=== PATIENT | female | born 1950 | race Caucasian/White ===

== ENCOUNTER → 2017-04-29 | Outpatient (CLI) | payer OTHER ==
[~2017-04-29] MED LIST: ACET325T96 PO; ALBUAER2 INH; ALL180 PO; ATOR-26 PO; CLB/200 PO; FLUT1INH INH; FURO-85 PO; ISOS60TA25 PO; LORA-741 PO; LSN20 PO; METF500T5 PO; METO100T44 PO; MONT1TAB5 PO; MULT-671 PO; NTRGSL/4 UT; OXYB10TA PO; PARO1TAB27 PO; POLY335019 PO; WARF4TAB PO; WARF6TAB PO
--- NOTE | 2017-04-29 13:10 | DIAGNOSTIC IMAGING REPORT ---
SI JOINTS 3 OR MORE VIEWS CLINICAL HISTORY: 67 years-old Female presenting with LUMBAGO,SACROLIITIS,LEG LENGTH DISCREPANCY. TECHNIQUE: Frontal and bilateral oblique views of the sacroiliac joints were obtained. COMPARISON: None. FINDINGS: Partial visualization of posterior lumbar fusion hardware to the level of S1. Sacroiliac joints with degenerative change, right greater than left. No evidence of erosions or osseous fusion. Oblique visualization of the left sacral leg joint is limited. Arcuate lines grossly intact. IMPRESSION: 1. Posterior lumbar fusion hardware. 2. Degenerative changes of the sacroiliac joints, right greater than left. Electronically signed by: Vimal Buckley M.D. 04/29/2017 1:09 PM Dictated Date/Time: 04/29/2017 1:08 PM
--- NOTE | 2017-04-29 13:13 | DIAGNOSTIC IMAGING REPORT ---
LEG LENGTH STUDY (WHOLE LEG) CLINICAL HISTORY: 67 years-old Female presenting with LEG LENGTH DISCREPANCY, ongoing back pain for years. TECHNIQUE: Frontal view of the bilateral lower extremities in standing position was obtained. COMPARISON: None. FINDINGS: Evidence of bilateral total knee arthroplasty. Degenerative changes of the right hip joint suspected with loss of joint space superiorly. Grossly normal appearance of the left hip joint. Right lower limb: Femur length: 47.4 cm Tibia length: 40.7 cm Total length: 88.1 cm Left lower limb: Femur length: 49.7 cm Tibia length: 39.6 cm Total length: 89.3 cm IMPRESSION: 1. 1.2 cm of leg length discrepancy, left longer than right. 2. Degenerative changes of the right hip joint suspected with joint space loss superiorly. 3. Postsurgical changes of bilateral total knee arthroplasty Electronically signed by: Vimal Buckley M.D. 04/29/2017 1:12 PM Dictated Date/Time: 04/29/2017 1:09 PM
== END | disposition home or self-care (01) ==
LOC: C.RADBC 11:50
PROVIDERS: ATTEND Physician Assistant
DX: M21.751 Unequal limb length (acquired), right femur (principal); M54.5 Low back pain; M46.1 Sacroiliitis, not elsewhere classified; Z96.653 Presence of artificial knee joint, bilateral; Z98.1 Arthrodesis status

== ENCOUNTER 2018-11-01 12:51 | Inpatient (IN) ==
[2018-11-01] MEDS ORDERED: PIPERACILL/TAZOBAC CONSULT ACTIVE PRN ×2 (13:44→17:40)
[2018-11-01] MEDS ORDERED: PIPERACILLIN/TAZOBACTAM 4.5 GM/120 ML BAG IV ONE (13:44)
[2018-11-01 13:53] LABS: Basophils # (auto) 0.02 K/uL (0-0.2); Basophils % (auto) 0.2 %; Eosinophils # (auto) 0.01 K/uL (0-0.5); Eosinophils % (auto) 0.1 %; Hematocrit (blood only) 35.5 % (37-47); Hemoglobin 11.7 g/dL (12.0-16.0); Immature Granulocytes # (auto) 0.06 K/uL (0.00-0.02); Immature Granulocytes % (auto) 0.6 %; Lymphocytes # (auto) 0.65 K/uL (1.2-3.4); Lymphocytes % (auto) 6.3 %; Mean Corpuscular Hemoglobin 32.9 pg (25-34); Mean Corpuscular Volume 99.7 fL (80-100); Mean Platelet Volume 11.3 fL (7.4-10.4); Monocytes # (auto) 0.52 K/uL (0.11-0.59); Neutrophils # (auto) 9.11 K/uL (1.4-6.5); Neutrophils % (auto) 87.8 %; Platelet Count 178 K/uL (130-400); RDW Coefficient of Variation 15.2 % (11.5-14.5); RDW Standard Deviation 55.7 fL (36.4-46.3); Red Blood Count 3.56 M/uL (4.2-5.4); White Blood Count 10.37 K/uL (4.8-10.8)
[2018-11-01 14:03] LABS: Albumin Level 1.7 gm/dl (3.4-5.0); BUN Creatinine Ratio 19.4 (10-20); Calcium 7.6 mg/dl (8.5-10.1); Creatinine Clr Calc Pharmacy 61.5 ml/min; Est GFR (African American) 59.7; Est GFR (Non-African American) 51.5; INR 1.7 (0.9-1.1); Partial Thromboplastin Ratio 1.1; Partial Thromboplastin Time 29.3 Seconds (21.0-31.0); Potassium 3.7 mmol/L (3.5-5.1); Prothrombin Time 17.2 Seconds (9.0-12.0)
[2018-11-01 14:08] LABS: Albumin Globulin Ratio 0.5 (0.9-2); Bilirubin,Total 0.8 mg/dl (0.2-1); Globulin 3.7 gm/dl (2.5-4.0); Total Protein 5.4 gm/dl (6.4-8.2); Troponin I 0.02 ng/ml (0-0.045)
[2018-11-01 14:52] LABS: Appearance Urine Clear (Clear); Bacteria Urine Automated Negative (Negative); Bilirubin Urine Negative (Negative); Blood Urine Negative (Negative); Color Urine Orange; Glucose Urine UA Negative (Negative); Ketones Urine Trace (Negative); Leukocyte Esterase Urine Trace (Negative); Nitrite Urine Positive (Negative); Protein Urine Negative (Negative); Specific Gravity Urine 1.023 (1.000-1.030); Urobilinogen Urine Negative (Negative)
[2018-11-01] MEDS ORDERED: SODIUM CHLORIDE 0.9% 500 ML IV ONE (15:04)
--- NOTE | 2018-11-01 15:09 | CT Scan Report ---
HEAD CT NONCONTRAST CT DOSE: 537.48 mGy.cm HISTORY: weakness TECHNIQUE: Multiaxial CT images of the head were performed without the use of intravenous contrast. A utomated exposure control was utilized for this study. A dose lowering technique was utilized adheri ng to the principles of ALARA. Comparison: None. Findings: The paranasal sinuses and mastoid air cells are clear. The calvarium and skull base are int act. There is no mass, hematoma, midline shift, acute infarct. White matter hypodensity is nonspecifi c but suggestive of microvascular ischemic change. The ventricles and sulci demonstrate mild age-rela jazmin involutional changes. Impression: No acute intracranial abnormality. Atrophy and microvascular ischemic changes. Electronically signed by: Omar Willis M.D. 11/01/2018 3:08 PM
[2018-11-01] MEDS ORDERED: SODIUM CHLORIDE 0.9% 1000ML 1,000 ML IV SCH (15:15)
--- NOTE | 2018-11-01 15:15 | XRay Report ---
XR chest 1V portable CLINICAL HISTORY: fever COMPARISON STUDY: Chest radiograph March 04, 2018. FINDINGS: Lung volumes are normal. Lungs are clear. There is no pneumothorax or pleural effusion. Car diac size is normal. Mediastinal contours are normal. There is no evidence for pulmonary edema. IMPRESSION: No acute cardiopulmonary findings. Electronically signed by: Alan Gauthier M.D. 11/01/2018 3:14 PM
[2018-11-01] MEDS ORDERED: ACETAMINOPHEN 500 MG TAB PO STA (15:17)
--- NOTE | 2018-11-01 16:07 | Emergency Department Note ---
Entered by Korina Sharma acting as a scribe for History of Present Illness General Chief complaint: Illness Source: patient History of Present Illness Provider complaint: Illness Onset (ago): day(s) 1 Location: back and abdomen Pain Consistency: + constant Maximum Pain Intensity: 5 Quality: + constant Associated symptoms: + other (Positive: abdominal pain, back pain, lower extremity weakness, diarrhea, yellow stool) The patient is a 68 year old female who presents to the ED with complaints of constant illness that started yesterday. The patient reports she could not get out of the chair or walk yesterday. She notes she has severe abdominal and back pain. The patient states she has been having diarrhea for 3 months. She notes her stool looks yellow. The patient reports she goes to the wound center every Thursday. Home Medications Home Medications Medication Instructions Recorded Confirmed Type albuterol sulfate 1 puff INHALATION DAILY PRN 03/04/18 11/01/18 History fexofenadine-pseudoephedrine 1 tab PO DAILY PRN 03/04/18 11/01/18 History [Cassy-D 12 Hour] fluticasone furoate-vilanterol 1 inh INHALATION HS 03/04/18 11/01/18 History [Breo Ellipta] fluticasone propion-salmeterol 1 inh INHALATION Q12H 03/04/18 11/01/18 History [Advair Diskus] fluticasone propionate [Flonase 1 spray INTRANASAL QAM 03/04/18 11/01/18 History Allergy Relief] lorazepam 0.5 mg PO BID 03/04/18 11/01/18 History metoprolol tartrate [Lopressor] 50 mg PO BID 03/04/18 11/01/18 History montelukast [Singulair] 10 mg PO HS 03/04/18 11/01/18 History nitroglycerin 0.4 mg SUBLINGUAL DIRECTED PRN 03/04/18 11/01/18 History omeprazole magnesium [Prilosec OTC] 20 mg PO QAM 03/04/18 11/01/18 History paroxetine HCl [Paxil] 30 mg PO QAM 03/04/18 11/01/18 History polyethylene glycol 3350 [Miralax] 1 dose PO DAILY PRN 03/04/18 11/01/18 History bismuth subsalicylate [Kaopectate 524 mg PO QID PRN 11/01/18 11/01/18 History (bismuth subsalicy)] buspirone 10 mg PO TID PRN 11/01/18 11/01/18 History cyanocobalamin (vitamin B-12) 1,000 mcg SUBCUT 2XWK 11/01/18 11/01/18 History cyanocobalamin (vitamin B-12) 2,500 mcg SUBLINGUAL QAM 11/01/18 11/01/18 History [Vitamin B-12] torsemide 20 - 40 mg PO QAM 11/01/18 11/01/18 History warfarin 0.5 mg PO HS 11/01/18 11/01/18 History Allergies Allergy/AdvReac Type Severity Reaction Status Date / Time gabapentin AdvReac Intermediate LOSS OF Verified 11/01/18 13:25 FEELING IN LOWER EXTREMITIES adhesive tape AdvReac Mild Rash Verified 11/01/18 13:25 shellfish derived AdvReac Mild GI SYMPTOMS Verified 11/01/18 13:25 Prep Swab Allergy Unknown "Get sick Uncoded 11/01/18 13:25 and throw up" Ham AdvReac Mild GI SYMPTOMS Uncoded 11/01/18 13:25 Past Med/Surg History Medical History Encounter for pre-operative examination Acquired hallux valgus of right foot (Acute) Acquired hammer toe of right foot (Acute) Bilateral swelling of feet (Acute) Callus (Acute) Diabetes mellitus with diabetic polyneuropathy (Acute) Hallux valgus (acquired), left foot (Acute) Hammertoe of left foot (Acute) Neuropathic ulcer of left heel (Acute) Anxiety CAD (coronary artery disease) COPD (chronic obstructive pulmonary disease) Cancer OVARIAN CANCER (DOLORES/NO RADIATION/NO CHEMO) Chronic back pain Colitis Deep vein thrombosis left leg/filter placed Diabetes mellitus, type 2 Diabetic foot ulcer Diabetic peripheral neuropathy associated with type 2 diabetes mellitus Family history of diabetes mellitus FATHER GERD (gastroesophageal reflux disease) Gout Lacey filter in place History of DVT (deep vein thrombosis) History of PR (myocardial infarction) History of diabetic ulcer of foot Hyperlipidemia Hypertension Myocardial Infarction 2009 and 2010 Osteoarthritis Peripheral neuropathy BLE Thrombophlebitis Urinary leakage Surgical History Fusion of spine LUMBAR History of PTCA History of adenoidectomy History of cardiac cath no stents History of colonoscopy History of gastric bypass History of hysterectomy History of hysterectomy History of lumbar spinal fusion History of tonsillectomy History of total knee replacement RT/LEFT Family History Other Family history non-contributory Social History Preferred Language: Bahamian Communication Ability: Effective 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 and A total of 10 systems reviewed and were otherwise negative Physical Exam Vital Signs Vital Signs - 24 hr 11/01/18 15:34 Pulse Rate [Apical] 98 H Respiratory Rate 18 Blood Pressure [Right Arm] 116/79 Blood Pressure Mean [Right Arm] 91 Pulse Oximetry 97 Oxygen Delivery Method Room Air Vital signs reviewed. General: Chronically ill-appearing, elderly obese female, in no significant distress. HEENT: No scleral icterus, PERRLA, neck supple. Atraumatic. Pale conjunctiva. Dry mucous membranes. Cardiovascular: Regular rate and rhythm, no extra sounds. Pulmonary: Clear to auscultation bilaterally, normal work of breathing. Abdomen: Soft, nontender, nondistended, positive bowel sounds. Rectal: Guaiac positive. Light brown to white. Musculoskeletal: Atraumatic, no peripheral edema. Extremities: Significant lipidemia to bilateral lower extremities with secondary ulceration to right greater than left lower extremity. Mild venous stasis, skin change, serous drainage from the legs bilaterally. Neurologic: Patient awake alert and oriented x 3. Skin: Warm, dry, no rash Course 1329: The patient was evaluated in room C2B. A complete history and physical exam was performed. 1516: I discussed the patient's case with Dr. Herndon, [facility] Hospitalist. She will evaluate the patient for further management. Consultations Consultation #1: I discussed the patient's case with Dr. Herndon [facility] Hospitalist. She will evaluate the patient for further management. Time: 15:16 Administered Medications Acetaminophen (Tylenol) 650 mg PO Q4H PRN PRN Reason: Pain or Fever Stop: 12/01/18 17:39 Last Admin: 11/02/18 04:25 Dose: 650 mg Documented by: [id number] Buspirone HCl (Buspar) 10 mg PO TID PRN PRN Reason: Anxiety Stop: 12/01/18 17:39 Last Admin: 11/02/18 07:59 Dose: 10 mg Documented by: [id number] Fluticasone Propionate (Flonase) [facility] sprays [facility] Stop: 12/02/18 08:59 Last Admin: 11/02/18 08:00 Dose: 1 sprays Documented by: [id number] Heparin Sodium (Porcine) (Heparin Sodium (Porcine)) 5,000 units SQ Q8 ASHWINI Stop: 12/01/18 21:59 Last Admin: 11/02/18 14:08 Dose: 5,000 units Documented by: [id number] Cosigned by: [id number] Admin: 11/02/18 06:04 Dose: 5,000 units Documented by: [id number] Cosigned by: [id number] Admin: 11/01/18 21:32 Dose: 5,000 units Documented by: [id number] Cosigned by: [id number] Daptomycin 475 mg/ Syringe 9.5 mls @ 4.75 mls/min IV Q24H ASHWINI; Protocol Stop: 11/03/18 18:29 Last Admin: 11/01/18 18:34 Dose: 4.75 mls/min Documented by: [id number] Piperacillin Sod/Tazobactam (Sod 4.5 gm/ Dextrose) 120 mls @ 30 mls/hr IV Q8H ASHWINI; Protocol Stop: 11/03/18 19:59 Last Admin: 11/02/18 12:47 Dose: 30 mls/hr Documented by: [id number] Infusion: 11/02/18 08:30 Dose: 0 mls/hr Documented by: [id number] Admin: 11/02/18 04:25 Dose: 30 mls/hr Documented by: [id number] Infusion: 11/02/18 00:59 Dose: 0 mls/hr Documented by: [id number] Admin: 11/01/18 20:46 Dose: 30 mls/hr Documented by: [id number] Ioversol (Optiray 320 100ml) 94 ml IV ONCE PRN PRN Reason: Interaction Checking Stop: 11/05/18 17:49 Last Admin: 11/01/18 17:52 Dose: 94 ml Documented by: [id number] Lorazepam (Ativan) 0.5 mg PO BID ASHWINI Stop: 12/01/18 20:59 Last Admin: 11/02/18 08:02 Dose: 0.5 mg Documented by: [id number] Admin: 11/01/18 20:50 Dose: 0.5 mg Documented by: [id number] Metoprolol Tartrate (Lopressor) 50 mg PO BID ASHWINI Stop: 12/01/18 20:59 Last Admin: 11/02/18 07:58 Dose: Not Given Documented by: [id number] Admin: 11/01/18 20:50 Dose: 50 mg Documented by: [id number] Montelukast Sodium (Singulair) 10 mg PO HS [facility] Stop: 12/01/18 20:59 Last Admin: 11/01/18 20:50 Dose: 10 mg Documented by: [id number] Nystatin (Mycostatin) 1 appln EXT PRN PRN PRN Reason: AFFECTED AREA(S) Stop: 12/02/18 02:01 Last Admin: 11/02/18 07:58 Dose: 1 appln Documented by: [id number] Pantoprazole Sodium (Protonix) 40 mg PO QAM [facility] Stop: 12/02/18 08:59 Last Admin: 11/02/18 08:00 Dose: 40 mg Documented by: [id number] Paroxetine HCl (Paxil) 30 mg PO QAM [facility] Stop: 12/02/18 08:59 Last Admin: 11/02/18 07:59 Dose: 30 mg Documented by: [id number] Fluticasone/Salmeterol (Advair Diskus 250/50) 1 puffs INH Q12 ASHWINI Stop: 12/01/18 20:59 Last Admin: 11/02/18 07:58 Dose: 1 puffs Documented by: [id number] Admin: 11/01/18 20:46 Dose: 1 puffs Documented by: [id number] Discontinued Medications Acetaminophen (Tylenol) 1,000 mg PO NOW STA Stop: 11/01/18 15:18 Last Admin: 11/01/18 15:31 Dose: 1,000 mg Documented by: [id number] Piperacillin Sod/Tazobactam Sod (Zosyn) 4.5 gm in 120 mls @ 240 mls/hr IV NOW ONE Stop: 11/01/18 14:13 Last Infusion: 11/01/18 15:37 Dose: 0 mls/hr Documented by: [id number] Admin: 11/01/18 14:39 Dose: 240 mls/hr Documented by: [id number] Sodium Chloride (Nss) 500 mls @ 999 mls/hr IV .Q31M ONE Stop: 11/01/18 15:34 Last Infusion: 11/01/18 16:29 Dose: 0 mls/hr Documented by: [id number] Admin: 11/01/18 15:31 Dose: 999 mls/hr Documented by: [id number] Sodium Chloride (Nss 1000ml) 1,000 mls @ 200 mls/hr IV .Q5H ASHWINI Stop: 12/01/18 15:14 Last Infusion: 11/01/18 20:45 Dose: 0 mls/hr Documented by: [id number] Infusion: 11/01/18 18:39 Dose: 0 mls/hr Documented by: [id number] Admin: 11/01/18 15:32 Dose: 200 mls/hr Documented by: [id number] Potassium Chloride/Sodium Chloride (Normal Saline W/20 Meq Kcl) 20 meq in 1,000 mls @ 80 mls/hr IV .[id number] ASHWINI Stop: 12/01/18 18:29 Last Infusion: 11/02/18 08:55 Dose: 80 mls/hr Documented by: [id number] Infusion: 11/02/18 04:25 Dose: 0 mls/hr Documented by: [id number] Admin: 11/01/18 18:35 Dose: 80 mls/hr Documented by: [id number] Sodium Chloride (Nss 1000ml) 1,000 mls @ 999 mls/hr IV .Q1H1M ONE Stop: 11/01/18 19:14 Last Infusion: 11/01/18 20:29 Dose: 0 mls/hr Documented by: [id number] Admin: 11/01/18 18:29 Dose: 999 mls/hr Documented by: [id number] Medical Decision Making Differential Diagnosis Differential Diagnosis: Differential includes acute coronary syndrome, myocardial infarction, CVA, TIA, anemia, infection, pneumonia, UTI, pyelonephritis, poor nutrition, dehydration, electrolyte disturbance,hypoglycemia. Medical Records Attestation: I reviewed the patient's medical records. Home Medications Current Medication List: was personally reviewed by me Laboratory Data Attestation: I reviewed the patient's lab results. Result diagrams: 11/02/18 05:29 11/02/18 05:29 Lab Results 11/01/18 11/01/18 11/01/18 Range/Units 13:13 13:13 13:13 WBC 10.37 (4.8-10.8) K/uL RBC 3.56 L (4.2-5.4) M/uL Hgb 11.7 L (12.0-16.0) g/dL Hct 35.5 L (37-47) % MCV 99.7 (80-100) fL MCH 32.9 (25-34) pg MCHC 33.0 (32-36) g/dL RDW Std Deviation 55.7 H (36.4-46.3) fL RDW Coeff of Krista 15.2 H (11.5-14.5) % Plt Count 178 (130-400) K/uL MPV 11.3 H (7.4-10.4) fL Immature Gran % (Auto) 0.6 % Neut % (Auto) 87.8 % Lymph % (Auto) 6.3 % Davis % (Auto) 5.0 % Eos % (Auto) 0.1 % Baso % (Auto) 0.2 % Immature Gran # (Auto) 0.06 H (0.00-0.02) K/uL Neut # (Auto) 9.11 H (1.4-6.5) K/uL Lymph # (Auto) 0.65 L (1.2-3.4) K/uL Davis # (Auto) 0.52 (0.11-0.59) K/uL Eos # (Auto) 0.01 (0-0.5) K/uL Baso # (Auto) 0.02 (0-0.2) K/uL PT 17.2 H (9.0-12.0) Seconds INR 1.7 H (0.9-1.1) APTT 29.3 (21.0-31.0) Seconds PTT Ratio 1.1 Sodium 142 (136-145) mmol/L Potassium 3.7 (3.5-5.1) mmol/L Chloride 110 H (98-107) mmol/L Carbon Dioxide 22 (21-32) mmol/L Anion Gap 10.0 (3-11) BUN 21 H (7-18) mg/dl Creatinine 1.10 (0.6-1.2) mg/dl Est Cr Clr Drug Dosing 61.5 ml/min Est GFR ( Amer) 59.7 Est GFR (Non-Af Amer) 51.5 BUN/Creatinine Ratio 19.4 (10-20) Glucose 81 (70-99) mg/dl Lactate (0.4-2.0) mmol/L Calcium 7.6 L (8.5-10.1) mg/dl Total Bilirubin 0.8 (0.2-1) mg/dl AST 36 (15-37) U/L ALT 26 (12-78) U/L Alkaline Phosphatase 133 H (45-117) U/L Troponin I 0.020 (0-0.045) ng/ml Total Protein 5.4 L (6.4-8.2) gm/dl Albumin 1.7 L (3.4-5.0) gm/dl Globulin 3.7 (2.5-4.0) gm/dl Albumin/Globulin Ratio 0.5 L (0.9-2) Urine Color Urine Appearance (Clear) Urine pH (4.5-7.5) Ur Specific Penelope (1.000-1.030) Urine Protein (Negative) Urine Glucose (UA) (Negative) Urine Ketones (Negative) Urine Blood (Negative) Urine Nitrite (Negative) Urine Bilirubin (Negative) Urine Urobilinogen (Negative) Ur Leukocyte Esterase (Negative) Urine WBC (Auto) (0-5) /hpf Urine RBC (Auto) (0-4) /hpf U Hyaline Cast (Auto) (0-5) /lpf U Epithel Cells (Auto) (0-5) /lpf Urine Bacteria (Auto) (Negative) 11/01/18 11/01/18 Range/Units 14:23 14:35 WBC (4.8-10.8) K/uL RBC (4.2-5.4) M/uL Hgb (12.0-16.0) g/dL Hct (37-47) % MCV (80-100) fL MCH (25-34) pg MCHC (32-36) g/dL RDW Std Deviation (36.4-46.3) fL RDW Coeff of Krista (11.5-14.5) % Plt Count (130-400) K/uL MPV (7.4-10.4) fL Immature Gran % (Auto) % Neut % (Auto) % Lymph % (Auto) % Davis % (Auto) % Eos % (Auto) % Baso % (Auto) % Immature Gran # (Auto) (0.00-0.02) K/uL Neut # (Auto) (1.4-6.5) K/uL Lymph # (Auto) (1.2-3.4) K/uL Davis # (Auto) (0.11-0.59) K/uL Eos # (Auto) (0-0.5) K/uL Baso # (Auto) (0-0.2) K/uL PT (9.0-12.0) Seconds INR (0.9-1.1) APTT (21.0-31.0) Seconds PTT Ratio Sodium (136-145) mmol/L Potassium (3.5-5.1) mmol/L Chloride (98-107) mmol/L Carbon Dioxide (21-32) mmol/L Anion Gap (3-11) BUN (7-18) mg/dl Creatinine (0.6-1.2) mg/dl Est Cr Clr Drug Dosing ml/min Est GFR ( Amer) Est GFR (Non-Af Amer) BUN/Creatinine Ratio (10-20) Glucose (70-99) mg/dl Lactate 5.1 H* (0.4-2.0) mmol/L Calcium (8.5-10.1) mg/dl Total Bilirubin (0.2-1) mg/dl AST (15-37) U/L ALT (12-78) U/L Alkaline Phosphatase (45-117) U/L Troponin I (0-0.045) ng/ml Total Protein (6.4-8.2) gm/dl Albumin (3.4-5.0) gm/dl Globulin (2.5-4.0) gm/dl Albumin/Globulin Ratio (0.9-2) Urine Color [place] Urine Appearance Clear (Clear) Urine pH 5.0 (4.5-7.5) Ur Specific Penelope 1.023 (1.000-1.030) Urine Protein Negative (Negative) Urine Glucose (UA) Negative (Negative) Urine Ketones Trace H (Negative) Urine Blood Negative (Negative) Urine Nitrite Positive A (Negative) Urine Bilirubin Negative (Negative) Urine Urobilinogen Negative (Negative) Ur Leukocyte Esterase Trace H (Negative) Urine WBC (Auto) 1-5 (0-5) /hpf Urine RBC (Auto) 5-10 H (0-4) /hpf U Hyaline Cast (Auto) 10-30 H (0-5) /lpf U Epithel Cells (Auto) 10-20 H (0-5) /lpf Urine Bacteria (Auto) Negative (Negative) Imaging Data Radiologist's Impression: Radiology results as stated below per my review and the radiologist's interpretation: HEAD CT NONCONTRAST CT DOSE: 537.48 mGy.cm HISTORY: weakness TECHNIQUE: Multiaxial CT images of the head were performed without the use of intravenous contrast. Automated exposure control was utilized for this study. A dose lowering technique was utilized adhering to the principles of ALARA. Comparison: None. Findings: The paranasal sinuses and mastoid air cells are clear. The calvarium and skull base are intact. There is no mass, hematoma, midline shift, acute infa rct. White matter hypodensity is nonspecific but suggestive of microvascular ischemic change. The ventricles and sulci demonstrate mild age-related involutional changes. Impression: No acute intracranial abnormality. Atrophy and microvascular ischemic changes. Electronically signed by: Omar Willis M.D. 11/01/2018 3:08 PM XR chest 1V portable CLINICAL HISTORY: fever COMPARISON STUDY: Chest radiograph March 04, 2018. FINDINGS: Lung volumes are normal. Lungs are clear. There is no pneumothorax or pleural effusion. Cardiac size is normal. Mediastinal contours are normal. There is no evidence for pulmonary edema. IMPRESSION: No acute cardiopulmonary findings. Electronically signed by: Alan Gauthier M.D. 11/01/2018 3:14 PM ECG Data Attestation: I personally reviewed and interpreted this ECG as follows: Indication: tachycardia and weakness Rate (beats per minute): 101 Rhythm: atrial fibrillation (with RVR) Findings: + other (Low voltage. QTC 401. T wave flattening in inferior and lateral leads ) Comparison ECG Date: from (03/04/18) Change: the following changes noted (Atrial fibrillation has replaced sinus rhythm ) Blood Pressure Blood Pressure Findings: Normal blood pressure Blood Pressure Disposition: did not require urgent referral MDM Narrative This patient was evaluated and appeared to be in no significant distress. Vital signs reveal a borderline hypotension. Laboratory work reveals a normal WBC but markedly elevated lactic acid at 5.1. Patient's INR is 1.7 and hemoglobin is 11.7. Patient is stool guaiac positive although a white/brown soft stools. EKG reveals an atrial fibrillation slight RVR. Patient was medicated with IV Zosyn for the lower extremity cellulitis. Patient's records from the wound care clinic were reviewed. She has grown methicillin sensitive staph each time. IV hydration was continued. Repeat lactate was ordered. Patient's case was di scussed with the hospitalist service, Dr. Robertson who will evaluate the patient for further management. Impression & Plan Cellulitis of lower extremity, Lactic acidosis, Atrial fibrillation, Fever Discharge Plan Visit Data *Final* Discharge Date/Time: 11/01/18 17:11 Chief Complaint: Illness ED Provider: Mishel Schneider Discharge Problem: Cellulitis of lower extremity, Lactic acidosis, Atrial fibrillation, Fever Patient Disposition: Admitted As Inpatient Discharge Instructions Interventions: ED Discharge Assessment Last Done: 11/01/18 17:11 The scribe's documentation has been prepared under my direction and personally reviewed by me in its entirety. I confirm that the note above accurately reflects all work, treatment, procedures, and medical decision making performed by me.
--- NOTE | 2018-11-01 16:25 | History & Physical Report ---
Date of Service November 01, 2018 Assessment & Plan (1) Cellulitis of lower extremity: left leg slightly more erythematous, more warm than right will cover with Zosyn and Daptomycin has left shift on CBC, repeat tomorrow (2) Lactic acidosis: unclear etiology, no hypotension, no clear signs of sepsis or bad infection repeat after admission, down slightly to 4.5 from 5.1 NSS at 80cc/hr, had a BP in the 90's systolic, resolved with 1000cc bolus admit to tele check CT abdomen/pelvis and lumbar spine due to complaints of back pain and abdominal pain no infectious or inflammatory changes seen, just chronic changes and post operative changes cover empirically with Zosyn and Daptomycin await blood culture results (3) Chronic acquired lymphedema: was following with lymphedema clinic and getting wraps until she developed wounds (4) Venous stasis ulcers of both lower extremities: follows with wound clinic just saw Darby Li on Sunday 10/29 will consult wound care to see while here some concerns for possible cellulitis (5) Pressure ulcer, heel, left, unstageable: again follows with wound clinic will consult them (6) Back pain: acute onset, has history of lumbar spine surgery no clear etiology seen on CT lumbar spine pain control, PT/OT (7) Atrial fibrillation: paroxysmal continue Metoprolol, rates are controlled continue Coumadin, INR sub therapeutic (8) Depression: continue Paxil (9) Dyslipidemia: (10) Hypertension: (11) Obesity: (12) H/O deep venous thrombosis: has Lacey filter in place continue Coumadin use Heparin SQ while INR subtherapeutic History of Present Illness Chief Complaint: my back hurts Primary Care Provider: NO PCP 68 yo female with history of morbid obesity, DM type II, CAD with h/o AK, s/p gastric sleeve last year, acquired lymphedema with peripheral wounds, presents to the ED today c/o back pain and weakness in legs that started yesterday afternoon. The patient admits to a history of lumbar spine issues, had a decompression and fusion 15 years ago. However, she typically does not have back pain. She said that she was sitting down when she first noticed the pain, it was in the center of lower back, radiated bilaterally into the buttocks and the legs. Goes down as far as the calf on both sides. She also noted that she was having difficulty moving her legs. At baseline her legs are quite large and edematous and she admits that she cannot move them very well even at her best. She uses a walker when ambulating and gets around very slowly. She denies any urinary retention or incontinence. She admits to three days of loose stools but not severe. She had some nausea and low grade fever, poor appetite today. No rashes other than chronic wounds in legs. She denies any falls or trauma that could have lead to the back pain. No loss of sensation in legs or buttocks region. In the ED her temperature was 37.7 and vitals were stable, no hypoxia. WBC was normal but she did have a left shift with 87% neutrophils. UA via straight cath was negative for WBC, no signs of infection. CXR was without infiltrate. Cr and electrolytes were normal. Lactic acid noted to be elevated at 5.1. CT head was normal. She was given 1L of NSS and Zosyn ordered. Asked to be evaluated for admission due to the lactic acid elevation. Allergies Allergy/AdvReac Type Severity Reaction Status Date / Time gabapentin AdvReac Intermediate LOSS OF Verified 11/01/18 13:25 FEELING IN LOWER EXTREMITIES adhesive tape AdvReac Mild Rash Verified 11/01/18 13:25 shellfish derived AdvReac Mild GI SYMPTOMS Verified 11/01/18 13:25 Prep Swab Allergy Unknown "Get sick Uncoded 11/01/18 13:25 and throw up" Ham AdvReac Mild GI SYMPTOMS Uncoded 11/01/18 13:25 Home Medications Home Medications Medication Instructions Recorded Confirmed Type albuterol sulfate 1 puff INHALATION DAILY PRN 03/04/18 11/01/18 History fexofenadine-pseudoephedrine 1 tab PO DAILY PRN 03/04/18 11/01/18 History [Cassy-D 12 Hour] fluticasone furoate-vilanterol 1 inh INHALATION HS 03/04/18 11/01/18 History [Breo Ellipta] fluticasone propion-salmeterol 1 inh INHALATION Q12H 03/04/18 11/01/18 History [Advair Diskus] fluticasone propionate [Flonase 1 spray INTRANASAL QAM 03/04/18 11/01/18 History Allergy Relief] lorazepam 0.5 mg PO BID 03/04/18 11/01/18 History metoprolol tartrate [Lopressor] 50 mg PO BID 03/04/18 11/01/18 History montelukast [Singulair] 10 mg PO HS 03/04/18 11/01/18 History nitroglycerin 0.4 mg SUBLINGUAL DIRECTED PRN 03/04/18 11/01/18 History omeprazole magnesium [Prilosec OTC] 20 mg PO QAM 03/04/18 11/01/18 History paroxetine HCl [Paxil] 30 mg PO QAM 03/04/18 11/01/18 History polyethylene glycol 3350 [Miralax] 1 dose PO DAILY PRN 03/04/18 11/01/18 History bismuth subsalicylate [Kaopectate 524 mg PO QID PRN 11/01/18 11/01/18 History (bismuth subsalicy)] buspirone 10 mg PO TID PRN 11/01/18 11/01/18 History cyanocobalamin (vitamin B-12) 1,000 mcg SUBCUT 2XWK 11/01/18 11/01/18 History cyanocobalamin (vitamin B-12) 2,500 mcg SUBLINGUAL QAM 11/01/18 11/01/18 History [Vitamin B-12] torsemide 20 - 40 mg PO QAM 11/01/18 11/01/18 History warfarin 0.5 mg PO HS 11/01/18 11/01/18 History Past Med/Surg History Medical History Encounter for pre-operative examination Acquired hallux valgus of right foot (Acute) Acquired hammer toe of right foot (Acute) Bilateral swelling of feet (Acute) Callus (Acute) Diabetes mellitus with diabetic polyneuropathy (Acute) Hallux valgus (acquired), left foot (Acute) Hammertoe of left foot (Acute) Neuropathic ulcer of left heel (Acute) Anxiety CAD (coronary artery disease) COPD (chronic obstructive pulmonary disease) Cancer OVARIAN CANCER (DOLORES/NO RADIATION/NO CHEMO) Chronic back pain Colitis Deep vein thrombosis left leg/filter placed Diabetes mellitus, type 2 Diabetic foot ulcer Diabetic peripheral neuropathy associated with type 2 diabetes mellitus Family history of diabetes mellitus FATHER GERD (gastroesophageal reflux disease) Gout [place] filter in place History of DVT (deep vein thrombosis) History of AK (myocardial infarction) History of diabetic ulcer of foot Hyperlipidemia Hypertension Myocardial Infarction 2009 and 2010 Osteoarthritis Peripheral neuropathy BLE Thrombophlebitis Urinary leakage Surgical History Fusion of spine LUMBAR History of PTCA History of adenoidectomy History of cardiac cath no stents History of colonoscopy History of gastric bypass History of hysterectomy History of hysterectomy History of lumbar spinal fusion History of tonsillectomy History of total knee replacement RT/LEFT Family History Other Family history non-contributory Social History Preferred Language: Bangladeshi Communication Ability: Effective Ladler Required: No Beliefs That Will Affect Care: None marital status: Current Living Situation: Spouse Other Information That Helps Us Care for You: No Feels Safe at Home: Yes Safety Concerns: Feels Safe At This Time Smoking Status: Never smoker Second Hand Exposure: No ; Hx Alcohol Use: No Hx Substance Use: No Review of Systems Review of Systems: All systems reviewed & are unremarkable except as noted in HPI & below Constitutional: + fever; no chills, no sweats, no fatigue and no weakness Respiratory: no cough and no dyspnea Cardiovascular: + edema; no chest pain and no palpitations Gastrointestinal: + abdominal pain (lower, mild), + early satiety, + nausea and + diarrhea/loose stools; no bloating, no vomiting, no constipation and no blood in stools Musculoskeletal: + back pain (severe, sudden onset), + radicular pain (pain into both legs, to calves), + swelling (legs bilaterally), + limited range of motion (legs, due to weakness and pain) and + muscle weakness Hematologic / Lymphatic: + lymphadenopathy (lymphedema bilaterally in legs) Physical Exam Constitutional: WD/WN, vitals as above + morbidly obese Eyes: PERRL, conjunctivae normal, anicteric sclerae ENMT: external ear and nose normal, oropharynx normal Neck: trachea midline, no thyromegaly Respiratory: normal respiratory effort, lungs clear to auscultation Cardiovascular: RRR, no murmur, no edema Gastrointestinal (Abdomen): Inspection/Auscultation: abdomen normal to inspection and normal bowel sounds; abdomen not distended Percussion/Palpation: + abdomen tender (minimally, diffuse), abdomen soft and + abdominal mass; no guarding and abdomen not rigid Musculoskeletal: Head/Neck/Chest: normocephalic and head atraumatic Spine: + limited thoraco-lumbar ROM (due to pain) and + lumbar spinal tenderness Extremities: + limited ROM of extremities (cannot lift legs off bed) and + abnormal strength; + extremities abnormal to inspection (lymphedema, wounds, erythema) Skin: + wound (left heel, anterior shins bilaterally) and + erythema (distal legs bilaterally) Neurologic: patellar DTR's 2+ bilat, sensation intact and PERRL, EOMI, accommodation nl, no face palsy, no dysarthria Psychiatric: A+Ox3, euthymic affect Lymphatic: + lymphedema (bilateral legs) Results & Data Vital Signs (Past 12 Hours) Vital Signs Temp Pulse Pulse Resp BP BP Pulse Ox 11/01/18 15:34 98 H 18 116/79 97 11/01/18 13:37 101 H 22 118/76 97 11/01/18 13:14 95 11/01/18 13:08 37.7 C H 103 H 22 132/64 98 Laboratory Results Laboratory Results - last 24 hr 11/01/18 11/01/18 11/01/18 13:13 13:13 13:13 WBC 10.37 RBC 3.56 L Hgb 11.7 L Hct 35.5 L MCV 99.7 MCH 32.9 MCHC 33.0 RDW Std Deviation 55.7 H RDW Coeff of Krista 15.2 H Plt Count 178 MPV 11.3 H Immature Gran % (Auto) 0.6 Neut % (Auto) 87.8 Lymph % (Auto) 6.3 Rice % (Auto) 5.0 Eos % (Auto) 0.1 Baso % (Auto) 0.2 Immature Gran # (Auto) 0.06 H Neut # (Auto) 9.11 H Lymph # (Auto) 0.65 L Rice # (Auto) 0.52 Eos # (Auto) 0.01 Baso # (Auto) 0.02 PT 17.2 H INR 1.7 H APTT 29.3 PTT Ratio 1.1 Sodium 142 Potassium 3.7 Chloride 110 H Carbon Dioxide 22 Anion Gap 10.0 BUN 21 H Creatinine 1.10 Est Cr Clr Drug Dosing 61.5 Est GFR ( Amer) 59.7 Est GFR (Non-Af Amer) 51.5 BUN/Creatinine Ratio 19.4 Glucose 81 POC Glucose Lactate Calcium 7.6 L Total Bilirubin 0.8 AST 36 ALT 26 Alkaline Phosphatase 133 H Troponin I 0.020 Total Protein 5.4 L Albumin 1.7 L Globulin 3.7 Albumin/Globulin Ratio 0.5 L Urine Color Urine Appearance Urine pH Ur Specific [place] Urine Protein Urine Glucose (UA) Urine Ketones Urine Blood Urine Nitrite Urine Bilirubin Urine Urobilinogen Ur Leukocyte Esterase Urine WBC (Auto) Urine RBC (Auto) U Hyaline Cast (Auto) U Epithel Cells (Auto) Urine Bacteria (Auto) 11/01/18 11/01/18 11/01/18 14:23 14:35 18:21 WBC RBC Hgb Hct MCV MCH MCHC RDW Std Deviation RDW Coeff of Krista Plt Count MPV Immature Gran % (Auto) Neut % (Auto) Lymph % (Auto) Rice % (Auto) Eos % (Auto) Baso % (Auto) Immature Gran # (Auto) Neut # (Auto) Lymph # (Auto) Rice # (Auto) Eos # (Auto) Baso # (Auto) PT INR APTT PTT Ratio Sodium Potassium Chloride Carbon Dioxide Anion Gap BUN Creatinine Est Cr Clr Drug Dosing Est GFR ( Amer) Est GFR (Non-Af Amer) BUN/Creatinine Ratio Glucose POC Glucose Lactate 5.1 H* 4.5 H* Calcium Total Bilirubin AST ALT Alkaline Phosphatase Troponin I Total Protein Albumin Globulin Albumin/Globulin Ratio Urine Color [place] Urine Appearance Clear Urine pH 5.0 Ur Specific [place] 1.023 Urine Protein Negative Urine Glucose (UA) Negative Urine Ketones Trace H Urine Blood Negative Urine Nitrite Positive A Urine Bilirubin Negative Urine Urobilinogen Negative Ur Leukocyte Esterase Trace H Urine WBC (Auto) 1-5 Urine RBC (Auto) 5-10 H U Hyaline Cast (Auto) 10-30 H U Epithel Cells (Auto) 10-20 H Urine Bacteria (Auto) Negative 11/01/18 21:04 WBC RBC Hgb Hct MCV MCH MCHC RDW Std Deviation RDW Coeff of Krista Plt Count MPV Immature Gran % (Auto) Neut % (Auto) Lymph % (Auto) Rice % (Auto) Eos % (Auto) Baso % (Auto) Immature Gran # (Auto) Neut # (Auto) Lymph # (Auto) Rice # (Auto) Eos # (Auto) Baso # (Auto) PT INR APTT PTT Ratio Sodium Potassium Chloride Carbon Dioxide Anion Gap BUN Creatinine Est Cr Clr Drug Dosing Est GFR ( Amer) Est GFR (Non-Af Amer) BUN/Creatinine Ratio Glucose POC Glucose 90 Lactate Calcium Total Bilirubin AST ALT Alkaline Phosphatase Troponin I Total Protein Albumin Globulin Albumin/Globulin Ratio Urine Color Urine Appearance Urine pH Ur Specific [place] Urine Protein Urine Glucose (UA) Urine Ketones Urine Blood Urine Nitrite Urine Bilirubin Urine Urobilinogen Ur Leukocyte Esterase Urine WBC (Auto) Urine RBC (Auto) U Hyaline Cast (Auto) U Epithel Cells (Auto) Urine Bacteria (Auto) Diagnostic Findings CT lumbar spine w con IMPRESSION: 1. Demineralized appearance of the bones without acute fracture or subluxation identified. 2. Prior laminectomy with posterior interbody brianna and screw fusion at L3-S1 and discectomy changes at L3-L4 and L4-L5. No evidence of hardware complication. 3. Small right pleural effusion with anasarca. 4. Please see separately dictated CT abdomen and pelvis of same day for detailed discussion of the abdominal findings. CT ABDOMEN PELVIS WITH IV CONTRAST IMPRESSION: 1. No acute intra-abdominal or intrapelvic abnormality identified. 2. Fluid overload manifested by trace left and small right pleural effusions, diffuse mesenteric edema with anasarca. 3. No bowel obstruction or bowel wall thickening. 4. Postoperative changes from prior gastric bypass. Cholecystectomy and hysterectomy. 5. Hepatic steatosis. 6. Additional findings as above. XR chest 1V portable IMPRESSION: No acute cardiopulmonary findings. HEAD CT NONCONTRAST Impression: No acute intracranial abnormality. Atrophy and microvascular ischemic changes. Medications Administered Current Inpatient Medications Acetaminophen (Tylenol) 650 mg PO Q4H PRN PRN Reason: Pain or Fever Stop: 12/01/18 17:39 Buspirone HCl (Buspar) 10 mg PO TID PRN PRN Reason: Anxiety Stop: 12/01/18 17:39 Fluticasone Propionate (Flonase) 1 sprays NA QAM [facility] Stop: 12/02/18 08:59 Heparin Sodium (Porcine) (Heparin Sodium (Porcine)) 5,000 units SQ Q8 ASHWINI Stop: 12/01/18 21:59 Last Admin: 11/01/18 21:32 Dose: 5,000 units Documented by: Potassium Chloride/Sodium Chloride (Normal Saline W/20 Meq Kcl) 20 meq in 1,000 mls @ 80 mls/hr IV .[id number] Stop: 12/01/18 18:29 Last Admin: 11/01/18 18:35 Dose: 80 mls/hr Documented by: Daptomycin 475 mg/ Syringe 9.5 mls @ 4.75 mls/min IV Q24H [facility]; Protocol Stop: 11/03/18 18:29 Last Admin: 11/01/18 18:34 Dose: 4.75 mls/min Documented by: Piperacillin Sod/Tazobactam (Sod 4.5 gm/ Dextrose) 120 mls @ 30 mls/hr IV Q8H [facility]; Protocol Stop: 11/03/18 19:59 Last Admin: 11/01/18 20:46 Dose: 30 mls/hr Documented by: Ioversol (Optiray 320 100ml) 94 ml IV ONCE PRN PRN Reason: Interaction Checking Stop: 11/05/18 17:49 Last Admin: 11/01/18 17:52 Dose: 94 ml Documented by: Lorazepam (Ativan) 0.5 mg PO BID [facility] Stop: 12/01/18 20:59 Last Admin: 11/01/18 20:50 Dose: 0.5 mg Documented by: Metoprolol Tartrate (Lopressor) 50 mg PO BID [facility] Stop: 12/01/18 20:59 Last Admin: 11/01/18 20:50 Dose: 50 mg Documented by: Miscellaneous Information (Consult) 1 ea N/A UD PRN PRN Reason: Consult Stop: 12/01/18 17:39 Montelukast Sodium (Singulair) 10 mg PO HS [facility] Stop: 12/01/18 20:59 Last Admin: 11/01/18 20:50 Dose: 10 mg Documented by: Ondansetron HCl (Zofran) 4 mg IV Q6H PRN PRN Reason: Nausea Stop: 12/01/18 17:39 Pantoprazole Sodium (Protonix) 40 mg PO QAM [facility] Stop: 12/02/18 08:59 Paroxetine HCl (Paxil) 30 mg PO QAM [facility] Stop: 12/02/18 08:59 Fluticasone/Salmeterol (Advair Diskus 250/50) 1 puffs INH Q12 [facility] Stop: 12/01/18 20:59 Last Admin: 11/01/18 20:46 Dose: 1 puffs Documented by: Code Status & VTE Plan Code Status DNR, discussed with patient with family present VTE Prophylaxis Plan VTE Prophylaxis will be ordered: Yes PG Care Time/CCT Total # of Minutes Spent Total Time Spent with Patient: Total time spent is greater than 50% in coordination of care (as documented) at patient's floor/unit and/or counseling patient:
[2018-11-01] MEDS ORDERED: ONDANSETRON INJ 2 MG/ML 2 ML VIAL IV PRN (17:40)
[2018-11-01] MEDS ORDERED: PIPERACILLIN/TAZOBACTAM 3.375 GM in DEXTROSE 5% 100 ML IV SCH (17:40)
[2018-11-01] MEDS ORDERED: IOVERSOL 100ml IV PRN (17:50)
[2018-11-01] MEDS ORDERED: SODIUM CHLORIDE 0.9% 1000ML 1,000 ML IV ONE (18:14)
--- NOTE | 2018-11-01 18:19 | CT Scan Report ---
CT lumbar spine w con HISTORY: 68 years-old Female Back pain, lactic acidosis acute low back pain COMPARISON: CT abdomen and pelvis of same day and also 03/04/2018 TECHNIQUE: Multiple axial CT images of the lumbar spine were obtained without the use of IV contrast. A dose lowering technique was used consistent with the principals of ALARA. FINDINGS: Laminectomy changes with posterior interbody brianna and screw fusion at L3-S1. Discectomy changes at L3- L4 and L4-L5. No evidence of hardware fracture or loosening. Demineralized appearance of the bones. T here is a few millimeters retrolisthesis L2 on L3, L1 on L2 and T12 on L1, likely secondary to long-s tanding facet arthrosis. Severe multilevel facet arthrosis with moderate spondylitic spurring and mod erate disc space narrowing. Mild dextroscoliosis. No acute fracture identified. The imaged sacrum and iliac bones also appear to be intact. Evaluation of the central canal and neuroforamina is better as sessed by MRI. Small right pleural effusion. Mesenteric edema with trace fluid noted about the depend ent pelvis. IVC filter. No aortic aneurysm identified. IMPRESSION: 1. Demineralized appearance of the bones without acute fracture or subluxation identified. 2. Prior laminectomy with posterior interbody brianna and screw fusion at L3-S1 and discectomy changes at L3-L4 and L4-L5. No evidence of hardware complication. 3. Small right pleural effusion with anasarca. 4. Please see separately dictated CT abdomen and pelvis of same day for detailed discussion of the ab dominal findings. The above report was generated using voice recognition software. It may contain grammatical, syntax o r spelling errors. Electronically signed by: Yann Torres M.D. 11/01/2018 6:18 PM
[2018-11-01] MEDS: DAPTOmycin 475 MG in SYRINGE 0 ML IV SCH (18:34)
[2018-11-01] MEDS: NSS + 20MEQ KCL 20 MEQ/1,000 ML BAG IV SCH (18:35)
--- NOTE | 2018-11-01 18:44 | CT Scan Report ---
ABDOMEN AND PELVIS CT WITH IV CONTRAST HISTORY: Acute generalized abdominal pain Abdominal pain, lactic acidosis TECHNIQUE: Multiaxial CT images of the abdomen and pelvis were performed following the use of intrave nous contrast. A dose lowering technique was utilized adhering to the principles of ALARA. COMPARISON STUDY: CT lumbar spine of same day, CT abdomen and pelvis 03/04/2018 FINDINGS: Trace left and small right pleural effusions. Dependent right basilar consolidation suggests compress kady atelectasis. No pneumatosis or pneumoperitoneum. The imaged inferior cardiac chambers are upper l imits of normal in size with coronary arterial and aortic annular calcifications noted. Hepatic steatosis. Cholecystectomy. No intrahepatic biliary ductal dilation. Spleen and adrenal gland s are unremarkable. Mild generalized pancreatic atrophy. Surgical coils are noted adjacent to the [place] creatic head and left hepatic lobe with streak artifact limiting evaluation of the adjacent structure s. Kidneys are unremarkable. Partial distention of the urinary bladder with wall thickening. Hysterec yuli. No adnexal mass lesions identified. Calcified plaque the abdominal aorta without aneurysm. Infr arenal IVC filter is noted. No definite adenopathy. Postoperative changes from gastric bypass. Small hiatal hernia. Diffuse mesenteric edema with trace f ree fluid about the dependent pelvis. No bowel obstruction or bowel wall thickening identified. The a ppendix is not diagnostically visualized. Diffuse extensive body wall edema. Demineralized appearance of the bones. Postoperative changes with degenerative changes of the spine redemonstrated. Severe os teoarthritis with chronic remodeling changes of the right femoral acetabular joint. Moderate left hip osteoarthritis. IMPRESSION: 1. No acute intra-abdominal or intrapelvic abnormality identified. 2. Fluid overload manifested by trace left and small right pleural effusions, diffuse mesenteric marv a with anasarca. 3. No bowel obstruction or bowel wall thickening. 4. Postoperative changes from prior gastric bypass. Cholecystectomy and hysterectomy. 5. Hepatic steatosis. 6. Additional findings as above. Electronically signed by: Yann Torres M.D. 11/01/2018 6:42 PM
[2018-11-01] MEDS: FLUTICASONE/SALMETEROL 250/50 (ADVAIR) 14 PUFF/1 INHALER INH SCH (20:46)
[2018-11-01] MEDS: PIPERACILLIN/TAZOBACTAM 4.5 GM in DEXTROSE 5% 100 ML IV SCH (20:46)
[2018-11-01] MEDS: METOPROLOL TARTRATE 50 MG TAB PO SCH (20:50)
[2018-11-01] MEDS: LORazepam 0.5 MG TAB PO SCH (20:50)
[2018-11-01] MEDS: MONTELUKAST SODIUM 10 MG TABLET PO SCH (20:50)
[2018-11-01] MEDS: HEPARIN SOD 5,000 UNIT/0.5 ML VIAL SQ SCH (21:32)
[2018-11-02] MEDS: PIPERACILLIN/TAZOBACTAM 4.5 GM in DEXTROSE 5% 100 ML IV SCH ×3 (04:25→21:23)
[2018-11-02] MEDS: ACETAMINOPHEN 325 MG TAB PO PRN ×2 (04:25→21:56)
[2018-11-02 05:45] LABS: Hematocrit (blood only) 29.7 % (37-47); Mean Corpuscular Hemoglobin 33.3 pg (25-34); Mean Corpuscular Hgb Conc 33.7 g/dL (32-36); Mean Platelet Volume 10.9 fL (7.4-10.4); Platelet Count 134 K/uL (130-400); RDW Coefficient of Variation 15.4 % (11.5-14.5); RDW Standard Deviation 55.8 fL (36.4-46.3)
[2018-11-02] MEDS: HEPARIN SOD 5,000 UNIT/0.5 ML VIAL SQ SCH ×3 (06:04→21:46)
[2018-11-02 06:11] LABS: Albumin Level 1.3 gm/dl (3.4-5.0); Calcium 7.3 mg/dl (8.5-10.1); Est GFR (African American) 61.1; Est GFR (Non-African American) 52.7; Potassium 3.5 mmol/L (3.5-5.1)
[2018-11-02 06:17] LABS: Basophils # (auto) 0.01 K/uL (0-0.2); Basophils % (auto) 0.1 %; Dohle Bodies 1+; Echinocytes 1+; Eosinophils # (auto) 0.02 K/uL (0-0.5); Eosinophils % (auto) 0.2 %; Immature Granulocytes # (auto) 0.11 K/uL (0.00-0.02); Immature Granulocytes % (auto) 1.2 %; Lymphocytes # (auto) 0.99 K/uL (1.2-3.4); Lymphocytes % (auto) 10.5 %; Monocytes # (auto) 0.37 K/uL (0.11-0.59); Monocytes % (auto) 3.9 %; Neutrophils % (auto) 84.1 %; Toxic Vacuolation Occasional
[2018-11-02 06:18] LABS: Albumin Globulin Ratio 0.4 (0.9-2); Globulin 2.9 gm/dl (2.5-4.0); Total Protein 4.2 gm/dl (6.4-8.2)
[2018-11-02] MEDS: METOPROLOL TARTRATE 50 MG TAB PO SCH ×2 (07:58→21:08)
[2018-11-02] MEDS: NYSTATIN POWDER 15GM BTL EXT PRN (07:58)
[2018-11-02] MEDS: FLUTICASONE/SALMETEROL 250/50 (ADVAIR) 14 PUFF/1 INHALER INH SCH ×2 (07:58→21:08)
[2018-11-02] MEDS: PARoxetine HCl 20 MG TAB PO SCH (07:59)
[2018-11-02] MEDS: FLUTICASONE PROPIONATE NA SPR 16 GM BTL SCH (08:00)
[2018-11-02] MEDS: PANTOprazole 40 MG TAB PO SCH (08:00)
[2018-11-02] MEDS: LORazepam 0.5 MG TAB PO SCH ×2 (08:02→21:22)
--- NOTE | 2018-11-02 10:59 | Hospitalist Progress Note ---
Date of Service November 02, 2018 Assessment & Plan (1) Cellulitis of lower extremity: left leg slightly more erythematous, more warm than right will cover with Zosyn and Daptomycin for today and reassess tomorrow WBC normal, no fever since admission last evening (2) Lactic acidosis: unclear etiology, no hypotension, no clear signs of sepsis or bad infection down to 2.7 today, responding to fluids and supportive care stop IV fluids transfer to medical floor today check CT abdomen/pelvis and lumbar spine due to complaints of back pain and abdominal pain no infectious or inflammatory changes seen, just chronic changes and post operative changes cover empirically with Zosyn and Daptomycin await blood culture results CXR normal, no evidence of UTI on UA (3) Chronic acquired lymphedema: was following with lymphedema clinic and getting wraps until she developed wounds wound care seeing while in hospital (4) Venous stasis ulcers of both lower extremities: follows with wound clinic just saw Darby Li on Sunday 10/29 wrapper dipper saw today applied dressing and tubagrip (5) Pressure ulcer, heel, left, unstageable: again follows with wound clinic wound RN saw today, says that the heel is looking good, healing well (6) Back pain: acute onset, has history of lumbar spine surgery no clear etiology seen on CT lumbar spine pain control, PT/OT pain better today (7) Atrial fibrillation: paroxysmal continue Metoprolol, rates are controlled, sinus on monitor continue Coumadin, INR sub therapeutic (8) Depression: continue Paxil (9) Dyslipidemia: (10) Hypertension: (11) Obesity: (12) H/O deep venous thrombosis: has Lacey filter in place continue Coumadin use Heparin SQ while INR subtherapeutic Subjective patient says that she is feeling better compared to yesterday no fever since last night back pain is improved discussed that there were no significant findings on her CT abdomen/pelvis or CT lumbar spine looked at her legs and wounds with the wound nurse at the bedside she actually saw the patient on Thursday in the clinic, says her legs look the same really no clear signs of cellulitis reviewed labs, Lactic acid improved to 2.7 Cr is stable, electrolytes stable WBC normal still patient ate breakfast breathing well, no chest pain no diarrhea for two days, no nausea discussed transferring with the patient, she agrees Review of Systems Review of Systems: All systems reviewed & are unremarkable except as noted in HPI & below Constitutional: + fatigue and + weakness; no fever Respiratory: no cough and no dyspnea Cardiovascular: + edema; no chest pain Musculoskeletal: + back pain (mild, better than yesterday) Hematologic / Lymphatic: as per Subjective / HPI Physical Exam Constitutional: WD/WN, vitals as above + morbidly obese Eyes: PERRL, conjunctivae normal, anicteric sclerae ENMT: external ear and nose normal, oropharynx normal Neck: trachea midline, no thyromegaly Respiratory: normal respiratory effort, lungs clear to auscultation Cardiovascular: RRR, no murmur, no edema Gastrointestinal (Abdomen): Inspection/Auscultation: abdomen normal to inspection and normal bowel sounds; abdomen not distended Percussion/ Palpation: abdomen soft; abdomen nontender, no guarding, abdomen not rigid and no abdominal mass Musculoskeletal: Head/Neck/Chest: normocephalic and head atraumatic Spine: + limited thoraco-lumbar ROM (due to pain) and + lumbar spinal tenderness Extremities: + limited ROM of extremities (cannot lift legs off bed) and + abnormal strength; + extremities abnormal to inspection (lymphedema, wounds, erythema) Skin: + wound (left heel, anterior shins bilaterally) and + erythema (distal legs bilaterally) Neurologic: patellar DTR's 2+ bilat, sensation intact and PERRL, EOMI, accommodation nl, no face palsy, no dysarthria Psychiatric: A+Ox3, euthymic affect Lymphatic: + lymphedema (bilateral legs) Results & Data Vital Signs (Past 12 Hours) Vital Signs Temp Pulse Resp BP Pulse Ox 11/02/18 09:55 36.4 C L 69 18 127/80 91 11/02/18 07:08 36.4 C L 67 17 97/60 L 96 11/02/18 03:11 36.4 C L 74 15 93/59 L 95 11/01/18 23:21 36.4 C L 67 16 92/57 L 95 Laboratory Results Laboratory Results - last 24 hr 11/01/18 11/01/18 11/01/18 13:13 13:13 13:13 WBC 10.37 RBC 3.56 L Hgb 11.7 L Hct 35.5 L MCV 99.7 MCH 32.9 MCHC 33.0 RDW Std Deviation 55.7 H RDW Coeff of Krista 15.2 H Plt Count 178 MPV 11.3 H Immature Gran % (Auto) 0.6 Neut % (Auto) 87.8 Lymph % (Auto) 6.3 Pettis % (Auto) 5.0 Eos % (Auto) 0.1 Baso % (Auto) 0.2 Immature Gran # (Auto) 0.06 H Neut # (Auto) 9.11 H Lymph # (Auto) 0.65 L Pettis # (Auto) 0.52 Eos # (Auto) 0.01 Baso # (Auto) 0.02 Toxic Vacuolation Dohle Bodies Echinocytes PT 17.2 H INR 1.7 H APTT 29.3 PTT Ratio 1.1 Sodium 142 Potassium 3.7 Chloride 110 H Carbon Dioxide 22 Anion Gap 10.0 BUN 21 H Creatinine 1.10 Est Cr Clr Drug Dosing 61.5 Est GFR ( Amer) 59.7 Est GFR (Non-Af Amer) 51.5 BUN/Creatinine Ratio 19.4 Glucose 81 POC Glucose Lactate Calcium 7.6 L Total Bilirubin 0.8 AST 36 ALT 26 Alkaline Phosphatase 133 H Troponin I 0.020 Total Protein 5.4 L Albumin 1.7 L Globulin 3.7 Albumin/Globulin Ratio 0.5 L Urine Color Urine Appearance Urine pH Ur Specific [place] Urine Protein Urine Glucose (UA) Urine Ketones Urine Blood Urine Nitrite Urine Bilirubin Urine Urobilinogen Ur Leukocyte Esterase Urine WBC (Auto) Urine RBC (Auto) U Hyaline Cast (Auto) U Epithel Cells (Auto) Urine Bacteria (Auto) 11/01/18 11/01/18 11/01/18 14:23 14:35 18:21 WBC RBC Hgb Hct MCV MCH MCHC RDW Std Deviation RDW Coeff of Krista Plt Count MPV Immature Gran % (Auto) Neut % (Auto) Lymph % (Auto) Pettis % (Auto) Eos % (Auto) Baso % (Auto) Immature Gran # (Auto) Neut # (Auto) Lymph # (Auto) Pettis # (Auto) Eos # (Auto) Baso # (Auto) Toxic Vacuolation Dohle Bodies Echinocytes PT INR APTT PTT Ratio Sodium Potassium Chloride Carbon Dioxide Anion Gap BUN Creatinine Est Cr Clr Drug Dosing Est GFR ( Amer) Est GFR (Non-Af Amer) BUN/Creatinine Ratio Glucose POC Glucose Lactate 5.1 H* 4.5 H* Calcium Total Bilirubin AST ALT Alkaline Phosphatase Troponin I Total Protein Albumin Globulin Albumin/Globulin Ratio Urine Color [place]ama Urine Appearance Clear Urine pH 5.0 Ur Specific [place] 1.023 Urine Protein Negative Urine Glucose (UA) Negative Urine Ketones Trace H Urine Blood Negative Urine Nitrite Positive A Urine Bilirubin Negative Urine Urobilinogen Negative Ur Leukocyte Esterase Trace H Urine WBC (Auto) 1-5 Urine RBC (Auto) 5-10 H U Hyaline Cast (Auto) 10-30 H U Epithel Cells (Auto) 10-20 H Urine Bacteria (Auto) Negative 11/01/18 11/02/18 11/02/18 21:04 05:29 05:29 WBC 9.40 RBC 3.00 L Hgb 10.0 L Hct 29.7 L MCV 99.0 MCH 33.3 MCHC 33.7 RDW Std Deviation 55.8 H RDW Coeff of Krista 15.4 H Plt Count 134 MPV 10.9 H Immature Gran % (Auto) 1.2 Neut % (Auto) 84.1 Lymph % (Auto) 10.5 Pettis % (Auto) 3.9 Eos % (Auto) 0.2 Baso % (Auto) 0.1 Immature Gran # (Auto) 0.11 H Neut # (Auto) 7.90 H Lymph # (Auto) 0.99 L Pettis # (Auto) 0.37 Eos # (Auto) 0.02 Baso # (Auto) 0.01 Toxic Vacuolation Occasional Dohle Bodies 1+ Echinocytes 1+ PT INR APTT PTT Ratio Sodium 143 Potassium 3.5 Chloride 112 H Carbon Dioxide 26 Anion Gap 5.0 BUN 25 H Creatinine 1.08 Est Cr Clr Drug Dosing 64.0 Est GFR ( Amer) 61.1 Est GFR (Non-Af Amer) 52.7 BUN/Creatinine Ratio 23.0 H Glucose 83 POC Glucose 90 Lactate Calcium 7.3 L Total Bilirubin 1.0 AST 28 ALT 19 Alkaline Phosphatase 95 Troponin I Total Protein 4.2 L D Albumin 1.3 L Globulin 2.9 Albumin/Globulin Ratio 0.4 L Urine Color Urine Appearance Urine pH Ur Specific [place] Urine Protein Urine Glucose (UA) Urine Ketones Urine Blood Urine Nitrite Urine Bilirubin Urine Urobilinogen Ur Leukocyte Esterase Urine WBC (Auto) Urine RBC (Auto) U Hyaline Cast (Auto) U Epithel Cells (Auto) Urine Bacteria (Auto) 11/02/18 11/02/18 05:29 07:14 WBC RBC Hgb Hct MCV MCH MCHC RDW Std Deviation RDW Coeff of Krista Plt Count MPV Immature Gran % (Auto) Neut % (Auto) Lymph % (Auto) Pettis % (Auto) Eos % (Auto) Baso % (Auto) Immature Gran # (Auto) Neut # (Auto) Lymph # (Auto) Pettis # (Auto) Eos # (Auto) Baso # (Auto) Toxic Vacuolation Dohle Bodies Echinocytes PT INR APTT PTT Ratio Sodium Potassium Chloride Carbon Dioxide Anion Gap BUN Creatinine Est Cr Clr Drug Dosing Est GFR ( Amer) Est GFR (Non-Af Amer) BUN/Creatinine Ratio Glucose POC Glucose 84 Lactate 2.7 H* Calcium Total Bilirubin AST ALT Alkaline Phosphatase Troponin I Total Protein Albumin Globulin Albumin/Globulin Ratio Urine Color Urine Appearance Urine pH Ur Specific [place] Urine Protein Urine Glucose (UA) Urine Ketones Urine Blood Urine Nitrite Urine Bilirubin Urine Urobilinogen Ur Leukocyte Esterase Urine WBC (Auto) Urine RBC (Auto) U Hyaline Cast (Auto) U Epithel Cells (Auto) Urine Bacteria (Auto) Medications Administered Current Inpatient Medications Acetaminophen (Tylenol) 650 mg PO Q4H PRN PRN Reason: Pain or Fever Stop: 12/01/18 17:39 Last Admin: 11/02/18 04:25 Dose: 650 mg Documented by: Buspirone HCl (Buspar) 10 mg PO TID PRN PRN Reason: Anxiety Stop: 12/01/18 17:39 Last Admin: 11/02/18 07:59 Dose: 10 mg Documented by: Fluticasone Propionate (Flonase) 1 sprays NA QAM [facility] Stop: 12/02/18 08:59 Last Admin: 11/02/18 08:00 Dose: 1 sprays Documented by: Heparin Sodium (Porcine) (Heparin Sodium (Porcine)) 5,000 units SQ Q8 [facility] Stop: 12/01/18 21:59 Last Admin: 11/02/18 06:04 Dose: 5,000 units Documented by: Daptomycin 475 mg/ Syringe 9.5 mls @ 4.75 mls/min IV Q24H [facility]; Protocol Stop: 11/03/18 18:29 Last Admin: 11/01/18 18:34 Dose: 4.75 mls/min Documented by: Piperacillin Sod/Tazobactam (Sod 4.5 gm/ Dextrose) 120 mls @ 30 mls/hr IV Q8H [facility]; Protocol Stop: 11/03/18 19:59 Last Infusion: 11/02/18 08:30 Dose: Infused Documented by: Ioversol (Optiray 320 100ml) 94 ml IV ONCE PRN PRN Reason: Interaction Checking Stop: 11/05/18 17:49 Last Admin: 11/01/18 17:52 Dose: 94 ml Documented by: Lorazepam (Ativan) 0.5 mg PO BID [facility] Stop: 12/01/18 20:59 Last Admin: 11/02/18 08:02 Dose: 0.5 mg Documented by: Metoprolol Tartrate (Lopressor) 50 mg PO BID [facility] Stop: 12/01/18 20:59 Last Admin: 11/02/18 07:58 Dose: Not Given Documented by: Miscellaneous Information (Consult) 1 ea N/A UD PRN PRN Reason: Consult Stop: 12/01/18 17:39 Montelukast Sodium (Singulair) 10 mg PO HS [facility] Stop: 12/01/18 20:59 Last Admin: 11/01/18 20:50 Dose: 10 mg Documented by: Nystatin (Mycostatin) 1 appln EXT PRN PRN PRN Reason: AFFECTED AREA(S) Stop: 12/02/18 02:01 Last Admin: 11/02/18 07:58 Dose: 1 appln Documented by: Ondansetron HCl (Zofran) 4 mg IV Q6H PRN PRN Reason: Nausea Stop: 12/01/18 17:39 Pantoprazole Sodium (Protonix) 40 mg PO QAM [facility] Stop: 12/02/18 08:59 Last Admin: 11/02/18 08:00 Dose: 40 mg Documented by: Paroxetine HCl (Paxil) 30 mg PO QAM [facility] Stop: 12/02/18 08:59 Last Admin: 11/02/18 07:59 Dose: 30 mg Documented by: Fluticasone/Salmeterol (Advair Diskus 250/50) 1 puffs INH Q12 [facility] Stop: 12/01/18 20:59 Last Admin: 11/02/18 07:58 Dose: 1 puffs Documented by: PG Care Time/CCT Total # of Minutes Spent Total Time Spent with Patient: Total time spent is greater than 50% in coordination of care (as documented) at patient's floor/unit and/or counseling patient:
[2018-11-02] MEDS: WARFARIN SOD 1 MG TAB PO SCH (16:08)
[2018-11-02] MEDS: DAPTOmycin 475 MG in SYRINGE 0 ML IV SCH (18:28)
[2018-11-02] MEDS: MONTELUKAST SODIUM 10 MG TABLET PO SCH (21:10)
[2018-11-02] MEDS: NSS + 20MEQ KCL 20 MEQ/1,000 ML BAG IV SCH (23:51)
[2018-11-03] MEDS: PIPERACILLIN/TAZOBACTAM 4.5 GM in DEXTROSE 5% 100 ML IV SCH (04:22)
[2018-11-03] MEDS: HEPARIN SOD 5,000 UNIT/0.5 ML VIAL SQ SCH ×3 (05:27→21:55)
[2018-11-03 08:17] LABS: INR 1.7 (0.9-1.1); Prothrombin Time 16.8 Seconds (9.0-12.0)
[2018-11-03] MEDS: LORazepam 0.5 MG TAB PO SCH ×2 (08:51→21:53)
[2018-11-03] MEDS: PANTOprazole 40 MG TAB PO SCH (08:51)
[2018-11-03] MEDS: CYANOCOBALAMIN (VITAMIN B-12) 2,500 MCG TAB.SUBL SL SCH (08:51)
[2018-11-03] MEDS: METOPROLOL TARTRATE 50 MG TAB PO SCH ×2 (08:51→21:59)
[2018-11-03] MEDS: PARoxetine HCl 20 MG TAB PO SCH (08:51)
[2018-11-03] MEDS: FLUTICASONE PROPIONATE NA SPR 16 GM BTL SCH (08:52)
[2018-11-03] MEDS: FLUTICASONE/SALMETEROL 250/50 (ADVAIR) 14 PUFF/1 INHALER INH SCH ×2 (08:52→21:53)
--- NOTE | 2018-11-03 16:34 | Hospitalist Progress Note ---
Date of Service November 03, 2018 Assessment & Plan (1) Cellulitis of lower extremity: left leg slightly more erythematous, more warm than right stop Zosyn and Daptomycin, change to Doxycycline WBC normal, no fever since admission last evening (2) Lactic acidosis: unclear etiology, no hypotension, no clear signs of sepsis or bad infection down to 2.7 yesterday, responded to fluids and supportive care stop IV fluids on 11/02 CT abdomen/pelvis and lumbar spine due to complaints of back pain and abdominal pain no infectious or inflammatory changes seen, just chronic changes and post operative changes blood cultures show no growth to date CXR normal, no evidence of UTI on UA (3) Chronic acquired lymphedema: was following with lymphedema clinic and getting wraps until she developed wounds wound care seeing while in hospital (4) Venous stasis ulcers of both lower extremities: follows with wound clinic just saw Darby Li on Sunday 10/29 head housekeeper saw today applied dressing and tubagrip (5) Pressure ulcer, heel, left, unstageable: again follows with wound clinic wound RN saw today, says that the heel is looking good, healing well (6) Back pain: acute onset, has history of lumbar spine surgery no clear etiology seen on CT lumbar spine pain control, PT/OT pain better today (7) Atrial fibrillation: paroxysmal continue Metoprolol, rates are controlled, sinus on monitor continue Coumadin, INR still only 1.7 Coumadin increased to 1mg daily (8) Depression: continue Paxil (9) Dyslipidemia: (10) Hypertension: (11) Obesity: (12) H/O deep venous thrombosis: has [place] filter in place continue Coumadin use Heparin SQ while INR subtherapeutic Plan: PT/OT consulted, recommend rehab patient agrees to rehab, CM will make appropriate referrals Subjective patient participated in therapy today, she did okay, stood up with rolling walker and took some side steps and pivots very weak, physical therapy recommending rehab she agrees to going somewhere to get stronger she reports that her abdomen hurts slightly she says that the pain is normal for her with her gastric sleeve no fever or chills, no chest pain, no dyspnea reviewed labs, INR still low at 1.7 despite increased dose to 1mg Review of Systems Review of Systems: All systems reviewed & are unremarkable except as noted in HPI & below Constitutional: + fatigue and + weakness; no fever, no chills and no sweats Respiratory: no cough Cardiovascular: + edema; no chest pain and no palpitations Gastrointestinal: + abdominal pain; no nausea, no vomiting, no constipation and no diarrhea/loose stools Physical Exam Constitutional: WD/WN, vitals as above + morbidly obese Eyes: PERRL, conjunctivae normal, anicteric sclerae ENMT: external ear and nose normal, oropharynx normal Neck: trachea midline, no thyromegaly Respiratory: normal respiratory effort, lungs clear to auscultation Cardiovascular: RRR, no murmur, no edema Gastrointestinal (Abdomen): Inspection/Auscultation: abdomen normal to inspection and normal bowel sounds; abdomen not distended Percussion/ Palpation: abdomen soft; abdomen nontender, no guarding, abdomen not rigid and no abdominal mass Musculoskeletal: Head/Neck/Chest: normocephalic and head atraumatic Spine: + limited thoraco-lumbar ROM (due to pain) Extremities: + limited ROM of extremities and + abnormal strength; + extremities abnormal to inspection (lymphedema, wounds, erythema) Skin: + wound (left heel, anterior shins bilaterally) and + erythema (distal legs bilaterally) Neurologic: patellar DTR's 2+ bilat, sensation intact and PERRL, EOMI, accommodation nl, no face palsy, no dysarthria Psychiatric: A+Ox3, euthymic affect Lymphatic: + lymphedema (bilateral legs) Results & Data Vital Signs (Past 12 Hours) Vital Signs Temp Pulse Resp BP Pulse Ox Pulse Ox 11/03/18 15:16 36.4 C L 74 21 99/63 L 97 11/03/18 11:47 96 11/03/18 07:05 36.4 C L 65 17 95/61 L 98 Laboratory Results Laboratory Results - last 24 hr 11/02/18 11/02/18 11/03/18 16:52 20:58 07:53 PT 16.8 H INR 1.7 H POC Glucose 90 101 H 11/03/18 11/03/18 11/03/18 08:00 08:03 11:43 PT INR POC Glucose 69 L* 77 105 H Medications Administered Current Inpatient Medications Acetaminophen (Tylenol) 650 mg PO Q4H PRN PRN Reason: Pain or Fever Stop: 12/01/18 17:39 Last Admin: 11/02/18 21:56 Dose: 650 mg Documented by: Buspirone HCl (Buspar) 10 mg PO TID PRN PRN Reason: Anxiety Stop: 12/01/18 17:39 Last Admin: 11/02/18 07:59 Dose: 10 mg Documented by: Cyanocobalamin (Vitamin B-12) 1,000 mcg IM MoTh@0900 [facility] Stop: 12/04/18 08:59 Cyanocobalamin (Vitamin B-12) [facility] [place] Stop: 12/03/18 08:59 Last Admin: 11/03/18 08:51 Dose: 2,500 mcg Documented by: Fluticasone Propionate (Flonase) 1 sprays [facility] Stop: 12/02/18 08:59 Last Admin: 11/03/18 08:52 Dose: 1 sprays Documented by: Heparin Sodium (Porcine) (Heparin Sodium (Porcine)) 5,000 units SQ Q8 [facility] Stop: 12/01/18 21:59 Last Admin: 11/03/18 14:28 Dose: Not Given Documented by: Ioversol (Optiray 320 100ml) 94 ml IV ONCE PRN PRN Reason: Interaction Checking Stop: 11/05/18 17:49 Last Admin: 11/01/18 17:52 Dose: 94 ml Documented by: Lorazepam (Ativan) 0.5 mg PO BID [facility] Stop: 12/01/18 20:59 Last Admin: 11/03/18 08:51 Dose: 0.5 mg Documented by: Metoprolol Tartrate (Lopressor) 50 mg PO BID [facility] Stop: 12/01/18 20:59 Last Admin: 11/03/18 08:51 Dose: Not Given Documented by: Montelukast Sodium (Singulair) 10 mg PO HS [facility] Stop: 12/01/18 20:59 Last Admin: 11/02/18 21:10 Dose: 10 mg Documented by: Nystatin (Mycostatin) 1 appln EXT PRN PRN PRN Reason: AFFECTED AREA(S) Stop: 12/02/18 02:01 Last Admin: 11/02/18 07:58 Dose: 1 appln Documented by: Ondansetron HCl (Zofran) 4 mg IV Q6H PRN PRN Reason: Nausea Stop: 12/01/18 17:39 Pantoprazole Sodium (Protonix) 40 mg PO QAM [facility] Stop: 12/02/18 08:59 Last Admin: 11/03/18 08:51 Dose: 40 mg Documented by: Paroxetine HCl (Paxil) 30 mg PO QAM [facility] Stop: 12/02/18 08:59 Last Admin: 11/03/18 08:51 Dose: 30 mg Documented by: Fluticasone/Salmeterol (Advair Diskus 250/50) 1 puffs INH Q12 [facility] Stop: 12/01/18 20:59 Last Admin: 11/03/18 08:52 Dose: 1 puffs Documented by: Warfarin Sodium (Coumadin) 1 mg PO DAILY@1600 [facility] Stop: 12/02/18 15:59 Last Admin: 11/02/18 16:08 Dose: 1 mg Documented by: PG Care Time/CCT Total # of Minutes Spent Total Time Spent with Patient: Total time spent is greater than 50% in coordination of care (as documented) at patient's floor/unit and/or counseling patient:
[2018-11-03] MEDS: WARFARIN SOD 1 MG TAB PO SCH (17:20)
[2018-11-03] MEDS: MONTELUKAST SODIUM 10 MG TABLET PO SCH (22:00)
[2018-11-04] MEDS: HEPARIN SOD 5,000 UNIT/0.5 ML VIAL SQ SCH (05:37)
[2018-11-04 07:14] LABS: INR 1.7 (0.9-1.1)
[2018-11-04] MEDS: FLUTICASONE/SALMETEROL 250/50 (ADVAIR) 14 PUFF/1 INHALER INH SCH ×2 (08:20→21:15)
[2018-11-04] MEDS: PARoxetine HCl 20 MG TAB PO SCH (08:20)
[2018-11-04] MEDS: FLUTICASONE PROPIONATE NA SPR 16 GM BTL SCH (08:21)
[2018-11-04] MEDS: METOPROLOL TARTRATE 50 MG TAB PO SCH ×2 (08:21→21:19)
[2018-11-04] MEDS: CYANOCOBALAMIN (VITAMIN B-12) 2,500 MCG TAB.SUBL SL SCH (08:21)
[2018-11-04] MEDS: CYANOCOBALAMIN 1000 MCG/ML VIAL IM SCH (08:22)
[2018-11-04] MEDS: PANTOprazole 40 MG TAB PO SCH (08:23)
[2018-11-04] MEDS: LORazepam 0.5 MG TAB PO SCH ×2 (09:26→21:15)
[2018-11-04] MEDS: DOXYCYCLINE HYCLATE 100 MG CAP PO SCH ×2 (13:52→21:16)
[2018-11-04 14:16] LABS: Basophils # (auto) 0.02 K/uL (0-0.2); Basophils % (auto) 0.2 %; Eosinophils # (auto) 0.09 K/uL (0-0.5); Eosinophils % (auto) 0.8 %; Hematocrit (blood only) 31.1 % (37-47); Hemoglobin 10.5 g/dL (12.0-16.0); Immature Granulocytes # (auto) 0.03 K/uL (0.00-0.02); Immature Granulocytes % (auto) 0.3 %; Lymphocytes # (auto) 1.37 K/uL (1.2-3.4); Lymphocytes % (auto) 12.3 %; Mean Corpuscular Hemoglobin 33.2 pg (25-34); Mean Corpuscular Hgb Conc 33.8 g/dL (32-36); Mean Corpuscular Volume 98.4 fL (80-100); Mean Platelet Volume 11.9 fL (7.4-10.4); Monocytes # (auto) 0.63 K/uL (0.11-0.59); Monocytes % (auto) 5.7 %; Neutrophils # (auto) 8.97 K/uL (1.4-6.5); Neutrophils % (auto) 80.7 %; Platelet Count 169 K/uL (130-400); RDW Coefficient of Variation 15.3 % (11.5-14.5); RDW Standard Deviation 55.9 fL (36.4-46.3); Red Blood Count 3.16 M/uL (4.2-5.4); White Blood Count 11.11 K/uL (4.8-10.8)
[2018-11-04 14:26] LABS: BUN Creatinine Ratio 22.1 (10-20); Calcium 7.8 mg/dl (8.5-10.1); Creatinine Clr Calc Pharmacy 48.7 ml/min; Est GFR (African American) 43.9; Est GFR (Non-African American) 37.9; Potassium 3.5 mmol/L (3.5-5.1)
--- NOTE | 2018-11-04 15:49 | Hospitalist Progress Note ---
Date of Service November 04, 2018 Assessment & Plan (1) Cellulitis of lower extremity: left leg slightly more erythematous, more warm than right stop Zosyn and Daptomycin, change to Doxycycline WBC up slightly to 11k continue on the Doxycycline, treat for 14 days (2) SIMONA (acute kidney injury): Cr up to 1.4 from 1.0 drinking but maybe not enough no nephrotoxins on board currently, but was on Vanco briefly will repeat tomorrow, if still elevated give gentle fluids (3) Lactic acidosis: unclear etiology, no hypotension, no clear signs of sepsis or bad infection down to 2.0 today, responded to fluids and supportive care stop IV fluids on 11/02 CT abdomen/pelvis and lumbar spine due to complaints of back pain and abdominal pain no infectious or inflammatory changes seen, just chronic changes and post op erative changes blood cultures show no growth to date CXR normal, no evidence of UTI on UA (4) Chronic acquired lymphedema: was following with lymphedema clinic and getting wraps until she developed wounds wound care seeing while in hospital (5) Venous stasis ulcers of both lower extremities: follows with wound clinic just saw Darby Li on Sunday 10/29 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 saw today applied dressing and tubagrip (6) Pressure ulcer, heel, left, unstageable: again follows with wound clinic wound RN saw today, says that the heel is looking good, healing well (7) Back pain: acute onset, has history of lumbar spine surgery no clear etiology seen on CT lumbar spine pain control, PT/OT pain better each day (8) Atrial fibrillation: paroxysmal continue Metoprolol, rates are controlled, sinus on monitor continue Coumadin, INR 1.7 Coumadin increased to 1mg daily (9) Depression: continue Paxil (10) Dyslipidemia: (11) Hypertension: (12) Obesity: (13) H/O deep venous thrombosis: has [place] filter in place continue Coumadin use Heparin SQ while INR subtherapeutic Plan: PT/OT consulted, recommend rehab patient agrees to rehab, CM will make appropriate referrals Subjective patient feeling fine today, only complaint is some abdominal pain that is chronic her appetite is not great discussed her gastric sleeve, had it last , went from 350lbs to 266lbs now she said that her back pain is better legs continue to be edematous, being followed by wound care reviewed labs, WBC up slightly to 11k, Hb 10.5, Cr up slightly to 1.4 from 1.0 discussed going to rehab, she is open to this and CM will d/w her Review of Systems Review of Systems: All systems reviewed & are unremarkable except as noted in HPI & below Constitutional: + fatigue (sleeping a lot today) and + weakness; no fever, no chills and no sweats Respiratory: + dyspnea on exertion; no cough, no dyspnea and no wheezing Cardiovascular: + edema; no chest pain Musculoskeletal: + back pain (mild) and + muscle weakness (generalized, more profound in legs, cannot reposition in bed) Physical Exam Constitutional: WD/WN, vitals as above + morbidly obese Eyes: PERRL, conjunctivae normal, anicteric sclerae ENMT: external ear and nose normal, oropharynx normal Neck: trachea midline, no thyromegaly Respiratory: normal respiratory effort, lungs clear to auscultation Cardiovascular: RRR, no murmur, no edema Gastrointestinal (Abdomen): Inspection/Auscultation: abdomen normal to inspection and normal bowel sounds; abdomen not distended Percussion/Palpation: abdomen soft; abdomen nontender, no guarding, abdomen not rigid and no abdominal mass Musculoskeletal: Head/Neck/Chest: normocephalic and head atraumatic Spine: + limited thoraco-lumbar ROM (due to pain) Extremities: + limited ROM of extremities and + abnormal strength; + extremities abnormal to inspection (lymphedema, wounds, erythema) Skin: + wound (left heel, anterior shins bilaterally) and + erythema (distal legs bilaterally) Neurologic: patellar DTR's 2+ bilat, sensation intact and PERRL, EOMI, accommodation nl, no face palsy, no dysarthria Psychiatric: A+Ox3, euthymic affect Lymphatic: + lymphedema (bilateral legs) Results & Data Vital Signs (Past 12 Hours) Vital Signs Temp Pulse Resp BP Pulse Ox 11/04/18 15:20 36.4 C L 67 18 109/65 97 11/04/18 07:41 36.6 C 70 18 102/65 95 Laboratory Results Laboratory Results - last 24 hr 11/03/18 11/03/18 11/04/18 16:45 20:59 06:29 WBC RBC Hgb Hct MCV MCH MCHC RDW Std Deviation RDW Coeff of Krista Plt Count MPV Immature Gran % (Auto) Neut % (Auto) Lymph % (Auto) [place] % (Auto) Eos % (Auto) Baso % (Auto) Immature Gran # (Auto) Neut # (Auto) Lymph # (Auto) [place] # (Auto) Eos # (Auto) Baso # (Auto) PT 17.0 H INR 1.7 H Sodium Potassium Chloride Carbon Dioxide Anion Gap BUN Creatinine Est Cr Clr Drug Dosing Est GFR ( Amer) Est GFR (Non-Af Amer) BUN/Creatinine Ratio Glucose POC Glucose 79 92 Lactate Calcium 11/04/18 11/04/18 11/04/18 06:29 08:11 08:13 WBC 11.11 H RBC 3.16 L Hgb 10.5 L Hct 31.1 L MCV 98.4 MCH 33.2 MCHC 33.8 RDW Std Deviation 55.9 H RDW Coeff of Krista 15.3 H Plt Count 169 MPV 11.9 H Immature Gran % (Auto) 0.3 Neut % (Auto) 80.7 Lymph % (Auto) 12.3 [place] % (Auto) 5.7 Eos % (Auto) 0.8 Baso % (Auto) 0.2 Immature Gran # (Auto) 0.03 H Neut # (Auto) 8.97 H Lymph # (Auto) 1.37 [place] # (Auto) 0.63 H Eos # (Auto) 0.09 Baso # (Auto) 0.02 PT INR Sodium Potassium Chloride Carbon Dioxide Anion Gap BUN Creatinine Est Cr Clr Drug Dosing Est GFR ( Amer) Est GFR (Non-Af Amer) BUN/Creatinine Ratio Glucose POC Glucose 60 L* 63 L* Lactate Calcium 11/04/18 11/04/18 11/04/18 08:42 11:55 13:58 WBC RBC Hgb Hct MCV MCH MCHC RDW Std Deviation RDW Coeff of Krista Plt Count MPV Immature Gran % (Auto) Neut % (Auto) Lymph % (Auto) [place] % (Auto) Eos % (Auto) Baso % (Auto) Immature Gran # (Auto) Neut # (Auto) Lymph # (Auto) [place] # (Auto) Eos # (Auto) Baso # (Auto) PT INR Sodium 143 Potassium 3.5 Chloride 111 H Carbon Dioxide 26 Anion Gap 6.0 BUN 31 H Creatinine 1.42 H Est Cr Clr Drug Dosing 48.7 Est GFR ( Amer) 43.9 Est GFR (Non-Af Amer) 37.9 BUN/Creatinine Ratio 22.1 H Glucose 76 POC Glucose 75 71 Lactate Calcium 7.8 L 11/04/18 13:58 WBC RBC Hgb Hct MCV MCH MCHC RDW Std Deviation RDW Coeff of Krista Plt Count MPV Immature Gran % (Auto) Neut % (Auto) Lymph % (Auto) [place] % (Auto) Eos % (Auto) Baso % (Auto) Immature Gran # (Auto) Neut # (Auto) Lymph # (Auto) [place] # (Auto) Eos # (Auto) Baso # (Auto) PT INR Sodium Potassium Chloride Carbon Dioxide Anion Gap BUN Creatinine Est Cr Clr Drug Dosing Est GFR ( Amer) Est GFR (Non-Af Amer) BUN/Creatinine Ratio Glucose POC Glucose Lactate 2.0 Calcium Microbiology 11/01/18 13:13 Blood Aerobic Blood Culture - Preliminary No growth in Aerobic bottle after 48 hours. 11/01/18 13:13 Blood Anaerobic Blood Culture - Preliminary No growth in Anaerobic bottle after 48 hours. 11/01/18 14:23 Blood Aerobic Blood Culture - Preliminary No growth in Aerobic bottle after 48 hours. 11/01/18 14:23 Blood Anaerobic Blood Culture - Preliminary No growth in Anaerobic bottle after 48 hours. Medications Administered Current Inpatient Medications Acetaminophen (Tylenol) 650 mg PO Q4H PRN PRN Reason: Pain or Fever Stop: 12/01/18 17:39 Last Admin: 11/02/18 21:56 Dose: 650 mg Documented by: Buspirone HCl (Buspar) 10 mg PO TID PRN PRN Reason: Anxiety Stop: 12/01/18 17:39 Last Admin: 11/02/18 07:59 Dose: 10 mg Documented by: Cyanocobalamin (Vitamin B-12) 1,000 mcg IM MoTh@0900 [facility] Stop: 12/04/18 08:59 Last Admin: 11/04/18 08:22 Dose: 1,000 mcg Documented by: Cyanocobalamin (Vitamin B-12) 2,[address] [facility] Stop: 12/03/18 08:59 Last Admin: 11/04/18 08:21 Dose: 2,500 mcg Documented by: Doxycycline Hyclate (Vibramycin) [address] [facility]; Protocol Stop: 11/14/18 11:59 Last Admin: 11/04/18 13:52 Dose: 100 mg Documented by: Fluticasone Propionate (Flonase) [address] [facility] Stop: 12/02/18 08:59 Last Admin: 11/04/18 08:21 Dose: 1 sprays Documented by: Ioversol (Optiray 320 100ml) 94 ml IV ONCE PRN PRN Reason: Interaction Checking Stop: 11/05/18 17:49 Last Admin: 11/01/18 17:52 Dose: 94 ml Documented by: Lorazepam (Ativan) 0.[address] [facility] Stop: 12/01/18 20:59 Last Admin: 11/04/18 09:26 Dose: 0.5 mg Documented by: Metoprolol Tartrate (Lopressor) [address] [facility] Stop: 12/01/18 20:59 Last Admin: 11/04/18 08:21 Dose: 50 mg Documented by: Montelukast Sodium (Singulair) [address] [facility] Stop: 12/01/18 20:59 Last Admin: 11/03/18 22:00 Dose: 10 mg Documented by: Nystatin (Mycostatin) 1 appln EXT PRN PRN PRN Reason: AFFECTED AREA(S) Stop: 12/02/18 02:01 Last Admin: 11/02/18 07:58 Dose: 1 appln Documented by: Ondansetron HCl (Zofran) 4 mg IV Q6H PRN PRN Reason: Nausea Stop: 12/01/18 17:39 Pantoprazole Sodium (Protonix) 40 mg PO [facility] Stop: 12/02/18 08:59 Last Admin: 11/04/18 08:23 Dose: 40 mg Documented by: Paroxetine HCl (Paxil) [address] [facility] Stop: 12/02/18 08:59 Last Admin: 11/04/18 08:20 Dose: 30 mg Documented by: Fluticasone/Salmeterol (Advair Diskus 250/50) [address] [facility] Stop: 12/01/18 20:59 Last Admin: 11/04/18 08:20 Dose: 1 puffs Documented by: Warfarin Sodium (Coumadin) 1 mg PO DAILY@1600 [facility] Stop: 12/02/18 15:59 Last Admin: 11/03/18 17:20 Dose: 1 mg Documented by: PG Care Time/CCT Total # of Minutes Spent Total Time Spent with Patient: Total time spent is greater than 50% in coordination of care (as documented) at patient's floor/unit and/or counseling patient:
[2018-11-04] MEDS: WARFARIN SOD 1 MG TAB PO SCH (17:40)
[2018-11-04] MEDS: MONTELUKAST SODIUM 10 MG TABLET PO SCH (21:16)
[2018-11-04] MEDS: ACETAMINOPHEN 325 MG TAB PO PRN (21:32)
[2018-11-05 06:16] LABS: Basophils # (auto) 0.01 K/uL (0-0.2); Basophils % (auto) 0.1 %; Eosinophils # (auto) 0.15 K/uL (0-0.5); Hematocrit (blood only) 32.8 % (37-47); Hemoglobin 10.8 g/dL (12.0-16.0); Immature Granulocytes # (auto) 0.02 K/uL (0.00-0.02); Immature Granulocytes % (auto) 0.3 %; Lymphocytes # (auto) 1.33 K/uL (1.2-3.4); Lymphocytes % (auto) 17.8 %; Mean Corpuscular Hemoglobin 33.1 pg (25-34); Mean Corpuscular Hgb Conc 32.9 g/dL (32-36); Mean Corpuscular Volume 100.6 fL (80-100); Mean Platelet Volume 11.1 fL (7.4-10.4); Monocytes % (auto) 9.3 %; Neutrophils # (auto) 5.28 K/uL (1.4-6.5); Neutrophils % (auto) 70.5 %; Platelet Count 181 K/uL (130-400); RDW Coefficient of Variation 15.1 % (11.5-14.5); RDW Standard Deviation 55.9 fL (36.4-46.3); Red Blood Count 3.26 M/uL (4.2-5.4); White Blood Count 7.49 K/uL (4.8-10.8)
[2018-11-05 06:23] LABS: Prothrombin Time 19.4 Seconds (9.0-12.0)
[2018-11-05 06:41] LABS: BUN Creatinine Ratio 24.4 (10-20); Calcium 7.8 mg/dl (8.5-10.1); Creatinine Clr Calc Pharmacy 56.2 ml/min; Est GFR (African American) 52.2; Potassium 3.5 mmol/L (3.5-5.1)
[2018-11-05] MEDS: FLUTICASONE/SALMETEROL 250/50 (ADVAIR) 14 PUFF/1 INHALER INH SCH ×2 (08:41→21:51)
[2018-11-05] MEDS: LORazepam 0.5 MG TAB PO SCH ×2 (08:41→21:51)
[2018-11-05] MEDS: CYANOCOBALAMIN (VITAMIN B-12) 2,500 MCG TAB.SUBL SL SCH (08:42)
[2018-11-05] MEDS: PARoxetine HCl 20 MG TAB PO SCH (08:42)
[2018-11-05] MEDS: DOXYCYCLINE HYCLATE 100 MG CAP PO SCH ×2 (08:42→22:32)
[2018-11-05] MEDS: METOPROLOL TARTRATE 50 MG TAB PO SCH ×2 (08:43→21:54)
[2018-11-05] MEDS: FLUTICASONE PROPIONATE NA SPR 16 GM BTL SCH (08:43)
[2018-11-05] MEDS: PANTOprazole 40 MG TAB PO SCH (08:44)
[2018-11-05] MEDS ORDERED: DEXTROSE 50% 50 ML SYRINGE IV ONE (12:06)
[2018-11-05] MEDS ORDERED: DEXTROSE 50% 50 ML SYRINGE IV PRN (13:15)
[2018-11-05] MEDS ORDERED: GLUCOSE 10 TABS/TUBE PO PRN (13:15)
[2018-11-05] MEDS ORDERED: GLUCAGON FOR INJ 1 MG VIAL IM PRN (13:15)
[2018-11-05] MEDS ORDERED: GLUCOSE 40% GEL 15 GM TUBE PO PRN (13:15)
[2018-11-05] MEDS ORDERED: CARBOHYDRATES FOR HYPOGLYCEMIA PO PRN (13:15)
--- NOTE | 2018-11-05 15:25 | Hospitalist Progress Note ---
Date of Service November 05, 2018 Assessment & Plan (1) Cellulitis of lower extremity: left leg slightly more erythematous, more warm than right on admission stop Zosyn and Daptomycin, change to Doxycycline WBC down to 8k today continue on the Doxycycline, treat for 14 days skin less erythematous (2) SIMONA (acute kidney injury): Cr up to 1.4 from 1.0 drinking but maybe not enough no nephrotoxins on board currently, but was on Vanco briefly Cr down to 1.2 today, continue to monitor of note, she takes Torsemide at home, feel that she is not drinking enough (3) Lactic acidosis: unclear etiology, no hypotension, no clear signs of sepsis or bad infection down to 2.0 yesterday, responded to fluids and supportive care stop IV fluids on 11/02 CT abdomen/pelvis and lumbar spine due to complaints of back pain and abdominal pain no infectious or inflammatory changes seen, just chronic changes and post operative changes blood cultures show no growth to date CXR normal, no evidence of UTI on UA (4) Chronic acquired lymphedema: was following with lymphedema clinic and getting wraps until she developed wounds wound care seeing while in hospital per , the lymphedema started after gastri sleeve in December 2017 (5) Venous stasis ulcers of both lower extremities: follows with wound clinic just saw Darby Li on Sunday 10/29 engineering program manager following applied dressing and tubagrip (6) Pressure ulcer, heel, left, unstageable: again follows with wound clinic wound RN saw day after admission, says that the heel is looking good, healing well (7) Back pain: acute onset, has history of lumbar spine surgery no clear etiology seen on CT lumbar spine pain control, PT/OT pain better each day (8) Atrial fibrillation: paroxysmal continue Metoprolol, rates are controlled, sinus on monitor continue Coumadin, INR 2.0 Coumadin increased to 1mg daily (9) Depression: continue Paxil (10) Dyslipidemia: (11) Hypertension: (12) Obesity: (13) H/O deep venous thrombosis: has [place] filter in place continue Coumadin INR 2.0 Plan: PT/OT consulted, recommend rehab patient agrees to rehab, CM will make appropriate referrals hold for now due to hypoglycemia (14) Hypoglycemia: occurs every morning, patient says she gets this way at home she just lays down when it happens discussed diet, she tries to eat small frequent meals but has difficulty time eat enough, gets full instantly use Dextrose PRN will put some sugar in fluids, run at 50cc/hr Subjective patient really lethargic today, had hypoglycemia this morning at 67, came up slightly did not really eat breakfast glucose low again in the late morning, 49 tried to drink some apple juice but could only manage two sips with her h/o gastric sleeve gave dextrose and sugar came up discussed current state of health with patient and her at the bedside she admits to essentially no quality of life ever since her gastric sleeve her agrees, says that she should never have had the surgery he says that the lymphedema started after the surgery, that she has never been able to eat or drink much she is profoundly weak, cannot ambulate, she is miserable most days with her leg wounds she tries to eat 6 small meals a day but has difficulty eating enough was planning to send to [facility] today but with low sugars will hold off reviewed labs, Cr is 1.2, K is 3.5, INR 2.0 on increased dose of Coumadin WBC normal, Hb 10.8 Review of Systems Review of Systems: All systems reviewed & are unremarkable except as noted in HPI & below Constitutional: + fatigue and + weakness; no fever Respiratory: no cough and no dyspnea Cardiovascular: + edema; no chest pain Gastrointestinal: + abdominal pain (post prandial) and + early satiety; no nausea, no vomiting, no constipation and no diarrhea/loose stools Integumentary: + skin ulcer and + wounds Hematologic / Lymphatic: as per Subjective / HPI (lymphedema) Physical Exam Constitutional: WD/WN, vitals as above + morbidly obese Eyes: PERRL, conjunctivae normal, anicteric sclerae ENMT: external ear and nose normal, oropharynx normal Neck: trachea midline, no thyromegaly Respiratory: normal respiratory effort, lungs clear to auscultation Cardiovascular: RRR, no murmur, no edema Gastrointestinal (Abdomen): Inspection/Auscultation: abdomen normal to inspection and normal bowel sounds; abdomen not distended Percussion/Palpation: abdomen soft; abdomen nontender, no guarding, abdomen not rigid and no abdominal mass Musculoskeletal: Head/Neck/Chest: normocephalic and head atraumatic Spine: + limited thoraco-lumbar ROM (due to pain) Extremities: + limited ROM of extremities and + abnormal strength; + extremities abnormal to inspection (lymphedema, wounds, erythema) Skin: + wound (left heel, anterior shins bilaterally) and + erythema (distal legs bilaterally) Neurologic: patellar DTR's 2+ bilat, sensation intact and PERRL, EOMI, accommodation nl, no face palsy, no dysarthria Psychiatric: A+Ox3, euthymic affect Lymphatic: + lymphedema (bilateral legs) Results & Data Vital Signs (Past 12 Hours) Vital Signs Temp Pulse Resp BP Pulse Ox 11/05/18 07:30 36.4 C L 64 18 130/80 96 Laboratory Results Laboratory Results - last 24 hr 11/04/18 11/04/18 11/04/18 16:59 20:13 22:33 WBC RBC Hgb Hct MCV MCH MCHC RDW Std Deviation RDW Coeff of Krista Plt Count MPV Immature Gran % (Auto) Neut % (Auto) Lymph % (Auto) [place] % (Auto) Eos % (Auto) Baso % (Auto) Immature Gran # (Auto) Neut # (Auto) Lymph # (Auto) [place] # (Auto) Eos # (Auto) Baso # (Auto) PT INR Sodium Potassium Chloride Carbon Dioxide Anion Gap BUN Creatinine Est Cr Clr Drug Dosing Est GFR ( Amer) Est GFR (Non-Af Amer) BUN/Creatinine Ratio Glucose POC Glucose 70 74 81 Calcium 11/05/18 11/05/18 11/05/18 05:56 05:56 05:56 WBC 7.49 RBC 3.26 L Hgb 10.8 L Hct 32.8 L MCV 100.6 H MCH 33.1 MCHC 32.9 RDW Std Deviation 55.9 H RDW Coeff of Krista 15.1 H Plt Count 181 MPV 11.1 H Immature Gran % (Auto) 0.3 Neut % (Auto) 70.5 Lymph % (Auto) 17.8 [place] % (Auto) 9.3 Eos % (Auto) 2.0 Baso % (Auto) 0.1 Immature Gran # (Auto) 0.02 Neut # (Auto) 5.28 Lymph # (Auto) 1.33 [place] # (Auto) 0.70 H Eos # (Auto) 0.15 Baso # (Auto) 0.01 PT 19.4 H INR 2.0 H Sodium 142 Potassium 3.5 Chloride 112 H Carbon Dioxide 26 Anion Gap 4.0 BUN 30 H Creatinine 1.23 H Est Cr Clr Drug Dosing 56.2 Est GFR ( Amer) 52.2 Est GFR (Non-Af Amer) 45.0 BUN/Creatinine Ratio 24.4 H Glucose 72 POC Glucose Calcium 7.8 L 11/05/18 11/05/18 11/05/18 08:02 08:06 11:56 WBC RBC Hgb Hct MCV MCH MCHC RDW Std Deviation RDW Coeff of Krista Plt Count MPV Immature Gran % (Auto) Neut % (Auto) Lymph % (Auto) [place] % (Auto) Eos % (Auto) Baso % (Auto) Immature Gran # (Auto) Neut # (Auto) Lymph # (Auto) [place] # (Auto) Eos # (Auto) Baso # (Auto) PT INR Sodium Potassium Chloride Carbon Dioxide Anion Gap BUN Creatinine Est Cr Clr Drug Dosing Est GFR ( Amer) Est GFR (Non-Af Amer) BUN/Creatinine Ratio Glucose POC Glucose 67 L* 81 59 L* Calcium 11/05/18 11/05/18 11/05/18 12:00 12:33 13:02 WBC RBC Hgb Hct MCV MCH MCHC RDW Std Deviation RDW Coeff of Krista Plt Count MPV Immature Gran % (Auto) Neut % (Auto) Lymph % (Auto) [place] % (Auto) Eos % (Auto) Baso % (Auto) Immature Gran # (Auto) Neut # (Auto) Lymph # (Auto) [place] # (Auto) Eos # (Auto) Baso # (Auto) PT INR Sodium Potassium Chloride Carbon Dioxide Anion Gap BUN Creatinine Est Cr Clr Drug Dosing Est GFR ( Amer) Est GFR (Non-Af Amer) BUN/Creatinine Ratio Glucose POC Glucose 49 L* 60 L* 68 L* Calcium 11/05/18 13:39 WBC RBC Hgb Hct MCV MCH MCHC RDW Std Deviation RDW Coeff of Krista Plt Count MPV Immature Gran % (Auto) Neut % (Auto) Lymph % (Auto) [place] % (Auto) Eos % (Auto) Baso % (Auto) Immature Gran # (Auto) Neut # (Auto) Lymph # (Auto) [place] # (Auto) Eos # (Auto) Baso # (Auto) PT INR Sodium Potassium Chloride Carbon Dioxide Anion Gap BUN Creatinine Est Cr Clr Drug Dosing Est GFR ( Amer) Est GFR (Non-Af Amer) BUN/Creatinine Ratio Glucose POC Glucose 92 Calcium Medications Administered Current Inpatient Medications Acetaminophen (Tylenol) 650 mg PO Q4H PRN PRN Reason: Pain or Fever Stop: 12/01/18 17:39 Last Admin: 11/04/18 21:32 Dose: 650 mg Documented by: Buspirone HCl (Buspar) 10 mg PO TID PRN PRN Reason: Anxiety Stop: 12/01/18 17:39 Last Admin: 11/02/18 07:59 Dose: 10 mg Documented by: Cyanocobalamin (Vitamin B-12) 1,000 mcg IM MoTh@0900 [facility] Stop: 12/04/18 08:59 Last Admin: 11/04/18 08:22 Dose: 1,000 mcg Documented by: Cyanocobalamin (Vitamin B-12) [facility] Stop: 12/03/18 08:59 Last Admin: 11/05/18 08:42 Dose: 2,500 mcg Documented by: Dextrose (Dextrose 50%) 25 - 50 ml IV UD PRN; Protocol PRN Reason: Hypoglycemia Protocol Stop: 12/05/18 13:14 Doxycycline Hyclate (Vibramycin) 100 mg PO BID [facility]; Protocol Stop: 11/14/18 11:59 Last Admin: 11/05/18 08:42 Dose: 100 mg Documented by: Fluticasone Propionate (Flonase) [facility] sprays [facility] Stop: 12/02/18 08:59 Last Admin: 11/05/18 08:43 Dose: 1 sprays Documented by: Glucagon (Glucagen) 1 mg IM UD PRN; Protocol PRN Reason: Hypoglycemia Protocol Stop: 12/05/18 13:14 Glucose (Glucose 40%) 15 - 30 gm PO UD PRN; Protocol PRN Reason: Hypoglycemia Protocol Stop: 12/05/18 13:14 Last Admin: 11/05/18 13:21 Dose: 15 gm Documented by: Glucose (Dex4 Glucose) 4 - 8 tabs PO UD PRN; Protocol PRN Reason: Hypoglycemia Protocol Stop: 12/05/18 13:14 Ioversol (Optiray 320 100ml) 94 ml IV ONCE PRN PRN Reason: Interaction Checking Stop: 11/05/18 17:49 Last Admin: 11/01/18 17:52 Dose: 94 ml Documented by: Lorazepam (Ativan) 0.5 mg PO BID [facility] Stop: 12/01/18 20:59 Last Admin: 11/05/18 08:41 Dose: 0.5 mg Documented by: Metoprolol Tartrate (Lopressor) 50 mg PO BID [facility] Stop: 12/01/18 20:59 Last Admin: 11/05/18 08:43 Dose: 50 mg Documented by: Miscellaneous (Carbohydrates For Hypoglycemia) 15 - 30 gm PO UD PRN PRN Reason: Hypoglycemia Treatment Stop: 12/05/18 13:14 Montelukast Sodium (Singulair) 10 mg PO HS [facility] Stop: 12/01/18 20:59 Last Admin: 11/04/18 21:16 Dose: 10 mg Documented by: Nystatin (Mycostatin) 1 appln EXT PRN PRN PRN Reason: AFFECTED AREA(S) Stop: 12/02/18 02:01 Last Admin: 11/02/18 07:58 Dose: 1 appln Documented by: Ondansetron HCl (Zofran) 4 mg IV Q6H PRN PRN Reason: Nausea Stop: 12/01/18 17:39 Pantoprazole Sodium (Protonix) 40 mg PO QAM [facility] Stop: 12/02/18 08:59 Last Admin: 11/05/18 08:44 Dose: 40 mg Documented by: Paroxetine HCl (Paxil) 30 mg PO QAM [facility] Stop: 12/02/18 08:59 Last Admin: 11/05/18 08:42 Dose: 30 mg Documented by: Fluticasone/Salmeterol (Advair Diskus 250/50) 1 puffs INH Q12 [facility] Stop: 12/01/18 20:59 Last Admin: 11/05/18 08:41 Dose: 1 puffs Documented by: Warfarin Sodium (Coumadin) 1 mg PO DAILY@1600 [facility] Stop: 12/02/18 15:59 Last Admin: 11/04/18 17:40 Dose: 1 mg Documented by: PG Care Time/CCT Total # of Minutes Spent Total Time Spent with Patient: Total time spent is greater than 50% in coordination of care (as documented) at patient's floor/unit and/or counseling patient:
[2018-11-05] MEDS: D5W AND 1/2NSS 1,000 ML IV SCH (16:43)
[2018-11-05] MEDS: WARFARIN SOD 1 MG TAB PO SCH (16:48)
[2018-11-05] MEDS: NYSTATIN POWDER 15GM BTL EXT PRN (21:51)
[2018-11-05] MEDS: MONTELUKAST SODIUM 10 MG TABLET PO SCH (21:51)
[2018-11-06] MEDS: LORazepam 0.5 MG TAB PO SCH ×2 (08:43→20:34)
[2018-11-06] MEDS: FLUTICASONE/SALMETEROL 250/50 (ADVAIR) 14 PUFF/1 INHALER INH SCH ×2 (08:44→20:35)
[2018-11-06] MEDS: FLUTICASONE PROPIONATE NA SPR 16 GM BTL SCH (08:44)
[2018-11-06] MEDS: PANTOprazole 40 MG TAB PO SCH (08:44)
[2018-11-06] MEDS: PARoxetine HCl 20 MG TAB PO SCH (08:44)
[2018-11-06] MEDS: CYANOCOBALAMIN (VITAMIN B-12) 2,500 MCG TAB.SUBL SL SCH (08:44)
[2018-11-06] MEDS: DOXYCYCLINE HYCLATE 100 MG CAP PO SCH ×2 (08:45→20:35)
[2018-11-06] MEDS: NYSTATIN POWDER 15GM BTL EXT PRN (08:45)
[2018-11-06] MEDS: METOPROLOL TARTRATE 50 MG TAB PO SCH ×2 (08:45→20:36)
[2018-11-06 09:25] LABS: INR 2.6 (0.9-1.1); Prothrombin Time 24.7 Seconds (9.0-12.0)
[2018-11-06] MEDS: TORSEMIDE 10 MG TAB PO SCH (11:03)
[2018-11-06] MEDS: D5W AND 1/2NSS 1,000 ML IV SCH (12:52)
[2018-11-06] MEDS: WARFARIN SOD 0.5 MG TAB PO SCH (17:03)
--- NOTE | 2018-11-06 17:28 | Hospitalist Progress Note ---
Date of Service November 06, 2018 Assessment & Plan (1) Cellulitis of lower extremity: left leg slightly more erythematous, more warm than right on admission stop Zosyn and Daptomycin, change to Doxycycline WBC down to 8k yesterday, repeat tomorrow continue on the Doxycycline, treat for 21 days total due to lymphedema skin less erythematous, no fever (2) SIMONA (acute kidney injury): Cr up to 1.4 on 11/04 from 1.0 drinking but maybe not enough no nephrotoxins on board currently, but was on Vanco briefly Cr down to 1.2 yesterday, repeat tomorrow of note, she takes Torsemide at home, feel that she is not drinking enough hold on the Torsemide for now (3) Lactic acidosis: unclear etiology, no hypotension, no clear signs of sepsis or bad infection down to 2.0 on 11/03, responded to fluids and supportive care stop IV fluids on 11/02 CT abdomen/pelvis and lumbar spine due to complaints of back pain and abdominal pain no infectious or inflammatory changes seen, just chronic changes and post operative changes blood cultures show no growth to date CXR normal, no evidence of UTI on UA (4) Chronic acquired lymphedema: was following with lymphedema clinic and getting wraps until she developed wounds wound care seeing while in hospital per , the lymphedema started after gastric sleeve in December 2017 patient's son would like a plan for how to treat I think that referral back to the lymphedema clinic is best option, she can get massage and wraps need to continue to treat wounds/ulcers (5) Venous stasis ulcers of both lower extremities: follows with wound clinic just saw Darby Guillermo on Sunday 10/29 hand sander following applied dressing and tubagrip (6) Pressure ulcer, heel, left, unstageable: again follows with wound clinic wound RN saw day after admission, says that the heel is looking good, healing well (7) Back pain: acute onset, has history of lumbar spine surgery no clear etiology seen on CT lumbar spine pain control, PT/OT pain better each day (8) Atrial fibrillation: paroxysmal continue Metoprolol, rates are controlled, sinus on monitor continue Coumadin, INR 2.0 Coumadin increased to 1mg daily (9) Depression: continue Paxil (10) Dyslipidemia: (11) Hypertension: (12) Obesity: (13) H/O deep venous thrombosis: has Lacey filter in place continue Coumadin at 0.5mg daily INR 2.6 Plan: PT/OT consulted, recommend rehab patient agrees to rehab, CM will make appropriate referrals [facility] has a bed available for her, approved likely good enough for [facility] Thursday/Thursday (14) Hypoglycemia: occurs every morning, patient says she gets this way at home she just lays down when it happens discussed diet, she tries to eat small frequent meals but has difficulty time eat enough, gets full instantly use Dextrose PRN will put some sugar in fluids, run at 50cc/hr sugars better in the morning on 11/06 changed diet to regular so she can eat more carbs Subjective patient's sugar was normal this morning, due to D5W running still not eating great, less energy than yesterday no fever, no dyspnea, no cough, no chest pain still with edema in legs long discussion with patient's son at the bedside he has been frustrated with the treatment of the patient's lymphedema and wounds as outpatient says that he won't take his mom back to the wound clinic said that he questioned a nurse about why they weren't wrapping his mom's legs, she said that they only deal with the wounds he feels that the fluid needs pushed out of her legs explained to him that lymphedema is a chronic condition that wraps are important but right now they were holding wraps due to the wounds on her shins he stressed that he wants a good plan to treat the lymphedema and wounds prior to his mom leaving here I agree that she needs a good plan, she also needs to get stronger [facility] would be a good option to push her to get stronger I expressed by concerns over her low blood sugars in the morning patient says that her sugars are always low she does not eat enough, she often sleeps until 11am, eats a few small meals the rest of the day reviewed labs, INR therapeutic at 2.6, back Coumadin to 0.5mg daily Review of Systems Review of Systems: All systems reviewed & are unremarkable except as noted in HPI & below Constitutional: + fatigue and + weakness; no fever Respiratory: + dyspnea on exertion; no cough and no dyspnea Cardiovascular: + edema; no chest pain Gastrointestinal: + early satiety (cannot eat a lot due to gastric sleeve); no abdominal pain, no nausea, no vomiting, no constipation and no diarrhea/loose stools Genitourinary: + urinary incontinence (using external luna) Physical Exam Constitutional: WD/WN, vitals as above + morbidly obese Eyes: PERRL, conjunctivae normal, anicteric sclerae ENMT: external ear and nose normal, oropharynx normal Neck: trachea midline, no thyromegaly Respiratory: normal respiratory effort, lungs clear to auscultation Cardiovascular: RRR, no murmur, no edema Gastrointestinal (Abdomen): Inspection/Auscultation: abdomen normal to inspection and normal bowel sounds; abdomen not distended Percussion/Palpation: abdomen soft; abdomen nontender, no guarding, abdomen not rigid and no abdominal mass Musculoskeletal: Head/Neck/Chest: normocephalic and head atraumatic Spine: + limited thoraco-lumbar ROM (due to pain) Extremities: + limited ROM of extremities and + abnormal strength; + extremities abnormal to inspection (lymphedema, wounds, erythema) Skin: + wound (left heel, anterior shins bilaterally) and + erythema (distal legs bilaterally) Neurologic: patellar DTR's 2+ bilat, sensation intact and PERRL, EOMI, accommodation nl, no face palsy, no dysarthria Psychiatric: A+Ox3, euthymic affect Lymphatic: + lymphedema (bilateral legs) Results & Data Vital Signs (Past 12 Hours) Vital Signs Temp Pulse Resp BP Pulse Ox 11/06/18 15:24 36.6 C 64 18 148/81 H 96 11/06/18 07:24 36.5 C 72 16 134/83 98 Laboratory Results Laboratory Results - last 24 hr 11/05/18 11/06/18 11/06/18 21:02 07:53 08:55 PT 24.7 H INR 2.6 H POC Glucose 97 83 11/06/18 11/06/18 11:47 16:47 PT INR POC Glucose 75 82 Medications Administered Current Inpatient Medications Acetaminophen (Tylenol) 650 mg PO Q4H PRN PRN Reason: Pain or Fever Stop: 12/01/18 17:39 Last Admin: 11/04/18 21:32 Dose: 650 mg Documented by: Buspirone HCl (Buspar) 10 mg PO TID PRN PRN Reason: Anxiety Stop: 12/01/18 17:39 Last Admin: 11/02/18 07:59 Dose: 10 mg Documented by: Cyanocobalamin (Vitamin B-12) 1,000 mcg IM MoTh@0900 [facility] Stop: 12/04/18 08:59 Last Admin: 11/04/18 08:22 Dose: 1,000 mcg Documented by: Cyanocobalamin (Vitamin B-12) 2,[facility]cg [facility] [place] Stop: 12/03/18 08:59 Last Admin: 11/06/18 08:44 Dose: 2,500 mcg Documented by: Dextrose (Dextrose 50%) 25 - 50 ml IV UD PRN; Protocol PRN Reason: Hypoglycemia Protocol Stop: 12/05/18 13:14 Doxycycline Hyclate (Vibramycin) 100 mg PO BID [facility]; Protocol Stop: 11/14/18 11:59 Last Admin: 11/06/18 08:45 Dose: 100 mg Documented by: Fluticasone Propionate (Flonase) 1 sprays NA [facility] Stop: 12/02/18 08:59 Last Admin: 11/06/18 08:44 Dose: 1 sprays Documented by: Glucagon (Glucagen) 1 mg IM UD PRN; Protocol PRN Reason: Hypoglycemia Protocol Stop: 12/05/18 13:14 Glucose (Glucose 40%) 15 - 30 gm PO UD PRN; Protocol PRN Reason: Hypoglycemia Protocol Stop: 12/05/18 13:14 Last Admin: 11/05/18 13:21 Dose: 15 gm Documented by: Glucose (Dex4 Glucose) 4 - 8 tabs PO UD PRN; Protocol PRN Reason: Hypoglycemia Protocol Stop: 12/05/18 13:14 Dextrose/Sodium Chloride (D5w And 1/2nss) 1,000 mls @ 50 mls/hr IV .Q20H [facility] Stop: 12/05/18 15:44 Last Admin: 11/06/18 12:52 Dose: 50 mls/hr Documented by: Lorazepam (Ativan) 0.5 mg PO BID [facility] Stop: 12/01/18 20:59 Last Admin: 11/06/18 08:43 Dose: 0.5 mg Documented by: Metoprolol Tartrate (Lopressor) 50 mg PO BID [facility] Stop: 12/01/18 20:59 Last Admin: 11/06/18 08:45 Dose: 50 mg Documented by: Miscellaneous (Carbohydrates For Hypoglycemia) 15 - 30 gm PO UD PRN PRN Reason: Hypoglycemia Treatment Stop: 12/05/18 13:14 Montelukast Sodium (Singulair) 10 mg PO HS [facility] Stop: 12/01/18 20:59 Last Admin: 11/05/18 21:51 Dose: 10 mg Documented by: Nystatin (Mycostatin) 1 appln EXT PRN PRN PRN Reason: AFFECTED AREA(S) Stop: 12/02/18 02:01 Last Admin: 11/06/18 08:45 Dose: 1 appln Documented by: Ondansetron HCl (Zofran) 4 mg IV Q6H PRN PRN Reason: Nausea Stop: 12/01/18 17:39 Pantoprazole Sodium (Protonix) 40 mg PO QAM [facility] Stop: 12/02/18 08:59 Last Admin: 11/06/18 08:44 Dose: 40 mg Documented by: Paroxetine HCl (Paxil) 30 mg PO QAM [facility] Stop: 12/02/18 08:59 Last Admin: 11/06/18 08:44 Dose: 30 mg Documented by: Fluticasone/Salmeterol (Advair Diskus 250/50) 1 puffs INH Q12 [facility] Stop: 12/01/18 20:59 Last Admin: 11/06/18 08:44 Dose: 1 puffs Documented by: Torsemide (Demadex) 20 mg PO QAM [facility] Stop: 12/06/18 11:59 Last Admin: 11/06/18 11:03 Dose: 20 mg Documented by: Warfarin Sodium (Coumadin) 0.5 mg PO DAILY@1600 [facility] Stop: 12/06/18 15:59 Last Admin: 11/06/18 17:03 Dose: 0.5 mg Documented by: PG Care Time/CCT Total # of Minutes Spent Total Time Spent with Patient: Total time spent is greater than 50% in coordination of care (as documented) at patient's floor/unit and/or counseling patient:
[2018-11-06] MEDS: MONTELUKAST SODIUM 10 MG TABLET PO SCH (20:36)
[2018-11-07 06:47] LABS: Basophils # (auto) 0.02 K/uL (0-0.2); Basophils % (auto) 0.4 %; Eosinophils # (auto) 0.13 K/uL (0-0.5); Eosinophils % (auto) 2.8 %; Hematocrit (blood only) 31.5 % (37-47); Hemoglobin 10.6 g/dL (12.0-16.0); Immature Granulocytes # (auto) 0.01 K/uL (0.00-0.02); Immature Granulocytes % (auto) 0.2 %; Lymphocytes # (auto) 1.14 K/uL (1.2-3.4); Lymphocytes % (auto) 24.6 %; Mean Corpuscular Hgb Conc 33.7 g/dL (32-36); Mean Corpuscular Volume 98.1 fL (80-100); Mean Platelet Volume 10.5 fL (7.4-10.4); Monocytes # (auto) 0.82 K/uL (0.11-0.59); Monocytes % (auto) 17.7 %; Neutrophils # (auto) 2.51 K/uL (1.4-6.5); Neutrophils % (auto) 54.3 %; Platelet Count 220 K/uL (130-400); RDW Coefficient of Variation 14.9 % (11.5-14.5); RDW Standard Deviation 53.4 fL (36.4-46.3); Red Blood Count 3.21 M/uL (4.2-5.4); White Blood Count 4.63 K/uL (4.8-10.8)
[2018-11-07 06:58] LABS: INR 2.6 (0.9-1.1); Prothrombin Time 25.1 Seconds (9.0-12.0)
[2018-11-07 07:13] LABS: BUN Creatinine Ratio 23.4 (10-20); Creatinine Clr Calc Pharmacy 67.8 ml/min; Est GFR (African American) 65.5; Est GFR (Non-African American) 56.5; Potassium 3.1 mmol/L (3.5-5.1)
[2018-11-07] MEDS: D5W AND 1/2NSS 1,000 ML IV SCH (08:14)
[2018-11-07] MEDS: TORSEMIDE 10 MG TAB PO SCH (08:15)
[2018-11-07] MEDS: LORazepam 0.5 MG TAB PO SCH (08:15)
[2018-11-07] MEDS: FLUTICASONE/SALMETEROL 250/50 (ADVAIR) 14 PUFF/1 INHALER INH SCH ×2 (08:15→21:11)
[2018-11-07] MEDS: DOXYCYCLINE HYCLATE 100 MG CAP PO SCH ×2 (08:15→21:12)
[2018-11-07] MEDS: METOPROLOL TARTRATE 50 MG TAB PO SCH ×2 (08:16→21:12)
[2018-11-07] MEDS: FLUTICASONE PROPIONATE NA SPR 16 GM BTL SCH (08:16)
[2018-11-07] MEDS: PARoxetine HCl 20 MG TAB PO SCH (08:16)
[2018-11-07] MEDS: PANTOprazole 40 MG TAB PO SCH (08:17)
[2018-11-07] MEDS: CYANOCOBALAMIN (VITAMIN B-12) 2,500 MCG TAB.SUBL SL SCH (08:17)
[2018-11-07] MEDS ORDERED: POTASSIUM CHLORIDE 20 MEQ TABCR PO STA (09:15)
--- NOTE | 2018-11-07 13:59 | Hospitalist Progress Note ---
Date of Service November 07, 2018 Assessment & Plan (1) Hypoalbuminemia: With massive anasarca, severe hypoalbuminemia and hypoproteinemia developing since gastric sleeve surgery and subsequent repeat surgery for intra- abdominal hemorrhage in 02/2018. Albumin now 1.3. 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 -consult Nutrition -consult GI to see about scopes-would need to hold coumadin for this -check IgG,IgA,IgM, Vitamins ADEK, ceruloplasmin, transferrin, fibrinogen, lipid panel -checking prealbumin, follow LFTs, albumin, TProt -check TSH for anasarca -switching SSRI to Prozac to see if has better effect on mood to increase appetite, consider adding Remeron qhs -care of LE edema as below (2) Hypoproteinemia: as above (3) History of bariatric surgery: h/o gastric sleeve in 01/[address] [facility] [address] reports here of Abd/pel mention gastrojejeunostomy, antrectomy, coild intra- abdominally (presumably from previous bleed?) -will need to review records from [facility]-will ask GI to obtain these (4) Hypoglycemia: occurs every morning, patient says she gets this way at home Unclear etiology except perhaps malabsorption and poor po intake? -discussed diet, she tries to eat small frequent meals but has difficulty time eat enough, gets full instantly -continues to have hypoglycemia although improved now on D5W -changed diet to regular so she can eat more carbs -check AM cortisol level, check TSH -follow accuchecks -continue D5W for now but will have to stop eventually -add qhs snack (5) Cellulitis of lower extremity: left leg slightly more erythematous, more warm than right on admission Initially received Zosyn and Daptomycin, then changed to Doxycycline po--> overall improved erythema Afebrile, leukocytosis resolved -continue on the Doxycycline, treat for 21 days total due to lymphedema (6) SIMONA (acute kidney injury): Cr up to 1.4 on 11/04 from 1.0 drinking but maybe not enough no nephrotoxins on board currently, but was on Vanco briefly Cr down to 1.02 now -has been restarted on torsemide for her LE edema--> caution not to deplete volume as she is likely significantly intravascularly volume depleted due to severe hypoalbuminemia (7) Lactic acidosis: unclear etiology but likely due to infection, no hypotension, no clear signs of sepsis or bad infection down to 2.0 on 11/03, responded to resuscitative fluids and supportive care CT abdomen/pelvis and lumbar spine due to complaints of back pain and abdominal pain no infectious or inflammatory changes seen, just chronic changes and post operative changes blood cultures show no growth to date CXR normal, no evidence of UTI on UA (8) Chronic acquired lymphedema: I am unsure that she truly has LYMPHEDEMA. 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 following Apply dressings and compression wraps as per interior design instructor (10) Pressure ulcer, heel, left, unstageable: again follows with wound clinic wound RN following, has been debrided recently in Wound Clinic -continue Aquacel Ag dressing (11) Back pain: Acute on chronic, has history of lumbar spine surgery and chronic pain no clear etiology seen on CT lumbar spine MRI L-spine would be best but pt and family report severe claustrophobia and must have open MRI No saddle anesthesia, she does have some motor function and sensory in her LEs, no loss of bowel/bladder function -continue pain control, PT/OT (12) Atrial fibrillation: paroxysmal, in sinus rhythm here on exam now continue Metoprolol continue Coumadin 0.5mg daily, INR therapeutic -follow INR -May need to hold coumadin if GI plans scopes (13) Depression: Not adequately treated, is exacerbated by ongoing medical issues Denies SI/HI She actually stopped her Paxil on her own 2 weeks prior to admission as wasn't helping for many years -switch to Prozac 20mg daily, dc Paxil (no real risk of withdrawal) -consider adding on Remeron for appetite stimulant effect also (14) Hypertension: Controlled -continue metoprolol (15) H/O deep venous thrombosis: in LLE as per previous reports -has Lacey filter in place continue Coumadin at 0.5mg daily INR therapeutic (16) Anemia, macrocytic: Hgb 10.7, MCV 100 -is on B12 supplements With very poor nutrition -check B12, folate, Fe studies, check TSH (17) Osteoarthritis, hip, bilateral: chronic, bilat hip pain, also contributes to ambulatory dysfunction (18) Obesity: BMI 45, has actually gained 12-15 kg since her gastric sleeve but seems to all be fluid weight from anasarca Muscles are wasting (19) Hypokalemia: Secondary to loop diuretic -replace with po KCl -follow BMP, Mg in AM (20) DVT prophylaxis: Coumadin Dispo- Plan: PT/OT consulted, recommend rehab patient agrees to rehab, CM will make appropriate referrals [facility] has a bed available for her, approved Not medically stable for discharge at this time, awaiting GI consultation, improved volume status Subjective Reviewed pt's history with her, her sister and at bedside, as well as reading through hospitalization and ER visits, as well as Wound care visits over the last year. Her LE edema started after a prolonged hospitalization (x 2) for her gastric sleeve and ventral hernia repairs, followed by readmission for intra-abdominal bleeding one month later. Both times at [facility]. She reports having renal failure, liver failure, and repeat surgery to stop the bleeding in her abdomen. Since that time, she has had significant increase in LE edema and developed chronic weeping of arms, legs, and wounds of legs/feet. Prior to her gastric sleeve surgery, she had no LE edema at all. She has become so weak and her legs have becomes so swollen and heavy, that she has only been able to stand and take some steps, about 25 feet, at her home. She cannot lift her legs- has to lift her legs one by one on the stairs to go up stairs in her home. She does eat a few, small, frequent meals throughout the day, but has really lost her appetite with being more acutely ill the last week or so. Also admits to being very depressed since all these health problems arose over the last 8 months. States she stopped taking her Paxil 2 weeks ago because "it wasn't doing me any good." Reports having fleeting thoughts of being better off , but no plans for suicide and does not think she would ever commit suicide. Does feel sad on most days, for many months now. Review of Systems Review of Systems: All systems reviewed & are unremarkable except as noted in HPI & below Physical Exam Constitutional: + ill appearing and + obese; + not well nourished (is wasting in her muscles and her ribs are sticking out; with anasarca) and no acute distress Eyes: PERRL, conjunctivae normal, anicteric sclerae ENMT: external ear and nose normal, oropharynx normal Neck: trachea midline, no thyromegaly Respiratory: normal respiratory effort; no labored breathing Auscultation: + diminished lung sounds (at the bases bilat); no crackles, no rhonchi and no wh eezes Cardiovascular: Rate/Rhythm: regular rate and regular rhythm Heart Sounds: + murmur (2/6 at LLSB) Extremities: + edema (massive pitting edema 3-4+ from feet to the abdomen; 2+ pitting edema R>LUE) Gastrointestinal (Abdomen): Inspection/Auscultation: abdomen normal to inspection, normal bowel sounds and + abdominal edema Percussion/Palpation: + abdomen tender (minimally tender across lower abdomen without guarding or rebound) and abdomen soft; no hernia Musculoskeletal: Extremities: no cyanosis and no clubbing Skin: + wound (multiple small open areas on legs R>L with weeping clear fluid) and + erythema (mild, on anterior legs bilat) Neurologic: + focal motor deficit (3/5 strength in LEs throughout, with 4/5 strength in UEs bilat) and awake Psychiatric: Orientation: alert, oriented to person, oriented to place, oriented to time and cooperative Eye Contact: + fair eye contact Motor Behavior: n tremor Affect: + depressed affect Mood: + depressed mood Suicidal Thoughts: denies suicidal thoughts and denies suicidal plan Cognition: recent memory grossly intact and remote memory grossly intact Results & Data Laboratory Results 11/07/18 11/07/18 11/07/18 Range/Units 20:14 16:47 11:36 WBC (4.8-10.8) K/uL RBC (4.2-5.4) M/uL Hgb (12.0-16.0) g/dL Hct (37-47) % MCV (80-100) fL MCH (25-34) pg MCHC (32-36) g/dL RDW Std Deviation (36.4-46.3) fL RDW Coeff of Krista (11.5-14.5) % Plt Count (130-400) K/uL MPV (7.4-10.4) fL Immature Gran % (Auto) % Neut % (Auto) % Lymph % (Auto) % Ida % (Auto) % Eos % (Auto) % Baso % (Auto) % Immature Gran # (Auto) (0.00-0.02) K/uL Neut # (Auto) (1.4-6.5) K/uL Lymph # (Auto) (1.2-3.4) K/uL Ida # (Auto) (0.11-0.59) K/uL Eos # (Auto) (0-0.5) K/uL Baso # (Auto) (0-0.2) K/uL PT (9.0-12.0) Seconds INR (0.9-1.1) Sodium (136-145) mmol/L Potassium (3.5-5.1) mmol/L Chloride (98-107) mmol/L Carbon Dioxide (21-32) mmol/L Anion Gap (3-11) BUN (7-18) mg/dl Creatinine (0.6-1.2) mg/dl Est Cr Clr Drug Dosing ml/min Est GFR ( Amer) Est GFR (Non-Af Amer) BUN/Creatinine Ratio (10-20) Glucose (70-99) mg/dl POC Glucose 72 71 73 (70-99) Calcium (8.5-10.1) mg/dl 11/07/18 11/07/18 11/07/18 Range/Units 07:46 07:44 07:43 WBC (4.8-10.8) K/uL RBC (4.2-5.4) M/uL Hgb (12.0-16.0) g/dL Hct (37-47) % MCV (80-100) fL MCH (25-34) pg MCHC (32-36) g/dL RDW Std Deviation (36.4-46.3) fL RDW Coeff of Krista (11.5-14.5) % Plt Count (130-400) K/uL MPV (7.4-10.4) fL Immature Gran % (Auto) % Neut % (Auto) % Lymph % (Auto) % Ida % (Auto) % Eos % (Auto) % Baso % (Auto) % Immature Gran # (Auto) (0.00-0.02) K/uL Neut # (Auto) (1.4-6.5) K/uL Lymph # (Auto) (1.2-3.4) K/uL Ida # (Auto) (0.11-0.59) K/uL Eos # (Auto) (0-0.5) K/uL Baso # (Auto) (0-0.2) K/uL PT (9.0-12.0) Seconds INR (0.9-1.1) Sodium (136-145) mmol/L Potassium (3.5-5.1) mmol/L Chloride (98-107) mmol/L Carbon Dioxide (21-32) mmol/L Anion Gap (3-11) BUN (7-18) mg/dl Creatinine (0.6-1.2) mg/dl Est Cr Clr Drug Dosing ml/min Est GFR ( Amer) Est GFR (Non-Af Amer) BUN/Creatinine Ratio (10-20) Glucose (70-99) mg/dl POC Glucose 93 97 69 L* (70-99) Calcium (8.5-10.1) mg/dl 11/07/18 11/07/18 11/07/18 Range/Units 06:27 06:27 06:27 WBC 4.63 L (4.8-10.8) K/uL RBC 3.21 L (4.2-5.4) M/uL Hgb 10.6 L (12.0-16.0) g/dL Hct 31.5 L (37-47) % MCV 98.1 (80-100) fL MCH 33.0 (25-34) pg MCHC 33.7 (32-36) g/dL RDW Std Deviation 53.4 H (36.4-46.3) fL RDW Coeff of Krista 14.9 H (11.5-14.5) % Plt Count 220 (130-400) K/uL MPV 10.5 H (7.4-10.4) fL Immature Gran % (Auto) 0.2 % Neut % (Auto) 54.3 % Lymph % (Auto) 24.6 % Ida % (Auto) 17.7 % Eos % (Auto) 2.8 % Baso % (Auto) 0.4 % Immature Gran # (Auto) 0.01 (0.00-0.02) K/uL Neut # (Auto) 2.51 (1.4-6.5) K/uL Lymph # (Auto) 1.14 L (1.2-3.4) K/uL Ida # (Auto) 0.82 H (0.11-0.59) K/uL Eos # (Auto) 0.13 (0-0.5) K/uL Baso # (Auto) 0.02 (0-0.2) K/uL PT 25.1 H (9.0-12.0) Seconds INR 2.6 H (0.9-1.1) Sodium 144 (136-145) mmol/L Potassium 3.1 L (3.5-5.1) mmol/L Chloride 111 H (98-107) mmol/L Carbon Dioxide 26 (21-32) mmol/L Anion Gap 6.0 (3-11) BUN 24 H (7-18) mg/dl Creatinine 1.02 (0.6-1.2) mg/dl Est Cr Clr Drug Dosing 67.8 ml/min Est GFR ( Amer) 65.5 Est GFR (Non-Af Amer) 56.5 BUN/Creatinine Ratio 23.4 H (10-20) Glucose 88 (70-99) mg/dl POC Glucose (70-99) Calcium 8.0 L (8.5-10.1) mg/dl 11/07/18 Range/Units 05:59 WBC (4.8-10.8) K/uL RBC (4.2-5.4) M/uL Hgb (12.0-16.0) g/dL Hct (37-47) % MCV (80-100) fL MCH (25-34) pg MCHC (32-36) g/dL RDW Std Deviation (36.4-46.3) fL RDW Coeff of Krista (11.5-14.5) % Plt Count (130-400) K/uL MPV (7.4-10.4) fL Immature Gran % (Auto) % Neut % (Auto) % Lymph % (Auto) % Ida % (Auto) % Eos % (Auto) % Baso % (Auto) % Immature Gran # (Auto) (0.00-0.02) K/uL Neut # (Auto) (1.4-6.5) K/uL Lymph # (Auto) (1.2-3.4) K/uL Ida # (Auto) (0.11-0.59) K/uL Eos # (Auto) (0-0.5) K/uL Baso # (Auto) (0-0.2) K/uL PT (9.0-12.0) Seconds INR (0.9-1.1) Sodium (136-145) mmol/L Potassium (3.5-5.1) mmol/L Chloride (98-107) mmol/L Carbon Dioxide (21-32) mmol/L Anion Gap (3-11) BUN (7-18) mg/dl Creatinine (0.6-1.2) mg/dl Est Cr Clr Drug Dosing ml/min Est GFR ( Amer) Est GFR (Non-Af Amer) BUN/Creatinine Ratio (10-20) Glucose (70-99) mg/dl POC Glucose 84 (70-99) Calcium (8.5-10.1) mg/dl PG Care Time/CCT Total # of Minutes Spent Total Time Spent with Patient: Total time spent is greater than 50% in coordination of care (as documented) at patient's floor/unit and/or counseling patient:
[2018-11-07] MEDS ORDERED: LORazepam 0.5 MG TAB PO PRN (15:46)
[2018-11-07] MEDS: WARFARIN SOD 0.5 MG TAB PO SCH (15:52)
[2018-11-07] MEDS: MONTELUKAST SODIUM 10 MG TABLET PO SCH (21:12)
[2018-11-08] MEDS: D5W AND 1/2NSS 1,000 ML IV SCH (04:42)
[2018-11-08 07:40] LABS: Fibrinogen 355 mg/dl (184-400)
[2018-11-08 08:00] LABS: Albumin Level 1.3 gm/dl (3.4-5.0); BUN Creatinine Ratio 22.3 (10-20); Bilirubin Direct 0.4 mg/dl (0-0.2); Calcium 7.8 mg/dl (8.5-10.1); Est GFR (African American) 75.1; Est GFR (Non-African American) 64.8; Magnesium 1.8 mg/dl (1.8-2.4); Potassium 3.3 mmol/L (3.5-5.1)
[2018-11-08 08:14] LABS: Bilirubin,Total 0.7 mg/dl (0.2-1); Ferritin 386.2 ng/ml (8-388); Phosphorus 1.9 mg/dl (2.5-4.9); Prealbumin 5.1 mg/dl (20-40); Thyroid Stimulating Hormone 8.51 uIu/ml (0.300-4.500); Total Protein 5.3 gm/dl (6.4-8.2)
[2018-11-08 08:19] LABS: Vitamin B12 > 2000 pg/ml (211-911)
[2018-11-08 08:20] LABS: Folate (Folic Acid) 1.05 ng/ml (>5.38)
[2018-11-08 08:27] LABS: T4 Free Thyroxine 0.85 ng/dl (0.8-1.6)
[2018-11-08] MEDS ORDERED: FLUOXETINE HCL 10 MG CAP PO SCH (09:00)
[2018-11-08] MEDS: FLUOXETINE HCL 20 MG CAP PO SCH (09:08)
[2018-11-08] MEDS: ACETAMINOPHEN 325 MG TAB PO PRN ×2 (09:08→21:19)
[2018-11-08] MEDS: FLUTICASONE/SALMETEROL 250/50 (ADVAIR) 14 PUFF/1 INHALER INH SCH ×2 (09:08→22:35)
[2018-11-08] MEDS: CYANOCOBALAMIN (VITAMIN B-12) 2,500 MCG TAB.SUBL SL SCH (09:09)
[2018-11-08] MEDS: DOXYCYCLINE HYCLATE 100 MG CAP PO SCH ×2 (09:09→21:20)
[2018-11-08] MEDS: PANTOprazole 40 MG TAB PO SCH (09:09)
[2018-11-08] MEDS: METOPROLOL TARTRATE 50 MG TAB PO SCH ×2 (09:09→21:22)
[2018-11-08] MEDS: FLUTICASONE PROPIONATE NA SPR 16 GM BTL SCH (09:09)
[2018-11-08] MEDS: TORSEMIDE 10 MG TAB PO SCH (09:10)
[2018-11-08] MEDS: CYANOCOBALAMIN 1000 MCG/ML VIAL IM SCH (09:10)
--- NOTE | 2018-11-08 09:10 | Ultrasound Report ---
ULTRASOUND BILATERAL LOWER EXTREMITY VENOUS CLINICAL HISTORY: Lower extremity edema. COMPARISON STUDY: Bilateral lower extremity venous ultrasound dated 01/29/2017. TECHNIQUE: Real-time, grayscale, and color Doppler sonography of the deep veins of the right and left lower extremity was performed from the inguinal crease to the calf. Compression and augmentation wer e utilized. The examination is degraded by lower extremity edema and lack of patient cooperation. FINDINGS: There is no sonographic evidence of deep venous thrombosis identified in the right or left lower extremity. The common femoral, superficial femoral, and popliteal veins are patent and normally compressible bilaterally. The greater saphenous vein and the profunda femoris vein at the junction w ith the common femoral vein are clear in both legs. The visualized calf veins are patent bilaterally. Soft tissue edema is present in both legs. IMPRESSION: There is no sonographic evidence of deep venous thrombosis identified in the right or lef t lower extremity. Electronically signed by: Godfrey Pham M.D. 11/08/2018 9:09 AM
[2018-11-08] MEDS ORDERED: POTASSIUM PHOS 3 MMOL/1 ML INFUSION IV STA (09:41)
[2018-11-08] MEDS ORDERED: POTASSIUM PHOSPHATE 21 MMOL in SODIUM CHLORIDE 0.9% 500 ML IV ONE (10:00)
[2018-11-08] MEDS: LEVOTHYROXINE SODIUM 25 MCG in SYRINGE 0 ML IV SCH (11:32)
[2018-11-08] MEDS: FOLIC ACID 1 MG in SYRINGE 9.8 ML IV SCH (11:32)
--- NOTE | 2018-11-08 15:54 | Hospitalist Progress Note ---
Date of Service November 08, 2018 Assessment & Plan (1) Hypoalbuminemia: With massive anasarca, severe hypoalbuminemia and hypoproteinemia developing since gastric sleeve surgery and subsequent repeat surgery for intra- abdominal hemorrhage in 02/2018. Albumin now 1.3. 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 -consult Nutrition -Change meals to 5 small meals daily given her gastric sleeve to improve oral intake -consult GI to see about scopes-will hold coumadin for this just in case- awaiting consultation -check IgG,IgA,IgM, Vitamins ADEK, ceruloplasmin, transferrin, fibrinogen, lipid panel--> vitamin D slightly low, vitamins a E and K all pending, ceruloplasmin still pending, transferrin fibrinogen and lipid panel all within normal limits -Severely low prealbumin at 5, -10 you to follow LFTs, albumin, TProt -check TSH for anasarca-TSH elevated free T4 low-see below -switched SSRI to Prozac to see if has better effect on mood to increase appetite, consider adding Remeron qhs -care of LE edema as below (2) Hypoproteinemia: as above (3) History of bariatric surgery: h/o gastric sleeve in 01/2018 at [facility] CT reports here of Abd/pel mention gastrojejeunostomy, antrectomy, coild intra- abdominally (presumably from previous bleed?) -will need to review records from [facility]-will ask GI to obtain these -Consult surgery here to see if they would recommend reversal of her procedure to improve her health? (4) Hypoglycemia: occurs every morning, patient says she gets this way at home Unclear etiology except perhaps malabsorption and poor po intake? A.m. cortisol is normal Likely secondary to just severe malabsorption and possibly liver dysfunction? -discussed diet, she tries to eat small frequent meals but has difficulty time eat enough, gets full instantly -Is somewhat improved now on D5W -changed diet to regular so she can eat more carbs, change to 5 small meals daily TSH is abnormal as below-replacing LT 4 -DC D5W and watch sugars in the morning -follow accuchecks -Continue qhs snack (5) Cellulitis of lower extremity: left leg slightly more erythematous, more warm than right on admission- overall improved Initially received Zosyn and Daptomycin, then changed to Doxycycline po--> overall improved erythema Afebrile, leukocytosis resolved -continue on the Doxycycline, treat for 21 days total due to lymphedema (6) SIMONA (acute kidney injury): Cr up to 1.4 on 11/04 from 1.0 drinking but maybe not enough no nephrotoxins on board currently, but was on Vanco briefly Cr down to 0.9 -has been restarted on torsemide for her LE edema--> caution not to deplete volume as she is likely significantly intravascularly volume depleted due to severe hypoalbuminemia -Follow BMP (7) Lactic acidosis: unclear etiology but likely due to infection, no hypotension, no clear signs of sepsis or bad infection down to 2.0 on 11/03, responded to resuscitative fluids and supportive care CT abdomen/pelvis and lumbar spine due to complaints of back pain and abdominal pain no infectious or inflammatory changes seen, just chronic changes and post operative changes blood cultures show no growth to date CXR normal, no evidence of UTI on UA (8) Chronic acquired lymphedema: I am unsure that she truly has LYMPHEDEMA. 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 with wound clinic barrel bung remover and dumper following Apply dressings and compression wraps as per hoistman (10) Pressure ulcer, heel, left, unstageable: again follows with wound clinic wound RN following, has been debrided recently in Wound Clinic -continue Aquacel Ag dressing (11) Back pain: Acute on chronic, has history of lumbar spine surgery and chronic pain improved today no clear etiology seen on CT lumbar spine MRI L-spine would be best but pt and family report severe claustrophobia and must have open MRI No saddle anesthesia, she does have some motor function and sensory in her LEs, no loss of bowel/bladder function -continue pain control, PT/OT (12) Atrial fibrillation: paroxysmal, in sinus rhythm here on exam now continue Metoprolol -Will now hold Coumadin in case of need for endoscopies with GI as above -follow INR (13) Depression: Not adequately treated, is exacerbated by ongoing medical issues Denies SI/HI She actually stopped her Paxil on her own 2 weeks prior to admission as wasn't helping for many years -switched to Prozac 20mg daily, dcd Paxil (no real risk of withdrawal) -consider adding on Remeron for appetite stimulant effect also (14) Hypertension: Controlled -continue metoprolol (15) H/O deep venous thrombosis: in LLE as per previous reports, patient reports this was 11 years ago -has Lacey filter in place -Typically on Coumadin at 0.5mg daily, but holding as above INR therapeutic (16) Anemia, macrocytic: Hgb 10.7, MCV 100 -is on B12 supplements With very poor nutrition With severe folate deficiency with folate of 1.0 Also with hypothyroidism which is a new diagnosis as below -Replace with IV folate, IV LT4 as below (17) Osteoarthritis, hip, bilateral: chronic, bilat hip pain, also contributes to ambulatory dysfunction (18) Obesity: BMI 45, has actually gained 12-15 kg since her gastric sleeve but seems to all be fluid weight from anasarca Muscles are wasting (19) Hypokalemia: Secondary to loop diuretic -replace with po KCl -follow BMP, Mg in AM (20) Hypothyroidism: TSH elevated at 8, free T4 low at 0.8, with anasarca and very poor nutrition -will elect to start IV levothyroxine 25 mcg daily and eventually convert to p.o. but has very poor absorption at this point in the GI tract -Follow TSH in 4 to 6 weeks (21) Folate deficiency anemia: Folate severely low at 1.0, secondary to very poor nutrition -Starting IV folic acid as above (22) Severe protein-calorie malnutrition: Severely low albumin, prealbumin only 5 With protein wasting as above and malabsorption -Dietary is consulted (23) Hypophosphatemia: Replace with IV phosphorus Follow phosphorus in the morning (24) DVT prophylaxis: Coumadin is now on hold Dispo- Plan: PT/OT consulted, recommend rehab patient agrees to rehab, CM will make appropriate referrals [facility] has a bed available for her, approved Not medically stable for discharge at this time, awaiting GI consultation, improved volume and nutritional status Subjective Patient reports not feeling well. She ate a couple spoonfuls of tuna for lunch, but cannot eat much at all due to the size of her stomach she reports. Her son is at the bedside and we discussed all of her ongoing diagnoses and medical condition. GI never got contacted about the consultation. I discussed the case with GI nurse practitioner later in the afternoon and they will see her tomorrow. Son does think that the edema in her legs is improving Review of Systems Review of Systems: All systems reviewed & are unremarkable except as noted in HPI & below Physical Exam Constitutional: + ill appearing and + obese; + not well nourished (is wasting in her muscles and her ribs are sticking out; with anasarca) and no acute distress Eyes: PERRL, conjunctivae normal, anicteric sclerae Neck: trachea midline, no thyromegaly Respiratory: normal respiratory effort; no labored breathing Auscultation: + diminished lung sounds (at the bases bilat); no crackles, no rhonchi and no wheezes Cardiovascular: Rate/Rhythm: regular rate and regular rhythm Heart Sounds: + murmur (2/6 at LLSB) Extremities: + edema (massive pitting edema 3-4+ from feet to the abdomen; 2+ pitting edema R>LUE slight improvement from yesterday) Gastrointestinal (Abdomen): Inspection/Auscultation: abdomen normal to inspection, normal bowel sounds and + abdominal edema Percussion/Palpation: abdomen soft; no hernia Musculoskeletal: Extremities: no cyanosis and no clubbing Skin: + wound (multiple small open areas on legs R>L with dressings in place not removed today) Neurologic: + focal motor deficit (3/5 strength in LEs throughout, with 4/5 strength in UEs bilat) and awake Psychiatric: Orientation: alert, oriented to person, oriented to place, oriented to time and cooperative Motor Behavior: n tremor Affect: + depressed affect Mood: + depressed mood Suicidal Thoughts: denies suicidal thoughts and denies suicidal plan Cognition: recent memory grossly intact and remote memory grossly intact Results & Data Vital Signs (Past 12 Hours) Vital Signs Temp Pulse Resp BP Pulse Ox 11/08/18 14:37 36.7 C 65 20 156/87 H 99 11/08/18 07:33 36.8 C 66 20 163/84 H Laboratory Results 11/09/18 11/09/18 11/09/18 Range/Units 05:32 05:32 05:32 WBC 5.81 (4.8-10.8) K/uL RBC 3.21 L (4.2-5.4) M/uL Hgb 10.9 L (12.0-16.0) g/dL Hct 31.4 L (37-47) % MCV 97.8 (80-100) fL MCH 34.0 (25-34) pg MCHC 34.7 (32-36) g/dL RDW Std Deviation 51.7 H (36.4-46.3) fL RDW Coeff of Krista 14.4 (11.5-14.5) % Plt Count 245 (130-400) K/uL MPV 9.7 (7.4-10.4) fL Immature Gran % (Auto) 0.3 % Neut % (Auto) 73.8 % Lymph % (Auto) 16.9 % Orange % (Auto) 7.2 % Eos % (Auto) 1.5 % Baso % (Auto) 0.3 % Immature Gran # (Auto) 0.02 (0.00-0.02) K/uL Neut # (Auto) 4.28 (1.4-6.5) K/uL Lymph # (Auto) 0.98 L (1.2-3.4) K/uL Orange # (Auto) 0.42 (0.11-0.59) K/uL Eos # (Auto) 0.09 (0-0.5) K/uL Baso # (Auto) 0.02 (0-0.2) K/uL PT 21.4 H (9.0-12.0) Seconds INR 2.2 H (0.9-1.1) Fibrinogen (184-400) mg/dl Sodium 143 (136-145) mmol/L Potassium 3.4 L (3.5-5.1) mmol/L Chloride 109 H (98-107) mmol/L Carbon Dioxide 30 (21-32) mmol/L Anion Gap 4.0 (3-11) BUN 19 H (7-18) mg/dl Creatinine 0.88 (0.6-1.2) mg/dl Est Cr Clr Drug Dosing 78.6 ml/min Est GFR ( Amer) 78.2 Est GFR (Non-Af Amer) 67.5 BUN/Creatinine Ratio 21.0 H (10-20) Glucose 72 (70-99) mg/dl POC Glucose (70-99) Calcium 7.7 L (8.5-10.1) mg/dl Phosphorus (2.5-4.9) mg/dl Magnesium 1.7 L (1.8-2.4) mg/dl Iron (35-150) mcg/dl TIBC (250-450) mcg/dl Transferrin (200-360) mg/dl Transferrin % Sat (15-50) % Ferritin (8-388) ng/ml Total Bilirubin (0.2-1) mg/dl Direct Bilirubin (0-0.2) mg/dl AST (15-37) U/L ALT (12-78) U/L Alkaline Phosphatase (45-117) U/L Total Protein (6.4-8.2) gm/dl Albumin (3.4-5.0) gm/dl Prealbumin (20-40) mg/dl Ceruloplasmin Triglycerides (0-150) mg/dl Cholesterol (0-200) mg/dl LDL Cholesterol, Calc mg/dl VLDL Cholesterol, Calc mg/dl HDL Cholesterol mg/dl Cholesterol/HDL Ratio Vitamin A Vitamin B12 (211-911) pg/ml 25-OH Vitamin D Total (30-100) ng/ml Alpha-Tocopherol B- and G-Tocopherol Vitamin K Folate (>5.38) ng/ml TSH (0.300-4.500) uIu/ml Free T4 (0.8-1.6) ng/dl Cortisol AM Sample (4.3-22.4) mcg/dl IgG (700-1600) mg/dl IgA (70-400) mg/dl IgM (40-230) mg/dl 11/08/18 11/08/18 11/08/18 Range/Units 20:14 17:03 11:25 WBC (4.8-10.8) K/uL RBC (4.2-5.4) M/uL Hgb (12.0-16.0) g/dL Hct (37-47) % MCV (80-100) fL MCH (25-34) pg MCHC (32-36) g/dL RDW Std Deviation (36.4-46.3) fL RDW Coeff of Krista (11.5-14.5) % Plt Count (130-400) K/uL MPV (7.4-10.4) fL Immature Gran % (Auto) % Neut % (Auto) % Lymph % (Auto) % Orange % (Auto) % Eos % (Auto) % Baso % (Auto) % Immature Gran # (Auto) (0.00-0.02) K/uL Neut # (Auto) (1.4-6.5) K/uL Lymph # (Auto) (1.2-3.4) K/uL Orange # (Auto) (0.11-0.59) K/uL Eos # (Auto) (0-0.5) K/uL Baso # (Auto) (0-0.2) K/uL PT (9.0-12.0) Seconds INR (0.9-1.1) Fibrinogen (184-400) mg/dl Sodium (136-145) mmol/L Potassium (3.5-5.1) mmol/L Chloride (98-107) mmol/L Carbon Dioxide (21-32) mmol/L Anion Gap (3-11) BUN (7-18) mg/dl Creatinine (0.6-1.2) mg/dl Est Cr Clr Drug Dosing ml/min Est GFR ( Amer) Est GFR (Non-Af Amer) BUN/Creatinine Ratio (10-20) Glucose (70-99) mg/dl POC Glucose 85 89 77 (70-99) Calcium (8.5-10.1) mg/dl Phosphorus (2.5-4.9) mg/dl Magnesium (1.8-2.4) mg/dl Iron (35-150) mcg/dl TIBC (250-450) mcg/dl Transferrin (200-360) mg/dl Transferrin % Sat (15-50) % Ferritin (8-388) ng/ml Total Bilirubin (0.2-1) mg/dl Direct Bilirubin (0-0.2) mg/dl AST (15-37) U/L ALT (12-78) U/L Alkaline Phosphatase (45-117) U/L Total Protein (6.4-8.2) gm/dl Albumin (3.4-5.0) gm/dl Prealbumin (20-40) mg/dl Ceruloplasmin Triglycerides (0-150) mg/dl Cholesterol (0-200) mg/dl LDL Cholesterol, Calc mg/dl VLDL Cholesterol, Calc mg/dl HDL Cholesterol mg/dl Cholesterol/HDL Ratio Vitamin A Vitamin B12 (211-911) pg/ml 25-OH Vitamin D Total (30-100) ng/ml Alpha-Tocopherol B- and G-Tocopherol Vitamin K Folate (>5.38) ng/ml TSH (0.300-4.500) uIu/ml Free T4 (0.8-1.6) ng/dl Cortisol AM Sample (4.3-22.4) mcg/dl IgG (700-1600) mg/dl IgA (70-400) mg/dl IgM (40-230) mg/dl 11/08/18 11/08/18 11/08/18 Range/Units 07:39 07:13 07:13 WBC (4.8-10.8) K/uL RBC (4.2-5.4) M/uL Hgb (12.0-16.0) g/dL Hct (37-47) % MCV (80-100) fL MCH (25-34) pg MCHC (32-36) g/dL RDW Std Deviation (36.4-46.3) fL RDW Coeff of Krista (11.5-14.5) % Plt Count (130-400) K/uL MPV (7.4-10.4) fL Immature Gran % (Auto) % Neut % (Auto) % Lymph % (Auto) % Orange % (Auto) % Eos % (Auto) % Baso % (Auto) % Immature Gran # (Auto) (0.00-0.02) K/uL Neut # (Auto) (1.4-6.5) K/uL Lymph # (Auto) (1.2-3.4) K/uL Orange # (Auto) (0.11-0.59) K/uL Eos # (Auto) (0-0.5) K/uL Baso # (Auto) (0-0.2) K/uL PT (9.0-12.0) Seconds INR (0.9-1.1) Fibrinogen 355 (184-400) mg/dl Sodium (136-145) mmol/L Potassium (3.5-5.1) mmol/L Chloride (98-107) mmol/L Carbon Dioxide (21-32) mmol/L Anion Gap (3-11) BUN (7-18) mg/dl Creatinine (0.6-1.2) mg/dl Est Cr Clr Drug Dosing ml/min Est GFR ( Amer) Est GFR (Non-Af Amer) BUN/Creatinine Ratio (10-20) Glucose (70-99) mg/dl POC Glucose 87 (70-99) Calcium (8.5-10.1) mg/dl Phosphorus (2.5-4.9) mg/dl Magnesium (1.8-2.4) mg/dl Iron (35-150) mcg/dl TIBC (250-450) mcg/dl Transferrin (200-360) mg/dl Transferrin % Sat (15-50) % Ferritin (8-388) ng/ml Total Bilirubin (0.2-1) mg/dl Direct Bilirubin (0-0.2) mg/dl AST (15-37) U/L ALT (12-78) U/L Alkaline Phosphatase (45-117) U/L Total Protein (6.4-8.2) gm/dl Albumin (3.4-5.0) gm/dl Prealbumin (20-40) mg/dl Ceruloplasmin Triglycerides (0-150) mg/dl Cholesterol (0-200) mg/dl LDL Cholesterol, Calc mg/dl VLDL Cholesterol, Calc mg/dl HDL Cholesterol mg/dl Cholesterol/HDL Ratio Vitamin A Vitamin B12 (211-911) pg/ml 25-OH Vitamin D Total (30-100) ng/ml Alpha-Tocopherol B- and G-Tocopherol Vitamin K Folate (>5.38) ng/ml TSH (0.300-4.500) uIu/ml Free T4 (0.8-1.6) ng/dl Cortisol AM Sample 17.43 (4.3-22.4) mcg/dl IgG (700-1600) mg/dl IgA (70-400) mg/dl IgM (40-230) mg/dl 11/08/18 11/08/18 11/08/18 Range/Units 07:13 07:13 07:13 WBC (4.8-10.8) K/uL RBC (4.2-5.4) M/uL Hgb (12.0-16.0) g/dL Hct (37-47) % MCV (80-100) fL MCH (25-34) pg MCHC (32-36) g/dL RDW Std Deviation (36.4-46.3) fL RDW Coeff of Krista (11.5-14.5) % Plt Count (130-400) K/uL MPV (7.4-10.4) fL Immature Gran % (Auto) % Neut % (Auto) % Lymph % (Auto) % Orange % (Auto) % Eos % (Auto) % Baso % (Auto) % Immature Gran # (Auto) (0.00-0.02) K/uL Neut # (Auto) (1.4-6.5) K/uL Lymph # (Auto) (1.2-3.4) K/uL Orange # (Auto) (0.11-0.59) K/uL Eos # (Auto) (0-0.5) K/uL Baso # (Auto) (0-0.2) K/uL PT (9.0-12.0) Seconds INR (0.9-1.1) Fibrinogen (184-400) mg/dl Sodium (136-145) mmol/L Potassium (3.5-5.1) mmol/L Chloride (98-107) mmol/L Carbon Dioxide (21-32) mmol/L Anion Gap (3-11) BUN (7-18) mg/dl Creatinine (0.6-1.2) mg/dl Est Cr Clr Drug Dosing ml/min Est GFR ( Amer) Est GFR (Non-Af Amer) BUN/Creatinine Ratio (10-20) Glucose (70-99) mg/dl POC Glucose (70-99) Calcium (8.5-10.1) mg/dl Phosphorus (2.5-4.9) mg/dl Magnesium (1.8-2.4) mg/dl Iron (35-150) mcg/dl TIBC (250-450) mcg/dl Transferrin (200-360) mg/dl Transferrin % Sat (15-50) % Ferritin (8-388) ng/ml Total Bilirubin (0.2-1) mg/dl Direct Bilirubin (0-0.2) mg/dl AST (15-37) U/L ALT (12-78) U/L Alkaline Phosphatase (45-117) U/L Total Protein (6.4-8.2) gm/dl Albumin (3.4-5.0) gm/dl Prealbumin (20-40) mg/dl Ceruloplasmin Pending Triglycerides (0-150) mg/dl Cholesterol (0-200) mg/dl LDL Cholesterol, Calc mg/dl VLDL Cholesterol, Calc mg/dl HDL Cholesterol mg/dl Cholesterol/HDL Ratio Vitamin A Pending Vitamin B12 > 2000 H (211-911) pg/ml 25-OH Vitamin D Total 27.3 L (30-100) ng/ml Alpha-Tocopherol Pending B- and G-Tocopherol Pending Vitamin K Pending Folate 1.05 L (>5.38) ng/ml TSH (0.300-4.500) uIu/ml Free T4 (0.8-1.6) ng/dl Cortisol AM Sample (4.3-22.4) mcg/dl IgG (700-1600) mg/dl IgA (70-400) mg/dl IgM (40-230) mg/dl 11/08/18 Range/Units 07:13 WBC (4.8-10.8) K/uL RBC (4.2-5.4) M/uL Hgb (12.0-16.0) g/dL Hct (37-47) % MCV (80-100) fL MCH (25-34) pg MCHC (32-36) g/dL RDW Std Deviation (36.4-46.3) fL RDW Coeff of Krista (11.5-14.5) % Plt Count (130-400) K/uL MPV (7.4-10.4) fL Immature Gran % (Auto) % Neut % (Auto) % Lymph % (Auto) % Orange % (Auto) % Eos % (Auto) % Baso % (Auto) % Immature Gran # (Auto) (0.00-0.02) K/uL Neut # (Auto) (1.4-6.5) K/uL Lymph # (Auto) (1.2-3.4) K/uL Orange # (Auto) (0.11-0.59) K/uL Eos # (Auto) (0-0.5) K/uL Baso # (Auto) (0-0.2) K/uL PT (9.0-12.0) Seconds INR (0.9-1.1) Fibrinogen (184-400) mg/dl Sodium 144 (136-145) mmol/L Potassium 3.3 L (3.5-5.1) mmol/L Chloride 111 H (98-107) mmol/L Carbon Dioxide 29 (21-32) mmol/L Anion Gap 5.0 (3-11) BUN 20 H (7-18) mg/dl Creatinine 0.91 (0.6-1.2) mg/dl Est Cr Clr Drug Dosing 76.0 ml/min Est GFR ( Amer) 75.1 Est GFR (Non-Af Amer) 64.8 BUN/Creatinine Ratio 22.3 H (10-20) Glucose 84 (70-99) mg/dl POC Glucose (70-99) Calcium 7.8 L (8.5-10.1) mg/dl Phosphorus 1.9 L (2.5-4.9) mg/dl Magnesium 1.8 (1.8-2.4) mg/dl Iron 25 L (35-150) mcg/dl TIBC 81 L (250-450) mcg/dl Transferrin 55 L (200-360) mg/dl Transferrin % Sat 32 (15-50) % Ferritin 386.2 (8-388) ng/ml Total Bilirubin 0.7 (0.2-1) mg/dl Direct Bilirubin 0.4 H (0-0.2) mg/dl AST 22 (15-37) U/L ALT 24 (12-78) U/L Alkaline Phosphatase 153 H (45-117) U/L Total Protein 5.3 L (6.4-8.2) gm/dl Albumin 1.3 L (3.4-5.0) gm/dl Prealbumin 5.1 L (20-40) mg/dl Ceruloplasmin Triglycerides 116 (0-150) mg/dl Cholesterol 93 (0-200) mg/dl LDL Cholesterol, Calc 55 mg/dl VLDL Cholesterol, Calc 23 mg/dl HDL Cholesterol 15 mg/dl Cholesterol/HDL Ratio 6 Vitamin A Vitamin B12 (211-911) pg/ml 25-OH Vitamin D Total (30-100) ng/ml Alpha-Tocopherol B- and G-Tocopherol Vitamin K Folate (>5.38) ng/ml TSH 8.510 H (0.300-4.500) uIu/ml Free T4 0.85 (0.8-1.6) ng/dl Cortisol AM Sample (4.3-22.4) mcg/dl IgG 1430.0 (700-1600) mg/dl IgA 447.0 H (70-400) mg/dl IgM 118.0 (40-230) mg/dl Diagnostic Findings Bilateral lower extremity venous Doppler-negative for DVT Echocardiogram-mild MR, normal EF PG Care Time/CCT Total # of Minutes Spent Total Time Spent with Patient: Total time spent is greater than 50% in coordination of care (as documented) at patient's floor/unit and/or counseling patient:
[2018-11-08] MEDS: MONTELUKAST SODIUM 10 MG TABLET PO SCH (21:20)
[2018-11-09 06:09] LABS: Basophils # (auto) 0.02 K/uL (0-0.2); Basophils % (auto) 0.3 %; Eosinophils # (auto) 0.09 K/uL (0-0.5); Eosinophils % (auto) 1.5 %; Hematocrit (blood only) 31.4 % (37-47); Hemoglobin 10.9 g/dL (12.0-16.0); Immature Granulocytes # (auto) 0.02 K/uL (0.00-0.02); Immature Granulocytes % (auto) 0.3 %; Lymphocytes # (auto) 0.98 K/uL (1.2-3.4); Lymphocytes % (auto) 16.9 %; Mean Corpuscular Hgb Conc 34.7 g/dL (32-36); Mean Corpuscular Volume 97.8 fL (80-100); Mean Platelet Volume 9.7 fL (7.4-10.4); Monocytes # (auto) 0.42 K/uL (0.11-0.59); Monocytes % (auto) 7.2 %; Neutrophils # (auto) 4.28 K/uL (1.4-6.5); Neutrophils % (auto) 73.8 %; Platelet Count 245 K/uL (130-400); RDW Coefficient of Variation 14.4 % (11.5-14.5); RDW Standard Deviation 51.7 fL (36.4-46.3); Red Blood Count 3.21 M/uL (4.2-5.4); White Blood Count 5.81 K/uL (4.8-10.8)
[2018-11-09 06:22] LABS: INR 2.2 (0.9-1.1); Prothrombin Time 21.4 Seconds (9.0-12.0)
[2018-11-09 06:38] LABS: Calcium 7.7 mg/dl (8.5-10.1); Creatinine Clr Calc Pharmacy 78.6 ml/min; Est GFR (African American) 78.2; Est GFR (Non-African American) 67.5; Magnesium 1.7 mg/dl (1.8-2.4); Potassium 3.4 mmol/L (3.5-5.1)
[2018-11-09] MEDS ORDERED: POTASSIUM CHLORIDE 20 MEQ TABCR PO STA (06:53)
[2018-11-09] MEDS: FLUTICASONE/SALMETEROL 250/50 (ADVAIR) 14 PUFF/1 INHALER INH SCH ×2 (07:40→20:16)
[2018-11-09] MEDS: MAGNESIUM SULFATE / D5W 1 GM/100 ML BAG IV SCH ×2 (07:40→09:24)
[2018-11-09] MEDS: METOPROLOL TARTRATE 50 MG TAB PO SCH ×2 (07:41→20:16)
[2018-11-09] MEDS: DOXYCYCLINE HYCLATE 100 MG CAP PO SCH ×2 (07:41→20:16)
[2018-11-09] MEDS: FLUOXETINE HCL 20 MG CAP PO SCH (07:41)
[2018-11-09] MEDS: PANTOprazole 40 MG TAB PO SCH (07:43)
[2018-11-09] MEDS: TORSEMIDE 10 MG TAB PO SCH (07:43)
[2018-11-09] MEDS: FLUTICASONE PROPIONATE NA SPR 16 GM BTL SCH (07:43)
--- NOTE | 2018-11-09 07:47 | Gastrointestinal Consultation ---
Date of Consultation November 09, 2018 Assessment & Plan (1) History of bariatric surgery: Her low serum protein and albumin levels are more likely related to diet, low calorie intake. A protein losing enteropathy is typically associated with diarrhea and the pt denies any significant diarrhea. Plan: 1. It is reasonable to provide albumin infusions for a few days in an attempt to shift and diurese the lower leg fluid. Recommend Albumin 12.5 gm 25%, TID x 6 doses. 2. She has had very limited contact with the GI nutrition department since the time of her weight loss surgery. her next appt is currently set for December. Will try to get that moved up. She needs close management by GI nutrition to correct macro and micronutrient deficiencies. 3. To definitively r/o protein losing enteropathy, could order a stool for alpha- 1 antitrypsin - but the test is typically run only on loose BMs - so if stools become loose that could be ordered. Present on Admission?: Yes (2) Hypoalbuminemia: Present on Admission?: Yes Supervising Physician Co-Signing Physician Notes I have seen and examined the patient and discussed the management with MARIELA Lama. PE - obese female lying in bed in nad, abd - obese, soft nt nd +bs, Ext- with wrapping on labs reviewed Agree with further assessment and plan as per Jauna's assessment - albumin tid, a1at stool if looser stools. 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 Manuela Albert Attending Physician: Manuela Albert MD History of Present Illness Ms. Deirdre Nixon is a 68 yr old female without a local PCP with a hx of morbid obesity, DM type II, HTN, CAD with h/o ME, A-fib on warfarin, s/p sleeve gastrectomy 07/08/17 then biliopancreatic diversion with duodenal switch and open hernia repair in January 2018. She presented to the ED on 11/01 for leg weakness and is being treated for lower leg cellulitis. GI is consulted to provide information/opinion regarding the pt's hx of weight loss surgery and answer if the surgery could be related to the pt's low serum albumin (1.3) and total protein levels (5.3) and anasarca. CT of the abdomen/pelvis with IV contrast on arrival did not show bowel abnormalities and liver imaging suggested steatosis. The pt reports increasing lower leg ascites over the past month, such that she is not able to walk. She has a cellulitis that is not healing quickly as the edema is interfering with wound healing. Regarding GI symptoms, she denies nausea or abdominal pain. She will vomit if she, "eats too much." She typically passes 1-2 soft, formed BMs/day but does have occasional diarrhea and constipation. She denies any melena or hematochezia. Interestingly, she also tells me that she is S/P total hysterectomy for uterine cancer approx 2 yrs ago. Allergies Allergy/AdvReac Type Severity Reaction Status Date / Time gabapentin AdvReac Intermediate LOSS OF Verified 11/01/18 13:25 FEELING IN LOWER EXTREMITIES adhesive tape AdvReac Mild Rash Verified 11/01/18 13:25 shellfish derived AdvReac Mild GI SYMPTOMS Verified 11/01/18 13:25 pork derived (porcine) AdvReac Unknown Vomiting Verified 11/02/18 16:07 Pork/Porcine Containing AdvReac Unknown Vomiting Verified 11/02/18 16:07 Products Prep Swab Allergy Unknown "Get sick Uncoded 11/01/18 13:25 and throw up" Home Medications Home Medications Medication Instructions Recorded Confirmed Type albuterol sulfate 1 puff INHALATION DAILY PRN 03/04/18 11/01/18 History fexofenadine-pseudoephedrine 1 tab PO DAILY PRN 03/04/18 11/01/18 History [Cassy-D 12 Hour] fluticasone furoate-vilanterol 1 inh INHALATION HS 03/04/18 11/01/18 History [Breo Ellipta] fluticasone propion-salmeterol 1 inh INHALATION Q12H 03/04/18 11/01/18 History [Advair Diskus] fluticasone propionate [Flonase 1 spray INTRANASAL QAM 03/04/18 11/01/18 History Allergy Relief] lorazepam 0.5 mg PO BID PRN 03/04/18 11/01/18 History metoprolol tartrate [Lopressor] 50 mg PO BID 03/04/18 11/01/18 History montelukast [Singulair] 10 mg PO HS 03/04/18 11/01/18 History nitroglycerin 0.4 mg SUBLINGUAL DIRECTED PRN 03/04/18 11/01/18 History omeprazole magnesium [Prilosec OTC] 20 mg PO QAM 03/04/18 11/01/18 History paroxetine HCl [Paxil] 30 mg PO QAM 03/04/18 11/01/18 History polyethylene glycol 3350 [Miralax] 1 dose PO DAILY PRN 03/04/18 11/01/18 History bismuth subsalicylate [Kaopectate 524 mg PO QID PRN 11/01/18 11/01/18 History (bismuth subsalicy)] buspirone 10 mg PO TID PRN 11/01/18 11/01/18 History cyanocobalamin (vitamin B-12) 1,000 mcg SUBCUT 2XWK 11/01/18 11/01/18 History cyanocobalamin (vitamin B-12) 2,500 mcg SUBLINGUAL QAM 11/01/18 11/01/18 History [Vitamin B-12] torsemide 20 - 40 mg PO QAM 11/01/18 11/01/18 History warfarin 0.5 mg PO HS 11/01/18 11/01/18 History Patient History Medical History Encounter for pre-operative examination Acquired hallux valgus of right foot (Acute) Acquired hammer toe of right foot (Acute) Bilateral swelling of feet (Acute) Callus (Acute) Diabetes mellitus with diabetic polyneuropathy (Acute) Hallux valgus (acquired), left foot (Acute) Hammertoe of left foot (Acute) Neuropathic ulcer of left heel (Acute) Anxiety CAD (coronary artery disease) COPD (chronic obstructive pulmonary disease) Cancer OVARIAN CANCER (DOLORES/NO RADIATION/NO CHEMO) Chronic back pain Colitis Deep vein thrombosis left leg/filter placed Diabetes mellitus, type 2 Diabetic foot ulcer Diabetic peripheral neuropathy associated with type 2 diabetes mellitus Family history of diabetes mellitus FATHER GERD (gastroesophageal reflux disease) Gout [place] filter in place History of DVT (deep vein thrombosis) History of [place] (myocardial infarction) History of diabetic ulcer of foot Hyperlipidemia Hypertension Myocardial Infarction 2009 and 2010 Osteoarthritis Peripheral neuropathy BLE Thrombophlebitis Urinary leakage Surgical History Fusion of spine LUMBAR History of PTCA History of adenoidectomy History of cardiac cath no stents History of colonoscopy History of gastric bypass History of hysterectomy History of hysterectomy History of lumbar spinal fusion History of tonsillectomy History of total knee replacement RT/LEFT Family History Other Family history non-contributory Social History Preferred Language: Malagasy Communication Ability: Effective Director Of Revenue Required: No Beliefs That Will Affect Care: None marital status: Current Living Situation: Spouse Other Information That Helps Us Care for You: No Feels Safe at Home: Yes Safety Concerns: Feels Safe At This Time Smoking Status: Never smoker Second Hand Exposure: No ; Hx Alcohol Use: No Hx Substance Use: No Review of Systems Constitutional: + body aches and + weakness; no fever and no chills Eyes: no dry eyes and no eye pain Ear, Nose, Mouth, Throat: no ear pain, no tinnitus and no dizziness Respiratory: no cough and no dyspnea Cardiovascular: + edema (marked, lower leg); no chest pain and no palpitations Genitourinary: + urinary incontinence Integumentary: + problem reported (lower leg cellulitis) Neurologic: no syncope, no headache(s) and no confusion Psychiatric: + depression (denies); no suicidal ideation, no panic attacks and no hallucinations Physical Exam Constitutional: WD/WN, vitals as above + ill appearing (chronically) and + obese Eyes: PERRL, conjunctivae normal, anicteric sclerae ENMT: external ear and nose normal, oropharynx normal Neck: trachea midline, no thyromegaly Respiratory: normal respiratory effort, lungs clear to auscultation Cardiovascular: RRR, no murmur, no edema Gastrointestinal (Abdomen): normal bowel sounds, soft, nontender, no hepatosplenomegaly Musculoskeletal: Head/Neck/Chest: neck supple no focal weakness Skin: Lower legs with dry dressings intact. No ecchymosis, no jaundice. Neurologic: PERRL, EOMI, accommodation nl, no face palsy, no dysarthria Psychiatric: A+Ox3, euthymic affect Lymphatic: + lymphedema (Marked bilat lower leg edema) Results & Data Vital Signs (Past 12 Hours) Vital Signs Temp Pulse Resp BP Pulse Ox 11/09/18 07:33 36.8 C 63 20 158/83 H 97 11/08/18 23:54 36.7 C 72 18 154/[address] abd/pelvis with IV, no oral contrast 11/01/18: 1. No acute intra-abdominal or intrapelvic abnormality identified. 2. Fluid overload manifested by trace left and small right pleural effusions, diffuse mesenteric edema with anasarca. 3. No bowel obstruction or bowel wall thickening. 4. Postoperative changes from prior gastric bypass. Cholecystectomy and hysterectomy. 5. Hepatic steatosis. 6. Additional findings as above.
[2018-11-09] MEDS: LEVOTHYROXINE SODIUM 25 MCG in SYRINGE 0 ML IV SCH (08:44)
[2018-11-09] MEDS: FOLIC ACID 1 MG in SYRINGE 9.8 ML IV SCH (09:23)
--- NOTE | 2018-11-09 12:26 | Surgery Consultation ---
Date of Consultation November 09, 2018 Assessment & Plan (1) Severe protein-calorie malnutrition: 68 year-old female with extensive bariatric surgical history including laparoscopic sleeve gastrectomy with conversion to biliopancreatic diversion with duodenal switch in January of 2018 now with severe protein calorie malnutrition and chronic lower extremity lymphedema. Her Albumin is at 1.3 and prealbumin low at 5.1. Has not followed with her bariatric surgeon since April and has not gone to nutrition appointments (per [facility] records). Dr. Albert concerned of her malnutrition and possible need for reversal of her bariatric procedure as she is unable to eat much due to nausea and low appetite. CT scan of abdomen and pelvis showed no intra-abdominal abnormality. No leukocytosis. No abdominal pain. Plan: Patient needs to follow-up with her Bariatric surgeon and nutrition team as soon as possible given extent of her bariatric procedures and severe malnutrition to discuss further management plans and treatment. Do not feel there is immediate need for transfer as there are no acute intra-abdominal findings on CT scan, she has no leukocytosis, and vitals are stable however she needs close follow-up given recent no-shows and cancellations of appointments to Nutrition and bariatric surgeon. Advised patient that it is very important to follow with them as well as sample dye mixer given her severe malnutrition. Recommend high protein diet with boost/breeze supplementation TID in between meals (2) Hypoproteinemia: (3) Hypoalbuminemia: (4) History of bariatric surgery: Dr. Valdes was present during my examination of patient and discussion with patient History of Present Illness Reason for Consultation: severe malnutrition Requesting Physician: Manuela Albert MD Attending Physician: Manuela Albert MD History of Present Illness Deirdre is a 68 year-old female with extensive bariatric surgical history who presented to hospital on 11/01/2018 with increasing leg swelling and chronic lymphedema. Looking through [email or web address] records, she had laparoscopic sleeve gastrectomy by Dr. Tamez in June of 2017 and then had biliopancreatic diversion with duodenal switch , cholecystectomy, and ventral hernia repair by Dr. Tamez and Dr. Edmond in January of 2018. She was seen in office in April for follow-up with bariatric surgery however has not seen them since and has had no-shows to subsequent nutrition appointments. Discussed patient with Dr. Albert. She was concerned if patient needs surgical revision given her severe nutritional status. Also concerned patient does not understand extent of her malnutrition and need for follow-up with nutrition and bariatric surgeon. She states patient is very depressed and is not at her baseline activity given severe lower extremity swelling and poor nutrition. Deirdre had a CT scan of abdomen and pelvis without contrast which showed no intra-abdominal abnormality. Her albumin has been low with her prealbumin 5.1 and albumin 1.3 yesterday. Deirdre states she is having no abdominal pain. Difficulty eating as she gets nauseated and full very quickly after eating. Allergies Allergy/AdvReac Type Severity Reaction Status Date / Time gabapentin AdvReac Intermediate LOSS OF Verified 11/01/18 13:25 FEELING IN LOWER EXTREMITIES adhesive tape AdvReac Mild Rash Verified 11/01/18 13:25 shellfish derived AdvReac Mild GI SYMPTOMS Verified 11/01/18 13:25 pork derived (porcine) AdvReac Unknown Vomiting Verified 11/02/18 16:07 Pork/Porcine Containing AdvReac Unknown Vomiting Verified 11/02/18 16:07 Products Prep Swab Allergy Unknown "Get sick Uncoded 11/01/18 13:25 and throw up" Home Medications Home Medications Medication Instructions Recorded Confirmed Type albuterol sulfate 1 puff INHALATION DAILY PRN 03/04/18 11/01/18 History fexofenadine-pseudoephedrine 1 tab PO DAILY PRN 03/04/18 11/01/18 History [Cassy-D 12 Hour] fluticasone furoate-vilanterol 1 inh INHALATION HS 03/04/18 11/01/18 History [Breo Ellipta] fluticasone propion-salmeterol 1 inh INHALATION Q12H 03/04/18 11/01/18 History [Advair Diskus] fluticasone propionate [Flonase 1 spray INTRANASAL QAM 03/04/18 11/01/18 History Allergy Relief] lorazepam 0.5 mg PO BID PRN 03/04/18 11/01/18 History metoprolol tartrate [Lopressor] 50 mg PO BID 03/04/18 11/01/18 History montelukast [Singulair] 10 mg PO HS 03/04/18 11/01/18 History nitroglycerin 0.4 mg SUBLINGUAL DIRECTED PRN 03/04/18 11/01/18 History omeprazole magnesium [Prilosec OTC] 20 mg PO QAM 03/04/18 11/01/18 History paroxetine HCl [Paxil] 30 mg PO QAM 03/04/18 11/01/18 History polyethylene glycol 3350 [Miralax] 1 dose PO DAILY PRN 03/04/18 11/01/18 History bismuth subsalicylate [Kaopectate 524 mg PO QID PRN 11/01/18 11/01/18 History (bismuth subsalicy)] buspirone 10 mg PO TID PRN 11/01/18 11/01/18 History cyanocobalamin (vitamin B-12) 1,000 mcg SUBCUT 2XWK 11/01/18 11/01/18 History cyanocobalamin (vitamin B-12) 2,500 mcg SUBLINGUAL QAM 11/01/18 11/01/18 History [Vitamin B-12] torsemide 20 - 40 mg PO QAM 11/01/18 11/01/18 History warfarin 0.5 mg PO HS 11/01/18 11/01/18 History Patient History Medical History Encounter for pre-operative examination Acquired hallux valgus of right foot (Acute) Acquired hammer toe of right foot (Acute) Bilateral swelling of feet (Acute) Callus (Acute) Diabetes mellitus with diabetic polyneuropathy (Acute) Hallux valgus (acquired), left foot (Acute) Hammertoe of left foot (Acute) Neuropathic ulcer of left heel (Acute) Anxiety CAD (coronary artery disease) COPD (chronic obstructive pulmonary disease) Cancer OVARIAN CANCER (DOLORES/NO RADIATION/NO CHEMO) Chronic back pain Colitis Deep vein thrombosis left leg/filter placed Diabetes mellitus, type 2 Diabetic foot ulcer Diabetic peripheral neuropathy associated with type 2 diabetes mellitus Family history of diabetes mellitus FATHER GERD (gastroesophageal reflux disease) Gout [place] filter in place History of DVT (deep vein thrombosis) History of [place] (myocardial infarction) History of diabetic ulcer of foot Hyperlipidemia Hypertension Myocardial Infarction 2009 and 2010 Osteoarthritis Peripheral neuropathy BLE Thrombophlebitis Urinary leakage Surgical History Fusion of spine LUMBAR History of PTCA History of adenoidectomy History of cardiac cath no stents History of colonoscopy History of gastric bypass History of hysterectomy History of hysterectomy History of lumbar spinal fusion History of tonsillectomy History of total knee replacement RT/LEFT Family History Other Family history non-contributory Social History Preferred Language: Swedish Communication Ability: Effective Stapler Coil Unit Required: No Beliefs That Will Affect Care: None marital status: Current Living Situation: Spouse Other Information That Helps Us Care for You: No Feels Safe at Home: Yes Safety Concerns: Feels Safe At This Time Smoking Status: Never smoker Second Hand Exposure: No ; Hx Alcohol Use: No Hx Substance Use: No Physical Exam Constitutional: + ill appearing (chronicly ill appearing) and + obese; no acute distress Respiratory: no respiratory distress and no labored breathing Psychiatric: Orientation: alert and oriented x 3 Affect: + depressed affect Results & Data Vital Signs (Past 12 Hours) Vital Signs Temp Pulse Resp BP Pulse Ox 11/09/18 07:33 36.8 C 63 20 158/83 H 97 Laboratory Results 11/09/18 11/09/18 11/09/18 Range/Units 11:49 11:24 11:23 WBC (4.8-10.8) K/uL RBC (4.2-5.4) M/uL Hgb (12.0-16.0) g/dL Hct (37-47) % MCV (80-100) fL MCH (25-34) pg MCHC (32-36) g/dL RDW Std Deviation (36.4-46.3) fL RDW Coeff of Krista (11.5-14.5) % Plt Count (130-400) K/uL MPV (7.4-10.4) fL Immature Gran % (Auto) % Neut % (Auto) % Lymph % (Auto) % Kimble % (Auto) % Eos % (Auto) % Baso % (Auto) % Immature Gran # (Auto) (0.00-0.02) K/uL Neut # (Auto) (1.4-6.5) K/uL Lymph # (Auto) (1.2-3.4) K/uL Kimble # (Auto) (0.11-0.59) K/uL Eos # (Auto) (0-0.5) K/uL Baso # (Auto) (0-0.2) K/uL PT (9.0-12.0) Seconds INR (0.9-1.1) Sodium (136-145) mmol/L Potassium (3.5-5.1) mmol/L Chloride (98-107) mmol/L Carbon Dioxide (21-32) mmol/L Anion Gap (3-11) BUN (7-18) mg/dl Creatinine (0.6-1.2) mg/dl Est Cr Clr Drug Dosing ml/min Est GFR ( Amer) Est GFR (Non-Af Amer) BUN/Creatinine Ratio (10-20) Glucose (70-99) mg/dl POC Glucose 69 L* 69 L* 68 L* (70-99) Calcium (8.5-10.1) mg/dl Magnesium (1.8-2.4) mg/dl 11/09/18 11/09/18 11/09/18 Range/Units 07:52 07:51 05:32 WBC (4.8-10.8) K/uL RBC (4.2-5.4) M/uL Hgb (12.0-16.0) g/dL Hct (37-47) % MCV (80-100) fL MCH (25-34) pg MCHC (32-36) g/dL RDW Std Deviation (36.4-46.3) fL RDW Coeff of Krista (11.5-14.5) % Plt Count (130-400) K/uL MPV (7.4-10.4) fL Immature Gran % (Auto) % Neut % (Auto) % Lymph % (Auto) % Kimble % (Auto) % Eos % (Auto) % Baso % (Auto) % Immature Gran # (Auto) (0.00-0.02) K/uL Neut # (Auto) (1.4-6.5) K/uL Lymph # (Auto) (1.2-3.4) K/uL Kimble # (Auto) (0.11-0.59) K/uL Eos # (Auto) (0-0.5) K/uL Baso # (Auto) (0-0.2) K/uL PT (9.0-12.0) Seconds INR (0.9-1.1) Sodium 143 (136-145) mmol/L Potassium 3.4 L (3.5-5.1) mmol/L Chloride 109 H (98-107) mmol/L Carbon Dioxide 30 (21-32) mmol/L Anion Gap 4.0 (3-11) BUN 19 H (7-18) mg/dl Creatinine 0.88 (0.6-1.2) mg/dl Est Cr Clr Drug Dosing 78.6 ml/min Est GFR ( Amer) 78.2 Est GFR (Non-Af Amer) 67.5 BUN/Creatinine Ratio 21.0 H (10-20) Glucose 72 (70-99) mg/dl POC Glucose 78 68 L* (70-99) Calcium 7.7 L (8.5-10.1) mg/dl Magnesium 1.7 L (1.8-2.4) mg/dl 11/09/18 11/09/18 11/08/18 Range/Units 05:32 05:32 20:14 WBC 5.81 (4.8-10.8) K/uL RBC 3.21 L (4.2-5.4) M/uL Hgb 10.9 L (12.0-16.0) g/dL Hct 31.4 L (37-47) % MCV 97.8 (80-100) fL MCH 34.0 (25-34) pg MCHC 34.7 (32-36) g/dL RDW Std Deviation 51.7 H (36.4-46.3) fL RDW Coeff of Krista 14.4 (11.5-14.5) % Plt Count 245 (130-400) K/uL MPV 9.7 (7.4-10.4) fL Immature Gran % (Auto) 0.3 % Neut % (Auto) 73.8 % Lymph % (Auto) 16.9 % Kimble % (Auto) 7.2 % Eos % (Auto) 1.5 % Baso % (Auto) 0.3 % Immature Gran # (Auto) 0.02 (0.00-0.02) K/uL Neut # (Auto) 4.28 (1.4-6.5) K/uL Lymph # (Auto) 0.98 L (1.2-3.4) K/uL Kimble # (Auto) 0.42 (0.11-0.59) K/uL Eos # (Auto) 0.09 (0-0.5) K/uL Baso # (Auto) 0.02 (0-0.2) K/uL PT 21.4 H (9.0-12.0) Seconds INR 2.2 H (0.9-1.1) Sodium (136-145) mmol/L Potassium (3.5-5.1) mmol/L Chloride (98-107) mmol/L Carbon Dioxide (21-32) mmol/L Anion Gap (3-11) BUN (7-18) mg/dl Creatinine (0.6-1.2) mg/dl Est Cr Clr Drug Dosing ml/min Est GFR ( Amer) Est GFR (Non-Af Amer) BUN/Creatinine Ratio (10-20) Glucose (70-99) mg/dl POC Glucose 85 (70-99) Calcium (8.5-10.1) mg/dl Magnesium (1.8-2.4) mg/dl 11/08/18 Range/Units 17:03 WBC (4.8-10.8) K/uL RBC (4.2-5.4) M/uL Hgb (12.0-16.0) g/dL Hct (37-47) % MCV (80-100) fL MCH (25-34) pg MCHC (32-36) g/dL RDW Std Deviation (36.4-46.3) fL RDW Coeff of Krista (11.5-14.5) % Plt Count (130-400) K/uL MPV (7.4-10.4) fL Immature Gran % (Auto) % Neut % (Auto) % Lymph % (Auto) % Kimble % (Auto) % Eos % (Auto) % Baso % (Auto) % Immature Gran # (Auto) (0.00-0.02) K/uL Neut # (Auto) (1.4-6.5) K/uL Lymph # (Auto) (1.2-3.4) K/uL Kimble # (Auto) (0.11-0.59) K/uL Eos # (Auto) (0-0.5) K/uL Baso # (Auto) (0-0.2) K/uL PT (9.0-12.0) Seconds INR (0.9-1.1) Sodium (136-145) mmol/L Potassium (3.5-5.1) mmol/L Chloride (98-107) mmol/L Carbon Dioxide (21-32) mmol/L Anion Gap (3-11) BUN (7-18) mg/dl Creatinine (0.6-1.2) mg/dl Est Cr Clr Drug Dosing ml/min Est GFR ( Amer) Est GFR (Non-Af Amer) BUN/Creatinine Ratio (10-20) Glucose (70-99) mg/dl POC Glucose 89 (70-99) Calcium (8.5-10.1) mg/dl Magnesium (1.8-2.4) mg/dl Diagnostic Findings ABDOMEN AND PELVIS CT WITH IV CONTRAST HISTORY: Acute generalized abdominal pain Abdominal pain, lactic acidosis TECHNIQUE: Multiaxial CT images of the abdomen and pelvis were performed fol lowing the use of intravenous contrast. A dose lowering technique was utilized adhering to the principles of ALARA. COMPARISON STUDY: CT lumbar spine of same day, CT abdomen and pelvis 03/04/2018 FINDINGS: Trace left and small right pleural effusions. Dependent right basilar consolidation suggests compressive atelectasis. No pneumatosis or pneumoperitoneum. The imaged inferior cardiac chambers are upper limits of normal in size with coronary arterial and aortic annular calcifications noted. Hepatic steatosis. Cholecystectomy. No intrahepatic biliary ductal dilation. Spleen and adrenal glands are unremarkable. Mild generalized pancreatic atrophy. Surgical coils are noted adjacent to the pancreatic head and left hepatic lobe with streak artifact limiting evaluation of the adjacent structures. Kidneys are unremarkable. Partial distention of the urinary bladder with wall thickening. Hysterectomy. No adnexal mass lesions identified. Calcified plaque the abdominal aorta without aneurysm. Infrarenal IVC filter is noted. No definite adenopathy. Postoperative changes from gastric bypass. Small hiatal hernia. Diffuse mesenteric edema with trace free fluid about the dependent pelvis. No bowel obstruction or bowel wall thickening identified. The appendix is not diagnostically visualized. Diffuse extensive body wall edema. Demineralized appearance of the bones. Postoperative changes with degenerative changes of the spine redemonstrated. Severe osteoarthritis with chronic remodeling changes of the right femoral acetabular joint. Moderate left hip osteoarthritis. IMPRESSION: 1. No acute intra-abdominal or intrapelvic abnormality identified. 2. Fluid overload manifested by trace left and small right pleural effusions, diffuse mesenteric edema with anasarca. 3. No bowel obstruction or bowel wall thickening. 4. Postoperative changes from prior gastric bypass. Cholecystectomy and hysterectomy. 5. Hepatic steatosis. 6. Additional findings as above.
[2018-11-09] MEDS: ALBUMIN 25% 100 ML IV SCH ×2 (15:27→22:07)
--- NOTE | 2018-11-09 18:39 | Hospitalist Progress Note ---
Date of Service November 09, 2018 Assessment & Plan (1) Hypoalbuminemia: With massive anasarca, severe hypoalbuminemia and hypoproteinemia developing since gastric sleeve surgery and subsequent repeat surgery for intra- abdominal hemorrhage in 02/2018. Albumin now 1.3. TProt only 4.2 with slight improvement to 5 UA without any proteinuria No renal or liver disease currently, but does report a h/o "kidney and liver failure" during hospital admission 02/2018 at [facility] Review of records from [facility] obtained through [facility]--> reveal she actually had a gastric sleeve procedure in 06/2017 followed by a Biliopancreatic diversion with a duodenal switch procedure in 01/2018. This second surgery removes a large portion of small intestine and therefore places her at risk for malabsorption syndromes, nutritional deficiencies, etc. as she clearly has. The pt was not aware she had this type of surgery; neither was her sister at the bedside. Furthermore, it was found that the pt has "no-showed" to her last 3 scheduled visits with the [facility] Nutritional MD, but not by her own accord. She was unaware she had these appointments scheduled. Stressed importance of following up with the Nutrition MD [facility] after discharge Therefore, her severe malabsorption and malnutrition is secondary to her duodenal switch without adequate follow up. Less likely now to be a Protein- losing gastroenteropathy -Appreciate GI and Surgery consultations-no scopes recommended. Had normal EGD in 04/2018 -starting IV albumin x 6 doses (2 days) now -consulted Nutrition here and will need close outpatient f/u as above -Continue 5 small meals daily given her gastric sleeve to improve oral intake -checked IgG,IgA,IgM (not low), Vitamins AEK pending, Vit D mildly low at 27, ceruloplasmin pending, transferrin normal, fibrinogen normal, lipid panel normal -Severely low prealbumin at 5 -continue to follow LFTs, albumin, TProt -checked TSH for anasarca-TSH elevated free T4 low-see below -switched SSRI to Prozac to see if has better effect on mood to increase appetite-mood is already improving -care of LE edema as below (2) Hypoproteinemia: as above (3) History of bariatric surgery: h/o gastric sleeve in 06/2017 followed by Biliopancreatic diversion with duodenal switch as above at [facility] With malabsorptive issues as above -Consult surgery here recommends close f/u with her primary Bariatric Surgery team at [facility] (4) Hypoglycemia: occurs every morning, patient says she gets this way at home Secondary to malabsorption and poor po intake from bariatric surgery A.m. cortisol is normal -encouraged to eat very frequently, set alarm for early AM snack -dcd D5W due to volume overload, glucose improved now wo thte 60s in the AM -changed diet to regular so she can eat more carbs, change to 5 small meals daily TSH is abnormal as below-replacing LT 4 -follow accuchecks -Continue qhs snack (5) Cellulitis of lower extremity: left leg slightly more erythematous, more warm than right on admission- overall improved Initially received Zosyn and Daptomycin, then changed to Doxycycline po--> overall improved erythema Afebrile, leukocytosis resolved -continue on the Doxycycline, treat for 21 days total due to lymphedema (6) SIMONA (acute kidney injury): Cr up to 1.4 on 11/04 from 1.0, was secondary to dehydration, poor po intake Cr down to 0.8 now -has been restarted on torsemide for her LE edema--> caution not to deplete volume as she is likely significantly intravascularly volume depleted due to severe hypoalbuminemia -Follow BMP (7) Lactic acidosis: Was likely due to infection/cellulitis of legs down to 2.0 on 11/03, responded to resuscitative fluids and supportive care CT abdomen/pelvis and lumbar spine due to complaints of back pain and abdominal pain no infectious or inflammatory changes seen, just chronic changes and post operative changes Blood cultures no growth CXR normal, no evidence of UTI on UA (8) Chronic acquired lymphedema: I am unsure that she truly has LYMPHEDEMA. Has anasarca from severe hypoproteinemia and hypoalbuminemia as above -was being followed by Wound Care clinic, doing wraps -treating with IV albumin as above -continue to treat with wound care locally, compression, elevation, diuretics with caution -will need close attention to her LE edema after discharge (9) Venous stasis ulcers of both lower extremities: Improving with less LE edema now -follows with wound clinic chief technologist following Apply dressings and compression wraps as per trim machine adjuster (10) Pressure ulcer, heel, left, unstageable: again follows with wound clinic wound RN following, has been debrided recently in Wound Clinic -continue Aquacel Ag dressing (11) Back pain: Acute on chronic, has history of lumbar spine surgery and chronic pain--> much improved today no clear etiology seen on CT lumbar spine MRI L-spine would be best but pt and family report severe claustrophobia and must have open MRI No saddle anesthesia, she does have some motor function and sensory in her LEs, no loss of bowel/bladder function -continue pain control, PT/OT (12) Atrial fibrillation: paroxysmal, continues in sinus rhythm here on exam now continue Metoprolol -ok to restart Coumadin after holding x 2 days--> no endoscopies indicated at this time -follow INR (13) Depression: Was not adequately treated, is exacerbated by ongoing medical issues Denies SI/HI She actually stopped her Paxil on her own 2 weeks prior to admission as wasn't helping for many years -switched to Prozac 20mg daily, dcd Paxil (no real risk of withdrawal)--> can titrate up as needed in 2-3 weeks -consider adding on Remeron for appetite stimulant effect also if needed (14) Hypertension: Controlled -continue metoprolol (15) H/O deep venous thrombosis: in LLE as per previous reports, patient reports this was 11 years ago -has Lacey filter in place -restart Coumadin at 0.5mg daily INR therapeutic -follow INR (16) Anemia, macrocytic: Hgb 10.7, MCV 100 -is on B12 supplements With very poor nutrition With severe folate deficiency with folate of 1.0 Also with hypothyroidism which is a new diagnosis as below -Replace with IV folate, IV LT4 as below (17) Osteoarthritis, hip, bilateral: chronic, bilat hip pain, also contributes to ambulatory dysfunction (18) Obesity: BMI 45, has actually gained 12-15 kg since her gastric sleeve but seems to all be fluid weight from anasarca Muscles are wasting (19) Hypokalemia: Secondary to loop diuretic -replace with po KCl -follow BMP, Mg in AM (20) Hypothyroidism: TSH elevated at 8, free T4 low at 0.8, with anasarca and very poor nutrition - started IV levothyroxine 25 mcg daily and eventually convert to p.o. but has very poor absorption at this point in the GI tract -Follow TSH in 4 to 6 weeks (21) Folate deficiency anemia: Folate severely low at 1.0, secondary to very poor nutrition -Started IV folic acid as above and will convert to po folic acid high doses on dc (22) Severe protein-calorie malnutrition: Severely low albumin, prealbumin only 5 With protein wasting as above and malabsorption -Dietary is consulted -needs high protein diet -needs close follow up with Bariatric Disaster Recovery Specialist at [facility]-has missed three appts (23) Hypophosphatemia: replaced -follow phos (24) Ambulatory dysfunction: secondary to severe LE edema, anasarca, generalized weakness -improved slightly today, was able to walk a few feet with PT -needs aggressive PT/OT, rehab placement (25) DVT prophylaxis: Coumadin Dispo- Plan: PT/OT consulted, recommend rehab, pt agreeable [facility] has a bed available for her, approved Not medically stable for discharge at this time, needs 2 days of IV albumin, nutrient replacement, then dc hopefully on Thursday Subjective Pt reports feeling a little better today. SHe is eating a bit more, and also got out of bed and walked forward two steps and backwards 2 steps with PT. Denies CP, SOB, abd pain. Legs still swollen and having pain in left medial thigh Discussed her case today with GI [facility]ST[facility] HEMMER and [facility] Review of Systems Review of Systems: All systems reviewed & are unremarkable except as noted in HPI & below Physical Exam Constitutional: + ill appearing and + obese; + not well nourished (is wasting in her muscles and her ribs are sticking out; with anasarca) and no acute distress Eyes: + anicteric sclerae Neck: trachea midline, no thyromegaly Respiratory: normal respiratory effort; no labored breathing Auscultation: + diminished lung sounds (at the bases bilat); no crackles, no rhonchi and no wheezes Cardiovascular: Rate/Rhythm: regular rate and regular rhythm Heart Sounds: + murmur (2/6 at LLSB) Extremities: + edema (massive pitting edema 3-4+ from feet to the abdomen; 2+ pitting edema R>LUE slight improvement from yesterday) Gastrointestinal (Abdomen): Inspection/Auscultation: abdomen normal to inspection, normal bowel sounds and + abdominal edema Percussion/Palpation: abdomen soft; no hernia Musculoskeletal: Extremities: no cyanosis and no clubbing Skin: + wound (multiple small open areas on legs R>L with dressings in place not removed today) Neurologic: awake Psychiatric: Orientation: alert, oriented to person, oriented to place, oriented to time and cooperative Motor Behavior: n tremor Cognition: recent memory grossly intact and remote memory grossly intact Results & Data Vital Signs (Past 12 Hours) Vital Signs Temp Pulse Resp BP Pulse Ox 11/09/18 15:23 36.8 C 65 20 155/89 H 100 11/09/18 07:33 36.8 C 63 20 158/83 H 97 Laboratory Results 11/09/18 11/09/18 11/09/18 Range/Units 20:17 16:39 11:49 WBC (4.8-10.8) K/uL RBC (4.2-5.4) M/uL Hgb (12.0-16.0) g/dL Hct (37-47) % MCV (80-100) fL MCH (25-34) pg MCHC (32-36) g/dL RDW Std Deviation (36.4-46.3) fL RDW Coeff of Krista (11.5-14.5) % Plt Count (130-400) K/uL MPV (7.4-10.4) fL Immature Gran % (Auto) % Neut % (Auto) % Lymph % (Auto) % [place] % (Auto) % Eos % (Auto) % Baso % (Auto) % Immature Gran # (Auto) (0.00-0.02) K/uL Neut # (Auto) (1.4-6.5) K/uL Lymph # (Auto) (1.2-3.4) K/uL [place] # (Auto) (0.11-0.59) K/uL Eos # (Auto) (0-0.5) K/uL Baso # (Auto) (0-0.2) K/uL PT (9.0-12.0) Seconds INR (0.9-1.1) Sodium (136-145) mmol/L Potassium (3.5-5.1) mmol/L Chloride (98-107) mmol/L Carbon Dioxide (21-32) mmol/L Anion Gap (3-11) BUN (7-18) mg/dl Creatinine (0.6-1.2) mg/dl Est Cr Clr Drug Dosing ml/min Est GFR ( Amer) Est GFR (Non-Af Amer) BUN/Creatinine Ratio (10-20) Glucose (70-99) mg/dl POC Glucose 77 89 69 L* (70-99) Calcium (8.5-10.1) mg/dl Magnesium (1.8-2.4) mg/dl 11/09/18 11/09/18 11/09/18 Range/Units 11:24 11:23 07:52 WBC (4.8-10.8) K/uL RBC (4.2-5.4) M/uL Hgb (12.0-16.0) g/dL Hct (37-47) % MCV (80-100) fL MCH (25-34) pg MCHC (32-36) g/dL RDW Std Deviation (36.4-46.3) fL RDW Coeff of Krista (11.5-14.5) % Plt Count (130-400) K/uL MPV (7.4-10.4) fL Immature Gran % (Auto) % Neut % (Auto) % Lymph % (Auto) % [place] % (Auto) % Eos % (Auto) % Baso % (Auto) % Immature Gran # (Auto) (0.00-0.02) K/uL Neut # (Auto) (1.4-6.5) K/uL Lymph # (Auto) (1.2-3.4) K/uL [place] # (Auto) (0.11-0.59) K/uL Eos # (Auto) (0-0.5) K/uL Baso # (Auto) (0-0.2) K/uL PT (9.0-12.0) Seconds INR (0.9-1.1) Sodium (136-145) mmol/L Potassium (3.5-5.1) mmol/L Chloride (98-107) mmol/L Carbon Dioxide (21-32) mmol/L Anion Gap (3-11) BUN (7-18) mg/dl Creatinine (0.6-1.2) mg/dl Est Cr Clr Drug Dosing ml/min Est GFR ( Amer) Est GFR (Non-Af Amer) BUN/Creatinine Ratio (10-20) Glucose (70-99) mg/dl POC Glucose 69 L* 68 L* 78 (70-99) Calcium (8.5-10.1) mg/dl Magnesium (1.8-2.4) mg/dl 11/09/18 11/09/18 11/09/18 Range/Units 07:51 05:32 05:32 WBC (4.8-10.8) K/uL RBC (4.2-5.4) M/uL Hgb (12.0-16.0) g/dL Hct (37-47) % MCV (80-100) fL MCH (25-34) pg MCHC (32-36) g/dL RDW Std Deviation (36.4-46.3) fL RDW Coeff of Krista (11.5-14.5) % Plt Count (130-400) K/uL MPV (7.4-10.4) fL Immature Gran % (Auto) % Neut % (Auto) % Lymph % (Auto) % [place] % (Auto) % Eos % (Auto) % Baso % (Auto) % Immature Gran # (Auto) (0.00-0.02) K/uL Neut # (Auto) (1.4-6.5) K/uL Lymph # (Auto) (1.2-3.4) K/uL [place] # (Auto) (0.11-0.59) K/uL Eos # (Auto) (0-0.5) K/uL Baso # (Auto) (0-0.2) K/uL PT 21.4 H (9.0-12.0) Seconds INR 2.2 H (0.9-1.1) Sodium 143 (136-145) mmol/L Potassium 3.4 L (3.5-5.1) mmol/L Chloride 109 H (98-107) mmol/L Carbon Dioxide 30 (21-32) mmol/L Anion Gap 4.0 (3-11) BUN 19 H (7-18) mg/dl Creatinine 0.88 (0.6-1.2) mg/dl Est Cr Clr Drug Dosing 78.6 ml/min Est GFR ( Amer) 78.2 Est GFR (Non-Af Amer) 67.5 BUN/Creatinine Ratio 21.0 H (10-20) Glucose 72 (70-99) mg/dl POC Glucose 68 L* (70-99) Calcium 7.7 L (8.5-10.1) mg/dl Magnesium 1.7 L (1.8-2.4) mg/dl 11/09/18 Range/Units 05:32 WBC 5.81 (4.8-10.8) K/uL RBC 3.21 L (4.2-5.4) M/uL Hgb 10.9 L (12.0-16.0) g/dL Hct 31.4 L (37-47) % MCV 97.8 (80-100) fL MCH 34.0 (25-34) pg MCHC 34.7 (32-36) g/dL RDW Std Deviation 51.7 H (36.4-46.3) fL RDW Coeff of Krista 14.4 (11.5-14.5) % Plt Count 245 (130-400) K/uL MPV 9.7 (7.4-10.4) fL Immature Gran % (Auto) 0.3 % Neut % (Auto) 73.8 % Lymph % (Auto) 16.9 % [place] % (Auto) 7.2 % Eos % (Auto) 1.5 % Baso % (Auto) 0.3 % Immature Gran # (Auto) 0.02 (0.00-0.02) K/uL Neut # (Auto) 4.28 (1.4-6.5) K/uL Lymph # (Auto) 0.98 L (1.2-3.4) K/uL [place] # (Auto) 0.42 (0.11-0.59) K/uL Eos # (Auto) 0.09 (0-0.5) K/uL Baso # (Auto) 0.02 (0-0.2) K/uL PT (9.0-12.0) Seconds INR (0.9-1.1) Sodium (136-145) mmol/L Potassium (3.5-5.1) mmol/L Chloride (98-107) mmol/L Carbon Dioxide (21-32) mmol/L Anion Gap (3-11) BUN (7-18) mg/dl Creatinine (0.6-1.2) mg/dl Est Cr Clr Drug Dosing ml/min Est GFR ( Amer) Est GFR (Non-Af Amer) BUN/Creatinine Ratio (10-20) Glucose (70-99) mg/dl POC Glucose (70-99) Calcium (8.5-10.1) mg/dl Magnesium (1.8-2.4) mg/dl PG Care Time/CCT Total # of Minutes Spent Total Time Spent with Patient: Total time spent is greater than 50% in coordination of care (as documented) at patient's floor/unit and/or counseling patient:
[2018-11-09] MEDS: MONTELUKAST SODIUM 10 MG TABLET PO SCH (20:16)
[2018-11-10] MEDS: ALBUMIN 25% 100 ML IV SCH ×4 (05:22→23:42)
[2018-11-10] MEDS: ACETAMINOPHEN 325 MG TAB PO PRN ×2 (06:02→21:35)
[2018-11-10 06:58] LABS: INR 1.9 (0.9-1.1); Prothrombin Time 18.6 Seconds (9.0-12.0)
[2018-11-10 07:35] LABS: Albumin Globulin Ratio 0.6 (0.9-2); Albumin Level 2.2 gm/dl (3.4-5.0); BUN Creatinine Ratio 21.6 (10-20); Calcium 7.9 mg/dl (8.5-10.1); Creatinine Clr Calc Pharmacy 79.9 ml/min; Est GFR (African American) 85.2; Est GFR (Non-African American) 73.5; Globulin 3.5 gm/dl (2.5-4.0); Potassium 3.7 mmol/L (3.5-5.1); Total Protein 5.7 gm/dl (6.4-8.2)
[2018-11-10 08:22] LABS: Phosphorus 3.2 mg/dl (2.5-4.9)
[2018-11-10] MEDS: FLUTICASONE PROPIONATE NA SPR 16 GM BTL SCH (08:37)
[2018-11-10] MEDS: FOLIC ACID 1 MG in SYRINGE 9.8 ML IV SCH (08:37)
[2018-11-10] MEDS: PANTOprazole 40 MG TAB PO SCH (08:38)
[2018-11-10] MEDS: METOPROLOL TARTRATE 50 MG TAB PO SCH ×2 (08:38→21:37)
[2018-11-10] MEDS: FLUTICASONE/SALMETEROL 250/50 (ADVAIR) 14 PUFF/1 INHALER INH SCH ×2 (08:38→21:36)
[2018-11-10] MEDS: DOXYCYCLINE HYCLATE 100 MG CAP PO SCH ×2 (08:38→21:37)
[2018-11-10] MEDS: FLUOXETINE HCL 20 MG CAP PO SCH (08:38)
[2018-11-10] MEDS: TORSEMIDE 10 MG TAB PO SCH (08:38)
--- NOTE | 2018-11-10 09:21 | Gastroenterology Progress Note ---
Date of Service November 10, 2018 Assessment & Plan (1) History of bariatric surgery: 68 year old female with history of RYGB, duodenal switch admitted w/low serum protein and albumin levels w/o evidence of cirrhosis. This is likely secondary anatomy, diet, low calorie intake. She denies any history of chronic diarrhea, less concerning for protein losing enteropathy. - Consider echocardiogram - GI Nutrition follow up obtained and provided to patient - Dr. Kuar November 16 at 9:45 - Pt appeared to tolerated Albumin - Albumin 12.5 gm 25%, TID x 6 total doses. - In the event pt developed diarrhea can r/o protein losing enteropathy w/ stool for alpha- 1 antitrypsin - Will sign off. Thank you for allowing us to participate in the care of this patient. Please call with any acute changes, questions or concerns. Please see addendum below with additional recommendation from my supervising physician. Supervising Physician Co-Signing Physician Notes I have seen and examined the patient and discussed the management with MARIELA Eli. PE - well nourished fm in nad, HEENT- perrla, abd - soft nt nd +bs Labs reviewed Imaging reviewed Agree with further assessment and plan as per Morena's assessment and plan. Subjective Pt was seen and evaluated, chart reviewed. Offer no complaints or concerns this AM No abdominal pain Is hungry, waiting for breakfast No nausea, vomiting Passing gas but no BM Last stool was prior to arrival, Thursday evening Denies any issues with chronic diarrhea/constipation No fever, chills, CP, SOB Review of Systems Constitutional: no fever and no chills Respiratory: no cough and no dyspnea Cardiovascular: no chest pain and no dyspnea at rest Gastrointestinal: no abdominal pain, no nausea, no vomiting, no coffee ground emesis, no pain with swallowing, no diarrhea/loose stools, no blood in stools and no melena Physical Exam Constitutional: + ill appearing (chronically ill appearing); no acute distress Neck: trachea midline Respiratory: normal respiratory effort, lungs clear to auscultation Cardiovascular: Rate/Rhythm: regular rate and regular rhythm Heart Sounds: no murmur Extremities: + edema (bilateral) Gastrointestinal (Abdomen): normal bowel sounds, soft, nontender, no hepatosplenomegaly Skin: no rashes, warm and dry Results & Data Vital Signs (Past 12 Hours) Vital Signs Temp Pulse Resp BP Pulse Ox 11/10/18 07:29 36.9 C 67 16 152/78 H 95 11/09/18 23:51 36.8 C 102 H 20 156/73 H 98
[2018-11-10] MEDS: LEVOTHYROXINE SODIUM 25 MCG in SYRINGE 0 ML IV SCH (09:37)
--- NOTE | 2018-11-10 13:36 | Hospitalist Progress Note ---
Date of Service November 10, 2018 Assessment & Plan (1) Hypoalbuminemia: With massive anasarca, severe hypoalbuminemia and hypoproteinemia developing since gastric sleeve surgery and subsequent repeat surgery for intra- abdominal hemorrhage in 02/2018. Albumin was 1.3. TProt only 4.2 now with slight improvement after being given IV albumin--> up to 2.2 and 5.7 respectively UA without any proteinuria No renal or liver disease currently, but does report a h/o "kidney and liver failure" during hospital admission 02/2018 at [facility] Review of records from [facility] obtained through [facility]--> reveal she actually had a gastric sleeve procedure in 06/2017 followed by a Biliopancreatic diversion with a duodenal switch procedure in 01/2018. This second surgery removes a large portion of small intestine and therefore places her at risk for malabsorption syndromes, nutritional deficiencies, etc. as she clearly has. The pt was not aware she had this type of surgery; neither was her sister or her son. Furthermore, it was found that the pt has "no-showed" to her last 3 scheduled visits with the [facility] Nutritional MD, but not by her own accord. She was unaware she had these appointments scheduled. Stressed importance of following up with the Nutrition MD [facility] after discharge Therefore, her severe malabsorption and malnutrition is secondary to her duodenal switch without adequate follow up. Less likely now to be a Protein-l osing gastroenteropathy -Appreciate GI and Surgery consultations-no scopes recommended. Had normal EGD in 04/2018 -continue IV albumin x 6 doses (2 days) to help reduce anasaraca -consulted Nutrition here and will need close outpatient f/u as above-scheduled with Dr. Kaur at [facility] on 11/16 -Continue 5 small meals daily given her gastric sleeve to improve oral intake -checked IgG,IgA,IgM (not low), Vitamins AEK pending, Vit D mildly low at 27, ceruloplasmin pending, transferrin normal, fibrinogen normal, lipid panel normal -Severely low prealbumin at 5 -continue to follow LFTs, albumin, TProt -checked TSH for anasarca-TSH elevated free T4 low-see below -switched SSRI to Prozac to see if has better effect on mood to increase appetite-mood is already improving -care of LE edema as below (2) Hypoproteinemia: as above (3) History of bariatric surgery: h/o gastric sleeve in 06/2017 followed by Biliopancreatic diversion with duodenal switch as above at [facility] With malabsorptive issues as above -Consult surgery here recommends close f/u with her primary Bariatric Surgery team at [facility] (4) Hypoglycemia: occurs every morning, patient says she gets this way at home Secondary to malabsorption and poor po intake from bariatric surgery A.m. cortisol is normal Overall improved -encouraged to eat very frequently, set alarm for early AM snack -changed diet to regular so she can eat more carbs, change to 5 small meals daily TSH is abnormal as below-replacing LT 4 -follow accuchecks -Continue qhs snack (5) Cellulitis of lower extremity: left leg slightly more erythematous, more warm than right on admission- overall improved Initially received Zosyn and Daptomycin, then changed to Doxycycline po--> overall improved erythema Afebrile, leukocytosis resolved -continue on the Doxycycline, treat for 21 days total due to lymphedema (6) SIMONA (acute kidney injury): Cr up to 1.4 on 11/04 from 1.0, was secondary to dehydration, poor po intake Cr down to 0.8 now -has been restarted on torsemide for her LE edema--> caution not to deplete volume as she is likely significantly intravascularly volume depleted due to severe hypoalbuminemia -Follow BMP (7) Lactic acidosis: Was likely due to infection/cellulitis of legs down to 2.0 on 11/03, responded to resuscitative fluids and supportive care CT abdomen/pelvis and lumbar spine due to complaints of back pain and abdominal pain no infectious or inflammatory changes seen, just chronic changes and post operative changes Blood cultures no growth CXR normal, no evidence of UTI on UA (8) Chronic acquired lymphedema: I am unsure that she truly has LYMPHEDEMA as previously thought. Has anasarca from severe hypoproteinemia and hypoalbuminemia as above -was being followed by Wound Care clinic, doing wraps -treating with IV albumin as above and having massive diuresis at this point, edema is improving tremendously -continue to treat with wound care locally, compression, elevation, diuretics with caution -will need close attention to her LE edema after discharge (9) Venous stasis ulcers of both lower extremities: Improving with less LE edema now -follows with wound clinic concrete float maker following Apply dressings and compression wraps as per industrial tractor driver (10) Pressure ulcer, heel, left, unstageable: again follows with wound clinic wound RN following, has been debrided recently in Wound Clinic -continue Aquacel Ag dressing (11) Back pain: Acute on chronic, has history of lumbar spine surgery and chronic pain--> much improved today no clear etiology seen on CT lumbar spine MRI L-spine would be best but pt and family report severe claustrophobia and must have open MRI No saddle anesthesia, she does have some motor function and sensory in her LEs, no loss of bowel/bladder function -continue pain control, PT/OT (12) Atrial fibrillation: paroxysmal, continues in sinus rhythm here on exam now continue Metoprolol -continue Coumadin -follow INR (13) Depression: Was not adequately treated, is exacerbated by ongoing medical issues Denies SI/HI She actually stopped her Paxil on her own 2 weeks prior to admission as wasn't helping for many years -switched to Prozac 20mg daily, dcd Paxil (no real risk of withdrawal)--> can titrate up as needed in 2-3 weeks -consider adding on Remeron for appetite stimulant effect also if needed (14) Hypertension: Controlled -continue metoprolol (15) H/O deep venous thrombosis: in LLE as per previous reports, patient reports this was 11 years ago -has [place] filter in place -cont Coumadin at 0.5mg daily -follow INR (16) Anemia, macrocytic: Hgb 10.7, MCV 100 -is on B12 supplements With very poor nutrition With severe folate deficiency with folate of 1.0 Also with hypothyroidism which is a new diagnosis as below -Replace with IV folate, IV LT4 as below (17) Osteoarthritis, hip, bilateral: chronic, bilat hip pain, also contributes to ambulatory dysfunction (18) Obesity: BMI now down to 41.9, has actually gained 12-15 kg since her gastric sleeve but seems to all be fluid weight from anasarca Fluid weight now being lost Muscles are wasting (19) Hypokalemia: Secondary to loop diuretic -replace with po KCl -follow BMP, Mg in AM (20) Hypothyroidism: TSH elevated at 8, free T4 low at 0.8, with anasarca and very poor nutrition - started IV levothyroxine 25 mcg daily and eventually convert to p.o. but has very poor absorption at this point in the GI tract -Follow TSH in 4 to 6 weeks (21) Folate deficiency anemia: Folate severely low at 1.0, secondary to very poor nutrition -Started IV folic acid as above and will convert to po folic acid high doses on dc (22) Severe protein-calorie malnutrition: Severely low albumin, prealbumin only 5 With protein wasting as above and malabsorption -Dietary is consulted -needs high protein diet -needs close follow up with Bariatric Patient Transport Orderly at [facility]-has missed three appts-has appt now scheduled on 11/16 (23) Hypophosphatemia: replaced -follow phos (24) Ambulatory dysfunction: secondary to severe LE edema, anasarca, generalized weakness -improved slightly today, was able to walk a few feet with PT -needs aggressive PT/OT, rehab placement (25) DVT prophylaxis: Coumadin Dispo- Plan: PT/OT consulted, recommend rehab, pt agreeable [facility] has a bed available for her, approved Improving, needs 1 more day of IV albumin, nutrient replacement, then dc hopefully on Thursday Subjective Pt feeling better today, is eating more in small amounts. Feels less swollen and was able to walk a few feet to the chair and sit for 1 hour, then walk back to the bed. SHe denies CP or SOB. She is pleased with her improvement. Review of Systems Review of Systems: All systems reviewed & are unremarkable except as noted in HPI & below Physical Exam Constitutional: + obese; + not well nourished (is wasting in her muscles and her ribs are sticking out; with anasarca) and no acute distress Eyes: + anicteric sclerae Neck: trachea midline, no thyromegaly Respiratory: normal respiratory effort; no labored breathing Auscultation: + diminished lung sounds (at the bases bilat); no crackles, no rhonchi and no wheezes Cardiovascular: Rate/Rhythm: regular rate and regular rhythm Heart Sounds: + murmur (2/6 at LLSB) Extremities: + edema ( pitting edema 3+ from feet to the abdomen;1+ pitting edema UEs improved ) Gastrointestinal (Abdomen): Inspection/Auscultation: abdomen normal to inspection, normal bowel sounds and + abdominal edema Percussion/Palpation: abdomen soft; no hernia Musculoskeletal: Extremities: no cyanosis and no clubbing Skin: + wound (multiple small open areas on legs R>L with dressings in place not removed today) Neurologic: awake Psychiatric: Orientation: alert, oriented to person, oriented to place, oriented to time and cooperative Motor Behavior: n tremor Results & Data Vital Signs (Past 12 Hours) Vital Signs Temp Pulse Resp BP Pulse Ox 11/10/18 07:29 36.9 C 67 16 152/78 H 95 Laboratory Results 11/10/18 11/10/18 11/10/18 Range/Units 20:30 16:43 11:33 PT (9.0-12.0) Seconds INR (0.9-1.1) Sodium (136-145) mmol/L Potassium (3.5-5.1) mmol/L Chloride (98-107) mmol/L Carbon Dioxide (21-32) mmol/L Anion Gap (3-11) BUN (7-18) mg/dl Creatinine (0.6-1.2) mg/dl Est Cr Clr Drug Dosing ml/min Est GFR ( Amer) Est GFR (Non-Af Amer) BUN/Creatinine Ratio (10-20) Glucose (70-99) mg/dl POC Glucose 91 87 73 (70-99) Calcium (8.5-10.1) mg/dl Phosphorus (2.5-4.9) mg/dl Magnesium (1.8-2.4) mg/dl Total Bilirubin (0.2-1) mg/dl AST (15-37) U/L ALT (12-78) U/L Alkaline Phosphatase (45-117) U/L Total Protein (6.4-8.2) gm/dl Albumin (3.4-5.0) gm/dl Globulin (2.5-4.0) gm/dl Albumin/Globulin Ratio (0.9-2) 11/10/18 11/10/18 11/10/18 Range/Units 11:32 07:44 06:17 PT (9.0-12.0) Seconds INR (0.9-1.1) Sodium 142 (136-145) mmol/L Potassium 3.7 (3.5-5.1) mmol/L Chloride 107 (98-107) mmol/L Carbon Dioxide 29 (21-32) mmol/L Anion Gap 6.0 (3-11) BUN 18 (7-18) mg/dl Creatinine 0.82 (0.6-1.2) mg/dl Est Cr Clr Drug Dosing 79.9 ml/min Est GFR ( Amer) 85.2 Est GFR (Non-Af Amer) 73.5 BUN/Creatinine Ratio 21.6 H (10-20) Glucose 68 L (70-99) mg/dl POC Glucose 69 L* 72 (70-99) Calcium 7.9 L (8.5-10.1) mg/dl Phosphorus 3.2 D (2.5-4.9) mg/dl Magnesium 2.0 (1.8-2.4) mg/dl Total Bilirubin 1.0 (0.2-1) mg/dl AST 24 (15-37) U/L ALT 17 (12-78) U/L Alkaline Phosphatase 134 H (45-117) U/L Total Protein 5.7 L (6.4-8.2) gm/dl Albumin 2.2 L (3.4-5.0) gm/dl Globulin 3.5 (2.5-4.0) gm/dl Albumin/Globulin Ratio 0.6 L (0.9-2) // Range/Units 06:17 PT 18.6 H (9.0-12.0) Seconds INR 1.9 H (0.9-1.1) Sodium (136-145) mmol/L Potassium (3.5-5.1) mmol/L Chloride (98-107) mmol/L Carbon Dioxide (21-32) mmol/L Anion Gap (3-11) BUN (7-18) mg/dl Creatinine (0.6-1.2) mg/dl Est Cr Clr Drug Dosing ml/min Est GFR ( Amer) Est GFR (Non-Af Amer) BUN/Creatinine Ratio (10-20) Glucose (70-99) mg/dl POC Glucose (70-99) Calcium (8.5-10.1) mg/dl Phosphorus (2.5-4.9) mg/dl Magnesium (1.8-2.4) mg/dl Total Bilirubin (0.2-1) mg/dl AST (15-37) U/L ALT (12-78) U/L Alkaline Phosphatase (45-117) U/L Total Protein (6.4-8.2) gm/dl Albumin (3.4-5.0) gm/dl Globulin (2.5-4.0) gm/dl Albumin/Globulin Ratio (0.9-2) PG Care Time/CCT Total # of Minutes Spent Total Time Spent with Patient: Total time spent is greater than 50% in coordination of care (as documented) at patient's floor/unit and/or counseling patient:
[2018-11-10] MEDS: WARFARIN SOD 0.5 MG TAB PO SCH (17:04)
[2018-11-10] MEDS: MONTELUKAST SODIUM 10 MG TABLET PO SCH (21:37)
[2018-11-11] MEDS: ALBUMIN 25% 50 ML IV SCH ×6 (05:30→23:20)
[2018-11-11 07:23] LABS: Basophils # (auto) 0.01 K/uL (0-0.2); Basophils % (auto) 0.2 %; Eosinophils # (auto) 0.03 K/uL (0-0.5); Eosinophils % (auto) 0.5 %; Hematocrit (blood only) 24.8 % (37-47); Hemoglobin 8.5 g/dL (12.0-16.0); Immature Granulocytes # (auto) 0.01 K/uL (0.00-0.02); Immature Granulocytes % (auto) 0.2 %; Lymphocytes # (auto) 1.05 K/uL (1.2-3.4); Lymphocytes % (auto) 16.9 %; Mean Corpuscular Hemoglobin 33.6 pg (25-34); Mean Corpuscular Hgb Conc 34.3 g/dL (32-36); Mean Platelet Volume 9.4 fL (7.4-10.4); Monocytes # (auto) 0.33 K/uL (0.11-0.59); Monocytes % (auto) 5.3 %; Neutrophils # (auto) 4.77 K/uL (1.4-6.5); Neutrophils % (auto) 76.9 %; Platelet Count 226 K/uL (130-400); RDW Coefficient of Variation 14.6 % (11.5-14.5); RDW Standard Deviation 52.3 fL (36.4-46.3); Red Blood Count 2.53 M/uL (4.2-5.4)
[2018-11-11 07:30] LABS: INR 1.8 (0.9-1.1); Prothrombin Time 17.5 Seconds (9.0-12.0)
[2018-11-11 07:58] LABS: Albumin Level 2.5 gm/dl (3.4-5.0); BUN Creatinine Ratio 19.3 (10-20); Calcium 7.8 mg/dl (8.5-10.1); Creatinine Clr Calc Pharmacy 78.9 ml/min; Est GFR (Non-African American) 72.5; Magnesium 2.1 mg/dl (1.8-2.4); Potassium 3.3 mmol/L (3.5-5.1)
[2018-11-11 08:05] LABS: Albumin Globulin Ratio 0.9 (0.9-2); Globulin 2.9 gm/dl (2.5-4.0); Phosphorus 3.9 mg/dl (2.5-4.9); Total Protein 5.4 gm/dl (6.4-8.2)
[2018-11-11] MEDS: FLUTICASONE/SALMETEROL 250/50 (ADVAIR) 14 PUFF/1 INHALER INH SCH ×2 (08:14→20:59)
[2018-11-11] MEDS: TORSEMIDE 10 MG TAB PO SCH (08:15)
[2018-11-11] MEDS: FLUTICASONE PROPIONATE NA SPR 16 GM BTL SCH (08:16)
[2018-11-11] MEDS: PANTOprazole 40 MG TAB PO SCH (08:17)
[2018-11-11] MEDS: METOPROLOL TARTRATE 50 MG TAB PO SCH ×2 (08:17→21:00)
[2018-11-11] MEDS: FLUOXETINE HCL 20 MG CAP PO SCH (08:18)
[2018-11-11] MEDS: DOXYCYCLINE HYCLATE 100 MG CAP PO SCH ×2 (08:18→21:00)
[2018-11-11] MEDS: MULTI VIT W/MINERALS LIQUID 15 ML UDP PO SCH (08:29)
[2018-11-11] MEDS: LEVOTHYROXINE SODIUM 25 MCG in SYRINGE 0 ML IV SCH (10:12)
[2018-11-11] MEDS: FOLIC ACID 1 MG in SYRINGE 9.8 ML IV SCH (10:12)
[2018-11-11] MEDS ORDERED: POTASSIUM CHLORIDE 20 MEQ TABCR PO STA (14:01)
[2018-11-11] MEDS: WARFARIN SOD 0.5 MG TAB PO SCH (15:52)
[2018-11-11] MEDS: MONTELUKAST SODIUM 10 MG TABLET PO SCH (21:00)
[2018-11-11] MEDS ORDERED: HydrALAZINE HCL 20 MG/ML VIAL IV PRN (21:19)
--- NOTE | 2018-11-11 21:28 | Hospitalist Progress Note ---
Date of Service November 11, 2018 Assessment & Plan (1) Hypoalbuminemia: With massive anasarca, severe hypoalbuminemia and hypoproteinemia developing since gastric sleeve surgery and subsequent repeat surgery for intra- abdominal hemorrhage in 02/2018. Albumin was 1.3. TProt only 4.2 now with some improvement after being given IV albumin--> up to 2.5 and 5.4 respectively UA without any proteinuria No renal or liver disease currently, but does report a h/o "kidney and liver failure" during hospital admission 02/2018 at [facility] Review of records from [facility] obtained through [facility]--> reveal she actually had a gastric sleeve procedure in 06/2017 followed by a Biliopancreatic diversion with a duodenal switch procedure in 01/2018. This second surgery removes a large portion of small intestine and therefore places her at risk for malabsorption syndromes, nutritional deficiencies, etc. as she clearly has. The pt was not aware she had this type of surgery; neither was her sister nor her son. Furthermore, it was found that the pt has "no-showed" to her last 3 scheduled visits with the [facility] Nutritional MD, but not by her own accord. She was unaware she had these appointments scheduled. Stressed importance of following up with the Nutrition MD [facility] after discharge Therefore, her severe malabsorption and malnutrition is secondary to her duodenal switch without adequate follow up. Less likely now to be a Protein-lo sing gastroenteropathy -Appreciate GI and Surgery consultations-no scopes recommended. Had normal EGD in 04/2018 -continue IV albumin x 6 doses (2 days) to help reduce anasaraca-last dose scheduled for later today -consulted Nutrition here and will need close outpatient f/u as above-scheduled with Dr. Kaur at [facility] on 11/16 -Continue 5 small meals daily given her gastric sleeve to improve oral intake -checked IgG,IgA,IgM (not low), Vitamins AEK still pending, Vit D mildly low at 27, ceruloplasmin pending, transferrin normal, fibrinogen normal, lipid panel normal -Severely low prealbumin at 5-continue to follow in the future -continue to follow LFTs, albumin, TProt -checked TSH for anasarca-TSH elevated free T4 low-see below -switched SSRI to Prozac to see if has better effect on mood to increase appetite-mood is already improving -care of LE edema as below (2) Hypoproteinemia: as above (3) History of bariatric surgery: h/o gastric sleeve in 06/2017 followed by Biliopancreatic diversion with duodenal switch as above at [facility] With malabsorptive issues as above -Consult surgery here recommends close f/u with her primary Bariatric Surgery team at [facility] (4) Hypoglycemia: occurs every morning, patient says she gets this way at home Secondary to malabsorption and poor po intake from bariatric surgery A.m. cortisol is normal Overall improved, glucose up to the 70s this morning -encouraged to eat very frequently, set alarm for early AM snack -changed diet to regular so she can eat more carbs, change to 5 small meals daily TSH is abnormal as below-replacing LT 4 -follow accuchecks -Continue qhs snack (5) Cellulitis of lower extremity: left leg slightly more erythematous, more warm than right on admission- overall improved Initially received Zosyn and Daptomycin, then changed to Doxycycline po--> overall improved erythema Afebrile, leukocytosis resolved -continue on the Doxycycline, treat for 21 days total due to lymphedema-last dose will be on 11/21 (6) SIMONA (acute kidney injury): Cr up to 1.4 on 11/04 from 1.0, was secondary to dehydration, poor po intake Cr down to 0.8 now -has been restarted on torsemide for her LE edema--> caution not to deplete volume as she is likely significantly intravascularly volume depleted due to severe hypoalbuminemia -Follow BMP (7) Lactic acidosis: Was likely due to infection/cellulitis of legs down to 2.0 on 11/03, responded to resuscitative fluids and supportive care CT abdomen/pelvis and lumbar spine due to complaints of back pain and abdominal pain no infectious or inflammatory changes seen, just chronic changes and post operative changes Blood cultures no growth CXR normal, no evidence of UTI on UA (8) Chronic acquired lymphedema: I am unsure that she truly has LYMPHEDEMA as previously thought. Has anasarca from severe hypoproteinemia and hypoalbuminemia as above -was being followed by Wound Care clinic, doing wraps -treating with IV albumin as above and having massive diuresis at this point, edema is improving tremendously -continue to treat with wound care locally, compression, elevation, diuretics with caution -will need close attention to her LE edema after discharge (9) Venous stasis ulcers of both lower extremities: Much improved with less LE edema now -follows with wound clinic manager of compliance following Apply dressings and compression wraps as per plant etiologist (10) Pressure ulcer, heel, left, unstageable: again follows with wound clinic wound RN following, has been debrided recently in Wound Clinic -continue Aquacel Ag dressing (11) Back pain: Acute on chronic, has history of lumbar spine surgery and chronic pain--> much improved today no clear etiology seen on CT lumbar spine MRI L-spine would be best but pt and family report severe claustrophobia and must have open MRI No saddle anesthesia, she does have some motor function and sensory in her LEs, no loss of bowel/bladder function -continue pain control, PT/OT (12) Atrial fibrillation: paroxysmal, continues in sinus rhythm here on exam now continue Metoprolol -continue Coumadin -follow INR-subtherapeutic today at 1.8, no bridging necessary (13) Depression: Was not adequately treated, is exacerbated by ongoing medical issues Denies SI/HI She actually stopped her Paxil on her own 2 weeks prior to admission as wasn't helping for many years -switched to Prozac 20mg daily, dcd Paxil (no real risk of withdrawal)--> can titrate up as needed in 2-3 weeks -consider adding on Remeron for appetite stimulant effect also if needed (14) Hypertension: Controlled -continue metoprolol (15) H/O deep venous thrombosis: in LLE as per previous reports, patient reports this was 11 years ago -has Lacey filter in place -cont Coumadin at 0.5mg daily -follow INR (16) Anemia, macrocytic: Hgb baseline 10.7, MCV 100 Had an acute drop initially today down to 8.5 with no obvious bleeding. Repeat hemoglobin 3 hours later was back up to 9.5-likely lab error -is on B12 supplements With very poor nutrition With severe folate deficiency with folate of 1.0 Also with hypothyroidism which is a new diagnosis as below -Replace with IV folate, IV LT4 as below -Follow CBC (17) Osteoarthritis, hip, bilateral: chronic, bilat hip pain, also contributes to ambulatory dysfunction -Can treat with acetaminophen as needed (18) Obesity: BMI now down to 41.9, had actually gained 12-15 kg since her gastric sleeve but seems to all be fluid weight from anasarca Fluid weight now being lost Muscles are wasting (19) Hypokalemia: Secondary to loop diuretic -replace with po KCl again today and will start daily dose of potassium chloride 20 mEq daily -follow BMP, Mg in AM (20) Hypothyroidism: TSH elevated at 8, free T4 low at 0.8, with anasarca and very poor nutrition - started IV levothyroxine 25 mcg daily and eventually convert to p.o. but has very poor absorption at this point in the GI tract -Follow TSH in 4 to 6 weeks (21) Folate deficiency anemia: Folate severely low at 1.0, secondary to very poor nutrition -Started IV folic acid as above and will convert to po folic acid high doses on dc (22) Severe protein-calorie malnutrition: Severely low albumin, prealbumin only 5 With protein wasting as above and malabsorption -Dietary is consulted -needs high protein diet -needs close follow up with Bariatric Sales And Marketing Specialist at [facility]-has missed three appts-has appt now scheduled on 11/16 (23) Hypophosphatemia: replaced and resolved -follow phos (24) Ambulatory dysfunction: secondary to severe LE edema, anasarca, generalized weakness -improved slightly, has now been able to walk several feet to get to a chair and back from the bed which is a big improvement from the previous week -needs aggressive PT/OT, rehab placement (25) DVT prophylaxis: Coumadin Dispo- Plan: PT/OT consulted, recommend rehab, pt agreeable [facility] has a bed available for her, approved Continues to improve, will be stable for discharge to rehab tomorrow Subjective Patient feeling fairly well today, she is out of bed to the chair. She had another large yellow-brown bowel movement today, nonbloody. She is able to eat more regularly and has been focusing on improving her p.o. intake. She walked again to the chair today, but complains of pain in her bilateral hips. Denies chest pain or shortness of breath. Review of Systems Review of Systems: All systems reviewed & are unremarkable except as noted in HPI & below Physical Exam Constitutional: + obese; + not well nourished (is wasting in her muscles and her ribs are sticking out; with anasarca) and no acute distress Eyes: + anicteric sclerae Neck: trachea midline, no thyromegaly Respiratory: normal respiratory effort; no labored breathing Auscultation: + diminished lung sounds (at the bases bilat); no crackles, no rhonchi and no wheezes Cardiovascular: Rate/Rhythm: regular rate and regular rhythm Heart Sounds: + murmur (2/6 at LLSB) Extremities: + edema ( pitting edema 3+ from feet to the abdomen;1+ pitting edema UEs improved ) Gastrointestinal (Abdomen): Inspection/Auscultation: abdomen normal to inspection, normal bowel sounds and + abdominal edema Percussion/Palpation: abdomen soft; no hernia Musculoskeletal: Extremities: no cyanosis and no clubbing Skin: + wound (multiple small open areas on legs R>L with mild surrounding erythema, much improved from previous, no longer weeping serous fluid from her arms and legs) Neurologic: awake Psychiatric: Orientation: alert, oriented to person, oriented to place, oriented to time and cooperative Results & Data Vital Signs (Past 12 Hours) Vital Signs Temp Pulse Resp BP Pulse Ox 11/11/18 14:43 37.3 C 66 18 180/88 H 98 Laboratory Results 11/11/18 11/11/18 11/11/18 Range/Units 20:11 17:05 12:06 WBC (4.8-10.8) K/uL RBC (4.2-5.4) M/uL Hgb (12.0-16.0) g/dL Hct (37-47) % MCV (80-100) fL MCH (25-34) pg MCHC (32-36) g/dL RDW Std Deviation (36.4-46.3) fL RDW Coeff of Krista (11.5-14.5) % Plt Count (130-400) K/uL MPV (7.4-10.4) fL Immature Gran % (Auto) % Neut % (Auto) % Lymph % (Auto) % [place] % (Auto) % Eos % (Auto) % Baso % (Auto) % Immature Gran # (Auto) (0.00-0.02) K/uL Neut # (Auto) (1.4-6.5) K/uL Lymph # (Auto) (1.2-3.4) K/uL [place] # (Auto) (0.11-0.59) K/uL Eos # (Auto) (0-0.5) K/uL Baso # (Auto) (0-0.2) K/uL PT (9.0-12.0) Seconds INR (0.9-1.1) Sodium (136-145) mmol/L Potassium (3.5-5.1) mmol/L Chloride (98-107) mmol/L Carbon Dioxide (21-32) mmol/L Anion Gap (3-11) BUN (7-18) mg/dl Creatinine (0.6-1.2) mg/dl Est Cr Clr Drug Dosing ml/min Est GFR ( Amer) Est GFR (Non-Af Amer) BUN/Creatinine Ratio (10-20) Glucose (70-99) mg/dl POC Glucose 96 78 83 (70-99) Calcium (8.5-10.1) mg/dl Phosphorus (2.5-4.9) mg/dl Magnesium (1.8-2.4) mg/dl Total Bilirubin (0.2-1) mg/dl AST (15-37) U/L ALT (12-78) U/L Alkaline Phosphatase (45-117) U/L Total Protein (6.4-8.2) gm/dl Albumin (3.4-5.0) gm/dl Globulin (2.5-4.0) gm/dl Albumin/Globulin Ratio (0.9-2) 11/11/18 11/11/18 11/11/18 Range/Units 10:22 08:01 06:25 WBC (4.8-10.8) K/uL RBC (4.2-5.4) M/uL Hgb 9.5 L (12.0-16.0) g/dL Hct (37-47) % MCV (80-100) fL MCH (25-34) pg MCHC (32-36) g/dL RDW Std Deviation (36.4-46.3) fL RDW Coeff of Krista (11.5-14.5) % Plt Count (130-400) K/uL MPV (7.4-10.4) fL Immature Gran % (Auto) % Neut % (Auto) % Lymph % (Auto) % [place] % (Auto) % Eos % (Auto) % Baso % (Auto) % Immature Gran # (Auto) (0.00-0.02) K/uL Neut # (Auto) (1.4-6.5) K/uL Lymph # (Auto) (1.2-3.4) K/uL [place] # (Auto) (0.11-0.59) K/uL Eos # (Auto) (0-0.5) K/uL Baso # (Auto) (0-0.2) K/uL PT (9.0-12.0) Seconds INR (0.9-1.1) Sodium 145 (136-145) mmol/L Potassium 3.3 L (3.5-5.1) mmol/L Chloride 107 (98-107) mmol/L Carbon Dioxide 32 (21-32) mmol/L Anion Gap 5.0 (3-11) BUN 16 (7-18) mg/dl Creatinine 0.83 (0.6-1.2) mg/dl Est Cr Clr Drug Dosing 78.9 ml/min Est GFR ( Amer) 84.0 Est GFR (Non-Af Amer) 72.5 BUN/Creatinine Ratio 19.3 (10-20) Glucose 72 (70-99) mg/dl POC Glucose 73 (70-99) Calcium 7.8 L (8.5-10.1) mg/dl Phosphorus 3.9 (2.5-4.9) mg/dl Magnesium 2.1 (1.8-2.4) mg/dl Total Bilirubin 1.0 (0.2-1) mg/dl AST 20 (15-37) U/L ALT 15 (12-78) U/L Alkaline Phosphatase 113 (45-117) U/L Total Protein 5.4 L (6.4-8.2) gm/dl Albumin 2.5 L (3.4-5.0) gm/dl Globulin 2.9 (2.5-4.0) gm/dl Albumin/Globulin Ratio 0.9 (0.9-2) 11/11/18 11/11/18 Range/Units 06:25 06:25 WBC 6.20 (4.8-10.8) K/uL RBC 2.53 L (4.2-5.4) M/uL Hgb 8.5 L (12.0-16.0) g/dL Hct 24.8 L (37-47) % MCV 98.0 (80-100) fL MCH 33.6 (25-34) pg MCHC 34.3 (32-36) g/dL RDW Std Deviation 52.3 H (36.4-46.3) fL RDW Coeff of Krista 14.6 H (11.5-14.5) % Plt Count 226 (130-400) K/uL MPV 9.4 (7.4-10.4) fL Immature Gran % (Auto) 0.2 % Neut % (Auto) 76.9 % Lymph % (Auto) 16.9 % [place] % (Auto) 5.3 % Eos % (Auto) 0.5 % Baso % (Auto) 0.2 % Immature Gran # (Auto) 0.01 (0.00-0.02) K/uL Neut # (Auto) 4.77 (1.4-6.5) K/uL Lymph # (Auto) 1.05 L (1.2-3.4) K/uL [place] # (Auto) 0.33 (0.11-0.59) K/uL Eos # (Auto) 0.03 (0-0.5) K/uL Baso # (Auto) 0.01 (0-0.2) K/uL PT 17.5 H (9.0-12.0) Seconds INR 1.8 H (0.9-1.1) Sodium (136-145) mmol/L Potassium (3.5-5.1) mmol/L Chloride (98-107) mmol/L Carbon Dioxide (21-32) mmol/L Anion Gap (3-11) BUN (7-18) mg/dl Creatinine (0.6-1.2) mg/dl Est Cr Clr Drug Dosing ml/min Est GFR ( Amer) Est GFR (Non-Af Amer) BUN/Creatinine Ratio (10-20) Glucose (70-99) mg/dl POC Glucose (70-99) Calcium (8.5-10.1) mg/dl Phosphorus (2.5-4.9) mg/dl Magnesium (1.8-2.4) mg/dl Total Bilirubin (0.2-1) mg/dl AST (15-37) U/L ALT (12-78) U/L Alkaline Phosphatase (45-117) U/L Total Protein (6.4-8.2) gm/dl Albumin (3.4-5.0) gm/dl Globulin (2.5-4.0) gm/dl Albumin/Globulin Ratio (0.9-2) PG Care Time/CCT Total # of Minutes Spent Total Time Spent with Patient: Total time spent is greater than 50% in coordination of care (as documented) at patient's floor/unit and/or counseling patient:
[2018-11-12] MEDS: ALBUMIN 25% 50 ML IV SCH ×2 (05:48→06:42)
[2018-11-12 06:24] LABS: Basophils # (auto) 0.01 K/uL (0-0.2); Basophils % (auto) 0.1 %; Eosinophils # (auto) 0.03 K/uL (0-0.5); Eosinophils % (auto) 0.4 %; Hematocrit (blood only) 26.9 % (37-47); Hemoglobin 9.1 g/dL (12.0-16.0); Immature Granulocytes # (auto) 0.01 K/uL (0.00-0.02); Immature Granulocytes % (auto) 0.1 %; Lymphocytes # (auto) 0.99 K/uL (1.2-3.4); Lymphocytes % (auto) 12.1 %; Mean Corpuscular Hemoglobin 33.3 pg (25-34); Mean Corpuscular Hgb Conc 33.8 g/dL (32-36); Mean Corpuscular Volume 98.5 fL (80-100); Mean Platelet Volume 9.4 fL (7.4-10.4); Monocytes # (auto) 0.45 K/uL (0.11-0.59); Monocytes % (auto) 5.5 %; Neutrophils % (auto) 81.8 %; Platelet Count 232 K/uL (130-400); RDW Coefficient of Variation 14.6 % (11.5-14.5); RDW Standard Deviation 52.1 fL (36.4-46.3); Red Blood Count 2.73 M/uL (4.2-5.4); White Blood Count 8.19 K/uL (4.8-10.8)
[2018-11-12 06:35] LABS: INR 1.7 (0.9-1.1); Prothrombin Time 16.4 Seconds (9.0-12.0)
[2018-11-12 06:54] LABS: Albumin Level 2.7 gm/dl (3.4-5.0); BUN Creatinine Ratio 17.2 (10-20); Calcium 7.8 mg/dl (8.5-10.1); Est GFR (African American) 85.2; Est GFR (Non-African American) 73.5; Potassium 3.3 mmol/L (3.5-5.1)
[2018-11-12 06:57] LABS: Bilirubin,Total 1.2 mg/dl (0.2-1); Globulin 2.8 gm/dl (2.5-4.0); Phosphorus 3.5 mg/dl (2.5-4.9); Total Protein 5.5 gm/dl (6.4-8.2)
[2018-11-12] MEDS: DOXYCYCLINE HYCLATE 100 MG CAP PO SCH (08:54)
[2018-11-12] MEDS: FLUTICASONE/SALMETEROL 250/50 (ADVAIR) 14 PUFF/1 INHALER INH SCH (08:54)
[2018-11-12] MEDS: FLUOXETINE HCL 20 MG CAP PO SCH (08:55)
[2018-11-12] MEDS: METOPROLOL TARTRATE 50 MG TAB PO SCH (08:55)
[2018-11-12] MEDS: PANTOprazole 40 MG TAB PO SCH (08:55)
[2018-11-12] MEDS: TORSEMIDE 10 MG TAB PO SCH (08:55)
[2018-11-12] MEDS: FLUTICASONE PROPIONATE NA SPR 16 GM BTL SCH (08:56)
[2018-11-12] MEDS: FOLIC ACID 1 MG in SYRINGE 9.8 ML IV SCH (08:56)
[2018-11-12] MEDS: MULTI VIT W/MINERALS LIQUID 15 ML UDP PO SCH (08:56)
[2018-11-12] MEDS ORDERED: POTASSIUM CHLORIDE 20 MEQ TABCR PO SCH (09:00)
[2018-11-12] MEDS: LEVOTHYROXINE SODIUM 25 MCG in SYRINGE 0 ML IV SCH (09:14)
[2018-11-12] MEDS ORDERED: POTASSIUM CHLORIDE 20 MEQ TABCR PO STA (10:11)
--- NOTE | 2018-11-12 13:50 | Discharge Summary ---
Date of Service November 12, 2018 Admission HPI Per Admitting Provider 68 yo female with history of morbid obesity, DM type II, CAD with h/o UT, s/p gastric sleeve last year, acquired lymphedema with peripheral wounds, presents to the ED today c/o back pain and weakness in legs that started yesterday afternoon. The patient admits to a history of lumbar spine issues, had a decompression and fusion 15 years ago. However, she typically does not have back pain. She said that she was sitting down when she first noticed the pain, it was in the center of lower back, radiated bilaterally into the buttocks and the legs. Goes down as far as the calf on both sides. She also noted that she was having difficulty moving her legs. At baseline her legs are quite large and edematous and she admits that she cannot move them very well even at her best. She uses a walker when ambulating and gets around very slowly. She denies any urinary retention or incontinence. She admits to three days of loose stools but not severe. She had some nausea and low grade fever, poor appetite today. No rashes other than chronic wounds in legs. She denies any falls or trauma that could have lead to the back pain. No loss of sensation in legs or buttocks region. In the ED her temperature was 37.7 and vitals were stable, no hypoxia. WBC was normal but she did have a left shift with 87% neutrophils. UA via straight cath was negative for WBC, no signs of infection. CXR was without infiltrate. Cr and electrolytes were normal. Lactic acid noted to be elevated at 5.1. CT head was normal. She was given 1L of NSS and Zosyn ordered. Asked to be evaluated for admission due to the lactic acid elevation. Principal Diagnosis Lower extremity cellulitis, sepsis, severe hypoalbuminemia, malabsorption syndrome Discharge Exam Constitutional + obese; + not well nourished (is wasting in her muscles and her ribs are sticking out; with anasarca) and no acute distress Eyes + anicteric sclerae ENMT external ear and nose normal, oropharynx normal Neck trachea midline, no thyromegaly Respiratory normal respiratory effort; no labored breathing Auscultation: + diminished lung sounds (at the bases bilat); no crackles, no rhonchi and no wheezes Cardiovascular Rate/Rhythm: regular rate and regular rhythm Heart Sounds: + murmur (2/6 at LLSB) Extremities: + edema ( pitting edema 3+ from feet to the abdomen;1+ pitting edema UEs improved ) Gastrointestinal (Abdomen) Inspection/Auscultation: abdomen normal to inspection, normal bowel sounds and + abdominal edema Percussion/Palpation: abdomen soft; no hernia Musculoskeletal Extremities: no cyanosis and no clubbing Skin + ulcer (left heel ulcer large, with black eschar centrally, no surrounding erythema) and + wound (multiple small open areas on legs R>L with mild surrounding erythema, much improved from previous, no longer weeping serous fluid from her arms and legs) Neurologic awake Psychiatric Orientation: alert, oriented to person, oriented to place, oriented to time and cooperative Motor Behavior: n tremor Affect: euthymic affect Thought Process: goal directed thought process Cognition: recent memory grossly intact and remote memory grossly intact Discharge Data Allergies Allergy/AdvReac Type Severity Reaction Status Date / Time gabapentin AdvReac Intermediate LOSS OF Verified 11/01/18 13:25 FEELING IN LOWER EXTREMITIES adhesive tape AdvReac Mild Rash Verified 11/01/18 13:25 shellfish derived AdvReac Mild GI SYMPTOMS Verified 11/01/18 13:25 pork derived (porcine) AdvReac Unknown Vomiting Verified 11/02/18 16:07 Pork/Porcine Containing AdvReac Unknown Vomiting Verified 11/02/18 16:07 Products Prep Swab Allergy Unknown "Get sick Uncoded 11/01/18 13:25 and throw up" Consultations 11/01/18 15:09 ED Decision to Admit Stat 11/01/18 17:40 Consult Case Management - Discharge Planning Routine 11/07/18 22:52 Consult Gastroenterology Routine 11/08/18 10:17 Consult General Surgery Routine Ordered Studies 11/01/18 13:42 CT head/brain wo con Stat 11/01/18 16:04 CT abd pelvis IV con only Stat CT lumbar spine w con Stat 11/08/18 07:00 US venous doppler LE Routine ECHOCARDIOGRAM CXR Hospital Course (1) Hypoalbuminemia: With massive anasarca, severe hypoalbuminemia and hypoproteinemia developing since gastric sleeve surgery and subsequent repeat surgery for intra- abdominal hemorrhage in 02/2018. Albumin was 1.3. TProt only 4.2 now with some improvement after being given IV albumin--> up to 2.5 and 5.4 respectively UA without any proteinuria No renal or liver disease currently, but does report a h/o "kidney and liver failure" during hospital admission 02/2018 at [facility] Review of records from [facility] obtained through [facility]--> reveal she actually had a gastric sleeve procedure in 06/2017 followed by a Biliopancreatic diversion with a duodenal switch procedure in 01/2018. This second surgery removes a large portion of small intestine and therefore places her at risk for malabsorption syndromes, nutritional deficiencies, etc. as she clearly has. The pt was not aware she had this type of surgery; neither was her sister nor her son. Furthermore, it was found that the pt has "no-showed" to her last 3 scheduled visits with the [facility] Nutritional MD, but not by her own accord. She was unaware she had these appointments scheduled. Stressed importance of following up with the Nutrition MD B[facility]I after discharge Therefore, her severe malabsorption and malnutrition is secondary to her duodenal switch without adequate follow up. Less likely now to be a Protein- losing gastroenteropathy -Appreciate GI and Surgery consultations-no scopes recommended. Had normal EGD in 04/2018 -received IV albumin x 6 doses (2 days) to help reduce anasaraca-helped -consulted Nutrition here and will need close outpatient f/u as above-scheduled with Dr. Kaur at [facility] on 11/16 -Continue 5 small meals daily given her gastric sleeve to improve oral intake -checked IgG,IgA,IgM (not low), Vitamins AEK still pending, Vit D mildly low at 27, ceruloplasmin pending, transferrin normal, fibrinogen normal, lipid panel normal -Severely low prealbumin at 5-continue to follow in the future -continue to follow LFTs, albumin, TProt as outpatient -checked TSH for anasarca-TSH elevated free T4 low-see below -switched SSRI to Prozac to see if has better effect on mood to increase appetite-mood is already improving -care of LE edema as below (2) Hypoproteinemia: as above (3) History of bariatric surgery: h/o gastric sleeve in 06/2017 followed by Biliopancreatic diversion with duodenal switch as above at [facility] With malabsorptive issues as above -Consult surgery here recommends close f/u with her primary Bariatric Surgery team at [facility] (4) Hypoglycemia: occurs every morning, patient says she gets this way at home Secondary to malabsorption and poor po intake from bariatric surgery A.m. cortisol is normal Overall improved, glucose up to the 70s by day of discharge -encouraged to eat very frequently, set alarm for early AM snack -changed diet to regular so she can eat more carbs, change to 5 small meals daily TSH is abnormal as below-replacing LT 4 -follow accuchecks -Continue qhs snack (5) Cellulitis of lower extremity: left leg slightly more erythematous, more warm than right on admission- overall improved Initially received Zosyn and Daptomycin, then changed to Doxycycline po--> overall improved erythema Afebrile, leukocytosis resolved -continue on the Doxycycline, treat for 21 days total due to lymphedema-last dose will be on 11/21 (6) SIMONA (acute kidney injury): Cr up to 1.4 on 11/04 from 1.0, was secondary to dehydration, poor po intake Cr down to 0.8 now -has been restarted on torsemide for her LE edema--> caution not to deplete volume as she is likely significantly intravascularly volume depleted due to severe hypoalbuminemia -Follow BMP (7) Lactic acidosis: Was likely due to infection/cellulitis of legs down to 2.0 on 11/03, responded to resuscitative fluids and supportive care CT abdomen/pelvis and lumbar spine due to complaints of back pain and abdominal pain no infectious or inflammatory changes seen, just chronic changes and post operative changes Blood cultures no growth CXR normal, no evidence of UTI on UA (8) Chronic acquired lymphedema: I am unsure that she truly has LYMPHEDEMA as previously thought. Has anasarca from severe hypoproteinemia and hypoalbuminemia as above -was being followed by Wound Care clinic, doing wraps -treating with IV albumin as above and having massive diuresis at this point, edema is improving tremendously -weight is down 15 kg since admission -continue to treat with wound care locally, compression, elevation, diuretics with caution -will need close attention to her LE edema after discharge (9) Venous stasis ulcers of both lower extremities: Much improved with less LE edema now -follows with wound clinic supervisor polishing following Apply dressings and compression wraps as per stave cutter (10) Pressure ulcer, heel, left, unstageable: again follows with wound clinic wound RN following, has been debrided recently in Wound Clinic -continue Aquacel Ag dressing (11) Back pain: Acute on chronic, has history of lumbar spine surgery and chronic pain--> much improved today no clear etiology seen on CT lumbar spine MRI L-spine would be best but pt and family report severe claustrophobia and must have open MRI No saddle anesthesia, she does have some motor function and sensory in her LEs, no loss of bowel/bladder function -continue pain control, PT/OT (12) Atrial fibrillation: paroxysmal, continues in sinus rhythm here on exam now continue Metoprolol -continue Coumadin -follow INR-subtherapeutic today at 1.7, no bridging necessary -follow INR at rehab in 2-3 days (13) Depression: Was not adequately treated, is exacerbated by ongoing medical issues Denies SI/HI She actually stopped her Paxil on her own 2 weeks prior to admission as wasn't helping for many years -switched to Prozac 20mg daily, dcd Paxil (no real risk of withdrawal)--> can titrate up as needed in 2-3 weeks -consider adding on Remeron for appetite stimulant effect also if needed (14) Hypertension: Controlled -continue metoprolol (15) H/O deep venous thrombosis: in LLE as per previous reports, patient reports this was 11 years ago -has Lacey filter in place -cont Coumadin at 0.5mg daily -follow INR (16) Anemia, macrocytic: Hgb baseline 10.7, MCV 100 Had an acute drop down to 8.5 with no obvious bleeding. Repeat hemoglobin 3 hours later was back up to 9.5-likely lab error -hgb 9.1 on day of discharge -is on B12 supplements With very poor nutrition With severe folate deficiency with folate of 1.0 Also with hypothyroidism which is a new diagnosis as below -Replaced with IV folate, IV LT4 as below -convert to folic acid 1mg po daily on dc -Follow CBC (17) Osteoarthritis, hip, bilateral: chronic, bilat hip pain, also contributes to ambulatory dysfunction -Can treat with acetaminophen as needed (18) Obesity: BMI now down to 40.2, had actually gained 12-15 kg since her gastric sleeve but seems to all be fluid weight from anasarca 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 50mcg daily on discharge--> but has very poor absorption at this point in the GI tract -Follow TSH in 4 to 6 weeks (21) Folate deficiency anemia: Folate severely low at 1.0, secondary to very poor nutrition -Started IV folic acid as above and will convert to po folic acid high doses on dc (22) Severe protein-calorie malnutrition: Severely low albumin, prealbumin only 5 With protein wasting as above and malabsorption -Dietary is consulted -needs high protein diet -needs close follow up with Bariatric Chief Digital Officer at [facility]-has missed three appts-has appt now scheduled on 11/16 (23) Hypophosphatemia: replaced and resolved -follow phos (24) Ambulatory dysfunction: secondary to severe LE edema, anasarca, generalized weakness -improved slightly, has now been able to walk several feet to get to a chair and back from the bed which is a big improvement from the previous week -needs aggressive PT/OT, rehab placement (25) DVT prophylaxis: Coumadin Dispo- Plan: PT/OT consulted, recommend rehab, pt agreeable [facility] has a bed available for her, approved Stable for dc to rehab today Total Time Total Time Spent Total Time Spent (In Minutes): >30 min Total Time Includes: Examination of the Patient, Discharge Planning and Medication Reconciliation Discharge Plan Discharge Items Patient Disposition: Transfer Inpatient Rehab Fac Reason For Visit: LACTIC ACIDOSIS,SEVERE BACK PAIN Discharge Diagnosis: Sepsis,Cellulitis, Anasarca Condition: Fair Discharge Goals: Decrease discomfort, Diagnostic testing, Improve disease control, Improve function, Learn about illness and Therapeutic intervention Activity: As commented below Activity Comment: increase activity level as able to with PT/OT Lifting: Gradually increase as tolerated Bathing: No limitations Exercise/Sports: Gradually increase as tolerated Non-emergency contact: Primary Care Provider, Surgeon and Specialist Call non-emergency contact if: you have any medication questions, your symptoms worsen, your pain is not controlled, your pain is worsening, your pain is unusual for you, your pain is concerning for you, you have a fever, your temperature is above 100.5, your wound has increased redness, your wound has increased drainage and your wound pain has increased Follow-up/Referrals: PCP,NO [Primary Care Provider] - Diet: Regular Diet Comment: High protein diet, must have 5 small meals/day Addtl Provider Instructions: Please finish out the course of doxycycline for the leg cellulitis. Your legs should be wrapped with compressive wraps from the feet to the thighs. You will need aggressive PT/OT and Nutritional support moving forward. Please keep the appointment with Dr. Kaur at [facility] on Nov 16. She was started on levothyroxine and will need to have TSH checked in 4 weeks. Started on folic acid as well. She should take Boost or Ensure high protein supplement shakes at least 1-2 times daily as tolerated. She is maintained on coumadin for a h/o DVT/PE. Her INR was slightly low at the time of discharge at 1.7. Of note, her coumadin was held for 2 days this admission, but typically she takes Coumadin 0.5mg once daily. Please check her INR in 2-3 days. She was started on Prozac and her Paxil was stopped as it was ineffective. Her prozac dose could possibly be increased in a few weeks. Prescriptions: New nystatin [Nystop] 100,000 unit/gram Powder 1 applic EXT PRN PRN (Reason: intertrigo) Qty: 15 RF: 0 fluoxetine 20 mg Capsule 20 mg PO QAM Qty: 30 RF: 0 [id number] gluconate [multivitamin with minerals] 9 mg iron/15 mL Liquid 15 ml PO QAM Qty: 236 RF: 0 potassium chloride 20 mEq/15 mL liquid 20 meq PO DAILY Qty: 450 RF: 0 levothyroxine 50 mcg capsule 50 mcg PO DAILY Qty: 30 RF: 0 folic acid 1 mg tablet 1 mg PO DAILY Qty: 30 RF: 0 Continued fluticasone propion-salmeterol [Advair Diskus] 250-50 mcg/dose Blister With Device 1 inh INHALATION Q12H RF: 0 lorazepam 0.5 mg Tablet 0.5 mg PO BID PRN (Reason: Anxiety) RF: 0 metoprolol tartrate [Lopressor] 50 mg Tablet 50 mg PO BID RF: 0 nitroglycerin 0.4 mg Tablet, Sublingual 0.4 mg Sublingual DIRECTED PRN (Reason: Chest Pain) RF: 0 montelukast [Singulair] 10 mg Tablet 10 mg PO HS RF: 0 albuterol sulfate 90 mcg/actuation Hfa Aerosol Inhaler 1 puff INHALATION DAILY PRN (Reason: Shortness Of Breath) RF: 0 fluticasone propionate [Flonase Allergy Relief] 50 mcg/actuation Spr ay,Suspension 1 spray INTRANASAL QAM RF: 0 Prilosec OTC 20 mg Tablet,Delayed Release (Dr/Ec) 20 mg PO QAM RF: 0 cyanocobalamin (vitamin B-12) [Vitamin B-12] 2,500 mcg tablet, sublingual 2,500 mcg sublingual QAM RF: 0 cyanocobalamin (vitamin B-12) 1,000 mcg/mL solution 1,000 mcg subcut 2XWK RF: 0 buspirone 10 mg tablet 10 mg PO TID PRN (Reason: Anxiety) RF: 0 warfarin 1 mg tablet 0.5 mg PO HS RF: 0 Changed torsemide 20 mg tablet 20 mg PO QAM Qty: 0 RF: 0 Discontinued paroxetine HCl [Paxil] 30 mg Tablet 30 mg PO QAM RF: 0 polyethylene glycol 3350 [Miralax] 17 gram/dose Powder 1 dose PO DAILY PRN (Reason: Constipation) RF: 0 fexofenadine-pseudoephedrine [Cassy-D 12 Hour] 60-120 mg Tablet Extended Release 12 Hr 1 tab PO DAILY PRN (Reason: allergies) RF: 0 Breo Ellipta 100-25 mcg/dose Blister With Device 1 inh INHALATION HS RF: 0 bismuth subsalicylate [Kaopectate (bismuth subsalicy)] 262 mg/15 mL Suspension 524 mg PO QID PRN (Reason: Diarrhea) RF: 0 Stand-Alone Forms: [facility] Discharge Orders: Discharge Order (Routine); Ordered 11/12/18 Ordered By: Manuela Albert Skilled Items Patient informed of condition?: Yes DNR: Yes Discharge Level of Care: Acute rehab Communicable Disease: No Discharge Prognosis: Improving Admission Data Admit Date/Time: 11/01/18 16:04 Attending Provider: Manuela Albert Admit Provider: Uriel Kc Primary Care Provider: PCP,NO Other Providers: Juana Kc ; Fina Pruitt ; Dixie Conte ; Fabrice Valdes ; Morena Dodson Service: Medical Other Interventions: Discharge Summary Assessment (RN) Last Done: 11/12/18 13:23 Pending Studies at Discharge: Yes (Vit A,E,K, Ceruloplasmin) DC Date/Time DO NOT enter until pt leaves facility: 11/12/18 14:43
[2018-11-13] MEDS ORDERED: POTASSIUM CHLORIDE 20 MEQ TABCR PO SCH (09:00)
[2018-11-13 19:16] LABS: Alpha-Tocopherol 17.3 mg/L (5.7-19.9); Vitamin E Beta-Gam Tocopherol 1.3 mg/L (<=4.3)
[2018-11-15] MEDS ORDERED: CYANOCOBALAMIN 1000 MCG/ML VIAL IM SCH (09:00)
== END 2018-11-12 14:43 | DRG 602 ==
LOC: ED 12:51 → SUATTDRO 16:04 → 2S 16:04 → 4W 11-02 09:53

== ENCOUNTER 2019-08-24 16:31 | Inpatient (IN) ==
[2019-08-24] MEDS ORDERED: TRAMADOL HCL 50 MG TABLET PO STA (17:44)
[2019-08-24] MEDS ORDERED: ACETAMINOPHEN 500 MG TAB PO STA (17:44)
[2019-08-24] MEDS ORDERED: SODIUM CHLORIDE 0.9% 500 ML IV ONE (17:44)
[2019-08-24] MEDS ORDERED: cefTRIAXone SODIUM 2,000 MG/70 ML BAG IV STA (17:48)
[2019-08-24] MEDS ORDERED: VANCOMYCIN HCL 1,750 MG in SODIUM CHLORIDE 0.9% 500 ML IV STA (17:49)
--- NOTE | 2019-08-24 17:52 | Emergency Department Note ---
Impression & Plan Weakness, Fever, Cellulitis of both lower extremities, Hypomagnesemia, Failure of outpatient treatment ED Provider Note NAME: KAELYN MISTRY AGE: 69 SEX: F : 1950 ARRIVES VIA: Walk-In INFORMANT: [Patient] ED PROVIDER(S): [Godfrey Chin MD] CHIEF COMPLAINT: Leg weakness, pain HISTORY OF PRESENT ILLNESS: The patient is a 69-year-old female who has had increasing leg weakness, pain and redness for the last 6 weeks. She initially tried some AMARA stockings but these did not seem to help. She saw her doctors office who prescribed Keflex. She has been on that for 10 days, she just finished yesterday. Despite the Keflex, the redness is slightly worse and her pain is worse. She has noticed weakness in her legs in the last 24 hours and also some chills. She presents for evaluation. Patient describes the leg pain as an 8/10. Both legs are painful although she thinks the right may be more so than the left. Both legs are weak. There has been no shortness of breath, no increased cough, no chest pain. She had diarrhea yesterday, none today. No vomiting. No urinary complaints. The patient has had cellulitis previously in the past, she has required hospitalization before for her cellulitis. REVIEW OF SYSTEMS: See HPI for pertinent positives and negatives. A total of ten systems were reviewed and were otherwise negative. PMHx/PSHx: See Below SOCIAL HISTORY: See Below. PHYSICAL EXAM: GENERAL: Patient is in no acute distress. HEENT: No acute trauma, normocephalic atraumatic, mucous membranes moist, no nasal congestion, no scleral icterus. NECK: No stridor, no adenopathy, no meningismus, trachea is midline. LUNGS: Clear to auscultation bilaterally, no wheeze, no rhonchi, breath sounds equal. HEART: 2/6 systolic murmur, regular rate and rhythm. ABDOMEN: Soft, nontender, bowel sounds positive, no hernias, no peritonitis. EXTREMITIES: No cyanosis, significant bilateral pedal edema with chronic skin change. She has an ulcer to the underside of the right first toe. No drainage. There is some right lower extremity erythema although there is minimal warmth. The entire right lower leg is tender to touch. The left lower extremity has erythema from the foot up to the inner thigh. There is warmth present. The entire left lower extremity is painful to touch. No drainage. She has an open area of skin breakdown to the underside of her left foot laterally. No drainage. Toes are backwinder both lower extremities. NEUROLOGIC: Oriented x 3, no acute motor or sensory deficits, no focal weakness. SKIN: No jaundice, no diaphoresis. DIFFERENTIAL DIAGNOSIS: Sepsis, UTI, pneumonia, metabolic, failed outpatient treatment, cellulitis, electrolyte abnormalities, cardiac sources, intracerebral event, toxicologic, neurologic, as well as other pathologies. EMERGENCY DEPARTMENT COURSE/PROCEDURES: ECG: Indication is weakness. The EKG shows a normal sinus rhythm with a rate of 84. There appears to be an old anterior infarct. There is no ST elevation, no PVCs. QTC is 451. Continuous Cardiac Monitoring: An order was placed for continuous cardiac monitoring. The monitor shows a rate of 62 with normal sinus rhythm. MEDICAL DECISION MAKING: There is a mild leukocytosis, this would be consistent with infection. There is no anemia. No coagulopathy. No significant electrolyte abnormality except for a mildly low potassium and magnesium. No kidney failure. No worrisome liver enzyme elevation. Lactic acid level and procalcitonin levels were both normal making severe sepsis less likely. EKG showed a sinus rhythm, no acute ischemia. Chest film did not show any obvious pneumonia, atelectasis was noted. On exam, the patient had a bilateral lower extremity cellulitis, worse on the left. The patient presents with a fever and cellulitis. She just finished a course of Keflex. She has failed outpatient treatment. Hospitalization is warranted. Patient received IV saline, she was given IV magnesium. She received IV ceftriaxone and IV vancomycin. Patient was given oral Tylenol for fever. Oral tramadol for pain. I did speak to the patient about her findings, case management has been involved. The on-call hospitalist was consulted. Patient is currently resting comfortably. Past Med/Surg History Medical History Acquired hallux valgus of right foot (Acute) Acquired hammer toe of right foot (Acute) Anxiety Bilateral swelling of feet (Acute) CAD (coronary artery disease) Callus (Acute) Cancer OVARIAN CANCER (DOLORES/NO RADIATION/NO CHEMO) Chronic back pain Colitis COPD (chronic obstructive pulmonary disease) Deep vein thrombosis left leg/filter placed Diabetes mellitus with diabetic polyneuropathy (Acute) Diabetes mellitus, type 2 Diabetic foot ulcer Diabetic peripheral neuropathy associated with type 2 diabetes mellitus Encounter for pre-operative examination Family history of diabetes mellitus FATHER GERD (gastroesophageal reflux disease) Gout Lacey filter in place Hallux valgus (acquired), left foot (Acute) Hammertoe of left foot (Acute) History of diabetic ulcer of foot History of DVT (deep vein thrombosis) History of AR (myocardial infarction) Hyperlipidemia Hypertension Myocardial Infarction 2009 and 2010 Neuropathic ulcer of left heel (Acute) Osteoarthritis Peripheral neuropathy BLE Thrombophlebitis Urinary leakage Surgical History Fusion of spine LUMBAR History of adenoidectomy History of cardiac cath no stents History of colonoscopy History of gastric bypass History of hysterectomy History of hysterectomy History of lumbar spinal fusion History of PTCA History of tonsillectomy History of total knee replacement RT/LEFT Family History Other Family history non-contributory Social History Preferred Language: Thai Communication Ability: Effective 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 Beliefs That Will Affect Care: None marital status: Current Living Situation: Spouse Other Information That Helps Us Care for You: No Feels Safe at Home: Yes Safety Concerns: Feels Safe At This Time Smoking Status: Never smoker Second Hand Exposure: No ; Hx Alcohol Use: No Hx Substance Use: No Allergies Allergies Allergy/AdvReac Type Severity Reaction Status Date / Time gabapentin AdvReac Intermediate LOSS OF Verified 08/24/19 19:28 FEELING IN LOWER EXTREMITIES adhesive tape AdvReac Mild Rash Verified 08/24/19 19:28 shellfish derived AdvReac Mild GI SYMPTOMS Verified 08/24/19 19:28 pork derived (porcine) AdvReac Unknown Vomiting Verified 08/24/19 19:28 Pork/Porcine Containing AdvReac Unknown Vomiting Verified 08/24/19 19:28 Products Prep Swab Allergy Unknown "Get sick Uncoded 08/24/19 19:28 and throw up" Home Meds Home Medications Medication Instructions Recorded Confirmed albuterol sulfate 1 puff INHALATION DAILY PRN 03/04/18 08/24/19 fluticasone propionate [Flonase 1 spray INTRANASAL QAM 03/04/18 08/24/19 Allergy Relief] lorazepam 0.5 mg PO BID PRN 03/04/18 08/24/19 montelukast [Singulair] 10 mg PO HS 03/04/18 08/24/19 nitroglycerin 0.4 mg SUBLINGUAL DIRECTED PRN 03/04/18 08/24/19 buspirone 10 mg PO QAM 11/01/18 08/24/19 Potassium Tab 99 mg PO QAM 08/24/19 08/24/19 apixaban [Eliquis] 5 mg PO BID 08/24/19 08/24/19 cholecalciferol (vitamin D3) 50 mcg PO DAILY 08/24/19 08/24/19 [Vitamin D3] fluticasone furoate-vilanterol 1 inh INHALATION DAILY 08/24/19 08/24/19 [Breo Ellipta] losartan 50 mg PO DAILY 08/24/19 08/24/19 metoprolol tartrate 25 mg PO BID 08/24/19 08/24/19 spironolactone 25 mg PO DAILY 08/24/19 08/24/19 torsemide See Rx Instructions .ROUTE .COMPLEX 08/24/19 08/24/19 tramadol 50 mg PO BID PRN 08/24/19 08/24/19 Previous Rx's Medication Instructions Recorded fluoxetine 20 mg PO QAM #30 cap 11/12/18 folic acid 1 mg PO DAILY #30 tab 11/12/18 levothyroxine 50 mcg PO DAILY #30 cap 11/12/18 Results & Data (ED) Vital Signs Vital Signs - 24 hr 08/24/19 16:38 08/24/19 17:23 08/24/19 17:30 Temperature 38.5 C H Temperature Source Oral Pulse Rate 84 78 78 Pulse Rate [Apical] Pulse Rate from SpO2 Sensor Respiratory Rate 18 19 21 Respiratory Effort / Characteristics Respiratory Depth Respiratory Pattern Blood Pressure 173/74 H Blood Pressure [Left Arm] Blood Pressure Mean 107 Blood Pressure Mean [Left Arm] Pulse Oximetry 96 Oxygen Delivery Method Room Air Sepsis Recent Fever Within 48 Hours Yes Sepsis New/Unexplained Change in Mental Status No Sepsis Action Taken by Nursing No Action Required 08/24/19 17:34 08/24/19 17:45 08/24/19 17:49 Temperature Temperature Source Pulse Rate 78 76 Pulse Rate [Apical] Pulse Rate from SpO2 Sensor 76 77 Respiratory Rate 19 21 Respiratory Effort / Characteristics Respiratory Depth Respiratory Pattern Blood Pressure 165/89 H Blood Pressure [Left Arm] Blood Pressure Mean 130 Blood Pressure Mean [Left Arm] Pulse Oximetry 97 99 97 Oxygen Delivery Method Room Air Sepsis Recent Fever Within 48 Hours Sepsis New/Unexplained Change in Mental Status Sepsis Action Taken by Nursing 08/24/19 18:00 08/24/19 18:03 08/24/19 18:15 Temperature Temperature Source Pulse Rate 83 78 80 Pulse Rate [Apical] Pulse Rate from SpO2 Sensor 81 78 80 Respiratory Rate 20 16 13 Respiratory Effort / Characteristics Respiratory Depth Respiratory Pattern Blood Pressure 169/87 H 183/83 H Blood Pressure [Left Arm] Blood Pressure Mean 123 131 Blood Pressure Mean [Left Arm] Pulse Oximetry 99 99 97 Oxygen Delivery Method Sepsis Recent Fever Within 48 Hours Sepsis New/Unexplained Change in Mental Status Sepsis Action Taken by Nursing 08/24/19 18:30 08/24/19 18:45 08/24/19 19:13 Temperature Temperature Source Pulse Rate 75 76 Pulse Rate [Apical] 80 Pulse Rate from SpO2 Sensor 75 Respiratory Rate 19 16 16 Respiratory Effort / Characteristics Non-Labored Spontaneous Respiratory Depth Normal Respiratory Pattern Regular Blood Pressure 187/87 H 166/79 H Blood Pressure [Left Arm] 159/71 H Blood Pressure Mean 119 115 Blood Pressure Mean [Left Arm] 100 Pulse Oximetry 96 97 Oxygen Delivery Method Room Air Sepsis Recent Fever Within 48 Hours Sepsis New/Unexplained Change in Mental Status Sepsis Action Taken by Assisted Medications Current Medication List: was personally reviewed by me Laboratory Data Attestation: I reviewed the patient's lab results. Result diagrams: 08/24/19 17:32 08/24/19 17:32 Lab Results 08/24/19 08/24/19 08/24/19 Range/Units 17:32 17:32 17:32 WBC 11.95 H (4.8-10.8) K/uL RBC 4.22 (4.2-5.4) M/uL Hgb 12.0 (12.0-16.0) g/dL Hct 36.9 L (37-47) % MCV 87.4 (80-100) fL MCH 28.4 (25-34) pg MCHC 32.5 (32-36) g/dL RDW Std Deviation 47.8 H (36.4-46.3) fL RDW Coeff of Krista 15.0 H (11.5-14.5) % Plt Count 243 (130-400) K/uL MPV 10.4 (7.4-10.4) fL Immature Gran % (Auto) 0.3 % Neut % (Auto) 87.5 % Lymph % (Auto) 7.7 % [place] % (Auto) 4.3 % Eos % (Auto) 0.1 % Baso % (Auto) 0.1 % Immature Gran # (Auto) 0.04 H (0.00-0.02) K/uL Neut # (Auto) 10.46 H (1.4-6.5) K/uL Lymph # (Auto) 0.92 L (1.2-3.4) K/uL [place] # (Auto) 0.51 (0.11-0.59) K/uL Eos # (Auto) 0.01 (0-0.5) K/uL Baso # (Auto) 0.01 (0-0.2) K/uL PT 11.8 (9.0-12.0) Seconds INR 1.1 (0.9-1.1) APTT 30.3 (21.0-31.0) Seconds PTT Ratio 1.1 Sodium 136 (136-145) mmol/L Potassium 3.4 L (3.5-5.1) mmol/L Chloride 105 (98-107) mmol/L Carbon Dioxide 24 (21-32) mmol/L Anion Gap 7.0 (3-11) BUN 12 (7-18) mg/dl Creatinine 0.65 (0.6-1.2) mg/dl Est Cr Clr Drug Dosing 88.6 ml/min Est GFR ( Amer) 105.0 Est GFR (Non-Af Amer) 90.6 BUN/Creatinine Ratio 19.2 (10-20) Glucose 100 H (70-99) mg/dl Lactate (0.4-2.0) mmol/L Calcium 8.9 (8.5-10.1) mg/dl Magnesium 1.7 L (1.8-2.4) mg/dl Total Bilirubin 0.7 (0.2-1) mg/dl AST 22 (15-37) U/L ALT 27 (12-78) U/L Alkaline Phosphatase 111 (45-117) U/L Troponin I < 0.015 (0-0.045) ng/ml Total Protein 8.2 (6.4-8.2) gm/dl Albumin 3.4 (3.4-5.0) gm/dl Globulin 4.8 H (2.5-4.0) gm/dl Albumin/Globulin Ratio 0.7 L (0.9-2) Procalcitonin (0-0.5) ng/ml 08/24/19 08/24/19 Range/Units 17:32 17:32 WBC (4.8-10.8) K/uL RBC (4.2-5.4) M/uL Hgb (12.0-16.0) g/dL Hct (37-47) % MCV (80-100) fL MCH (25-34) pg MCHC (32-36) g/dL RDW Std Deviation (36.4-46.3) fL RDW Coeff of Krista (11.5-14.5) % Plt Count (130-400) K/uL MPV (7.4-10.4) fL Immature Gran % (Auto) % Neut % (Auto) % Lymph % (Auto) % [place] % (Auto) % Eos % (Auto) % Baso % (Auto) % Immature Gran # (Auto) (0.00-0.02) K/uL Neut # (Auto) (1.4-6.5) K/uL Lymph # (Auto) (1.2-3.4) K/uL [place]ger # (Auto) (0.11-0.59) K/uL Eos # (Auto) (0-0.5) K/uL Baso # (Auto) (0-0.2) K/uL PT (9.0-12.0) Seconds INR (0.9-1.1) APTT (21.0-31.0) Seconds PTT Ratio Sodium (136-145) mmol/L Potassium (3.5-5.1) mmol/L Chloride (98-107) mmol/L Carbon Dioxide (21-32) mmol/L Anion Gap (3-11) BUN (7-18) mg/dl Creatinine (0.6-1.2) mg/dl Est Cr Clr Drug Dosing ml/min Est GFR ( Amer) Est GFR (Non-Af Amer) BUN/Creatinine Ratio (10-20) Glucose (70-99) mg/dl Lactate 1.1 (0.4-2.0) mmol/L Calcium (8.5-10.1) mg/dl Magnesium (1.8-2.4) mg/dl Total Bilirubin (0.2-1) mg/dl AST (15-37) U/L ALT (12-78) U/L Alkaline Phosphatase (45-117) U/L Troponin I (0-0.045) ng/ml Total Protein (6.4-8.2) gm/dl Albumin (3.4-5.0) gm/dl Globulin (2.5-4.0) gm/dl Albumin/Globulin Ratio (0.9-2) Procalcitonin < 0.05 (0-0.5) ng/ml Administered Medications Acetaminophen (Tylenol) 650 mg PO Q4H PRN PRN Reason: pain/fever Stop: 09/23/19 21:43 Last Admin: 08/24/19 23:33 Dose: 650 mg Documented by: [id number] Apixaban (Eliquis) 5 mg PO BID [facility] Stop: 09/23/19 21:43 Last Admin: 08/24/19 22:50 Dose: 5 mg Documented by: [id number] Ampicillin Sodium/Sulbactam Sodium 1,500 mg/ Sodium Chloride 104 mls @ 200 mls/hr IV Q6H [facility]; Protocol Stop: 08/31/19 21:59 Last Infusion: 08/24/19 23:57 Dose: 0 mls/hr Documented by: [id number] Admin: 08/24/19 22:42 Dose: 200 mls/hr Documented by: [id number] Ioversol (Optiray 320 100ml) 90 ml IV ONCE PRN PRN Reason: Interaction Checking Stop: 08/28/19 22:28 Last Admin: 08/24/19 22:29 Dose: 90 ml Documented by: [id number] Metoprolol Tartrate (Lopressor) 25 mg PO BID [facility] Stop: 09/23/19 21:43 Last Admin: 08/24/19 22:50 Dose: 25 mg Documented by: [id number] Montelukast Sodium (Singulair) 10 mg PO HS [facility] Stop: 09/23/19 21:43 Last Admin: 08/24/19 22:50 Dose: 10 mg Documented by: [id number] Potassium Chloride (Klor-Con Pwd) 20 meq PO BID ASHWINI Stop: 09/23/19 22:59 Last Admin: 08/24/19 23:34 Dose: 20 meq Documented by: [id number] Discontinued Medications Acetaminophen (Tylenol) 1,000 mg PO NOW STA Stop: 08/24/19 17:45 Last Admin: 08/24/19 18:09 Dose: 1,000 mg Documented by: [id number] Ceftriaxone Sodium (Rocephin) 2,000 mg in 70 mls @ 140 mls/hr IV NOW STA Stop: 08/24/19 18:17 Last Infusion: 08/24/19 19:12 Dose: 0 mls/hr Documented by: [id number] Admin: 08/24/19 18:09 Dose: 140 mls/hr Documented by: [id number] Sodium Chloride (Nss) 500 mls @ 999 mls/hr IV .Q31M ONE Stop: 08/24/19 18:14 Last Infusion: 08/24/19 19:12 Dose: 0 mls/hr Documented by: [id number] Admin: 08/24/19 18:09 Dose: 999 mls/hr Documented by: [id number] Vancomycin HCl 1,750 mg/ (Sodium Chloride) 535 mls @ 200 mls/hr IV NOW STA Stop: 08/24/19 20:29 Last Infusion: 08/24/19 22:02 Dose: 0 mls/hr Documented by: [id number] Admin: 08/24/19 18:55 Dose: 200 mls/hr Documented by: [id number] Magnesium Sulfate/Dextrose (Magnesium Sulfate / D5w) 1 gm in 100 mls @ 100 mls/hr IV NOW STA Stop: 08/24/19 19:13 Last Infusion: 08/24/19 20:20 Dose: 0 mls/hr Documented by: [id number] Admin: 08/24/19 19:12 Dose: 100 mls/hr Documented by: [id number] Tramadol HCl (Ultram) 50 mg PO NOW STA Stop: 08/24/19 17:45 Last Admin: 08/24/19 18:09 Dose: 50 mg Documented by: [id number] Imaging Data Radiologist's Impression: XR chest 1V portable HISTORY: 69 years-old Female SEPSIS acute fever COMPARISON: CT abdomen pelvis 11/01/2018, chest radiograph 11/01/2018 TECHNIQUE: Portable AP view of the chest FINDINGS: Cardiac silhouette is enlarged, unchanged. Mild pulmonary vascular congestion. Linear line projecting over the lateral right lung base is suggestive of a probable skin fold. Trace right pleural effusion. Ill-defined right infrahilar opacity. Degenerative changes of the shoulders and spine. Patient is slightly rotated. Small hiatal hernia. IMPRESSION: 1. Cardiomegaly with pulmonary vascular congestion and trace right pleural ef fusion. 2. Ill-defined right infrahilar opacities may be projectional. This could be correlated with PA and lateral views of the chest to exclude pneumonia. 3. Small hiatal hernia. Blood Pressure Blood Pressure Findings: Elevated blood pressure Blood Pressure Disposition: further management by hospitalist Discharge Plan Visit Data *Final* Discharge Date/Time: 08/24/19 21:11 Chief Complaint: Leg Weakness, Bilateral Stated Complaint: BACK PAIN - CELLULITIS IN BOTH LEGS-HARD TO STAND ED Provider: Godfrey Chin Discharge Problem: Weakness, Fever, Cellulitis of both lower extremities, Hypomagnesemia, Failure of outpatient treatment Patient Disposition: Admitted As Inpatient Condition: Good Discharge Instructions Interventions: ED Discharge Assessment Last Done: 08/24/19 21:11 Discharge Problem: Fever Qualifiers: Fever type: unspecified Qualified Code(s): R50.9 - Fever, unspecified
[2019-08-24 17:54] LABS: Basophils # (auto) 0.01 K/uL (0-0.2); Basophils % (auto) 0.1 %; Eosinophils # (auto) 0.01 K/uL (0-0.5); Eosinophils % (auto) 0.1 %; Hematocrit (blood only) 36.9 % (37-47); Immature Granulocytes # (auto) 0.04 K/uL (0.00-0.02); Immature Granulocytes % (auto) 0.3 %; Lymphocytes # (auto) 0.92 K/uL (1.2-3.4); Lymphocytes % (auto) 7.7 %; Mean Corpuscular Hemoglobin 28.4 pg (25-34); Mean Corpuscular Hgb Conc 32.5 g/dL (32-36); Mean Corpuscular Volume 87.4 fL (80-100); Mean Platelet Volume 10.4 fL (7.4-10.4); Monocytes # (auto) 0.51 K/uL (0.11-0.59); Monocytes % (auto) 4.3 %; Neutrophils # (auto) 10.46 K/uL (1.4-6.5); Neutrophils % (auto) 87.5 %; Platelet Count 243 K/uL (130-400); RDW Standard Deviation 47.8 fL (36.4-46.3); Red Blood Count 4.22 M/uL (4.2-5.4); White Blood Count 11.95 K/uL (4.8-10.8)
[2019-08-24 18:02] LABS: Alanine Aminotransferase 27 U/L (12-78); Albumin Level 3.4 gm/dl (3.4-5.0); Aspartate Aminotransferase 22 U/L (15-37); BUN Creatinine Ratio 19.2 (10-20); Blood Urea Nitrogen 12 mg/dl (7-18); Calcium 8.9 mg/dl (8.5-10.1); Carbon Dioxide 24 mmol/L (21-32); Chloride 105 mmol/L (98-107); Creatinine Clr Calc Pharmacy 88.6 ml/min; Est GFR (Non-African American) 90.6; Glucose 100 mg/dl (70-99); Magnesium 1.7 mg/dl (1.8-2.4); Potassium 3.4 mmol/L (3.5-5.1); Sodium 136 mmol/L (136-145)
[2019-08-24 18:04] LABS: INR 1.1 (0.9-1.1); Partial Thromboplastin Ratio 1.1; Partial Thromboplastin Time 30.3 Seconds (21.0-31.0); Prothrombin Time 11.8 Seconds (9.0-12.0)
[2019-08-24 18:06] LABS: Albumin Globulin Ratio 0.7 (0.9-2); Alkaline Phosphatase 111 U/L (45-117); Bilirubin,Total 0.7 mg/dl (0.2-1); Globulin 4.8 gm/dl (2.5-4.0); Total Protein 8.2 gm/dl (6.4-8.2); Troponin I < 0.015 ng/ml (0-0.045)
[2019-08-24] MEDS ORDERED: MAGNESIUM SULFATE / D5W 1 GM/100 ML BAG IV STA (18:14)
--- NOTE | 2019-08-24 18:20 | XRay Report ---
XR chest 1V portable HISTORY: 69 years-old Female SEPSIS acute fever COMPARISON: CT abdomen pelvis 11/01/2018, chest radiograph 11/01/2018 TECHNIQUE: Portable AP view of the chest FINDINGS: Cardiac silhouette is enlarged, unchanged. Mild pulmonary vascular congestion. Linear line projecting over the lateral right lung base is suggestive of a probable skin fold. Trace right pleural effusion . Ill-defined right infrahilar opacity. Degenerative changes of the shoulders and spine. Patient is s lightly rotated. Small hiatal hernia. IMPRESSION: 1. Cardiomegaly with pulmonary vascular congestion and trace right pleural effusion. 2. Ill-defined right infrahilar opacities may be projectional. This could be correlated with PA and l ateral views of the chest to exclude pneumonia. 3. Small hiatal hernia. ACT 112: Negative or not required by law. The above report was generated using voice recognition software. It may contain grammatical, syntax o r spelling errors. Electronically signed by: Yann Torres M.D. 08/24/2019 6:19 PM
[2019-08-24] MEDS ORDERED: NITROGLYCERIN SL 0.4 MG/TAB TAB SL PRN (21:44)
[2019-08-24] MEDS ORDERED: FUROSEMIDE 40 MG/4 ML VIAL IV SCH (21:44)
[2019-08-24] MEDS ORDERED: ONDANSETRON INJ 2 MG/ML 2 ML VIAL IV PRN (21:44)
[2019-08-24] MEDS ORDERED: ALBUTEROL HFA 8 GM INHALER INH PRN (21:44)
[2019-08-24] MEDS ORDERED: POLYETHYLENE (MIRALAX) 17 GM PACK PO PRN (21:44)
[2019-08-24] MEDS ORDERED: LORazepam 0.5 MG TAB PO PRN (21:44)
[2019-08-24] MEDS ORDERED: MICONAZOLE NITRATE POWDER 43 GM EXT PRN (21:56)
--- NOTE | 2019-08-24 22:26 | History & Physical Report ---
Date of Service August 24, 2019 Assessment & Plan (1) Weakness: Barber Nixon is a69 year old woman with past medical history of CAD, ID, gastric bypass surgery, chronic swelling of lower extremities who presents with cellulitis of bilateral lower extremities after failing outpatient therapy. Cellulitis Was on keflex for 10 days and did not improve Will treat with vancomycin and ampicillin and sulbactam Can transition to oral antibiotics if improving Back Pain Could be chronic back pain for which she has been taking tramadol for. Given her prolonged smoldering leg infections, also concerned for infectious process in hardware of her back We will get CT lumbar spine to evaluate Weakness No focal abnormalities on exam though exam is markedly limited by bilateral arthritic hips, and massively edematous lower limbs. She tells me even at her best she walks only very slowly Patient has been getting progressively weaker for months, very weak and malnourished appearing Cellulitis may be causing acute changes, could also be secondary to her back issues will check lumbar spine CT Patient's son tells me that she has been abusing her tramadol script and taking more than prescribed almost every day this could also be cause of acute decreased strength. 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 Hypomagnesemia Likely secondary to decreased PO intake/absorption will replace Hypokalemia Mild will replace. DVT PPx:On chronic anticoagulation with apixaban F/E/N: Heart healthy diet Dispo: Inpatient for IV antibiotics, may need SNF placement for strengthening as it sounds like she has been deteriorating in strength and mobility for some time. DNR/DNI (2) Fever: (3) Cellulitis of both lower extremities: (4) Hypomagnesemia: (5) Failure of outpatient treatment: (6) Ambulatory dysfunction: Admission and Anticipated Discharge Date Admission Date: August 24, 2019 History of Present Illness Chief Complaint: Leg pain and weakness Primary Care Provider: Nighat Hwang Barber Nixon is a 69 year old woman with a past medical history significant for gastric bypass, malabsorption, chronic venous stasis lower limb edema, CAD, ID and spinal fusion surgery and chronic pain who presents today for leg pain, back pain and leg weakness that has been present for several weeks but has recently gotten worse. She is a little bit confused and had trouble telling me her entire story but her son called in and helped provide some collateral. He tells me she has been dealing with back pain and lower limb pain for months and was diagnosed with bilatral lower limb cellulitis several weeks ago. She finished antibiotic therapy on the . Her son tells me her legs never returned to normal and have now returned to just as red and tender as they were before starting antibiotics and spread across her leg more. She tells me she has not checked her temperature but she has been having fevers, chills and feeling generally weak. She denies nausea vomiting, but has had some diarrhea. On presentation to ED patient was febrile, vital signs otherwise WNL, no tachycardia, no hypotension breathing easily. Labwork significant for elevated white count of 11.95, hypokalemia of 3.4, hypomagnesemia of 1.7, negative procalcitonin. She was given vancomycin and tylenol in ED. Allergies Allergy/AdvReac Type Severity Reaction Status Date / Time gabapentin AdvReac Intermediate LOSS OF Verified 08/24/19 19:28 FEELING IN LOWER EXTREMITIES adhesive tape AdvReac Mild Rash Verified 08/24/19 19:28 shellfish derived AdvReac Mild GI SYMPTOMS Verified 08/24/19 19:28 pork derived (porcine) AdvReac Unknown Vomiting Verified 08/24/19 19:28 Pork/Porcine Containing AdvReac Unknown Vomiting Verified 08/24/19 19:28 Products Prep Swab Allergy Unknown "Get sick Uncoded 08/24/19 19:28 and throw up" Home Medications Home Medications Medication Instructions Recorded Confirmed Type albuterol sulfate 1 puff INHALATION DAILY PRN 03/04/18 08/24/19 History fluticasone propionate [Flonase 1 spray INTRANASAL QAM 03/04/18 08/24/19 History Allergy Relief] lorazepam 0.5 mg PO BID PRN 03/04/18 08/24/19 History montelukast [Singulair] 10 mg PO HS 03/04/18 08/24/19 History nitroglycerin 0.4 mg SUBLINGUAL DIRECTED PRN 03/04/18 08/24/19 History buspirone 10 mg PO QAM 11/01/18 08/24/19 History fluoxetine 20 mg PO QAM #30 cap 11/12/18 08/24/19 Rx folic acid 1 mg PO DAILY #30 tab 11/12/18 08/24/19 Rx levothyroxine 50 mcg PO DAILY #30 cap 11/12/18 08/24/19 Rx Potassium Tab 99 mg PO QAM 08/24/19 08/24/19 History apixaban [Eliquis] 5 mg PO BID 08/24/19 08/24/19 History cholecalciferol (vitamin D3) 50 mcg PO DAILY 08/24/19 08/24/19 History [Vitamin D3] fluticasone furoate-vilanterol 1 inh INHALATION DAILY 08/24/19 08/24/19 History [Breo Ellipta] losartan 50 mg PO DAILY 08/24/19 08/24/19 History metoprolol tartrate 25 mg PO BID 08/24/19 08/24/19 History spironolactone 25 mg PO DAILY 08/24/19 08/24/19 History torsemide See Rx Instructions .ROUTE .COMPLEX 08/24/19 08/24/19 History tramadol 50 mg PO BID PRN 08/24/19 08/24/19 History Past Med/Surg History Medical History Acquired hallux valgus of right foot (Acute) Acquired hammer toe of right foot (Acute) Anxiety Bilateral swelling of feet (Acute) CAD (coronary artery disease) Callus (Acute) Cancer OVARIAN CANCER (DOLORES/NO RADIATION/NO CHEMO) Chronic back pain Colitis COPD (chronic obstructive pulmonary disease) Deep vein thrombosis left leg/filter placed Diabetes mellitus with diabetic polyneuropathy (Acute) Diabetes mellitus, type 2 Diabetic foot ulcer Diabetic peripheral neuropathy associated with type 2 diabetes mellitus Encounter for pre-operative examination Family history of diabetes mellitus FATHER GERD (gastroesophageal reflux disease) Gout [place] filter in place Hallux valgus (acquired), left foot (Acute) Hammertoe of left foot (Acute) History of diabetic ulcer of foot History of DVT (deep vein thrombosis) History of ID (myocardial infarction) Hyperlipidemia Hypertension Myocardial Infarction 2009 and 2010 Neuropathic ulcer of left heel (Acute) Osteoarthritis Peripheral neuropathy BLE Thrombophlebitis Urinary leakage Surgical History Fusion of spine LUMBAR History of adenoidectomy History of cardiac cath no stents History of colonoscopy History of gastric bypass History of hysterectomy History of hysterectomy History of lumbar spinal fusion History of PTCA History of tonsillectomy History of total knee replacement RT/LEFT Family History Other Family history non-contributory Social History Preferred Language: Icelandic Communication Ability: Effective Calendering Supervisor Required: No Beliefs That Will Affect Care: None marital status: Current Living Situation: Spouse Other Information That Helps Us Care for You: No Feels Safe at Home: Yes Safety Concerns: Feels Safe At This Time Smoking Status: Never smoker Second Hand Exposure: No ; Hx Alcohol Use: No Hx Substance Use: No Review of Systems Review of Systems: All systems reviewed & are unremarkable except as noted in HPI & below Physical Exam Physical Exam: Constitutional: Well appearing 69 year old woman appearing older than stated age frail in no acute distress. Slow in speech with some confusion oriented to person place situation (with some lapses) but not time Eyes: Anicteric sclerae EOMMI, PERRLA bilaterally. ENMT: NAD Neck: NAD Respiratory: Lungs clear to auscultation bilaterally, no increased work of breathing appreciated. Cardiovascular: Systolic ejection murmur, regular rate, regular rhythm, peripheral pulses intact, 4+ pitting edema bilateral lower extremities GI: Abdomen soft, mildly tender, no masses detected. Skin: Erythematous lower extremities from ankle to knee on bilateral legs left more tender than right, blanches with pressure exquisitely tender. Results & Data Results & Data ([facility]) Vital Signs (Past 12 Hours) Vital Signs Temp Pulse Pulse Resp BP BP BP 08/24/19 21:34 37 C 69 20 162/73 H 08/24/19 20:58 68 16 08/24/19 20:32 70 16 131/83 08/24/19 19:13 80 16 159/71 H 08/24/19 18:45 76 16 166/79 H 08/24/19 18:30 75 19 187/87 H 08/24/19 18:15 80 13 183/83 H 08/24/19 18:03 78 16 169/87 H 08/24/19 18:00 83 20 08/24/19 17:49 08/24/19 17:45 76 21 08/24/19 17:34 78 19 165/89 H 08/24/19 17:30 78 21 08/24/19 17:23 78 19 08/24/19 16:38 38.5 C H 84 18 173/74 H Pulse Ox 08/24/19 21:34 97 08/24/19 20:58 97 08/24/19 20:32 94 08/24/19 19:13 97 08/24/19 18:45 08/24/19 18:30 96 08/24/19 18:15 97 08/24/19 18:03 99 08/24/19 18:00 99 08/24/19 17:49 97 08/24/19 17:45 99 08/24/19 17:34 97 08/24/19 17:30 08/24/19 17:23 08/24/19 16:38 96 Code Status & VTE Plan VTE Prophylaxis Plan VTE Prophylaxis will be ordered: Yes Supervising Physician Co-Signing Physician Notes Attending addendum: I have physically seen this patient, have supervised the medical residents activities, and agree with the H&P unless as otherwise noted. Assessment and Plan: Cellulitis of bilateral lower extremities/failure of outpatient treatment- Failed Keflex for 10 days in outpatient setting. Placed on vancomycin IV and Unasyn IV. Change to oral antibiotics as clinical symptoms improved. Acute on chronic low back pain- Order CT lumbar spine to assess for possible secondary process due to seeding. Electrolyte abnormalities- Potassium 3.4 magnesium 1.7. Replace orally and IV. Repeat labs in a.m. Bilateral lower extremity weakness- Consult PT/OT. Remainder of orders and notations as noted. Resident Activity Tracking Resident Involvement: Resident Care Provided Care Provided: Adult Hospital Medicine (1) Fever Fever type: unspecified Qualified Code(s): R50.9 - Fever, unspecified
[2019-08-24] MEDS ORDERED: IOVERSOL 100ml IV PRN (22:29)
[2019-08-24] MEDS: AMPICILLIN/SULBACTAM SOD 1,500 MG in 0.9 % SODIUM CHLORIDE 100 ML IV SCH (22:42)
[2019-08-24] MEDS: MONTELUKAST SODIUM 10 MG TABLET PO SCH (22:50)
[2019-08-24] MEDS: METOPROLOL TARTRATE 25 MG TAB PO SCH (22:50)
[2019-08-24] MEDS: APIXABAN 5 MG TABLET PO SCH (22:50)
[2019-08-24] MEDS: ACETAMINOPHEN 325 MG TAB PO PRN (23:33)
[2019-08-24] MEDS: POTASSIUM CHLORIDE PWD 20 MEQ PACK PO SCH (23:34)
[2019-08-25] MEDS: AMPICILLIN/SULBACTAM SOD 1,500 MG in 0.9 % SODIUM CHLORIDE 100 ML IV SCH ×2 (03:49→09:04)
[2019-08-25] MEDS: LEVOTHYROXINE SODIUM 50 MCG TABLET PO SCH (06:20)
[2019-08-25] MEDS: TRAMADOL HCL 50 MG TABLET PO PRN ×2 (06:21→18:15)
--- NOTE | 2019-08-25 06:57 | CT Scan Report ---
Study: CT lumbar spine HISTORY: Pain COMPARISON: 11/01/2018 FINDINGS: Severe degenerative disc changes throughout the entire lumbar region. Findings consistent w ith a rather extensive laminectomy and fusion from L3 through S1. No evidence for compression deformity. Diffuse osteoporosis. No evidence for abnormal mass or collection. No evidence for bony destructive process. Bladder distention. IMPRESSION: 1. Severe degenerative change throughout the entire lumbar region. 2. Osteoporosis. 3. Posterior laminectomy and fusion from L3 through S1. 4. No evidence for destructive process. 5. No abnormal mass or collection. 6. Bladder distention. Electronically signed by: Shashank Ho M.D. 08/25/2019 6:56 AM
--- NOTE | 2019-08-25 08:04 | XRay Report ---
XR chest 2V PA/lateral HISTORY: 69 years-old Female Concern for pneumonia acute shortness of breath COMPARISON: Chest radiograph 08/24/2019 at 6:00 PM TECHNIQUE: AP and lateral views of the chest FINDINGS: Cardiac silhouette is enlarged. Suggestion of a small hiatal hernia. No pneumothorax, large pleural e ffusion or overt pulmonary edema. A vascular congestion with probable trace right pleural effusion. L ateral view is mildly limited secondary to patient rotation. Subtle ill-defined opacities project ove r the posterior aspect of the right lower lobe. IMPRESSION: 1. Ill-defined opacities of the posterior basal segment right lower lobe are suggestive of atelectasi s or pneumonia. 2. Cardiomegaly with pulmonary vascular congestion. 3. Probable trace right pleural effusion. ACT 112: Negative or not required by law. The above report was generated using voice recognition software. It may contain grammatical, syntax o r spelling errors. Electronically signed by: Yann Torres M.D. 08/25/2019 8:03 AM
[2019-08-25] MEDS: FUROSEMIDE 20 MG in SYRINGE 0 ML IV SCH ×2 (08:49→20:03)
[2019-08-25] MEDS: METOPROLOL TARTRATE 25 MG TAB PO SCH ×2 (08:50→20:16)
[2019-08-25] MEDS: MAGNESIUM OXIDE 400 MG TAB PO SCH (08:50)
[2019-08-25] MEDS: POTASSIUM CHLORIDE PWD 20 MEQ PACK PO SCH ×2 (08:50→20:16)
[2019-08-25] MEDS: APIXABAN 5 MG TABLET PO SCH ×2 (08:50→20:16)
[2019-08-25] MEDS: FLUTICASONE/VILANTEROL 100/25MCG 14 PUFFS/INHALER INH SCH (08:50)
[2019-08-25] MEDS: FLUOXETINE HCL 20 MG CAP PO SCH (08:51)
[2019-08-25] MEDS: FOLIC ACID 1 MG TAB PO SCH (08:51)
[2019-08-25] MEDS: LOSARTAN POTASSIUM 50 MG TAB PO SCH (08:51)
[2019-08-25] MEDS: SPIRONOLACTONE 25 MG TAB PO SCH (08:51)
[2019-08-25] MEDS: CHOLECALCIFEROL 1,000 UNITS 25 MCG TAB PO SCH (08:51)
[2019-08-25] MEDS: ACETAMINOPHEN 325 MG TAB PO PRN ×3 (08:54→20:25)
[2019-08-25] MEDS ORDERED: POTASSIUM 99 MG PO SCH (09:00)
[2019-08-25] MEDS: MAGNESIUM SULFATE / D5W 1 GM/100 ML BAG IV SCH ×2 (11:59→13:51)
--- NOTE | 2019-08-25 13:41 | Hospitalist Progress Note ---
Date of Service August 25, 2019 Assessment & Plan (1) Cellulitis of both lower extremities: Bilateral redness and warmth. Some concern that her nutritional status is putting her at risk for infection. - Continue vanc for now; no need for ampicillin/sulbactam given no indicaiton this would be a Gram(-) or anaerobic infection. (2) Chronic acquired lymphedema: Long-standing issue. Prior provider in 10/2018 was unsure how much primary lymphedema was involved vs. anasarca from chronic undernutrition from her bariatric surgery. - Will encourage AMARA hose and conservative measures as able. - Address nutrition as able. - Continue Lasix (3) Weakness: Likely multifactorial from edema & cellulitis. - PT/OT (4) History of bariatric surgery: Quite extensive per Dr. Albert's discharge summary from 11/12/2018. Son notes she has had a variety of vitamin deficienies in the past. - Will check full panel of absorption labs: vitamin D, folate, B12, zinc, selenium, iron panel (5) Hypothyroidism: Last TSH was 8.5 in 10/2018. - Continue home levothyroxine 50 mcg - Recheck TSH & FT4 (6) Atrial fibrillation: Paroxysmal atrial fibrillation. Was in normal sinus on admission. HR presently normal at 60s. - Continue anticoagulation: Eliquis - Continue beta-jersey (7) Hypertension: BP presently 180/80. - Continue Lasix, ARB, beta-jersey, and spironolactone (8) DVT prophylaxis: History of DVT with a filter placed per prior notes. - Doppler ultrasound ordered for leg swelling - [facility] Admission and Anticipated Discharge Date Admission Date: August 24, 2019 Subjective Doing well today. Legs are less swollen and less red. Does report some right thigh cramping. No fevers or chills. Reports no fevers/chills, chest pain, shortness of breath, abdominal pain, nausea, or vomiting. Physical Exam Constitutional: WD/WN, vitals as above Eyes: EOM intact bilaterally; no conjunctival abnormality ENMT: external ear and nose normal, oropharynx normal Neck: trachea midline, no thyromegaly normal visual inspection Respiratory: normal respiratory effort, lungs clear to auscultation no respiratory distress Cardiovascular: RRR, no murmur, no edema Gastrointestinal (Abdomen): Inspection/Auscultation: abdomen normal to inspection; abdomen not distended Musculoskeletal: no cyanosis or clubbing, extremities motor strength 5/5 Skin: + erythema (Redness and some swelling.) Neurologic: moves all extremities and awake Psychiatric: Orientation: alert, oriented to person and cooperative Results & Data Results & Data ([facility]) Vital Signs (Past 12 Hours) Vital Signs Temp Pulse Resp BP Pulse Ox 08/25/19 07:10 37.2 C 64 18 179/78 H 96 PG Care Time/CCT Total # of Minutes Spent Total Time Spent with Patient: Total time spent is greater than 50% in coordination of care (as documented) at patient's floor/unit and/or counseling patient: Coding Level of Care Code 41571 Subseq Hosp Care Lvl 3 Diagnoses Cellulitis of both lower extremities L03.115; L03.116 Chronic acquired lymphedema I89.0 Weakness R53.1 History of bariatric surgery Z98.84 Hypothyroidism E03.9 Atrial fibrillation I48.91 Hypertension I10 DVT prophylaxis Z29.9
[2019-08-25] MEDS ORDERED: VANCOMYCIN CONSULT ACTIVE PRN (13:42)
[2019-08-25] MEDS ORDERED: ENOXAPARIN INJ 40 MG/0.4 ML SYR SQ SCH (13:45)
[2019-08-25] MEDS ORDERED: VANCOMYCIN HCL 1,500 MG in SODIUM CHLORIDE 0.9% 500 ML IV ONE (14:30)
--- NOTE | 2019-08-25 15:02 | Pharmacy Report ---
Pharmacy Abx Initial Consult - Date of Service August 25, 2019 - Pharmacy Dosing Scope Date of Consult: 08/25/19 Consultation requested by: Dr. Ramirez Pharmacy is consulted to initiate Vancomycin IV dosing therapy, order appropriate labs and adjust drug dose/frequency. - Subjective The patient is a 69 year old F admitted on 08/24/19 20:27. - Objective Height: 5 ft 5 in Weight: 86.3 kg Vital Signs (Past 12hrs): Vital Signs Temp Pulse Resp BP Pulse Ox 08/25/19 07:10 37.2 C 64 18 179/78 H 96 Lab Results (24hrs): Laboratory Tests (24 Hours) 08/24/19 08/24/19 08/24/19 17:32 17:32 17:32 WBC 11.95 H Neut # (Auto) 10.46 H Creatinine 0.65 Est Cr Clr Drug Dosing 88.6 Procalcitonin < 0.05 Micro Results: 08/24/19 18:39 Aerobic Blood Culture - Pending Blood Anaerobic Blood Culture - Pending 08/24/19 17:32 Aerobic Blood Culture - Pending Blood Anaerobic Blood Culture - Pending - Risk Factors for Resistance * Antimicrobial use within the last 90 days [Keflex PO x 10 days] - Assessment & Plan Assessment 69 year old F admitted for b/l lower extremity Cellulitis and recently failed Keflex therapy. Patient has history of chronic lymphedema. Plan Vancomycin IV * Estimated PK Parameters: Vd 0.7 L/kg, Migel 0.067 hr-1, t1/2 10.5 hr * Loading dose: 1750 mg (20 mg/kg) was given last night in ED at 1855. * Since it had been over 12 hours since the loading dose was given, I gave patient a smaller load today afternoon- 17 mg/kg= 1500 mg IV x 1. * Maintenance dose: 1250 mg IV (15 mg/kg) every 12 hours * Goal trough level for Cellulitis: around 15 mcg/mL * Trough level ordered for 08/27/19 before dose at 1200. Pharmacy will continue to follow and will adjust dose/frequency as necessary. Thank you.
--- NOTE | 2019-08-25 15:38 | Ultrasound Report ---
BILATERAL LOWER EXTREMITY VENOUS DOPPLER CLINICAL HISTORY: Swelling, redness COMPARISON STUDY: Bilateral lower extremity venous Doppler ultrasound November 08, 2018. TECHNIQUE: Sonography of the deep venous system of the bilateral lower extremities was performed. Co mpression and augmentation were evaluated. FINDINGS: Bilateral lower extremity subcutaneous edema was noted. Note is made of linear stranding wi thin the bilateral common femoral veins. This is also noted within the right profunda. This suggests chronic thrombus. These vessels were compressible. Calf vessels were suboptimally assessed due to sub optimal penetration. IMPRESSION: 1. Stranding within the bilateral common femoral and right profunda veins. This suggests chronic thro mbus. No evidence for acute thrombus within the lower extremity. 2. Suboptimal evaluation of the calf vessels. ACT 112: Negative or not required by law. Electronically signed by: Alan Gauthier M.D. 08/25/2019 3:36 PM
--- NOTE | 2019-08-25 19:51 | Billing Data ---
Date of Service August 25, 2019 Coding Level of Care Code 20598 Initial Inpt Care Lvl 3
[2019-08-25] MEDS: MONTELUKAST SODIUM 10 MG TABLET PO SCH (20:16)
[2019-08-25] MEDS: EUCERIN CR 120 GM JAR EXT SCH (21:08)
--- NOTE | 2019-08-25 22:10 | Electrocardiogram Report ---
Test Reason : Blood Pressure : / mmHG Vent. Rate : 084 BPM Atrial Rate : 084 BPM P-R Int : 132 ms QRS Dur : 090 ms QT Int : 382 ms P-R-T Axes : 067 -12 082 degrees QTc Int : 451 ms Poor data quality, interpretation may be adversely affected Normal sinus rhythm Anterior infarct , age undetermined Abnormal ECG When compared with ECG of 01-NOV-2018 14:18, Sinus rhythm has replaced Atrial fibrillation Anterior infarct is now Present Nonspecific T wave abnormality no longer evident in Inferior leads Nonspecific T wave abnormality, improved in Anterolateral leads Confirmed by Abrahan Brown ([id number]) on 08/25/2019 10:10:30 PM Referred By: Nighat Hwang Confirmed By:Abrahan Brown
[2019-08-26] MEDS: VANCOMYCIN HCL 1,250 MG in SODIUM CHLORIDE 0.9% 250 ML IV SCH ×2 (00:42→12:22)
[2019-08-26] MEDS: ACETAMINOPHEN 325 MG TAB PO PRN ×2 (00:46→13:57)
[2019-08-26] MEDS ORDERED: HydrALAZINE HCL 20 MG/ML VIAL IV ONE (00:48)
--- NOTE | 2019-08-26 00:54 | Communication Note ---
Date of Service: August 26, 2019 Was called by nurse due to some pain in her upper right quadrant of her abdomen after a particularly violent episode of emesis. Pain was mild at that time and she felt like it might be improving. Called back about thirty minutes later and abdomen appeared more rigid and globally tender. Obtained CT abdomen Pelvis that revealed free air and a likely perforated duodenal ulcer. Stat consulted General Surgery Dr. Valdes who came to assess the patient. Decision was made to take patient to surgery tonight to repair perforation. Have started patient on zosyn, Fluids at 150 mls/hour, protonix IV 40 mg. Patient hemodynamically stable at present morphine for pain.
[2019-08-26] MEDS: LEVOTHYROXINE SODIUM 50 MCG TABLET PO SCH (05:36)
[2019-08-26] MEDS: FLUOXETINE HCL 20 MG CAP PO SCH (08:20)
[2019-08-26] MEDS: APIXABAN 5 MG TABLET PO SCH ×2 (08:20→20:10)
[2019-08-26] MEDS: CHOLECALCIFEROL 1,000 UNITS 25 MCG TAB PO SCH (08:20)
[2019-08-26] MEDS: FOLIC ACID 1 MG TAB PO SCH (08:20)
[2019-08-26] MEDS: SPIRONOLACTONE 25 MG TAB PO SCH (08:20)
[2019-08-26] MEDS: LOSARTAN POTASSIUM 50 MG TAB PO SCH (08:20)
[2019-08-26] MEDS: POTASSIUM CHLORIDE PWD 20 MEQ PACK PO SCH ×2 (08:20→20:06)
[2019-08-26] MEDS: EUCERIN CR 120 GM JAR EXT SCH ×2 (08:20→20:06)
[2019-08-26] MEDS: MAGNESIUM OXIDE 400 MG TAB PO SCH (08:20)
[2019-08-26] MEDS: METOPROLOL TARTRATE 25 MG TAB PO SCH ×2 (08:20→20:09)
[2019-08-26] MEDS: FUROSEMIDE 20 MG in SYRINGE 0 ML IV SCH ×2 (08:21→20:05)
[2019-08-26] MEDS: FLUTICASONE/VILANTEROL 100/25MCG 14 PUFFS/INHALER INH SCH (08:21)
[2019-08-26 08:57] LABS: Hematocrit (blood only) 34.8 % (37-47); Hemoglobin 11.3 g/dL (12.0-16.0); Mean Corpuscular Hemoglobin 28.3 pg (25-34); Mean Corpuscular Hgb Conc 32.5 g/dL (32-36); Mean Corpuscular Volume 87.2 fL (80-100); Mean Platelet Volume 9.8 fL (7.4-10.4); Platelet Count 209 K/uL (130-400); RDW Coefficient of Variation 15.1 % (11.5-14.5); RDW Standard Deviation 48.5 fL (36.4-46.3); Red Blood Count 3.99 M/uL (4.2-5.4); White Blood Count 5.96 K/uL (4.8-10.8)
[2019-08-26 09:28] LABS: Albumin Level 3.1 gm/dl (3.4-5.0); Creatinine Clr Calc Pharmacy 87.3 ml/min; Est GFR (African American) 104.5; Est GFR (Non-African American) 90.1; Potassium 3.5 mmol/L (3.5-5.1)
[2019-08-26 09:37] LABS: Albumin Globulin Ratio 0.6 (0.9-2); Bilirubin,Total 0.6 mg/dl (0.2-1); Ferritin 106.3 ng/ml (8-388); Globulin 4.8 gm/dl (2.5-4.0); Thyroid Stimulating Hormone 2.88 uIu/ml (0.300-4.500); Total Protein 7.9 gm/dl (6.4-8.2)
--- NOTE | 2019-08-26 14:46 | Hospitalist Progress Note ---
Date of Service August 26, 2019 Assessment & Plan (1) Cellulitis of both lower extremities: Bilateral redness and warmth. Some concern that her nutritional status is putting her at risk for infection. - Continue vanc - Improving at present. Will continue x 1 more day, then consider switch to B actrim/Keflex or other oral regimen. (2) Chronic acquired lymphedema: Long-standing issue. Prior provider in 10/2018 was unsure how much primary lymphedema was involved vs. anasarca from chronic undernutrition from her bariatric surgery. - Will encourage AMARA florian and conservative measures as able. - Address nutrition as able. - Continue Lasix (3) History of bariatric surgery: Quite extensive per Dr. Albert's discharge summary from 11/12/2018. Son notes she has had a variety of vitamin deficiencies in the past. - Seen by nutrition with the following recs: * Boost BID * Calcium citrate 600 mg TID * B Complex & Zinc 100 mg daily * Vitamin A 50,000 units and vitamin D 50,000 units weekly * Folic acid 1 mg PO daily * Monitor Fe2+, B12/folate * Follow up with Dr. Mendieta @ [facility] as outpatient -> Note: Vitamin D level was 20. Will treat with ergocalciferol as above. Iron low as well; will give IV iron as PO will be poorly absorbed and cause GI issues. (4) Weakness: Likely multifactorial from edema & cellulitis. - PT/OT (5) Atrial fibrillation: Paroxysmal atrial fibrillation. Was in normal sinus on admission. HR presently normal at 60s. - Continue anticoagulation: Eliquis - Continue beta-jersey (6) Hypothyroidism: Last TSH was 8.5 in 10/2018. TSH this admission is 2.9. - Continue home levothyroxine 50 mcg (7) Hypertension: BP presently 175/85. - Continue Lasix, ARB, beta-jersey, and spironolactone (8) DVT prophylaxis: History of DVT with a filter placed per prior notes. - Apixaban for afib Admission and Anticipated Discharge Date Admission Date: August 24, 2019 Subjective Doing well today. Her leg swelling is better. Redness is better as well. Reports no fevers/chills, chest pain, shortness of breath, abdominal pain, nausea, or vomiting. Physical Exam Constitutional: WD/WN, vitals as above Eyes: EOM intact bilaterally; no conjunctival abnormality ENMT: external ear and nose normal, oropharynx normal Neck: trachea midline, no thyromegaly normal visual inspection Respiratory: normal respiratory effort, lungs clear to auscultation no respiratory distress Cardiovascular: RRR, no murmur, no edema Gastrointestinal (Abdomen): Inspection/Auscultation: abdomen normal to inspection; abdomen not distended Musculoskeletal: no cyanosis or clubbing, extremities motor strength 5/5 Skin: + erythema (Redness and swelling both improving.) Neurologic: moves all extremities and awake Psychiatric: Orientation: alert, oriented to person and cooperative Results & Data Results & Data ([facility]) Vital Signs (Past 12 Hours) Vital Signs Temp Pulse Resp BP Pulse Ox 08/26/19 07:13 37.2 C 60 18 175/85 H 97 PG Care Time/CCT Total # of Minutes Spent Total Time Spent with Patient: Total time spent is greater than 50% in coordination of care (as documented) at patient's floor/unit and/or counseling patient: Coding Level of Care Code 02894 Subseq Hosp Care Lvl 3 Diagnoses Cellulitis of both lower extremities L03.115; L03.116 Chronic acquired lymphedema I89.0 History of bariatric surgery Z98.84 Weakness R53.1 Atrial fibrillation I48.91 Hypothyroidism E03.9 Hypertension I10 DVT prophylaxis Z29.9
[2019-08-26] MEDS: IRON SUCROSE 300 MG in SODIUM CHLORIDE 0.9% 250 ML IV SCH (17:23)
[2019-08-26] MEDS: CALCIUM CITRATE 950 MG TAB PO SCH (20:05)
[2019-08-26] MEDS: MONTELUKAST SODIUM 10 MG TABLET PO SCH (20:08)
[2019-08-26] MEDS: TRAMADOL HCL 50 MG TABLET PO PRN (20:31)
[2019-08-27] MEDS: VANCOMYCIN HCL 1,250 MG in SODIUM CHLORIDE 0.9% 250 ML IV SCH ×2 (00:17→12:22)
[2019-08-27] MEDS: ACETAMINOPHEN 325 MG TAB PO PRN ×3 (00:20→23:55)
[2019-08-27] MEDS: TRAMADOL HCL 50 MG TABLET PO PRN ×2 (02:43→19:51)
[2019-08-27] MEDS: LEVOTHYROXINE SODIUM 50 MCG TABLET PO SCH (06:01)
[2019-08-27 07:57] LABS: Hematocrit (blood only) 32.6 % (37-47); Hemoglobin 10.4 g/dL (12.0-16.0); Mean Corpuscular Hemoglobin 28.1 pg (25-34); Mean Corpuscular Hgb Conc 31.9 g/dL (32-36); Mean Corpuscular Volume 88.1 fL (80-100); Mean Platelet Volume 10.4 fL (7.4-10.4); Platelet Count 215 K/uL (130-400); RDW Coefficient of Variation 15.1 % (11.5-14.5); RDW Standard Deviation 48.7 fL (36.4-46.3); White Blood Count 4.33 K/uL (4.8-10.8)
[2019-08-27 08:13] LABS: BUN Creatinine Ratio 16.8 (10-20); Calcium 9.1 mg/dl (8.5-10.1); Creatinine Clr Calc Pharmacy 92.9 ml/min; Est GFR (African American) 106.6; Phosphorus 4.5 mg/dl (2.5-4.9); Potassium 3.6 mmol/L (3.5-5.1)
[2019-08-27] MEDS: FLUTICASONE/VILANTEROL 100/25MCG 14 PUFFS/INHALER INH SCH (08:29)
[2019-08-27] MEDS: LOSARTAN POTASSIUM 50 MG TAB PO SCH (08:30)
[2019-08-27] MEDS: FUROSEMIDE 20 MG in SYRINGE 0 ML IV SCH ×2 (08:30→19:59)
[2019-08-27] MEDS: FLUOXETINE HCL 20 MG CAP PO SCH (08:30)
[2019-08-27] MEDS: FOLIC ACID 1 MG TAB PO SCH (08:30)
[2019-08-27] MEDS: SPIRONOLACTONE 25 MG TAB PO SCH (08:31)
[2019-08-27] MEDS: MAGNESIUM OXIDE 400 MG TAB PO SCH (08:31)
[2019-08-27] MEDS: ZINC SULFATE 220 MG CAPSULE PO SCH (08:31)
[2019-08-27] MEDS: APIXABAN 5 MG TABLET PO SCH ×2 (08:31→19:59)
[2019-08-27] MEDS: METOPROLOL TARTRATE 25 MG TAB PO SCH ×2 (08:31→20:00)
[2019-08-27] MEDS: VITAMIN B COMPLEX TAB PO SCH (08:31)
[2019-08-27] MEDS: EUCERIN CR 120 GM JAR EXT SCH ×2 (08:32→20:10)
[2019-08-27] MEDS: POTASSIUM CHLORIDE PWD 20 MEQ PACK PO SCH ×2 (08:32→19:59)
[2019-08-27] MEDS ORDERED: ERGOCALCIFEROL 50,000 UNITS CAP PO SCH (09:00)
[2019-08-27] MEDS ORDERED: VITAMIN A 25,000 UNIT CAP PO SCH (09:00)
[2019-08-27] MEDS: CALCIUM CITRATE 950 MG TAB PO SCH ×3 (09:21→19:59)
[2019-08-27] MEDS ORDERED: VANCOMYCIN TROUGH ONE (11:30)
--- NOTE | 2019-08-27 14:29 | Hospitalist Progress Note ---
Date of Service August 27, 2019 Assessment & Plan (1) Cellulitis of both lower extremities: Bilateral redness and warmth. Some concern that her nutritional status is putting her at risk for infection. - Stop vanc after today's dose at 3pm. - Start doxycycline (want MRSA coverage since she failed Keflex prior to admission); per [facility] Antiobiogram 2018, doxy & Bactrim both 90% susc. and I would like to spare kidneys as able. - End date: 08/31/2019 for a 7-day course (2) Chronic acquired lymphedema: Long-standing issue. Prior provider in 10/2018 was unsure how much primary lymphedema was involved vs. anasarca from chronic undernutrition from her bariatric surgery. - Will encourage AMARA hose and conservative measures as able. - Address nutrition as able. - Continue Lasix - Kidney function stable. (3) History of bariatric surgery: Quite extensive per Dr. Albert's discharge summary from 11/12/2018. Son notes she has had a variety of vitamin deficiencies in the past. - Seen by nutrition with the following recs: * Boost BID * Calcium citrate 600 mg TID * B Complex & Zinc 100 mg daily * Vitamin A 50,000 units and vitamin D 50,000 units weekly * Folic acid 1 mg PO daily * Monitor Fe2+, B12/folate * Follow up with Dr. Mendieta @ [facility] as outpatient -> Note: Vitamin D level was 20. Will treat with ergocalciferol as above. Iron low as well; will give IV iron x 3 doses as PO will be poorly absorbed and cause GI issues. (4) Weakness: Likely multifactorial from edema & cellulitis. - PT/OT (5) Atrial fibrillation: Paroxysmal atrial fibrillation. Was in normal sinus on admission. HR presently normal at 60s. - Continue anticoagulation: Eliquis - Continue beta-jersey (6) Hypothyroidism: Last TSH was 8.5 in 10/2018. TSH this admission is 2.9. - Continue home levothyroxine 50 mcg (7) Hypertension: BP presently 185/70. - Continue Lasix, ARB, beta-jersey, and spironolactone - Hydralazine PRN for SBP > 190 or DBP > 110 (8) DVT prophylaxis: History of DVT with a filter placed per prior notes. - Apixaban for afib Admission and Anticipated Discharge Date Admission Date: August 24, 2019 Subjective Doing well today. Legs continue to improve. She reports some pain in the right hip and feels that the right leg is weaker than the left. She cannot really lift it off the bed. This has been ongoing for about 6 months. Also having some nausea, but no emesis. Reports no fevers/chills, chest pain, shortness of breath, abdominal pain, or vomiting. Physical Exam Constitutional: WD/WN, vitals as above Eyes: EOM intact bilaterally; no conjunctival abnormality ENMT: external ear and nose normal, oropharynx normal Neck: trachea midline, no thyromegaly normal visual inspection Respiratory: normal respiratory effort, lungs clear to auscultation no respiratory distress Cardiovascular: RRR, no murmur, no edema Gastrointestinal (Abdomen): Inspection/Auscultation: abdomen normal to inspection; abdomen not distended Musculoskeletal: no cyanosis or clubbing, extremities motor strength 5/5 Skin: + erythema (Redness and swelling both improving. Left leg mildly warm.) Neurologic: moves all extremities and awake Psychiatric: Orientation: alert, oriented to person and cooperative Results & Data Results & Data ([facility]) Vital Signs (Past 12 Hours) Vital Signs Temp Pulse Resp BP Pulse Ox 08/27/19 11:57 36.8 C 47 L 18 186/71 H 96 08/27/19 08:26 37.1 C 63 16 186/87 H 95 08/27/19 02:59 36.8 C 58 L 20 179/77 H 94 PG Care Time/CCT Total # of Minutes Spent Total Time Spent with Patient: Total time spent is greater than 50% in coordination of care (as documented) at patient's floor/unit and/or counseling patient: Coding Level of Care Code 13436 Subseq Hosp Care Lvl 3 Diagnoses Cellulitis of both lower extremities L03.115; L03.116 Chronic acquired lymphedema I89.0 History of bariatric surgery Z98.84 Weakness R53.1 Atrial fibrillation I48.91 Hypothyroidism E03.9 Hypertension I10 DVT prophylaxis Z29.9
[2019-08-27] MEDS ORDERED: HydrALAZINE HCL 20 MG/ML VIAL IV PRN (14:39)
[2019-08-27] MEDS: IRON SUCROSE 300 MG in SODIUM CHLORIDE 0.9% 250 ML IV SCH (16:10)
[2019-08-27] MEDS: DOXYCYCLINE HYCLATE 100 MG CAP PO SCH (18:35)
[2019-08-27] MEDS: MONTELUKAST SODIUM 10 MG TABLET PO SCH (20:01)
[2019-08-28] MEDS: DOXYCYCLINE HYCLATE 100 MG CAP PO SCH ×2 (06:51→17:34)
[2019-08-28] MEDS: LEVOTHYROXINE SODIUM 50 MCG TABLET PO SCH (06:51)
[2019-08-28 07:50] LABS: Hemoglobin 11.6 g/dL (12.0-16.0); Mean Corpuscular Hemoglobin 28.6 pg (25-34); Mean Corpuscular Hgb Conc 32.2 g/dL (32-36); Mean Corpuscular Volume 88.7 fL (80-100); Mean Platelet Volume 10.2 fL (7.4-10.4); Platelet Count 274 K/uL (130-400); RDW Standard Deviation 48.4 fL (36.4-46.3); Red Blood Count 4.06 M/uL (4.2-5.4); White Blood Count 4.87 K/uL (4.8-10.8)
[2019-08-28] MEDS: FOLIC ACID 1 MG TAB PO SCH (08:08)
[2019-08-28] MEDS: LOSARTAN POTASSIUM 50 MG TAB PO SCH (08:08)
[2019-08-28] MEDS: SPIRONOLACTONE 25 MG TAB PO SCH (08:08)
[2019-08-28] MEDS: VITAMIN B COMPLEX TAB PO SCH (08:08)
[2019-08-28] MEDS: FLUOXETINE HCL 20 MG CAP PO SCH (08:08)
[2019-08-28] MEDS: MAGNESIUM OXIDE 400 MG TAB PO SCH (08:09)
[2019-08-28] MEDS: APIXABAN 5 MG TABLET PO SCH ×2 (08:09→21:25)
[2019-08-28] MEDS: POTASSIUM CHLORIDE PWD 20 MEQ PACK PO SCH ×2 (08:09→21:26)
[2019-08-28] MEDS: CALCIUM CITRATE 950 MG TAB PO SCH ×3 (08:09→21:24)
[2019-08-28] MEDS: ZINC SULFATE 220 MG CAPSULE PO SCH (08:09)
[2019-08-28] MEDS: FLUTICASONE/VILANTEROL 100/25MCG 14 PUFFS/INHALER INH SCH (08:10)
[2019-08-28] MEDS: EUCERIN CR 120 GM JAR EXT SCH ×2 (08:11→21:25)
[2019-08-28] MEDS: FUROSEMIDE 20 MG in SYRINGE 0 ML IV SCH ×2 (08:11→21:26)
[2019-08-28] MEDS: METOPROLOL TARTRATE 25 MG TAB PO SCH ×2 (08:12→21:27)
[2019-08-28 08:13] LABS: BUN Creatinine Ratio 15.7 (10-20); Calcium 9.7 mg/dl (8.5-10.1); Creatinine Clr Calc Pharmacy 81.1 ml/min; Est GFR (African American) 100.7; Est GFR (Non-African American) 86.9; Magnesium 1.9 mg/dl (1.8-2.4); Potassium 4.2 mmol/L (3.5-5.1)
--- NOTE | 2019-08-28 09:37 | XRay Report ---
XR hip RT 2V w pelvis CLINICAL HISTORY: Hip pain pain COMPARISON: 04/29/2017 DISCUSSION: Severe degenerative change right hip. This is unchanged from the prior study. No evidence for superimposed fracture or dislocation. Extensive degenerative and postoperative changes of the liu mbar spine and pelvis. This is also unchanged. There is no evidence for soft tissue swelling. IMPRESSION: Severe degenerative change right hip. No change from the prior study. ACT 112: Negative or not required by law. The above report was generated using voice recognition software. It may contain grammatical, syntax or spelling errors. Electronically signed by: Shashank Ho M.D. 08/28/2019 9:35 AM
[2019-08-28] MEDS: TRAMADOL HCL 50 MG TABLET PO PRN (09:43)
--- NOTE | 2019-08-28 12:51 | Consultation Report ---
DATE OF CONSULTATION: 08/28/2019 HISTORY OF PRESENT ILLNESS: This is a 69-year-old female seen at the request of Dr. Carlos Ramirez and Dr. Mathieu Miller for right hip pain. She has been admitted to [facility] for chronic recurrent cellulitis of bilateral lower extremities. She was on Keflex. She had difficulty with discussing her care upon arrival; however, she has had back pain and lower limb pain for months, diagnosed with bilateral lower limb cellulitis several weeks ago. She has finished antibiotic therapy on the . Noted that she had incomplete relief of her symptoms and then returned to the ER as her legs had worsened over the last 24 hours prior to admission. She has had ongoing pain in her right hip for the last 5-6 years, particularly worsened over the last 6 months. She has increasing difficulty with ambulation. PAST MEDICAL HISTORY: Morbid obesity, bilateral swelling of the feet and lower extremities, coronary artery disease, anxiety, ovarian cancer, chronic back pain, colitis, COPD, DVT with a [place] filter, diabetes mellitus type 2, diabetic foot ulcers, peripheral neuropathy with diabetes 2, GERD, gout, hallux valgus, hammertoes, anxiety, history of NM, hyperlipidemia, hypertension, osteoarthritis, bilateral peripheral neuropathy, thrombophlebitis, urinary leakage, and malnourishment status post bariatric surgery. PAST SURGICAL HISTORY: Fusion of lumbar spine approximately 10 years prior in [place], adenoidectomy, cardiac cath without stenting, colonoscopy, gastric bypass procedure approximately 3 years ago, hysterectomy, PTCA, T and A, bilateral knee replacements approximately 10 years ago in [place]. ALLERGIES: GABAPENTIN, ADHESIVE TAPE, SHELLFISH, PORK-DERIVED PRODUCTS WITH VOMITING, PREP SWABS. MEDICATIONS: Please note the extensive list in the medical record. SOCIAL HISTORY: She is and lives with her spouse. Denies tobacco, alcohol or drug use. She is retired. PHYSICAL EXAMINATION: This is a 69-year-old female lying supine in her hospital room bed. She is alert and oriented x3. Speech is clear and fluent. Affect is appropriate. She does have some difficulty recalling specific facts regarding her care. However, with discussion, is able to provide a reasonable recollection. Examination of the lower extremities demonstrates improving cellulitis in bilateral lower extremities with wrinkles present in the lower legs at the level of the pretibial region. Dorsalis pedis and posterior tibial pulses are palpable, however, diminished. Feet are warm. Cap refill is approximately 3 seconds. There is mild erythema in bilateral lower extremities in a stocking distribution, bilateral peripheral neuropathy in a stocking distribution. Examination of the right hip demonstrates a flexed and internally rotated position of rest and comfort. She is unable to fully extend the hip. She has approximately 15 degree flexion contracture of the right hip. Limited active and passive range of motion due to significant guarding and pain of the right hip joint. Tenderness in the groin on the right. She has a significant panniculus overhanging the upper aspects of bilateral hips. Skin is warm, dry and intact over the hip. No abrasions or lesions noted. Radiographs of the hip and pelvis demonstrate severe degenerative arthropathy of the right hip with loss of the superiority of the acetabulum and the humeral head. There is no joint space noted in the right hip with marginal osteophytes, subchondral sclerosis and subchondral cysts, which are evident. There is an obvious leg length discrepancy generated from the dystrophic changes of the right hip compared to the left. There is spinal lumbar fusion hardware, which appears to be intact, in a stable alignment and position. No acute fractures are noted. She has degenerative arthritis of the sacroiliac joints bilaterally noted as well. IMPRESSION: 1. Right hip severe osteoarthritis. 2. Degenerative joint disease, right hip. 3. Right hip pain. 4. Flexion contracture of right hip with leg length discrepancy, right hip. 5. She has cellulitis, currently under treatment, in bilateral lower extremities. 6. She has chronic malnutrition secondary to gastric bypass surgery, diabetes mellitus and other multiple medical comorbidities. RECOMMENDATION: At this time, I recommend against any type of surgical treatment for her right hip as she would require optimization of her other medical comorbidities prior to any consideration of surgical care for the hip. She may follow up as an outpatient after discharge. Thank you for the opportunity to consult in the care of this patient.
[2019-08-28] MEDS: ACETAMINOPHEN 325 MG TAB PO PRN (13:16)
--- NOTE | 2019-08-28 14:34 | Hospitalist Progress Note ---
Date of Service August 28, 2019 Assessment & Plan (1) Right hip pain: On 08/26, the patient noted her right hip was painful and that she has trouble moving the right leg. I had concern for neurologic issue given her lumbar CT from 08/23 showed diffuse, severe degeneration. - Seen by Dr. Ureña on 08/27 who noted she has some flexion lock in the right hip and this is all degenerative issues. - She will follow with him as an outpatient. He is reluctant to pursue surgery until nutritional issues, lymphedema, and cellulitis all stable/resolved. (2) Cellulitis of both lower extremities: Bilateral redness and warmth. Some concern that her nutritional status is putting her at risk for infection. - Stopped vanc on 08/26. - Started doxycycline (want MRSA coverage since she failed Keflex prior to admission); per [facility] antiobiogram 2018, doxy & Bactrim both 90% susc. and I would like to spare kidneys as able. - End date: 08/31/2019 for a 7-day course - Improving today; legs are pink, not red. Warm, but no hot. Feel the cellulitis is improving/resolving. (3) Chronic acquired lymphedema: Long-standing issue. Prior provider in 10/2018 was unsure how much primary lymphedema was involved vs. anasarca from chronic undernutrition from her bariatric surgery. - Will encourage AMARA hose and conservative measures as able. - Address nutrition as able. - Continue Lasix - Kidney function stable at 0.7 today. (4) History of bariatric surgery: Quite extensive per Dr. Albert's discharge summary from 11/12/2018. Son notes she has had a variety of vitamin deficiencies in the past. - Seen by nutrition with the following recs: * Boost BID * Calcium citrate 600 mg TID * B Complex & Zinc 100 mg daily * Vitamin A 50,000 units and vitamin D 50,000 units weekly * Folic acid 1 mg PO daily * Monitor Fe2+, B12/folate * Follow up with Dr. Mendieta @ [facility] as outpatient -> Note: Vitamin D level was 20. Will treat with ergocalciferol as above. Iron low as well; will give IV iron x 3 doses as PO will be poorly absorbed and cause GI issues. (5) Weakness: Likely multifactorial from edema, cellulitis, and arthritis in right hip. - PT/OT (6) Atrial fibrillation: Paroxysmal atrial fibrillation. Was in normal sinus on admission. HR presently normal at 60s. - Continue anticoagulation: Eliquis - Continue beta-jersey (7) Hypothyroidism: Last TSH was 8.5 in 10/2018. TSH this admission is 2.9. - Continue home levothyroxine 50 mcg (8) Hypertension: BP presently 175/70. - Continue Lasix, ARB, beta-jersey, and spironolactone - Hydralazine PRN for SBP > 190 or DBP > 110 (9) DVT prophylaxis: History of DVT with a filter placed per prior notes. - Apixaban for afib Admission and Anticipated Discharge Date Admission Date: August 24, 2019 Subjective Doing ok today. The right hip is very painful. The legs are getting better though. Reports no fevers/chills, chest pain, shortness of breath, abdominal pain, nausea, or vomiting. Physical Exam Constitutional: WD/WN, vitals as above Eyes: EOM intact bilaterally; no conjunctival abnormality ENMT: external ear and nose normal, oropharynx normal Neck: trachea midline, no thyromegaly normal visual inspection Respiratory: normal respiratory effort, lungs clear to auscultation no respiratory distress Cardiovascular: RRR, no murmur, no edema Gastrointestinal (Abdomen): Inspection/Auscultation: abdomen normal to inspection; abdomen not distended Musculoskeletal: no cyanosis or clubbing, extremities motor strength 5/5 Skin: + erythema (Redness and swelling both improving. Left leg mildly warm.) Neurologic: moves all extremities and awake Psychiatric: Orientation: alert, oriented to person and cooperative Results & Data Results & Data ([facility]) Vital Signs (Past 12 Hours) Vital Signs Temp Pulse Resp BP Pulse Ox 08/28/19 07:53 37.1 C 64 18 173/74 H 95 08/28/19 03:42 64 172/80 H PG Care Time/CCT Total # of Minutes Spent Total Time Spent with Patient: Total time spent is greater than 50% in coord ination of care (as documented) at patient's floor/unit and/or counseling patient: Coding Level of Care Code 28290 Subseq Hosp Care Lvl 3 Diagnoses Right hip pain M25.551 Cellulitis of both lower extremities L03.115; L03.116 Chronic acquired lymphedema I89.0 History of bariatric surgery Z98.84 Weakness R53.1 Atrial fibrillation I48.91 Hypothyroidism E03.9 Hypertension I10 DVT prophylaxis Z29.9
[2019-08-28] MEDS: IRON SUCROSE 300 MG in SODIUM CHLORIDE 0.9% 250 ML IV SCH (15:48)
[2019-08-28] MEDS: MONTELUKAST SODIUM 10 MG TABLET PO SCH (21:28)
[2019-08-29] MEDS: ACETAMINOPHEN 325 MG TAB PO PRN ×2 (02:08→11:48)
[2019-08-29] MEDS: LEVOTHYROXINE SODIUM 50 MCG TABLET PO SCH (06:15)
[2019-08-29] MEDS: DOXYCYCLINE HYCLATE 100 MG CAP PO SCH ×2 (06:16→19:06)
[2019-08-29 07:17] LABS: Hematocrit (blood only) 39.1 % (37-47); Hemoglobin 12.2 g/dL (12.0-16.0); Mean Corpuscular Hemoglobin 27.7 pg (25-34); Mean Corpuscular Hgb Conc 31.2 g/dL (32-36); Mean Corpuscular Volume 88.9 fL (80-100); Mean Platelet Volume 10.6 fL (7.4-10.4); Platelet Count 303 K/uL (130-400); RDW Standard Deviation 48.6 fL (36.4-46.3); White Blood Count 5.92 K/uL (4.8-10.8)
[2019-08-29 07:51] LABS: BUN Creatinine Ratio 19.9 (10-20); Calcium 9.6 mg/dl (8.5-10.1); Creatinine Clr Calc Pharmacy 78.9 ml/min; Est GFR (African American) 97.4; Magnesium 2.2 mg/dl (1.8-2.4); Potassium 4.1 mmol/L (3.5-5.1)
[2019-08-29] MEDS: SPIRONOLACTONE 25 MG TAB PO SCH (08:39)
[2019-08-29] MEDS: FLUTICASONE/VILANTEROL 100/25MCG 14 PUFFS/INHALER INH SCH (08:39)
[2019-08-29] MEDS: CALCIUM CITRATE 950 MG TAB PO SCH ×3 (08:40→20:56)
[2019-08-29] MEDS: LOSARTAN POTASSIUM 50 MG TAB PO SCH (08:41)
[2019-08-29] MEDS: APIXABAN 5 MG TABLET PO SCH ×2 (08:41→20:56)
[2019-08-29] MEDS: FUROSEMIDE 20 MG in SYRINGE 0 ML IV SCH ×2 (08:42→20:53)
[2019-08-29] MEDS: EUCERIN CR 120 GM JAR EXT SCH ×2 (08:42→20:54)
[2019-08-29] MEDS: FOLIC ACID 1 MG TAB PO SCH (08:42)
[2019-08-29] MEDS: POTASSIUM CHLORIDE PWD 20 MEQ PACK PO SCH ×2 (08:43→20:54)
[2019-08-29] MEDS: METOPROLOL TARTRATE 25 MG TAB PO SCH ×2 (08:43→20:55)
[2019-08-29] MEDS: MAGNESIUM OXIDE 400 MG TAB PO SCH (08:44)
[2019-08-29] MEDS: FLUOXETINE HCL 20 MG CAP PO SCH (08:44)
[2019-08-29] MEDS: VITAMIN B COMPLEX TAB PO SCH (08:44)
[2019-08-29] MEDS: ZINC SULFATE 220 MG CAPSULE PO SCH (08:44)
--- NOTE | 2019-08-29 11:27 | Hospitalist Progress Note ---
Date of Service August 29, 2019 Assessment & Plan (1) Cellulitis of both lower extremities: Bilateral redness and warmth. Some concern that her nutritional status is putting her at risk for infection. Much improved apparently since admission when erythema was to the thighs Diuresis with IV lasix has also improved her edema and therefore helped improve infection - Stopped vanc on 08/26. - Started doxycycline (want MRSA coverage since she failed Keflex prior to admission); per [facility] antiobiogram 2018, doxy & Bactrim both 90% susc. and I would like to spare kidneys as able. - End date: 08/31/2019 for a 7-day course - Improving today; legs are pink, not red. Warm, but no hot. Feel the cellulitis is improving/resolving. Will keep one more day to ensure tolerating doxy as had an episode of vomiting today (2) Right hip pain: On 08/26, the patient noted her right hip was painful and that she has trouble moving the right leg. I had concern for neurologic issue given her lumbar CT from 08/23 showed diffuse, severe degeneration. - Seen by Dr. Ureña on 08/27 who noted she has some flexion lock in the right hip and this is all degenerative issues. - She will follow with him as an outpatient. He is reluctant to pursue surgery until nutritional issues, lymphedema, and cellulitis all stable/resolved. (3) Chronic acquired lymphedema: Long-standing issue. Prior provider in 10/2018 was unsure how much primary lymphedema was involved vs. anasarca from chronic undernutrition from her bariatric surgery. Much improved since I saw her last year -better now with IV lasix Is on high doses of torsemide and follows with [facility] as outpt home torsemide is 40mg qAM and 20mg qPM - Will encourage AMARA hose and conservative measures as able. - Address nutrition as able. - Continue IV Lasix - Kidney function stable at 0.7 today. -return to home torsemide on discharge (4) History of bariatric surgery: Quite extensive per Dr. Albert's discharge summary from 11/12/2018. Son notes she has had a variety of vitamin deficiencies in the past. - Seen by nutrition with the following recs: * Boost BID * Calcium citrate 600 mg TID * B Complex & Zinc 100 mg daily * Vitamin A 50,000 units and vitamin D 50,000 units weekly * Folic acid 1 mg PO daily * Monitor Fe2+, B12/folate * [place] Mendieta [place] [facility] [place] -> Note: Vitamin D level was 20. Will treat with ergocalciferol as above. Iron low as well; will give IV iron x 3 doses as PO will be poorly absorbed and cause GI issues. (5) Weakness: Likely multifactorial from edema, cellulitis, and arthritis in right hip. - PT/OT evals appreciated (6) Atrial fibrillation: Paroxysmal atrial fibrillation. Was in normal sinus on admission. HR presently normal at 60s. - Continue anticoagulation: Eliquis - Continue beta-jersey (7) Hypothyroidism: Last TSH was 8.5 in 10/2018. TSH this admission is 2.9. - Continue home levothyroxine 50 mcg (8) Hypertension: BP presently slightly elevated - Continue Lasix, ARB, beta-jersey, and spironolactone - Hydralazine PRN for SBP > 190 or DBP > 110 (9) DVT prophylaxis: History of DVT with a filter placed per prior notes. - Apixaban for afib Dispo-continued stay but likely home tomorrow Admission and Anticipated Discharge Date Admission Date: August 24, 2019 Anticipated date of discharge: 08/30/19 Subjective Pt feeling better, states leg redness much improved and happy she can "see my knees again." She did vomit once this AM after taking her doxycycline and drinking milk. I advised her to not take dairy products along with doxy and also to remain upright and drink a full glass of water after taking. She is a little hesitant to go home yet today Review of Systems Review of Systems: All systems reviewed & are unremarkable except as noted in HPI & below (no chest pain, no SOB) Physical Exam Constitutional: WD/WN, vitals as above Eyes: + anicteric sclerae Neck: trachea midline, no thyromegaly Respiratory: normal respiratory effort, lungs clear to auscultation Cardiovascular: Rate/Rhythm: regular rate and regular rhythm Heart Sounds: no murmur Extremities: + edema (1+ pitting edema legs with wrinkled skin bilat) Chest (Breasts): Chest: normal inspection of chest Gastrointestinal (Abdomen): normal bowel sounds, soft, nontender, no hepatosplenomegaly Musculoskeletal: Extremities: no cyanosis and no clubbing Skin: + rash (mild erythema bilat legs with purplish discoloration) Neurologic: moves all extremities and awake; no focal motor deficits Psychiatric: A+Ox3, euthymic affect Lymphatic: no lymphedema Results & Data Results & Data ([facility]) Vital Signs (Past 12 Hours) Vital Signs Temp Pulse Pulse Resp BP Pulse Ox 08/29/19 08:00 37.2 C 65 18 189/81 H 97 08/28/19 23:27 37.2 C 60 18 162/54 H 95 Laboratory Results 08/29/19 08/29/19 Range/Units 06:13 06:13 WBC 5.92 (4.8-10.8) K/uL RBC 4.40 (4.2-5.4) M/uL Hgb 12.2 (12.0-16.0) g/dL Hct 39.1 (37-47) % MCV 88.9 (80-100) fL MCH 27.7 (25-34) pg MCHC 31.2 L (32-36) g/dL RDW Std Deviation 48.6 H (36.4-46.3) fL RDW Coeff of Krista 15.0 H (11.5-14.5) % Plt Count 303 (130-400) K/uL MPV 10.6 H (7.4-10.4) fL Sodium 135 L (136-145) mmol/L Potassium 4.1 (3.5-5.1) mmol/L Chloride 100 (98-107) mmol/L Carbon Dioxide 31 (21-32) mmol/L Anion Gap 4.0 (3-11) BUN 15 (7-18) mg/dl Creatinine 0.73 (0.6-1.2) mg/dl Est Cr Clr Drug Dosing 78.9 ml/min Est GFR ( Amer) 97.4 Est GFR (Non-Af Amer) 84.0 BUN/Creatinine Ratio 19.9 (10-20) Glucose 77 (70-99) mg/dl Calcium 9.6 (8.5-10.1) mg/dl Magnesium 2.2 (1.8-2.4) mg/dl PG Care Time/CCT Total # of Minutes Spent Total Time Spent with Patient: Total time spent is greater than 50% in coordination of care (as documented) at patient's floor/unit and/or counseling patient: Coding Level of Care Code 22363 Subseq Hosp Care Lvl 2 Diagnoses Cellulitis of both lower extremities L03.115; L03.116 Right hip pain M25.551 Chronic acquired lymphedema I89.0 History of bariatric surgery Z98.84 Weakness R53.1 Atrial fibrillation I48.91 Hypothyroidism E03.9 Hypertension I10 DVT prophylaxis Z29.9
[2019-08-29] MEDS: TRAMADOL HCL 50 MG TABLET PO PRN ×2 (14:51→23:43)
[2019-08-29] MEDS: MONTELUKAST SODIUM 10 MG TABLET PO SCH (20:56)
[2019-08-30] MEDS: LEVOTHYROXINE SODIUM 50 MCG TABLET PO SCH (05:50)
[2019-08-30] MEDS: DOXYCYCLINE HYCLATE 100 MG CAP PO SCH (05:53)
[2019-08-30] MEDS: ACETAMINOPHEN 325 MG TAB PO PRN (06:44)
[2019-08-30] MEDS: FOLIC ACID 1 MG TAB PO SCH (07:50)
[2019-08-30] MEDS: LOSARTAN POTASSIUM 50 MG TAB PO SCH (07:50)
[2019-08-30] MEDS: FLUTICASONE/VILANTEROL 100/25MCG 14 PUFFS/INHALER INH SCH (07:50)
[2019-08-30] MEDS: SPIRONOLACTONE 25 MG TAB PO SCH (07:50)
[2019-08-30] MEDS: CALCIUM CITRATE 950 MG TAB PO SCH (07:50)
[2019-08-30] MEDS: APIXABAN 5 MG TABLET PO SCH (07:50)
[2019-08-30] MEDS: ZINC SULFATE 220 MG CAPSULE PO SCH (07:51)
[2019-08-30] MEDS: VITAMIN B COMPLEX TAB PO SCH (07:51)
[2019-08-30] MEDS: FLUOXETINE HCL 20 MG CAP PO SCH (07:51)
[2019-08-30] MEDS: METOPROLOL TARTRATE 25 MG TAB PO SCH (07:51)
[2019-08-30] MEDS: EUCERIN CR 120 GM JAR EXT SCH (07:51)
[2019-08-30] MEDS: MAGNESIUM OXIDE 400 MG TAB PO SCH (07:51)
[2019-08-30] MEDS: POTASSIUM CHLORIDE PWD 20 MEQ PACK PO SCH (07:51)
[2019-08-30] MEDS: FUROSEMIDE 20 MG in SYRINGE 0 ML IV SCH (08:11)
[2019-08-30 09:36] LABS: BUN Creatinine Ratio 19.5 (10-20); Calcium 9.6 mg/dl (8.5-10.1); Creatinine Clr Calc Pharmacy 59.4 ml/min; Est GFR (African American) 69.1; Est GFR (Non-African American) 59.6; Potassium 4.5 mmol/L (3.5-5.1)
--- NOTE | 2019-08-30 11:00 | Discharge Summary ---
Date of Service August 30, 2019 Admission HPI Per Admitting Provider Barber Nixon is a 69 year old woman with a past medical history significant for gastric bypass, malabsorption, chronic venous stasis lower limb edema, CAD, MO and spinal fusion surgery and chronic pain who presents today for leg pain, back pain and leg weakness that has been present for several weeks but has recently gotten worse. She is a little bit confused and had trouble telling me her entire story but her son called in and helped provide some collateral. He tells me she has been dealing with back pain and lower limb pain for months and was diagnosed with bilatral lower limb cellulitis several weeks ago. She finished antibiotic therapy on the . Her son tells me her legs never returned to normal and have now returned to just as red and tender as they were before starting antibiotics and spread across her leg more. She tells me she has not checked her temperature but she has been having fevers, chills and feeling generally weak. She denies nausea vomiting, but has had some diarrhea. On presentation to ED patient was febrile, vital signs otherwise WNL, no tachycardia, no hypotension breathing easily. Labwork significant for elevated white count of 11.95, hypokalemia of 3.4, hypomagnesemia of 1.7, negative procalcitonin. She was given vancomycin and tylenol in ED. Principal Diagnosis Acute lower extremity edema/volume overload, ambulatory dysfunction, lower extremity cellulitis Discharge Exam Constitutional WD/WN, vitals as above Eyes + anicteric sclerae Neck trachea midline, no thyromegaly Respiratory normal respiratory effort, lungs clear to auscultation Cardiovascular Rate/Rhythm: regular rate and regular rhythm Heart Sounds: no murmur Extremities: + edema (1+ pitting edema legs with wrinkled skin bilat) Chest (Breasts) Chest: normal inspection of chest Gastrointestinal (Abdomen) normal bowel sounds, soft, nontender, no hepatosplenomegaly Musculoskeletal Extremities: no cyanosis and no clubbing Skin + rash (mild erythema bilat legs with purplish discoloration) Neurologic moves all extremities and awake; no focal motor deficits Psychiatric A+Ox3, euthymic affect Lymphatic no lymphedema Discharge Data Allergies Allergy/AdvReac Type Severity Reaction Status Date / Time gabapentin AdvReac Intermediate LOSS OF Verified 08/24/19 19:28 FEELING IN LOWER EXTREMITIES adhesive tape AdvReac Mild Rash Verified 08/24/19 19:28 shellfish derived AdvReac Mild GI SYMPTOMS Verified 08/24/19 19:28 pork derived (porcine) AdvReac Unknown Vomiting Verified 08/24/19 19:28 Pork/Porcine Containing AdvReac Unknown Vomiting Verified 08/24/19 19:28 Products Prep Swab Allergy Unknown "Get sick Uncoded 08/24/19 19:28 and throw up" Consultations 08/24/19 19:54 ED Decision to Admit Stat 08/27/19 14:37 Consult Orthopedic Surgery Routine Ordered Studies 08/24/19 21:44 CT lumbar spine w con Urgent 08/25/19 10:31 US venous doppler LE BI Routine Hip/pelvis x-ray Chest x-ray x2 Hospital Course (1) Cellulitis of both lower extremities: Bilateral redness and warmth. Some concern that her nutritional status is putting her at risk for infection. Much improved to nearly resolved apparently since admission when erythema was to the thighs Diuresis with IV lasix has also improved her edema and therefore helped improve infection - Stopped vanc on 08/26. - Started doxycycline (want MRSA coverage since she failed Keflex prior to admission); per [facility] antiobiogram 2018, doxy & Bactrim both 90% susc. and I would like to spare kidneys as able. - End date: 08/31/2019 for a 7-day course -Stable for discharge to home (2) Right hip pain: On 08/26, the patient noted her right hip was painful and that she has trouble moving the right leg. I had concern for neurologic issue given her lumbar CT from 08/23 showed diffuse, severe degeneration. - Seen by Dr. Ureña on 08/27 who noted she has some flexion lock in the right hip and this is all degenerative issues. - She will follow with him as an outpatient. He is reluctant to pursue surgery until nutritional issues, lymphedema, and cellulitis all stable/resolved. (3) Chronic acquired lymphedema: Long-standing issue. Prior provider in 10/2018 was unsure how much primary lymphedema was involved vs. anasarca from chronic undernutrition/hypoalbuminemia from her bariatric surgery. Remarkably improved since I saw her last year and her weight is down 17 kg since admission with IV diuresis with Lasix and down to 50 kg in the last 9 to 10 months -Much improved now with IV lasix Is on high doses of torsemide and follows with Nephrology as outpt home torsemide is 40mg qAM and 20mg qPM and she should return to that on discharge - Will encourage AMARA gonsaloe and conservative measures as able. - Address nutrition-recommend follow-up with bariatric medicine specialist as an outpatient (4) History of bariatric surgery: Quite extensive per Dr. Albert's discharge summary from 11/12/2018. Son notes she has had a variety of vitamin deficiencies in the past. - Seen by nutrition with the following recs: * Boost BID * Calcium citrate 600 mg TID * B Complex & Zinc 100 mg daily * Vitamin A 50,000 units and vitamin D 50,000 units weekly * Folic acid 1 mg PO daily * Monitor Fe2+, B12/folate * [place] up [place] Aponte [place] [facility] [place] Note: Vitamin D level was 20. Will treat with ergocalciferol as above. Iron low as well; she was given IV iron x 3 doses as PO will be poorly absorbed and cause GI issues. (5) Weakness: Likely multifactorial from edema, cellulitis, and arthritis in right hip. - PT/OT evals appreciated (6) Atrial fibrillation: Paroxysmal atrial fibrillation. Was in normal sinus on admission. HR presently normal at 60s. - Continue anticoagulation: Eliquis - Continue beta-jersey (7) Hypothyroidism: Last TSH was 8.5 in 10/2018. TSH this admission is 2.9. - Continue home levothyroxine 50 mcg (8) Hypertension: BP acceptable - Continue Lasix, ARB, beta-jersey, and spironolactone (9) DVT prophylaxis: History of DVT with a filter placed per prior notes. - Apixaban for afib Dispo-stable for discharge to home with home health Discharge plans were discussed with her son on the phone on the day of discharge. Total Time Total Time Spent Total Time Spent (In Minutes): Greater than 30 minutes Total Time Includes: Examination of the Patient, Discharge Planning and Medication Reconciliation Discharge Plan Discharge Items Patient Disposition: Home - Home Health Services Reason For Visit: LEG WEAKNESS,CELLULITIS BACK PAIN Discharge Diagnosis: Lower extremity cellulitis, volume overload Condition on Discharge: Good Activity: Resume your previous activity Activity Comment: with home PT/OT Bathing: No limitations Non-emergency contact: Primary Care Provider and Surgeon Call non-emergency contact if: you have any medication questions, your symptoms worsen, your pain is not controlled, your pain is worsening, your pain is unusual for you and your pain is concerning for you Follow-up/Referrals: Yu Gauthier MD [Physician] - (Please call to schedule a NEW PATIENT hospital follow up appointment within 2 weeks. ) Skip Ureña DO [Surgeon] - (Please call to schedule a follow up appointment with the Orthopedic Surgeon, Dr. Ureña, for your right hip pain.) Nighat Hwang CRNP [Primary Care Provider] - (You are wanting to change your PCP to Dr. Yu Gauthier.) Diet: Low Sodium (2gm) Fluids: 2000ml (8 cups) Diet Comment: Resume your usual diet Addtl Attending Provider Instructions: Please finish out 2 more days of the doxycycline antibiotic twice a day for your cellulitis (skin and soft tissue infection) of the legs. Continue your usual torsemide (water pill) dose and follow up with your PCP and with your [employer] regarding further adjustments to the dose of your water pill. You can follow up with Dr. Ureña of Orthopedic Surgery for your right hip pain. Pending Studies at Discharge: Yes Studies:: Selenium and Zinc levels Stand-Alone Forms: My [facility] [employer] Medications and DC Order Prescriptions: New doxycycline hyclate 100 mg Capsule 100 mg PO BID Qty: 4 RF: 0 calcium citrate [Calcitrate] 200 mg (950 mg) Tablet 800 mg PO TID Qty: 360 RF: 0 zinc sulfate [Orazinc] 220 (50) mg Capsule 220 mg PO QAM Qty: 30 RF: 0 Desenex 2 % Powder 1 applic EXT DAILY Qty: 43 RF: 0 magnesium oxide 400 mg (241.3 mg magnesium) Tablet 400 mg PO QAM Qty: 30 RF: 0 Dermacerin Cream 1 applic EXT BID Qty: 1 RF: 0 beta carotene 25,000 unit Capsule 50,000 unit PO Sa@0900 Qty: 8 RF: 0 ergocalciferol (vitamin D2) 1,250 mcg (50,000 unit) Capsule 50,000 unit PO Sa@0900 Qty: 4 RF: 0 vitamin B complex [Vitamins B Complex] Capsule 1 tab PO QAM Qty: 30 RF: 0 potassium chloride 20 mEq tablet extended release 20 meq PO BID Qty: 60 RF: 0 Continued lorazepam 0.5 mg Tablet 0.5 mg PO BID PRN (Reason: Anxiety) RF: 0 nitroglycerin 0.4 mg Tablet, Sublingual 0.4 mg Sublingual DIRECTED PRN (Reason: Chest Pain) RF: 0 montelukast [Singulair] 10 mg Tablet 10 mg PO HS RF: 0 albuterol sulfate 90 mcg/actuation Hfa Aerosol Inhaler 1 puff INHALATION DAILY PRN (Reason: Shortness Of Breath) RF: 0 fluticasone propionate [Flonase Allergy Relief] 50 mcg/actuation [place],Suspension 1 spray INTRANASAL QAM RF: 0 buspirone 10 mg tablet 10 mg PO QAM RF: 0 fluoxetine 20 mg Capsule 20 mg PO QAM Qty: 30 RF: 0 levothyroxine 50 mcg capsule 50 mcg PO DAILY Qty: 30 RF: 0 folic acid 1 mg tablet 1 mg PO DAILY Qty: 30 RF: 0 torsemide 20 mg tablet See Rx Instructions .ROUTE .COMPLEX RF: 0 metoprolol tartrate 25 mg tablet 25 mg PO BID RF: 0 losartan 50 mg tablet 50 mg PO DAILY RF: 0 tramadol 50 mg Tablet 50 mg PO BID PRN (Reason: Pain) RF: 0 spironolactone 25 mg tablet 25 mg PO DAILY RF: 0 cholecalciferol (vitamin D3) [Vitamin D3] 50 mcg (2,000 unit) Capsule 50 mcg PO DAILY RF: 0 Breo Ellipta 100-25 mcg/dose Blister With Device 1 inh INHALATION DAILY RF: 0 Eliquis 5 mg Tablet 5 mg PO BID RF: 0 Discontinued Potassium Tab 99 mg PO QAM RF: 0 Discharge Orders: Discharge Order (Routine); Ordered 08/30/19 Ordered By: Manuela Albert Admission Data Admit Date/Time: 08/24/19 20:27 Attending Provider: Manuela Albert Admit Provider: Camron Pitt Primary Care Provider: Nighat Hwang Other Providers: Carlos Ramirez ; Arnaldo,Home Health ; Skip Ureña Other Interventions: Discharge Summary Assessment (RN) Last Done: 08/30/19 11:00 DC Date/Time DO NOT enter until pt leaves facility: 08/30/19 13:44 Coding Level of Care Code D/C Day Management >30 mins Diagnoses Cellulitis of both lower extremities L03.115; L03.116 Right hip pain M25.551 Chronic acquired lymphedema I89.0 History of bariatric surgery Z98.84 Weakness R53.1 Atrial fibrillation I48.91 Hypothyroidism E03.9 Hypertension I10 DVT prophylaxis Z29.9
[2019-09-01 21:29] LABS: Selenium, Blood 90 mcg/L (120-200); Zinc 66 mcg/dL (60-130)
== END 2019-08-30 13:44 | disposition home health service (06) | DRG 603 ==
LOC: ED 16:31 → SUATTDRO 20:27 → 2N 20:27

== ENCOUNTER 2022-03-31 07:15 | Inpatient (IN) ==
[2022-03-31] MEDS ORDERED: dilTIAZem HCl 5 MG/ML 5 ML VIAL IV STA ×2 (07:45→10:26)
[2022-03-31] MEDS ORDERED: SODIUM CHLORIDE 0.9% 1000ML 1,000 ML IV STA (07:45)
[2022-03-31 07:55] LABS: Basophils # (auto) 0.05 K/uL (0-0.2); Basophils % (auto) 0.7 %; Eosinophils % (auto) 1.5 %; Hematocrit (blood only) 41.3 % (34.1-44.9); Hemoglobin 13.6 g/dl (12.0-16.0); Immature Granulocytes # (auto) 0.01 K/uL (0.00-0.02); Immature Granulocytes % (auto) 0.1 %; Lymphocytes # (auto) 1.85 K/uL (1.2-3.4); Lymphocytes % (auto) 27.6 %; Mean Corpuscular Hemoglobin 31.3 pg (25.0-34.0); Mean Corpuscular Hgb Conc 32.9 g/dL (32.0-36.0); Mean Corpuscular Volume 95.2 fL (80.0-100.0); Mean Platelet Volume 10.8 fL (9.4-12.3); Monocytes # (auto) 0.51 K/uL (0.24-0.82); Monocytes % (auto) 7.6 %; Neutrophils # (auto) 4.18 K/uL (1.4-6.5); Neutrophils % (auto) 62.5 %; Platelet Count 214 K/uL (130-400); RDW Coefficient of Variation 13.2 % (11.5-14.5); RDW Standard Deviation 46.5 fL (36.4-46.3); Red Blood Count 4.34 M/uL (3.93-5.22)
[2022-03-31 08:08] LABS: INR 1.1 (0.9-1.1); Partial Thromboplastin Time 27.5 Seconds (21.0-31.0); Prothrombin Time 12.1 Seconds (9.0-12.0)
[2022-03-31 08:29] LABS: Albumin Globulin Ratio 1.4 (0.9-2); Albumin Level 4.1 gm/dl (3.4-5.0); BUN Creatinine Ratio 16.5 (10-20); Bilirubin,Total 0.5 mg/dl (0.2-1.0); Calcium 8.9 mg/dl (8.5-10.1); Creatinine Clr Calc Pharmacy 43.6 ml/min; Est GFR (African American) 55.4 ml/min; Est GFR (Non-African American) 47.8 ml/min; Magnesium 1.9 mg/dl (1.7-2.4); Total Protein 7.1 gm/dl (6.0-8.3)
--- NOTE | 2022-03-31 08:37 | XRay Report ---
XR chest 1V portable CLINICAL HISTORY: Dysrhythmia COMPARISON STUDY: Chest radiograph August 24, 2019. FINDINGS: No pneumothorax. Cardiomegaly is unchanged. There is no evidence for pulmonary edema. No co nsolidation to suggest pneumonia. Possible trace right pleural effusion. IMPRESSION: 1. Possible trace right pleural effusion. 2. Stable cardiomegaly without evidence for pulmonary edema. ACT 112: Negative or not required by law. Electronically signed by: Alan Gauthier M.D. 03/31/2022 8:36 AM
[2022-03-31] MEDS: METOPROLOL TARTRATE 1 MG/ML VIAL IV PRN ×3 (08:44→10:05)
--- NOTE | 2022-03-31 09:42 | Emergency Department Note ---
Impression & Plan Atrial fibrillation with RVR ED Provider Note INFORMANT: Patient ED PROVIDER(S): Danny Abdi DO CHIEF COMPLAINT: Shortness of breath PLAN: Disposition: I spoke with the hospitalist, who will see the patient for admission/observation and further evaluation and consultation. Condition: Good Outpatient prescription management: none Referral: I spoke with the hospitalist, who will see the patient for admission/observation and further evaluation and consultation. MEDICAL DECISION MAKING: [Brief summary----Positive exam findings & VS----Test Results---Intervention s---Consults/Case mgnt discussions---Decisions not to test/admit/transfer---Remember additional problems---list any social risk factors] This is a 71-year-old female presents to the ED with a chief complaint of shortness of breath that is worse with exertion and lying down. She does have a history of A. fib. She is chronically on Eliquis.she also describes some chest discomfort and stomach discomfort in the epigastric area as well as some discomfort in the shoulder blade area. She reports diarrhea for the past couple of days. She has had some nausea but no vomiting for the past 4 days. Overall her symptoms started 4 days ago with nausea. No specific complaints at this time. She was found to be in A. fib with RVR with a heart rate in the 140s when she arrived. Her exam revealed a rapid irregular heart rate. Otherwise exam did not show any concerning abnormalities. Her twelve-lead EKG showed A. fib with RVR at a rate of 157. CBC and chemistry panel was normal. Troponin was n ormal. TSH was normal. COVID test was negative and a chest x-ray did not show any acute process. The patient was treated with IV fluids as well as IV diltiazem 20 mg. She was given IV metoprolol. Total 15 mg IV was given. The patient's heart rate still did not come down below 100. She was still in the 1 10-1 20 range. Because of this the patient was given an additional IV dose of diltiazem 15 mg. She was put on a diltiazem drip. She will be seen by the hospitalist for further evaluation and care. Triage Nursing notes reviewed. Vital Signs: reviewed Prior /Outside records reviewed: Reviewed cardiology note from 04/30/2021 and 08/24/19 Differential diagnosis: The differential that was considered includes acute myocardial infarction, acute coronary syndrome, myocarditis, pericarditis, pericardial effusions /tamponade, esophageal perforation, thoracic aortic dissection, pulmonary embolism, pneumonia, pneumothorax, pancreatitis, shingles, acute cholecystitis, perforated abdominal viscus. Diagnostics, as interpreted by me: 12 lead ECG: Atrial fibrillation with RVR at a heart rate of 157. No ST elevation. No PVCs. Normal QTC Cardiac Monitoring: Ongoing A. fib with rates in the low 100s. Medical decision rules: [none] Imaging studies: Chest x-ray: No acute disease Procedures: Critical care Critical care: I have personally spent 30 minutes of critical care time in the direct management of this patient. This includes bedside care, interpretation of diagnostic studies, and testing, discussion with consultants, patient, and family members, and other required patient management activities. This 30 minutes is in excess of all separately billable procedures. HPI: Patient presented with rapid A. fib and some other symptoms as detailed above. See MDM above. PAST MEDICAL HISTORY: See Below PAST SURGICAL HISTORY: See Below SOCIAL HISTORY: See Below HOME MEDICATIONS: See Below ALLERGIES: See Below VITALS: See Below PHYSICAL EXAMINATION: CONSTITUTIONAL/VITAL SIGNS: Reviewed GENERAL: Non-toxic in appearance. INTEGUMENTARY: Warm, dry, and [place]. HEAD: Normocephalic. EYES: without scleral icterus. ENT/OROPHARYNX: clear and moist. RESPIRATORY: No increased work of breathing. Lungs clear. CARDIOVASCULAR: Regular rate. Regular rhythm. GI/ABDOMEN: Soft and nontender. . EXTREMITIES: Normal BACK: Normal. NEUROLOGICAL: Intact without focal deficits. PSYCHIATRIC: Normal affect. MUSCULOSKELETAL: Normal. TRIAGE NURSING DOCUMENTATION REVIEWED. Past Med/Surg History Medical History Anxiety CAD (coronary artery disease) patient reports h/o [place] in 2009 and 2010 Chronic back pain COPD (chronic obstructive pulmonary disease) Diabetes mellitus with diabetic polyneuropathy Diabetes mellitus, type 2 No meds since gastric bypass GERD (gastroesophageal reflux disease) Gout Lacey filter in place H/O deep venous thrombosis Left leg - s/p IVF filter History of ovarian cancer s/p hysterectomy/oophorectomy - no chemotherapy Hyperlipidemia Hypertension Hypothyroidism Osteoarthritis, hip, bilateral Osteoporosis Peripheral arterial disease s/p angioplasty distal SFA/ mid popliteal - 06/2020 Vitamin B12 deficiency Surgical History History of adenoidectomy History of cardiac cath no stents History of colonoscopy History of gastric bypass History of hysterectomy History of lumbar spinal fusion History of PTCA History of tonsillectomy History of total knee replacement RT/LEFT Family History Other Family history non-contributory Social History (Updated 03/20/22 @ 14:37 by Kaity Alexander LPN) Smoking Status: Never smoker Second Hand Exposure: No; Hx Alcohol Use: No Hx Substance Use: No Preferred Language: Croatian Communication Ability: Effective Hl7 Interface Developer Required: No Beliefs That Will Affect Care: None marital status: Current Living Situation: Spouse Feels Safe at Home: Yes caffeine: Yes (tea) Seatbelt Use: always Assistive Devices: Cane, CPAP, Denture - Upper, Denture - Lower and Walker Allergies Allergies Allergy/AdvReac Type Severity Reaction Status Date / Time gabapentin AdvReac Intermediate LOSS OF Verified 03/20/22 14:30 FEELING IN LOWER EXTREMITIES adhesive tape AdvReac Mild Rash Verified 03/20/22 14:30 shellfish derived AdvReac Mild GI SYMPTOMS Verified 03/20/22 14:30 pork derived (porcine) AdvReac Unknown Vomiting Verified 03/20/22 14:30 Pork/Porcine Containing AdvReac Unknown Vomiting Verified 03/20/22 14:30 Products Prep Swab Allergy Unknown "Get sick Uncoded 03/20/22 14:30 and throw up" Home Meds Previous Rx's Medication Instructions Recorded miconazole nitrate 2 % topical 1 applic EXT DAILY #43 grams 06/05/20 powder (Desenex) nitroglycerin 0.4 mg sublingual 0.4 mg sublingual Q5M PRN Chest 06/05/20 tablet Pain #100 tabs lorazepam 0.5 mg tablet 0.5 mg PO Q8H PRN anxiety #30 tabs 03/15/21 nystatin 100,000 unit/gram topical 1 applic topical BID #30 grams 05/21/21 powder losartan 50 mg tablet 50 mg PO DAILY #90 tabs 07/01/21 omeprazole 40 mg capsule,delayed 40 mg PO DAILY #90 caps 07/01/21 release buspirone 10 mg tablet 10 mg PO TID #270 tabs 07/29/21 fluticasone fur. 100 mcg-umeclid 1 inh inhalation DAILY #60 ea 08/28/21 62.5 mcg-vilant 25 mcg inhalat.powder (Trelegy Ellipta) fluticasone propionate 50 See Rx Instructions .Route 11/29/21 mcg/actuation nasal .COMPLEX #16 grams spray,suspension levothyroxine 50 mcg tablet 50 mcg PO DAILY #90 tabs 01/20/22 metoprolol tartrate 50 mg tablet 50 mg PO BID #90 tabs 03/10/22 albuterol sulfate 90 mcg/actuation 1 puff inhalation DAILY PRN 03/11/22 aerosol inhaler Shortness Of Breath #8.5 grams torsemide 20 mg tablet 20 mg PO DAILY PRN swelling #30 03/12/22 tabs cephalexin 500 mg capsule 500 mg PO TID #21 caps 03/20/22 apixaban 5 mg tablet (Eliquis) 5 mg PO BID #60 tabs 03/21/22 tramadol 50 mg tablet 50 mg PO TID PRN Pain #90 tabs 03/27/22 Results & Data (ED) Vital Signs Vital Signs - 24 hr 03/31/22 07:27 03/31/22 08:44 03/31/22 08:00 Temperature 36.4 C L Temperature Source Temporal Artery Scan Pulse Rate 143 H 119 H Pulse Rate [Left Finger] Pulse Rate from SpO2 Sensor Pulse Rhythm Regular Pulse Rhythm [Left Finger] Pulse Strength Normal Respiratory Rate 26 H Respiratory Effort / Characteristics Non-Labored Spontaneous Spontaneous Labored Respiratory Depth Normal Shallow Respiratory Pattern Regular Regular Blood Pressure 124/93 159/108 H Blood Pressure [Right Arm] Blood Pressure Mean 103 Blood Pressure Mean [Right Arm] Blood Pressure Position Sitting Blood Pressure Position [Right Arm] Pulse Oximetry 99 Oxygen Delivery Method Room Air Sepsis Recent Fever Within 48 Hours No Sepsis New/Unexplained Change in Mental Status No Sepsis Action Taken by Nursing Physician Notified 03/31/22 08:03 03/31/22 07:43 03/31/22 07:43 Temperature Temperature Source Pulse Rate 157 H Pulse Rate [Left Finger] 90 Pulse Rate from SpO2 Sensor Pulse Rhythm Pulse Rhythm [Left Finger] Irregular Pulse Strength Respiratory Rate 20 21 Respiratory Effort / Characteristics Non-Labored Respiratory Depth Normal Respiratory Pattern Blood Pressure 124/101 H Blood Pressure [Right Arm] 138/100 Blood Pressure Mean 108 Blood Pressure Mean [Right Arm] 112 Blood Pressure Position Blood Pressure Position [Right Arm] Sitting Pulse Oximetry 97 Oxygen Delivery Method Room Air Sepsis Recent Fever Within 48 Hours Sepsis New/Unexplained Change in Mental Status Sepsis Action Taken by Nursing 03/31/22 07:45 03/31/22 07:45 03/31/22 07:56 Temperature Temperature Source Pulse Rate 140 H 113 H Pulse Rate [Left Finger] Pulse Rate from SpO2 Sensor 120 H 122 H Pulse Rhythm Pulse Rhythm [Left Finger] Pulse Strength Respiratory Rate 19 17 Respiratory Effort / Characteristics Respiratory Depth Respiratory Pattern Blood Pressure 152/113 H Blood Pressure [Right Arm] Blood Pressure Mean 126 Blood Pressure Mean [Right Arm] Blood Pressure Position Blood Pressure Position [Right Arm] Pulse Oximetry 92 95 Oxygen Delivery Method Sepsis Recent Fever Within 48 Hours Sepsis New/Unexplained Change in Mental Status Sepsis Action Taken by Nursing 03/31/22 07:56 03/31/22 08:00 03/31/22 08:00 Temperature Temperature Source Pulse Rate 111 H Pulse Rate [Left Finger] Pulse Rate from SpO2 Sensor 112 H Pulse Rhythm Pulse Rhythm [Left Finger] Pulse Strength Respiratory Rate 12 Respiratory Effort / Characteristics Respiratory Depth Respiratory Pattern Blood Pressure 110/83 138/100 Blood Pressure [Right Arm] Blood Pressure Mean 92 112 Blood Pressure Mean [Right Arm] Blood Pressure Position Blood Pressure Position [Right Arm] Pulse Oximetry 94 Oxygen Delivery Method Sepsis Recent Fever Within 48 Hours Sepsis New/Unexplained Change in Mental Status Sepsis Action Taken by Nursing 03/31/22 08:15 03/31/22 08:15 03/31/22 08:30 Temperature Temperature Source Pulse Rate 102 H Pulse Rate [Left Finger] Pulse Rate from SpO2 Sensor 138 H Pulse Rhythm Pulse Rhythm [Left Finger] Pulse Strength Respiratory Rate 12 Respiratory Effort / Characteristics Respiratory Depth Respiratory Pattern Blood Pressure 149/116 H 159/108 H Blood Pressure [Right Arm] Blood Pressure Mean 127 125 Blood Pressure Mean [Right Arm] Blood Pressure Position Blood Pressure Position [Right Arm] Pulse Oximetry 94 Oxygen Delivery Method Sepsis Recent Fever Within 48 Hours Sepsis New/Unexplained Change in Mental Status Sepsis Action Taken by Nursing 03/31/22 08:30 03/31/22 08:45 03/31/22 08:45 Temperature Temperature Source Pulse Rate 104 H 110 H Pulse Rate [Left Finger] Pulse Rate from SpO2 Sensor 126 H Pulse Rhythm Pulse Rhythm [Left Finger] Pulse Strength Respiratory Rate 20 14 Respiratory Effort / Characteristics Respiratory Depth Respiratory Pattern Blood Pressure 151/120 H Blood Pressure [Right Arm] Blood Pressure Mean 130 Blood Pressure Mean [Right Arm] Blood Pressure Position Blood Pressure Position [Right Arm] Pulse Oximetry 94 Oxygen Delivery Method Sepsis Recent Fever Within 48 Hours Sepsis New/Unexplained Change in Mental Status Sepsis Action Taken by Nursing 03/31/22 09:00 03/31/22 09:00 03/31/22 09:15 Temperature Temperature Source Pulse Rate 101 H 122 H Pulse Rate [Left Finger] Pulse Rate from SpO2 Sensor 111 H 100 H Pulse Rhythm Pulse Rhythm [Left Finger] Pulse Strength Respiratory Rate 20 12 Respiratory Effort / Characteristics Respiratory Depth Respiratory Pattern Blood Pressure 147/107 H Blood Pressure [Right Arm] Blood Pressure Mean 120 Blood Pressure Mean [Right Arm] Blood Pressure Position Blood Pressure Position [Right Arm] Pulse Oximetry 94 95 Oxygen Delivery Method Sepsis Recent Fever Within 48 Hours Sepsis New/Unexplained Change in Mental Status Sepsis Action Taken by Nursing 03/31/22 09:15 03/31/22 09:29 03/31/22 10:05 Temperature Temperature Source Pulse Rate 134 H 122 H Pulse Rate [Left Finger] Pulse Rate from SpO2 Sensor Pulse Rhythm Pulse Rhythm [Left Finger] Pulse Strength Respiratory Rate Respiratory Effort / Characteristics Respiratory Depth Respiratory Pattern Blood Pressure 146/105 H 146/105 H 155/119 H Blood Pressure [Right Arm] Blood Pressure Mean 118 Blood Pressure Mean [Right Arm] Blood Pressure Position Blood Pressure Position [Right Arm] Pulse Oximetry Oxygen Delivery Method Sepsis Recent Fever Within 48 Hours Sepsis New/Unexplained Change in Mental Status Sepsis Action Taken by Nursing 03/31/22 09:30 03/31/22 09:30 03/31/22 09:45 Temperature Temperature Source Pulse Rate 120 H Pulse Rate [Left Finger] Pulse Rate from SpO2 Sensor 126 H Pulse Rhythm Pulse Rhythm [Left Finger] Pulse Strength Respiratory Rate 15 Respiratory Effort / Characteristics Respiratory Depth Respiratory Pattern Blood Pressure 145/107 H 154/115 H Blood Pressure [Right Arm] Blood Pressure Mean 119 128 Blood Pressure Mean [Right Arm] Blood Pressure Position Blood Pressure Position [Right Arm] Pulse Oximetry 99 Oxygen Delivery Method Sepsis Recent Fever Within 48 Hours Sepsis New/Unexplained Change in Mental Status Sepsis Action Taken by Nursing 03/31/22 09:45 03/31/22 10:00 03/31/22 10:00 Temperature Temperature Source Pulse Rate 112 H 122 H Pulse Rate [Left Finger] Pulse Rate from SpO2 Sensor 106 H 122 H Pulse Rhythm Pulse Rhythm [Left Finger] Pulse Strength Respiratory Rate 20 13 Respiratory Effort / Characteristics Respiratory Depth Respiratory Pattern Blood Pressure 133/112 H Blood Pressure [Right Arm] Blood Pressure Mean 119 Blood Pressure Mean [Right Arm] Blood Pressure Position Blood Pressure Position [Right Arm] Pulse Oximetry 99 94 Oxygen Delivery Method Sepsis Recent Fever Within 48 Hours Sepsis New/Unexplained Change in Mental Status Sepsis Action Taken by Nursing 03/31/22 10:15 03/31/22 10:15 03/31/22 10:30 Temperature Temperature Source Pulse Rate 124 H Pulse Rate [Left Finger] Pulse Rate from SpO2 Sensor 144 H Pulse Rhythm Pulse Rhythm [Left Finger] Pulse Strength Respiratory Rate 13 Respiratory Effort / Characteristics Respiratory Depth Respiratory Pattern Blood Pressure 142/114 H 137/111 H Blood Pressure [Right Arm] Blood Pressure Mean 123 119 Blood Pressure Mean [Right Arm] Blood Pressure Position Blood Pressure Position [Right Arm] Pulse Oximetry 93 Oxygen Delivery Method Sepsis Recent Fever Within 48 Hours Sepsis New/Unexplained Change in Mental Status Sepsis Action Taken by Nursing 03/31/22 10:30 03/31/22 10:45 Temperature Temperature Source Pulse Rate 124 H Pulse Rate [Left Finger] Pulse Rate from SpO2 Sensor 129 H Pulse Rhythm Pulse Rhythm [Left Finger] Pulse Strength Respiratory Rate 20 Respiratory Effort / Characteristics Respiratory Depth Respiratory Pattern Blood Pressure 120/96 Blood Pressure [Right Arm] Blood Pressure Mean 104 Blood Pressure Mean [Right Arm] Blood Pressure Position Blood Pressure Position [Right Arm] Pulse Oximetry 94 Oxygen Delivery Method Sepsis Recent Fever Within 48 Hours Sepsis New/Unexplained Change in Mental Status Sepsis Action Taken by Nursing Laboratory Data Result diagrams: 03/31/22 07:40 03/31/22 07:40 Lab Results 03/31/22 03/31/22 03/31/22 Range/Units 07:40 07:40 07:40 WBC 6.70 (4.8-10.8) K/ul RBC 4.34 (3.93-5.22) M/uL Hgb 13.6 (12.0-16.0) g/dl Hct 41.3 (34.1-44.9) % MCV 95.2 (80.0-100.0) fL MCH 31.3 (25.0-34.0) pg MCHC 32.9 (32.0-36.0) g/dL RDW Std Deviation 46.5 H (36.4-46.3) fL RDW Coeff of Krista 13.2 (11.5-14.5) % Plt Count 214 (130-400) K/uL MPV 10.8 (9.4-12.3) fL Immature Gran % (Auto) 0.1 % Neut % (Auto) 62.5 % Lymph % (Auto) 27.6 % Terrell % (Auto) 7.6 % Eos % (Auto) 1.5 % Baso % (Auto) 0.7 % Neut # (Auto) 4.18 (1.4-6.5) K/uL Lymph # (Auto) 1.85 (1.2-3.4) K/uL Terrell # (Auto) 0.51 (0.24-0.82) K/uL Eos # (Auto) 0.10 (0-0.50) K/uL Baso # (Auto) 0.05 (0-0.2) K/uL Immature Gran # (Auto) 0.01 (0.00-0.02) K/uL PT 12.1 H (9.0-12.0) Seconds INR 1.1 (0.9-1.1) APTT 27.5 (21.0-31.0) Seconds PTT Ratio 1.0 Sodium 138 (136-145) mmol/L Potassium 4.0 (3.5-5.1) mmol/L Chloride 104 (98-107) mmol/L Carbon Dioxide 26 (21-32) mmol/L Anion Gap 8 (3-11) BUN 19 (6-23) mg/dl Creatinine 1.15 (0.6-1.2) mg/dl Est Cr Clr Drug Dosing 43.6 ml/min Est GFR ( Amer) 55.4 ml/min Est GFR (Non-Af Amer) 47.8 ml/min BUN/Creatinine Ratio 16.5 (10-20) Glucose 100 H (70-99(Fasting)) mg/dl Calcium 8.9 (8.5-10.1) mg/dl Magnesium 1.9 (1.7-2.4) mg/dl Total Bilirubin 0.5 (0.2-1.0) mg/dl AST 16 (13-39) U/L ALT 14 (7-52) U/L Alkaline Phosphatase 120 H (34-104) U/L Troponin I High Sens 12.0 (0-14) pg/ml Total Protein 7.1 (6.0-8.3) gm/dl Albumin 4.1 (3.4-5.0) gm/dl Globulin 3.0 (2.5-4.0) gm/dl Albumin/Globulin Ratio 1.4 (0.9-2) TSH (0.300-4.500) uIu/ml SARS-CoV-2, RNA, NAAT (NEGATIVE) 03/31/22 03/31/22 Range/Units 07:40 07:40 WBC (4.8-10.8) K/ul RBC (3.93-5.22) M/uL Hgb (12.0-16.0) g/dl Hct (34.1-44.9) % MCV (80.0-100.0) fL MCH (25.0-34.0) pg MCHC (32.0-36.0) g/dL RDW Std Deviation (36.4-46.3) fL RDW Coeff of Krista (11.5-14.5) % Plt Count (130-400) K/uL MPV (9.4-12.3) fL Immature Gran % (Auto) % Neut % (Auto) % Lymph % (Auto) % Terrell % (Auto) % Eos % (Auto) % Baso % (Auto) % Neut # (Auto) (1.4-6.5) K/uL Lymph # (Auto) (1.2-3.4) K/uL Terrell # (Auto) (0.24-0.82) K/uL Eos # (Auto) (0-0.50) K/uL Baso # (Auto) (0-0.2) K/uL Immature Gran # (Auto) (0.00-0.02) K/uL PT (9.0-12.0) Seconds INR (0.9-1.1) APTT (21.0-31.0) Seconds PTT Ratio Sodium (136-145) mmol/L Potassium (3.5-5.1) mmol/L Chloride (98-107) mmol/L Carbon Dioxide (21-32) mmol/L Anion Gap (3-11) BUN (6-23) mg/dl Creatinine (0.6-1.2) mg/dl Est Cr Clr Drug Dosing ml/min Est GFR ( Amer) ml/min Est GFR (Non-Af Amer) ml/min BUN/Creatinine Ratio (10-20) Glucose (70-99(Fasting)) mg/dl Calcium (8.5-10.1) mg/dl Magnesium (1.7-2.4) mg/dl Total Bilirubin (0.2-1.0) mg/dl AST (13-39) U/L ALT (7-52) U/L Alkaline Phosphatase (34-104) U/L Troponin I High Sens (0-14) pg/ml Total Protein (6.0-8.3) gm/dl Albumin (3.4-5.0) gm/dl Globulin (2.5-4.0) gm/dl Albumin/Globulin Ratio (0.9-2) TSH 1.470 (0.300-4.500) uIu/ml SARS-CoV-2, RNA, NAAT NEGATIVE (NEGATIVE) Administered Medications Diltiazem HCl 125 mg/ Dextrose 125 mls @ 5 mls/hr IV .Q24H [facility]; Protocol Stop: 04/30/22 10:29 Last Admin: 03/31/22 10:48 Dose: 5 mg/hr, 5 mls/hr Documented By: KIMBERLEY Co-signed By: NEDA Metoprolol Tartrate (Metoprolol Tartrate 1 Mg/Ml Vial) 5 mg IV Q5M PRN PRN Reason: Tachycardia Stop: 04/30/22 08:40 Last Admin: 03/31/22 10:05 Dose: 5 mg Documented By: Admin: 03/31/22 09:29 Dose: 5 mg Documented By: Admin: 03/31/22 08:44 Dose: 5 mg Documented By: KIMBERLEY Discontinued Medications Diltiazem HCl (Diltiazem Hcl 5 Mg/Ml 5 Ml Vial) 20 mg IV NOW STA Stop: 03/31/22 07:46 Last Admin: 03/31/22 07:50 Dose: 20 mg Documented By: KIMBERLEY Co-signed By: BRET Diltiazem HCl (Diltiazem Hcl 5 Mg/Ml 5 Ml Vial) 15 mg IV NOW STA Stop: 03/31/22 10:27 Last Admin: 03/31/22 10:35 Dose: 15 mg Documented By: KIMBERLEY Co-signed By: NEDA Sodium Chloride (Nss 1000ml) 1,000 mls @ 999 mls/hr IV .Q1H1M STA Stop: 03/31/22 08:45 Last Infusion: 03/31/22 08:51 Dose: 0 mls/hr Documented By: Admin: 03/31/22 07:50 Dose: 999 mls/hr Documented By: KIMBERLEY Miscellaneous (Stat Iv Infusion Titration Per Protocol) 1 each N/A NOW STA Stop: 03/31/22 10:27 Last Admin: 03/31/22 10:52 Dose: 1 each Documented By: KIMBERLEY Imaging Data Radiologist's Impression: Chest X-Ray 03/31/22 07:46 XR chest 1V portable CLINICAL HISTORY: Dysrhythmia COMPARISON STUDY: Chest radiograph August 24, 2019. FINDINGS: No pneumothorax. Cardiomegaly is unchanged. There is no evidence for pulmonary edema. No consolidation to suggest pneumonia. Possible trace right pleural effusion. IMPRESSION: 1. Possible trace right pleural effusion. 2. Stable cardiomegaly without evidence for pulmonary edema. ACT 112: Negative or not required by law. Electronically signed by: Alan Gauthier M.D. 03/31/2022 8:36 AM Discharge Plan Visit Data Chief Complaint: Shortness of Breath/Dyspnea Stated Complaint: CHEST PAIN,SOB, NAUSEA,DIAERREAH ED Provider: Danny Abdi Discharge Problem: Atrial fibrillation with RVR Patient Disposition: Being Evaluated by Hospitalist Forms Stand Alone Forms: [facility] Prescriptions Prescriptions: No Action nystatin 100,000 unit/gram powder 1 applic TOPICAL BID Qty: 30 1RF losartan 50 mg tablet 50 mg PO DAILY Qty: 90 3RF omeprazole 40 mg capsule,delayed release(DR/EC) 40 mg PO DAILY Qty: 90 3RF buspirone 10 mg tablet 10 mg PO TID Qty: 270 3RF Trelegy Ellipta 100-62.5-25 mcg blister with device 1 inh inhalation DAILY Qty: 60 11RF fluticasone propionate 50 mcg/actuation spray,suspension See Rx Instructions .ROUTE .COMPLEX Qty: 16 5RF Dose Instruction: USE 1 SPRAY(S) IN EACH NOSTRIL IN THE MORNING Rx Instructions: USE 1 SPRAY(S) IN EACH NOSTRIL IN THE MORNING levothyroxine 50 mcg tablet 50 mcg PO DAILY Qty: 90 3RF albuterol sulfate 90 mcg/actuation HFA aerosol inhaler 1 puff INHALATION DAILY PRN (Reason: Shortness Of Breath) Qty: 8.5 5RF Eliquis 5 mg tablet 5 mg PO BID Qty: 60 5RF tramadol 50 mg tablet 50 mg PO TID PRN (Reason: Pain) Qty: 90 1RF Desenex 2 % powder 1 applic EXT DAILY Qty: 43 2RF Rx Instructions: ; apply under skin folds nitroglycerin 0.4 mg tablet, sublingual 0.4 mg Sublingual Q5M PRN (Reason: Chest Pain) Qty: 100 1RF lorazepam 0.5 mg tablet 0.5 mg PO Q8H PRN (Reason: anxiety) Qty: 30 0RF cephalexin 500 mg capsule 500 mg PO TID Qty: 21 0RF metoprolol tartrate 50 mg tablet 50 mg PO BID Qty: 90 3RF torsemide 20 mg tablet 20 mg PO DAILY PRN (Reason: swelling) Qty: 30 5RF Referrals Referrals: Yu Gauthier MD [Primary Care Provider] -
[2022-03-31] MEDS ORDERED: STAT IV Infusion **Titration per Protocol STA (10:26)
--- NOTE | 2022-03-31 10:42 | History & Physical Report ---
Date of Service March 31, 2022 Assessment & Plan (1) Atrial fibrillation with RVR: Plan: 71 yo femaleadmitted with A fib RVR Patient is on Apixaban at home for anticoagulation Patient is also on metorpolol. Rosaline graves SOB over past 4 days, perhaps viral. COVID and flu are negative. BIOFIRE is in short supply will hold off. Patient also had diarrhea but this had subsided, will hold of ordering antidiarrhhea medications. Patient received 15 mg of metorpolol IV. Patient on diltiaxem drip and increased metorpolol to 50 mg PO TID. will taper off diltiazem drip.; (2) COPD (chronic obstructive pulmonary disease): Plan: Patient currently has no wheezing, will hold antibiotics and nebs (3) Lower extremity edema: Plan: Patient has lower extremity edema, Patient finished a 7 day course of cephalxein for lower extremity cellulitis. No current signs of cellulitis (4) Vitamin B12 deficiency: (5) CAD (coronary artery disease): Plan: Patient with hisotry of CAD. Currently not in ACS. will reorder troponin (6) Hyperlipidemia: Plan: resume home meds (7) Hypertension: Plan: resume home meds (8) Diabetes mellitus, type 2: Plan: Noted on problem list. THis was a diagnosis prior to gastric bypass. Her A!C has been below 5. Patient is no longer diabetic. (9) GERD (gastroesophageal reflux disease): Plan: resume home meds History of Present Illness Chief Complaint: SOB Primary Care Provider: Yu Gauthier MD 71 yo female presents to the ER with a 4 day history of SOB. Patient reports SOB at rest, Patient reports having difficulty taking deep breaths.The following day she noticed pleuritic chest pain on the left. Patient denied any fever, chills, nausea, or vomiting. Rosaline xavier yesterday she started having loose stools. She had about 8 BMs, yesteyrday with her last BM at 8 pm. Patient reports her grandaughter who is about 23 years old, had the sniffles. BUt she denies any other sick contacts. Patient reports today that she started to have a cough. Allergies Allergy/AdvReac Type Severity Reaction Status Date / Time gabapentin AdvReac Intermediate LOSS OF Verified 03/20/22 14:30 FEELING IN LOWER EXTREMITIES adhesive tape AdvReac Mild Rash Verified 03/20/22 14:30 shellfish derived AdvReac Mild GI SYMPTOMS Verified 03/20/22 14:30 pork derived (porcine) AdvReac Unknown Vomiting Verified 03/20/22 14:30 Pork/Porcine Containing AdvReac Unknown Vomiting Verified 03/20/22 14:30 Products Prep Swab Allergy Unknown "Get sick Uncoded 03/20/22 14:30 and throw up" Home Medications Medication Instructions Recorded Confirmed Type miconazole nitrate 2 % topical 1 applic EXT DAILY #43 grams 06/05/20 03/20/22 Rx powder (Desenex) nitroglycerin 0.4 mg sublingual 0.4 mg sublingual Q5M PRN Chest 06/05/20 03/20/22 Rx tablet Pain #100 tabs lorazepam 0.5 mg tablet 0.5 mg PO Q8H PRN anxiety #30 tabs 03/15/21 03/20/22 Rx nystatin 100,000 unit/gram topical 1 applic topical BID #30 grams 05/21/21 03/20/22 Rx powder losartan 50 mg tablet 50 mg PO DAILY #90 tabs 07/01/21 03/20/22 Rx omeprazole 40 mg capsule,delayed 40 mg PO DAILY #90 caps 07/01/21 03/20/22 Rx release buspirone 10 mg tablet 10 mg PO TID #270 tabs 07/29/21 03/20/22 Rx fluticasone fur. 100 mcg-umeclid 1 inh inhalation DAILY #60 ea 08/28/21 03/20/22 Rx 62.5 mcg-vilant 25 mcg inhalat.powder (Trelegy Ellipta) fluticasone propionate 50 See Rx Instructions .Route 11/29/21 03/20/22 Rx mcg/actuation nasal .COMPLEX #16 grams spray,suspension levothyroxine 50 mcg tablet 50 mcg PO DAILY #90 tabs 01/20/22 03/20/22 Rx metoprolol tartrate 50 mg tablet 50 mg PO BID #90 tabs 03/10/22 03/20/22 Rx albuterol sulfate 90 mcg/actuation 1 puff inhalation DAILY PRN 03/11/22 03/20/22 Rx aerosol inhaler Shortness Of Breath #8.5 grams torsemide 20 mg tablet 20 mg PO DAILY PRN swelling #30 03/12/22 03/20/22 Rx tabs cephalexin 500 mg capsule 500 mg PO TID #21 caps 03/20/22 03/20/22 Rx apixaban 5 mg tablet (Eliquis) 5 mg PO BID #60 tabs 03/21/22 Rx tramadol 50 mg tablet 50 mg PO TID PRN Pain #90 tabs 03/27/22 Rx Past Med/Surg History Medical History Anxiety CAD (coronary artery disease) patient reports h/o TX in 2009 and 2010 Chronic back pain COPD (chronic obstructive pulmonary disease) Diabetes mellitus with diabetic polyneuropathy Diabetes mellitus, type 2 No meds since gastric bypass GERD (gastroesophageal reflux disease) Gout Lacey filter in place H/O deep venous thrombosis Left leg - s/p IVF filter History of ovarian cancer s/p hysterectomy/oophorectomy - no chemotherapy Hyperlipidemia Hypertension Hypothyroidism Osteoarthritis, hip, bilateral Osteoporosis Peripheral arterial disease s/p angioplasty distal SFA/ mid popliteal - 06/2020 Vitamin B12 deficiency Surgical History History of adenoidectomy History of cardiac cath no stents History of colonoscopy History of gastric bypass History of hysterectomy History of lumbar spinal fusion History of PTCA History of tonsillectomy History of total knee replacement RT/LEFT Family History Other Family history non-contributory Social History Smoking Status: Never smoker Second Hand Exposure: No; Hx Alcohol Use: No Hx Substance Use: No Preferred Language: Thai Communication Ability: Effective Director Of Slot Operations Required: No Beliefs That Will Affect Care: Spiritism marital status: Current Living Situation: Spouse Other Information That Helps Us Care for You: No Feels Safe at Home: Yes Safety Concerns: Feels Safe At This Time caffeine: Yes (tea) Seatbelt Use: always Assistive Devices: Cane and Walker Review of Systems Constitutional: + fatigue; no fever, no chills, no sweats and no body aches Eyes: no blind spots Ear, Nose, Mouth, Throat: no ear pain and no tinnitus Respiratory: + cough and + dyspnea; no change in sputum Cardiovascular: + chest pain, + radiating jaw, neck or arm pain and + dyspnea Genitourinary: no dysuria Musculoskeletal: no back pain Integumentary: no acne Neurologic: no gait abnormality Psychiatric: no behavioral changes Endocrine: + fatigue Hematologic / Lymphatic: no easy bleeding Allergy / Immunological: no GI upset with certain foods Physical Exam Constitutional: WD/WN, vitals as above Eyes: PERRL, conjunctivae normal, anicteric sclerae ENMT: external ear and nose normal, oropharynx normal Neck: trachea midline, no thyromegaly Respiratory: normal respiratory effort, lungs clear to auscultation Cardiovascular: RRR, no murmur, no edema Gastrointestinal (Abdomen): normal bowel sounds, soft, nontender, no hepatosplenomegaly Musculoskeletal: no cyanosis or clubbing, extremities motor strength 5/5 Skin: no rashes, warm and dry Neurologic: PERRL, EOMI, accommodation nl, no face palsy, no dysarthria Psychiatric: A+Ox3, euthymic affect Lymphatic: no cervical or axillary lymphadenopathy Results & Data Results & Data ([facility]) Vital Signs (Past 12 Hours) Vital Signs Temp Pulse Pulse Resp BP BP Pulse Ox 03/31/22 10:15 142/114 H 03/31/22 10:15 124 H 13 93 03/31/22 10:00 122 H 13 94 03/31/22 10:00 133/112 H 03/31/22 09:45 112 H 20 99 03/31/22 09:45 154/115 H 03/31/22 09:30 120 H 15 99 03/31/22 09:30 145/107 H 03/31/22 10:05 122 H 155/119 H 03/31/22 09:29 134 H 146/105 H 03/31/22 09:15 146/105 H 03/31/22 09:15 122 H 12 95 03/31/22 09:00 101 H 20 94 03/31/22 09:00 147/107 H 03/31/22 08:45 110 H 14 03/31/22 08:45 151/120 H 03/31/22 08:30 104 H 20 94 03/31/22 08:30 159/108 H 03/31/22 08:15 102 H 12 94 03/31/22 08:15 149/116 H 03/31/22 08:00 111 H 12 94 03/31/22 08:00 138/100 03/31/22 07:56 110/83 03/31/22 07:56 113 H 17 95 03/31/22 07:45 140 H 19 92 03/31/22 07:45 152/113 H 03/31/22 07:43 157 H 21 03/31/22 07:43 124/101 H 03/31/22 08:03 90 20 138/100 97 03/31/22 08:44 119 H 159/108 H 03/31/22 07:27 36.4 C L 143 H 26 H 124/93 99 O2 Del Method 03/31/22 10:15 03/31/22 10:15 03/31/22 10:00 03/31/22 10:00 03/31/22 09:45 03/31/22 09:45 03/31/22 09:30 03/31/22 09:30 03/31/22 10:05 03/31/22 09:29 03/31/22 09:15 03/31/22 09:15 03/31/22 09:00 03/31/22 09:00 03/31/22 08:45 03/31/22 08:45 03/31/22 08:30 03/31/22 08:30 03/31/22 08:15 03/31/22 08:15 03/31/22 08:00 03/31/22 08:00 03/31/22 07:56 03/31/22 07:56 03/31/22 07:45 03/31/22 07:45 03/31/22 07:43 03/31/22 07:43 03/31/22 08:03 Room Air 03/31/22 08:44 03/31/22 07:27 Room Air PG Care Time/CCT Total # of Minutes Spent Total Time Spent with Patient: Total time spent is greater than 50% in coordination of care (as documented) at patient's floor/unit and/or counseling patient: Coding Level of Care Code 38052 INT INP/OBS CARE 75 MIN Diagnoses Atrial fibrillation with RVR I48.91 COPD (chronic obstructive pulmonary disease) J44.9 Lower extremity edema R60.0 Vitamin B12 deficiency E53.8 CAD (coronary artery disease) I25.10 Hyperlipidemia E78.5 Hypertension I10 Diabetes mellitus, type 2 E11.9 GERD (gastroesophageal reflux disease) K21.9
[2022-03-31] MEDS ORDERED: LORazepam 0.5 MG TAB PO PRN (10:47)
[2022-03-31] MEDS ORDERED: TORSEMIDE 20 MG TAB PO PRN (10:47)
[2022-03-31] MEDS ORDERED: ALBUTEROL HFA 8 GM INHALER INH PRN (10:47)
[2022-03-31] MEDS ORDERED: NITROGLYCERIN SL 0.4 MG/TAB TAB SL PRN (10:47)
[2022-03-31] MEDS ORDERED: traMADol HCL 50 MG TABLET PO PRN (10:47)
[2022-03-31] MEDS: dilTIAZem HCL 125 MG in DEXTROSE 5% 100 ML IV SCH ×2 (10:48→23:11)
[2022-03-31] MEDS: METOPROLOL TARTRATE 50 MG TAB PO SCH ×2 (13:22→21:18)
[2022-03-31] MEDS: busPIRone 5 MG TAB PO SCH ×2 (13:22→21:17)
[2022-03-31 15:15] LABS: D Dimer 480 ug/L FEU (0-500)
--- NOTE | 2022-03-31 16:57 | XCELERA ---
[id number]
--- NOTE | 2022-03-31 18:38 | Cardiology Consultation ---
Date of Consultation March 31, 2022 Assessment & Plan (1) Atrial fibrillation with RVR: (2) CAD (coronary artery disease): (3) Cardiomyopathy: (4) Heart failure with reduced ejection fraction: (5) Valvular heart disease: Plan 1. Atrial fibrillation: She is reported to have a history of paroxysmal atrial fibrillation. The last EKG in her records in 2019 at which time she was in sinus rhythm. Unclear if she could transition to atrial fibrillation earlier or if a recent transition resulted in her decompensation. Currently on a diltiazem infusion with good rate control. Given her degree of LV dysfunction I would favor beta-blockers for rate control and we will titrate accordingly. Patient already on systemic anticoagulation. 2. Cardiomyopathy: Newly discovered. Unclear chronicity. Possible this is been present for some time and we are just now seeing some decompensation due to atrial fibrillation. Alternatively, she could have recently developed a cardiomyopathy and transition to atrial fibrillation as a result. This is not appear to be ischemic or the result of a recent ischemic event. This is based on the biventricular dysfunction in the absence of biomarker elevation currently. Recently screened for evidence hemochromatosis. Thyroid studies are normal. Will check a few other studies tomorrow morning. We will switch her losartan to Entresto, her metoprolol tartrate to metoprolol succinate and add an SGLT 2 inhibitor when she has been on these medications we can also add spironolactone if tolerated. We will also screen her for coronary disease noninvasively. This could be arranged as an outpatient (Lexiscan perfusion study). 3. Heart failure with reduced ejection fraction: She likely has an element of pulmonary vascular congestion. Lung exam is relatively benign, but she does have significant peripheral edema and BNP was markedly elevated. Will try to affect some diuresis while she is an inpatient watching renal function electrolytes closely. 4. Valvular heart disease: Moderate mitral regurgitation and severe tricuspid regurgitation. This may improve with medical therapy of her cardiomyopathy. History of Present Illness Reason for Consultation: Atrial fibrillation Requesting Physician: Haley Attending Physician: Jose De Leon History of Present Illness The patient is a 71-year-old woman with a history venous stasis disease and atrial fibrillation who was admitted to the hospital with symptoms of worsening dyspnea. Patient states that for approximately 4 days leading up to her admission she had become progressively more short of breath. She also had the development of some lower extremity edema. She did not report orthopnea but does sit somewhat upright in bed on a routine basis due to hip discomfort. She has had more dyspnea with exertion recently. He also reported an episode of central chest discomfort with radiation to the left lateral portion of the thorax. This seemed to resolve without any specific intervention is not recurred. She did not endorse symptoms dizziness or lightheadedness. She has not been aware of any palpitations. She does not regularly keep track of her heart rate or weight at home. She did not report any dietary indiscretion or change in her diet. She appears to be compliant with her outpatient medications which includes torsemide. Torsemide dose was actually increased as was her metoprolol succinate recently due to worsening lower extremity edema. Allergies Allergy/AdvReac Type Severity Reaction Status Date / Time gabapentin AdvReac Intermediate LOSS OF Verified 03/20/22 14:30 FEELING IN LOWER EXTREMITIES adhesive tape AdvReac Mild Rash Verified 03/20/22 14:30 shellfish derived AdvReac Mild GI SYMPTOMS Verified 03/20/22 14:30 pork derived (porcine) AdvReac Unknown Vomiting Verified 03/20/22 14:30 Pork/Porcine Containing AdvReac Unknown Vomiting Verified 03/20/22 14:30 Products Prep Swab Allergy Unknown "Get sick Uncoded 03/20/22 14:30 and throw up" Home Medications Medication Instructions Recorded Confirmed Type miconazole nitrate 2 % topical 1 applic EXT DAILY #43 grams 06/05/20 03/20/22 Rx powder (Desenex) nitroglycerin 0.4 mg sublingual 0.4 mg sublingual Q5M PRN Chest 06/05/20 03/20/22 Rx tablet Pain #100 tabs lorazepam 0.5 mg tablet 0.5 mg PO Q8H PRN anxiety #30 tabs 03/15/21 03/20/22 Rx nystatin 100,000 unit/gram topical 1 applic topical BID #30 grams 05/21/21 03/20/22 Rx powder losartan 50 mg tablet 50 mg PO DAILY #90 tabs 07/01/21 03/20/22 Rx omeprazole 40 mg capsule,delayed 40 mg PO DAILY #90 caps 07/01/21 03/20/22 Rx release buspirone 10 mg tablet 10 mg PO TID #270 tabs 07/29/21 03/20/22 Rx fluticasone fur. 100 mcg-umeclid 1 inh inhalation DAILY #60 ea 08/28/21 03/20/22 Rx 62.5 mcg-vilant 25 mcg inhalat.powder (Trelegy Ellipta) fluticasone propionate 50 See Rx Instructions .Route 11/29/21 03/20/22 Rx mcg/actuation nasal .COMPLEX #16 grams spray,suspension levothyroxine 50 mcg tablet 50 mcg PO DAILY #90 tabs 01/20/22 03/20/22 Rx metoprolol tartrate 50 mg tablet 50 mg PO BID #90 tabs 03/10/22 03/20/22 Rx albuterol sulfate 90 mcg/actuation 1 puff inhalation DAILY PRN 03/11/22 03/20/22 Rx aerosol inhaler Shortness Of Breath #8.5 grams torsemide 20 mg tablet 20 mg PO DAILY PRN swelling #30 03/12/22 03/20/22 Rx tabs cephalexin 500 mg capsule 500 mg PO TID #21 caps 03/20/22 03/20/22 Rx apixaban 5 mg tablet (Eliquis) 5 mg PO BID #60 tabs 03/21/22 Rx tramadol 50 mg tablet 50 mg PO TID PRN Pain #90 tabs 03/27/22 Rx Patient History Medical History Anxiety CAD (coronary artery disease) patient reports h/o [place] in 2009 and 2010 Chronic back pain COPD (chronic obstructive pulmonary disease) Diabetes mellitus with diabetic polyneuropathy Diabetes mellitus, type 2 No meds since gastric bypass GERD (gastroesophageal reflux disease) Gout [place] filter in place H/O deep venous thrombosis Left leg - s/p IVF filter History of ovarian cancer s/p hysterectomy/oophorectomy - no chemotherapy Hyperlipidemia Hypertension Hypothyroidism Osteoarthritis, hip, bilateral Osteoporosis Peripheral arterial disease s/p angioplasty distal SFA/ mid popliteal - 06/2020 Vitamin B12 deficiency Surgical History History of adenoidectomy History of cardiac cath no stents History of colonoscopy History of gastric bypass History of hysterectomy History of lumbar spinal fusion History of PTCA History of tonsillectomy History of total knee replacement RT/LEFT Family History Other Family history non-contributory Social History Smoking Status: Never smoker Second Hand Exposure: No; Hx Alcohol Use: No Hx Substance Use: No Preferred Language: Iranian Communication Ability: Effective 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 No recent fevers or chills. Some gastrointestinal disturbance a few days ago which included some nausea and diarrhea. Physical Exam Physical Exam: She is alert and oriented x3. Mood affect appear normal. She answered all questions appropriately. HEENT: Sclerae are anicteric. Pupils are equal and reactive to light and accommodation. Extraocular movements were intact. Neuro: Cranial nerves intact Lungs: Lungs are clear to auscultation bilaterally. There are no rales wheezes or rhonchi. She has normal respiratory effort without use of accessory muscles. There is normal pulmonary excursion. Cardiac: The rhythm was irregular. S1 and S2 were normal. There are no murmurs on examination. The PMI was not markedly displaced on palpation. Abdomen: The abdomen was soft and nontender. Extremities: Patient has bilateral radial pulses that are equal in intensity. There is no evidence cyanosis or clubbing. Mild bilateral lower extremity edema Skin: There are no rashes noted on examination today. Results & Data ([facility] Vital Signs (Past 12 Hours) Vital Signs Temp Pulse Pulse Resp BP BP Pulse Ox 03/31/22 18:10 102 H 16 03/31/22 18:00 88 17 03/31/22 17:50 93 H 15 03/31/22 17:40 105 H 13 03/31/22 17:30 101 H 16 03/31/22 17:20 110 H 16 03/31/22 17:10 87 18 03/31/22 17:00 119 H 18 03/31/22 16:50 103 H 18 03/31/22 16:40 116 H 22 03/31/22 16:30 98 H 21 03/31/22 16:20 96 H 13 03/31/22 16:10 107 H 22 03/31/22 16:00 104 H 18 03/31/22 15:50 105 H 13 03/31/22 15:40 104 H 20 03/31/22 15:33 137/107 H 03/31/22 15:33 108 H 18 03/31/22 15:32 112 H 24 03/31/22 15:32 143/99 H 03/31/22 15:30 113 H 22 03/31/22 15:00 107 H 15 98 03/31/22 15:00 127/92 03/31/22 14:43 131/108 H 03/31/22 14:43 105 H 20 92 03/31/22 14:30 107 H 18 98 03/31/22 14:00 117 H 18 97 03/31/22 13:30 100 H 15 96 03/31/22 13:00 98 H 18 96 03/31/22 13:00 36.6 C 03/31/22 12:50 114 H 16 97 03/31/22 12:40 105 H 19 95 03/31/22 12:30 114 H 14 95 03/31/22 12:20 96 H 24 95 03/31/22 12:10 120 H 21 91 03/31/22 12:00 98 H 19 92 03/31/22 12:00 127/100 03/31/22 11:53 120 H 22 100 03/31/22 11:53 141/99 H 03/31/22 11:30 102 H 20 94 03/31/22 11:30 150/96 H 03/31/22 11:20 114 H 19 93 03/31/22 11:10 99 H 18 92 03/31/22 11:00 96 H 18 92 03/31/22 11:00 122/96 03/31/22 12:43 98 H 03/31/22 12:00 96 H 16 127/100 95 03/31/22 11:22 109 H 22 122/96 95 03/31/22 10:45 120/96 03/31/22 10:30 124 H 20 94 03/31/22 10:30 137/111 H 03/31/22 10:15 142/114 H 03/31/22 10:15 124 H 13 93 03/31/22 10:00 122 H 13 94 03/31/22 10:00 133/112 H 03/31/22 09:45 112 H 20 99 03/31/22 09:45 154/115 H 03/31/22 09:30 120 H 15 99 03/31/22 09:30 145/107 H 03/31/22 10:05 122 H 155/119 H 03/31/22 09:29 134 H 146/105 H 03/31/22 09:15 146/105 H 03/31/22 09:15 122 H 12 95 03/31/22 09:00 101 H 20 94 03/31/22 09:00 147/107 H 03/31/22 08:45 110 H 14 03/31/22 08:45 151/120 H 03/31/22 08:30 104 H 20 94 03/31/22 08:30 159/108 H 03/31/22 08:15 102 H 12 94 03/31/22 08:15 149/116 H 03/31/22 08:00 111 H 12 94 03/31/22 08:00 138/100 03/31/22 07:56 110/83 03/31/22 07:56 113 H 17 95 03/31/22 07:45 140 H 19 92 03/31/22 07:45 152/113 H 03/31/22 07:43 157 H 21 03/31/22 07:43 124/101 H 03/31/22 08:03 90 20 138/100 97 03/31/22 08:44 119 H 159/108 H 03/31/22 07:27 36.4 C L 143 H 26 H 124/93 99 O2 Del Method 03/31/22 18:10 03/31/22 18:00 03/31/22 17:50 03/31/22 17:40 03/31/22 17:30 03/31/22 17:20 03/31/22 17:10 03/31/22 17:00 03/31/22 16:50 03/31/22 16:40 03/31/22 16:30 03/31/22 16:20 03/31/22 16:10 03/31/22 16:00 03/31/22 15:50 03/31/22 15:40 03/31/22 15:33 03/31/22 15:33 03/31/22 15:32 03/31/22 15:32 03/31/22 15:30 03/31/22 15:00 03/31/22 15:00 03/31/22 14:43 03/31/22 14:43 03/31/22 14:30 03/31/22 14:00 03/31/22 13:30 03/31/22 13:00 03/31/22 13:00 03/31/22 12:50 03/31/22 12:40 03/31/22 12:30 03/31/22 12:20 03/31/22 12:10 03/31/22 12:00 03/31/22 12:00 03/31/22 11:53 03/31/22 11:53 03/31/22 11:30 03/31/22 11:30 03/31/22 11:20 03/31/22 11:10 03/31/22 11:00 03/31/22 11:00 03/31/22 12:43 03/31/22 12:00 Room Air 03/31/22 11:22 Room Air 03/31/22 10:45 03/31/22 10:30 03/31/22 10:30 03/31/22 10:15 03/31/22 10:15 03/31/22 10:00 03/31/22 10:00 03/31/22 09:45 03/31/22 09:45 03/31/22 09:30 03/31/22 09:30 03/31/22 10:05 03/31/22 09:29 03/31/22 09:15 03/31/22 09:15 03/31/22 09:00 03/31/22 09:00 03/31/22 08:45 03/31/22 08:45 03/31/22 08:30 03/31/22 08:30 03/31/22 08:15 03/31/22 08:15 03/31/22 08:00 03/31/22 08:00 03/31/22 07:56 03/31/22 07:56 03/31/22 07:45 03/31/22 07:45 03/31/22 07:43 03/31/22 07:43 03/31/22 08:03 Room Air 03/31/22 08:44 03/31/22 07:27 Room Air Laboratory Results Abnormal Lab Results 03/31/22 03/31/22 03/31/22 07:40 07:40 07:40 WBC 6.70 RBC 4.34 Hgb 13.6 Hct 41.3 MCV 95.2 MCH 31.3 MCHC 32.9 RDW Std Deviation 46.5 H RDW Coeff of Krista 13.2 Plt Count 214 MPV 10.8 Immature Gran % (Auto) 0.1 Neut % (Auto) 62.5 Lymph % (Auto) 27.6 [place] % (Auto) 7.6 Eos % (Auto) 1.5 Baso % (Auto) 0.7 Neut # (Auto) 4.18 Lymph # (Auto) 1.85 [place] # (Auto) 0.51 Eos # (Auto) 0.10 Baso # (Auto) 0.05 Immature Gran # (Auto) 0.01 PT 12.1 H INR 1.1 APTT 27.5 PTT Ratio 1.0 D-Dimer Sodium 138 Potassium 4.0 Chloride 104 Carbon Dioxide 26 Anion Gap 8 BUN 19 Creatinine 1.15 Est Cr Clr Drug Dosing 43.6 Est GFR ( Amer) 55.4 Est GFR (Non-Af Amer) 47.8 BUN/Creatinine Ratio 16.5 Glucose 100 H Calcium 8.9 Magnesium 1.9 Total Bilirubin 0.5 AST 16 ALT 14 Alkaline Phosphatase 120 H Troponin I High Sens 12.0 C-Reactive Protein B-Natriuretic Peptide Total Protein 7.1 Albumin 4.1 Globulin 3.0 Albumin/Globulin Ratio 1.4 Procalcitonin TSH Nasal Screen MRSA (PCR) SARS-CoV-2, RNA, NAAT 03/31/22 03/31/22 03/31/22 07:40 07:40 11:04 WBC RBC Hgb Hct MCV MCH MCHC RDW Std Deviation RDW Coeff of Krista Plt Count MPV Immature Gran % (Auto) Neut % (Auto) Lymph % (Auto) [place] % (Auto) Eos % (Auto) Baso % (Auto) Neut # (Auto) Lymph # (Auto) [place] # (Auto) Eos # (Auto) Baso # (Auto) Immature Gran # (Auto) PT INR APTT PTT Ratio D-Dimer Sodium Potassium Chloride Carbon Dioxide Anion Gap BUN Creatinine Est Cr Clr Drug Dosing Est GFR ( Amer) Est GFR (Non-Af Amer) BUN/Creatinine Ratio Glucose Calcium Magnesium Total Bilirubin AST ALT Alkaline Phosphatase Troponin I High Sens C-Reactive Protein 0.58 H B-Natriuretic Peptide Total Protein Albumin Globulin Albumin/Globulin Ratio Procalcitonin TSH 1.470 Nasal Screen MRSA (PCR) SARS-CoV-2, RNA, NAAT NEGATIVE 03/31/22 03/31/22 03/31/22 11:04 11:53 14:37 WBC RBC Hgb Hct MCV MCH MCHC RDW Std Deviation RDW Coeff of Krista Plt Count MPV Immature Gran % (Auto) Neut % (Auto) Lymph % (Auto) [place] % (Auto) Eos % (Auto) Baso % (Auto) Neut # (Auto) Lymph # (Auto) [place] # (Auto) Eos # (Auto) Baso # (Auto) Immature Gran # (Auto) PT INR APTT PTT Ratio D-Dimer 480 Sodium Potassium Chloride Carbon Dioxide Anion Gap BUN Creatinine Est Cr Clr Drug Dosing Est GFR ( Amer) Est GFR (Non-Af Amer) BUN/Creatinine Ratio Glucose Calcium Magnesium Total Bilirubin AST ALT Alkaline Phosphatase Troponin I High Sens C-Reactive Protein B-Natriuretic Peptide 545 H Total Protein Albumin Globulin Albumin/Globulin Ratio Procalcitonin TSH Nasal Screen MRSA (PCR) Negative SARS-CoV-2, RNA, NAAT 03/31/22 03/31/22 14:37 14:37 WBC RBC Hgb Hct MCV MCH MCHC RDW Std Deviation RDW Coeff of Krista Plt Count MPV Immature Gran % (Auto) Neut % (Auto) Lymph % (Auto) [place] % (Auto) Eos % (Auto) Baso % (Auto) Neut # (Auto) Lymph # (Auto) [place] # (Auto) Eos # (Auto) Baso # (Auto) Immature Gran # (Auto) PT INR APTT PTT Ratio D-Dimer Sodium Potassium Chloride Carbon Dioxide Anion Gap BUN Creatinine Est Cr Clr Drug Dosing Est GFR ( Amer) Est GFR (Non-Af Amer) BUN/Creatinine Ratio Glucose Calcium Magnesium Total Bilirubin AST ALT Alkaline Phosphatase Troponin I High Sens 10.0 C-Reactive Protein B-Natriuretic Peptide Total Protein Albumin Globulin Albumin/Globulin Ratio Procalcitonin < 0.05 TSH Nasal Screen MRSA (PCR) SARS-CoV-2, RNA, NAAT Diagnostic Findings Echocardiogram performed today revealed severely reduced LV systolic function with ejection fraction of 20%. Moderate right ventricular dysfunction. Severe biatrial dilation. Moderate mitral regurgitation and severe tricuspid regurgitation with evidence of elevated pulmonary pressures. Chest x-ray obtained the time admission not reveal any evidence for pulmonary vascular congestion. PG Care Time/CCT Total # of Minutes Spent Total Time Spent with Patient: Total time spent is greater than 50% in coordination of care (as documented) at patient's floor/unit and/or counseling patient: Coding Level of Care Code 73196 Initial Inpt Care Lvl 3 Diagnoses Atrial fibrillation with RVR I48.91 CAD (coronary artery disease) I25.10 Cardiomyopathy I42.9 Heart failure with reduced ejection fraction I50.20 Valvular heart disease I38
--- NOTE | 2022-03-31 19:04 | Electrocardiogram Report ---
Test Reason : Blood Pressure : / mmHG Vent. Rate : 157 BPM Atrial Rate : 174 BPM P-R Int : 000 ms QRS Dur : 092 ms QT Int : 246 ms P-R-T Axes : 000 -19 186 degrees QTc Int : 397 ms Poor data quality, interpretation may be adversely affected Atrial fibrillation with rapid ventricular response Anteroseptal infarct (cited on or before 24-AUG-2019) Abnormal ECG When compared with ECG of 24-AUG-2019 17:56, Atrial fibrillation has replaced Sinus rhythm Vent. rate has increased BY 73 BPM Nonspecific T wave abnormality now evident in Inferior leads Inverted T waves have replaced nonspecific T wave abnormality in Lateral leads Confirmed by Morgan Robledo ([id number]) on 03/31/2022 7:04:04 PM Referred By: REFERRED SELF Confirmed By:Dustin Robledo
--- NOTE | 2022-03-31 21:03 | Ultrasound Report ---
ULTRASOUND BILATERAL LOWER EXTREMITY VENOUS CLINICAL HISTORY: Atypical chest pain. Lower extremity edema COMPARISON STUDY: Bilateral lower extremity venous ultrasound dated 08/25/2019. TECHNIQUE: Real-time, grayscale, and color Doppler sonography of the deep veins of the right and left lower extremity was performed from the inguinal crease to the calf. Compression and augmentation wer e utilized. FINDINGS: Right lower extremity: There is nonocclusive and chronic appearing deep venous thrombosis within the right common femoral vein. There is nearly occlusive age indeterminate thrombus within one of the dup licated superficial femoral veins. The popliteal vein is patent and normally compressible. The greate r saphenous vein and the profunda femoris vein at the junction with the common femoral vein are clear . The visualized calf veins are patent. Left lower extremity: There is no sonographic evidence of deep venous thrombosis in the left lower ex tremity. The common femoral, superficial femoral, and popliteal veins are patent and normally tiarra sible. The greater saphenous vein and the profunda femoris vein at the junction with the common femor al vein are clear. The visualized calf veins are patent. IMPRESSION: 1. There is nonocclusive and chronic appearing deep venous thrombosis within the right common femoral vein. 2. There is age indeterminant and nearly occlusive age-indeterminate thrombus within one of the dupli cated right superficial femoral veins. 3. There is no sonographic evidence of deep venous thrombosis in the left lower extremity. ACT 112: Negative or not required by law. Electronically signed by: Godfrey Pham M.D. 03/31/2022 9:01 PM
[2022-03-31] MEDS: FUROSEMIDE 40 MG/4 ML VIAL IV SCH (21:17)
[2022-03-31] MEDS: NYSTATIN POWDER 15GM BTL EXT SCH (21:18)
[2022-03-31] MEDS: APIXABAN 5 MG TABLET PO SCH (21:18)
[2022-04-01] MEDS ORDERED: ONDANSETRON INJ 2 MG/ML 2 ML VIAL IV PRN (05:40)
[2022-04-01] MEDS: LEVOTHYROXINE SODIUM 50 MCG TABLET PO SCH (05:51)
[2022-04-01] MEDS: APIXABAN 5 MG TABLET PO SCH ×2 (07:57→20:30)
[2022-04-01] MEDS: busPIRone 5 MG TAB PO SCH ×3 (07:59→20:29)
[2022-04-01] MEDS: FLUTICASONE PROPIONATE NA SPR 16 GM BTL NAE SCH (08:00)
[2022-04-01] MEDS: FLUTICASONE FUROATE 100MCG 14 PUFFS/INHALER INH SCH (08:00)
[2022-04-01] MEDS: LOSARTAN POTASSIUM 50 MG TAB PO SCH (08:01)
[2022-04-01] MEDS: METOPROLOL TARTRATE 50 MG TAB PO SCH ×2 (08:01→14:26)
[2022-04-01] MEDS: FUROSEMIDE 40 MG/4 ML VIAL IV SCH ×2 (08:01→20:31)
[2022-04-01] MEDS: NYSTATIN POWDER 15GM BTL EXT SCH ×2 (08:02→20:31)
[2022-04-01] MEDS: UMECLIDINIUM/VILANTEROL 62.5/25MCG 7 PUFFS/INHALER INH SCH (08:02)
[2022-04-01] MEDS: PANTOprazole 40 MG TAB PO SCH (08:02)
[2022-04-01] MEDS ORDERED: MICONAZOLE NITRATE POWDER 43 GM EXT SCH (09:00)
[2022-04-01 10:16] LABS: Hematocrit (blood only) 39.4 % (34.1-44.9); Hemoglobin 12.7 g/dl (12.0-16.0); Mean Corpuscular Hemoglobin 30.6 pg (25.0-34.0); Mean Corpuscular Hgb Conc 32.2 g/dL (32.0-36.0); Mean Corpuscular Volume 94.9 fL (80.0-100.0); Mean Platelet Volume 10.7 fL (9.4-12.3); Platelet Count 215 K/uL (130-400); RDW Coefficient of Variation 13.4 % (11.5-14.5); RDW Standard Deviation 47.2 fL (36.4-46.3); Red Blood Count 4.15 M/uL (3.93-5.22); White Blood Count 6.12 K/ul (4.8-10.8)
[2022-04-01] MEDS: dilTIAZem HCL 125 MG in DEXTROSE 5% 100 ML IV SCH ×2 (10:32→20:29)
[2022-04-01 10:53] LABS: Anion Gap 8 (3-11); BUN Creatinine Ratio 16.2 (10-20); Blood Urea Nitrogen 16 mg/dl (6-23); C Reactive Protein < 0.50 mg/dl (0-0.5); Carbon Dioxide 29 mmol/L (21-32); Chloride 104 mmol/L (98-107); Creatinine Clr Calc Pharmacy 50.6 ml/min; Est GFR (African American) 66.4 ml/min; Est GFR (Non-African American) 57.3 ml/min; Glucose 79 mg/dl (70-99(Fasting)); Magnesium 1.8 mg/dl (1.7-2.4); Potassium 3.7 mmol/L (3.5-5.1); Sodium 141 mmol/L (136-145)
--- NOTE | 2022-04-01 14:56 | Hospitalist Progress Note ---
Date of Service April 01, 2022 Assessment & Plan (1) Atrial fibrillation with RVR: Plan: 71 yo femaleadmitted with A fib RVR Patient is on Apixaban at home for anticoagulation Patient is also on metorpolol. Patien twith SOB over past 4 days, perhaps viral. COVID and flu are negative. BIOFIRE is in short supply will hold off. Patient also had diarrhea but this had subsided, will hold of ordering antidiarrhhea medications. Patient received 15 mg of metorpolol IV. Patient on diltiaxem drip and increased metorpolol to 50 mg PO TID. will taper off diltiazem drip. On 04/01 Ordered an increase in her metoprolol to 100 mg PO BID. Patient continues to require 10 mg/h (diltiazem drip) plan to taper off. (2) COPD (chronic obstructive pulmonary disease): Plan: Patient currently has no wheezing, will hold antibiotics and nebs (3) Lower extremity edema: Plan: Patient had lower extremity edema, Patient finished a 7 day course of cephalxein for lower extremity cellulitis. No current signs of cellulitis (4) Vitamin B12 deficiency: (5) CAD (coronary artery disease): Plan: Patient with hisotry of CAD. Currently not in ACS. will reorder troponin (6) Hyperlipidemia: Plan: resume home meds (7) Hypertension: Plan: resume home meds (8) Diabetes mellitus, type 2: Plan: Noted on problem list. THis was a diagnosis prior to gastric bypass. Her A!C has been below 5. Patient is no longer diabetic. (9) GERD (gastroesophageal reflux disease): Plan: resume home meds (10) Chronic deep vein thrombosis: Plan: repeat imaging is showing a DVT. will obtain a pulmonary ct scan likely scar tissue, will continue home anticoagulation. Admission and Anticipated Discharge Date Admission Date: March 31, 2022 Subjective Patient reports feeling well. She has cramps in her lower legs . Review of Systems Review of Systems: All systems reviewed & are unremarkable except as noted in HPI & below Physical Exam Constitutional: WD/WN, vitals as above Eyes: PERRL, conjunctivae normal, anicteric sclerae ENMT: external ear and nose normal, oropharynx normal Neck: trachea midline, no thyromegaly Respiratory: normal respiratory effort, lungs clear to auscultation Cardiovascular: RRR, no murmur, no edema Gastrointestinal (Abdomen): normal bowel sounds, soft, nontender, no hepatosplenomegaly Musculoskeletal: no cyanosis or clubbing, extremities motor strength 5/5 Skin: no rashes, warm and dry Neurologic: PERRL, EOMI, accommodation nl, no face palsy, no dysarthria Psychiatric: A+Ox3, euthymic affect Lymphatic: no cervical or axillary lymphadenopathy Results & Data Results & Data ([facility]) Vital Signs (Past 12 Hours) Vital Signs Temp Pulse Pulse Resp BP BP Pulse Ox 04/01/22 11:25 36.7 C 89 16 120/76 99 04/01/22 11:08 04/01/22 08:00 37.0 C 106 H 16 133/86 96 04/01/22 05:10 111 H 14 94 04/01/22 05:04 96 H 14 130/86 95 O2 Del Method 04/01/22 11:25 Room Air 04/01/22 11:08 Room Air 04/01/22 08:00 Room Air 04/01/22 05:10 04/01/22 05:04 PG Care Time/CCT Total # of Minutes Spent Total Time Spent with Patient: Total time spent is greater than 50% in coordination of care (as documented) at patient's floor/unit and/or counseling patient: Coding Level of Care Code 12225 SUB INP/OBS CARE 3/50MIN Diagnoses Atrial fibrillation with RVR I48.91 COPD (chronic obstructive pulmonary disease) J44.9 Lower extremity edema R60.0 Vitamin B12 deficiency E53.8 CAD (coronary artery disease) I25.10 Hyperlipidemia E78.5 Hypertension I10 Diabetes mellitus, type 2 E11.9 GERD (gastroesophageal reflux disease) K21.9 Chronic deep vein thrombosis I82.509
[2022-04-01] MEDS ORDERED: OPTIRAY 320 500ml IV ONE (16:44)
--- NOTE | 2022-04-01 17:01 | CT Scan Report ---
CT ANGIOGRAM OF THE CHEST COMBO CLINICAL HISTORY: Atypical chest pain. Dyspnea. COMPARISON STUDY: Chest x-ray dated 03/31/2022. TECHNIQUE: Before and following the IV administration of 114 cc of Optiray 320, CT angiogram of the c hest was performed from the thoracic inlet to the upper abdomen utilizing the dissection protocol. Im ages are reviewed in the axial, sagittal, and coronal planes. 3-D MIPS images are created and assesse d. IV contrast was administered without complication. A dose lowering technique was utilized adherin g to the principles of ALARA. The examination is compromised by motion artifact, as well as by streak artifact from the arms which could not be located within the chest. CT DOSE: 443.65 mGy.cm FINDINGS: Thyroid: Imaged portions of the thyroid gland are normal in size and attenuation. Thoracic aorta: There is moderate atherosclerotic calcification of the thoracic aorta, which is yazan l in caliber and demonstrates standard 3-vessel arch anatomy. The thoracic aorta is not well opacifie d. Pulmonary vasculature: The pulmonary trunk is normal in caliber. There are no central filling defects identified in the pulmonary vessels to suggest pulmonary embolus. Note that this examination was not specifically protocoled to assess for pulmonary emboli. Heart: The heart is enlarged and without pericardial effusion. The coronary arteries are densely calc ified. Lungs and pleural spaces: There are small right and trace left pleural effusions with dependent atele ctasis. No airspace consolidation typical for pneumonia is identified. The trachea and central airway s are clear. Moderate leftward septal thickening is noted at the lung bases. Mediastinum: There is no mediastinal lymphadenopathy. Yesenia: Clear. Axillae: There is no axillary lymphadenopathy. Upper abdomen: There are calcified splenic granulomas. Postsurgical change is noted in the stomach. T here is a moderate to large hiatal hernia. The esophagus is patulous and distended with ingested mate rial to the level of the thoracic inlet. Partially visualized upper abdominal viscera is within yazan l limits. Skeletal structures: The skeletal structures are osteopenic. Degenerative change and hyperkyphosis is seen throughout the thoracic spine with evidence of DISH. There is a chronic-appearing superior endp late compression deformity of T7. No lytic or blastic bony lesions are seen. Advanced arthritic hernandez e is seen in the shoulders. IMPRESSION: 1. There is no evidence of pulmonary embolus in the main, lobar, or segmental pulmonary arteries. 2. Small right and trace left pleural effusions. 3. Cardiomegaly. Mild intralobular septal thickening could be seen with acute versus chronic congesti ve change and clinical correlation will be required. 4. Postsurgical change is noted in the partially visualized stomach and there is a moderate to large hiatal hernia. 5. The esophagus is distended and filled with fluid/debris to the level of the thoracic inlet. Note t hat this may place the patient at risk for aspiration. 6. There is no airspace consolidation typical for pneumonia. 7. Additional findings as above. ACT 112: Negative or not required by law. Electronically signed by: Godfrey Pham M.D. 04/01/2022 5:00 PM
[2022-04-01] MEDS: METOPROLOL TARTRATE 100 MG TAB PO SCH (20:30)
[2022-04-02] MEDS: LEVOTHYROXINE SODIUM 50 MCG TABLET PO SCH (05:37)
[2022-04-02] MEDS: UMECLIDINIUM/VILANTEROL 62.5/25MCG 7 PUFFS/INHALER INH SCH (09:12)
[2022-04-02] MEDS: FLUTICASONE PROPIONATE NA SPR 16 GM BTL NAE SCH (09:12)
[2022-04-02] MEDS: FLUTICASONE FUROATE 100MCG 14 PUFFS/INHALER INH SCH (09:12)
[2022-04-02] MEDS: LOSARTAN POTASSIUM 50 MG TAB PO SCH (09:13)
[2022-04-02] MEDS: APIXABAN 5 MG TABLET PO SCH ×2 (09:14→19:51)
[2022-04-02] MEDS: busPIRone 5 MG TAB PO SCH ×3 (09:14→19:52)
[2022-04-02] MEDS: PANTOprazole 40 MG TAB PO SCH (09:15)
[2022-04-02] MEDS: FUROSEMIDE 40 MG/4 ML VIAL IV SCH ×2 (09:16→19:56)
[2022-04-02] MEDS: METOPROLOL TARTRATE 100 MG TAB PO SCH (10:49)
[2022-04-02] MEDS: NYSTATIN POWDER 15GM BTL EXT SCH ×2 (10:50→19:52)
[2022-04-02 15:17] LABS: BUN Creatinine Ratio 18.3 (10-20); Creatinine Clr Calc Pharmacy 46.4 ml/min; Est GFR (African American) 62.6 ml/min; Potassium 3.7 mmol/L (3.5-5.1)
[2022-04-02] MEDS: dilTIAZem HCL 125 MG in DEXTROSE 5% 100 ML IV SCH (16:00)
[2022-04-02] MEDS: EMPAGLIFLOZIN 10 MG TAB PO SCH (16:08)
--- NOTE | 2022-04-02 18:26 | Cardiology Progress Note ---
Date of Service April 02, 2022 Assessment & Plan (1) Heart failure with reduced ejection fraction: Plan: 2. Atrial fibrillation with RVR 3. Moderate mitral regurgitation 4. Peripheral arterial disease post prior left SFA angioplasty 5. Prior DVTchronic anticoagulation, IVC filter 6. CVI/lymphedema Patient has diuresed very well on twice daily IV Lasix. Minimal residual congestion on exam. Renal function stable. Remains in atrial fibrillation with RVR. Present since at least 03/10/2022. Rate control still above target on metoprolol 200 mg daily Suspect cardiomyopathy tachycardia induced. SPEP still pending. Ischemic etiology also possible with patient's history of PAD. Continue diuresis today. Plan to transition to maintenance p.o. Lasix tomorrow On toprol-XL, Entresto, SGLT2. Start spironolactone 25 mg daily tomorrow With difficult to control A. fib with RVR recommend trial of rhythm control. Will load with amiodarone On chronic uninterrupted Eliquis. Plan for possible cardioversion tomorrow. Please keep NPO. Ischemic evaluation at some pointpossible cardiac catheterization tomorrow as well. Will follow Admission and Anticipated Discharge Date Admission Date: March 31, 2022 Subjective Patient feeling well this evening. Denies any chest pain. No palpitations. Breathing much improved from admission. Negative more than 4 L yesterday. -8 L since admission. Recorded weight down 13 pounds from admission. Telemetry reviewedRemains in atrial fibrillation with RVR, heart rates trend ing up over afternoon now up into 110s to 120s, occasionally 140s Review of Systems Review of Systems: All systems reviewed & are unremarkable except as noted in HPI & below Physical Exam Physical Exam: General: Comfortable HEENT: Sclerae anicteric Lungs: Clear to auscultation bilaterally, no crackles or wheezes Cardiac: Tachycardic, irregular irregular Vascular: 2+ right radial pulse Abdomen: Soft, nontender Extremities: Well perfused, minimal edema Neuro: Nonfocal Psych: Alert orient x3, normal affect and mood Results & Data ([facility]) Vital Signs (Past 12 Hours) Vital Signs Temp Pulse Pulse Resp BP Pulse Ox O2 Del Method 04/02/22 16:00 97 H 04/02/22 15:48 98.1 F 112 H 20 125/92 93 Room Air 04/02/22 08:00 Room Air 04/02/22 12:12 97.9 F 93 H 18 120/85 98 Room Air 04/02/22 08:04 97.9 F 86 20 135/94 98 Room Air 04/02/22 07:13 82 PG Care Time/CCT Total # of Minutes Spent Total Time Spent with Patient: Total time spent is greater than 50% in coordination of care (as documented) at patient's floor/unit and/or counseling patient: Coding Level of Care Code 60477 SUB INP/OBS CARE 3/50MIN Diagnoses Heart failure with reduced ejection fraction I50.20
[2022-04-02] MEDS ORDERED: STAT IV Infusion **Titration per Protocol STA (18:32)
[2022-04-02] MEDS ORDERED: AMIODARONE IV BOLUS & DRIP IV STA (18:32)
[2022-04-02] MEDS ORDERED: 0.2 MICRON FILTER SET 1 EACH IV STA (18:47)
[2022-04-02] MEDS ORDERED: AMIODARONE / D5W 150 MG/100 ML BAG IV ONE (18:50)
[2022-04-02] MEDS ORDERED: AMIODARONE / D5W 360 MG/200 ML BAG IV ONE (19:00)
[2022-04-02] MEDS: VALSARTAN/SACUBITRIL 26/24MG TAB PO SCH (19:51)
[2022-04-02] MEDS ORDERED: METOPROLOL SUCC 50MG EXT REL TAB PO SCH (21:00)
[2022-04-02] MEDS ORDERED: ACETAMINOPHEN 1,000 MG/100 ML VIAL IV PRN (21:16)
--- NOTE | 2022-04-02 22:26 | Hospitalist Progress Note ---
Date of Service April 02, 2022 Assessment & Plan (1) Atrial fibrillation with RVR: Plan: 71 yo femaleadmitted with A fib RVR Patient is on Apixaban at home for anticoagulation Patient is also on metoprolol, during hospital stay, this was titrated up to 200 mg per day. While titrating off diltiazem drip. HR however remains tachycardic. At rest, 90s-110, but just by talking or eating goes up to 130. Patient also found to have a low EF, nonischemic cardiomyopathy.. COVID and flu are negative. will initiate amiodarone drip on 04/02 and possible cardioversion on 04/03 Patient also had diarrhea but this had subsided, will hold of ordering antidiarrhhea medications. (2) COPD (chronic obstructive pulmonary disease): Plan: Patient currently has no wheezing, will hold antibiotics and nebs (3) Lower extremity edema: Plan: Patient had lower extremity edema, Patient finished a 7 day course of cephalxein for lower extremity cellulitis. No current signs of cellulitis (4) Vitamin B12 deficiency: (5) CAD (coronary artery disease): Plan: Patient with hisotry of CAD. Currently not in ACS. (6) Hyperlipidemia: Plan: resume home meds (7) Hypertension: Plan: resume home meds (8) Diabetes mellitus, type 2: Plan: Noted on problem list. THis was a diagnosis prior to gastric bypass. Her A!C has been below 5. Patient is no longer diabetic. (9) GERD (gastroesophageal reflux disease): Plan: resume home meds (10) Chronic deep vein thrombosis: Plan: repeat imaging is showing a DVT. will obtain a pulmonary ct scan D/W Dr. Maciel, likely scar tissue, will continue home anticoagulation. Admission and Anticipated Discharge Date Admission Date: March 31, 2022 Subjective 71 yo female reports feeling better. Patient has no new complaints. Patient is asking to be discharged. Review of Systems Review of Systems: All systems reviewed & are unremarkable except as noted in HPI & below Physical Exam Constitutional: WD/WN, vitals as above Eyes: PERRL, conjunctivae normal, anicteric sclerae ENMT: external ear and nose normal, oropharynx normal Neck: trachea midline, no thyromegaly Respiratory: normal respiratory effort, lungs clear to auscultation Cardiovascular: RRR, no murmur, no edema Gastrointestinal (Abdomen): normal bowel sounds, soft, nontender, no hepatosplenomegaly Musculoskeletal: no cyanosis or clubbing, extremities motor strength 5/5 Skin: no rashes, warm and dry Neurologic: PERRL, EOMI, accommodation nl, no face palsy, no dysarthria Psychiatric: A+Ox3, euthymic affect Lymphatic: no cervical or axillary lymphadenopathy Results & Data Results & Data ([facility]) Vital Signs (Past 12 Hours) Vital Signs Temp Pulse Pulse Resp BP BP Pulse Ox 04/02/22 19:50 142 H 106/85 94 04/02/22 19:32 36.6 C 139 H 20 126/95 92 04/02/22 19:37 118 H 18 107/78 94 04/02/22 16:00 97 H 04/02/22 15:48 36.7 C 112 H 20 125/92 93 04/02/22 12:12 36.6 C 93 H 18 120/85 98 O2 Del Method 04/02/22 19:50 Room Air 04/02/22 19:32 Room Air 04/02/22 19:37 Room Air 04/02/22 16:00 04/02/22 15:48 Room Air 04/02/22 12:12 Room Air PG Care Time/CCT Total # of Minutes Spent Total Time Spent with Patient: Total time spent is greater than 50% in coordination of care (as documented) at patient's floor/unit and/or counseling patient: Coding Level of Care Code 05776 SUB INP/OBS CARE 3/50MIN Diagnoses Atrial fibrillation with RVR I48.91 COPD (chronic obstructive pulmonary disease) J44.9 Lower extremity edema R60.0 Vitamin B12 deficiency E53.8 CAD (coronary artery disease) I25.10 Hyperlipidemia E78.5 Hypertension I10 Diabetes mellitus, type 2 E11.9 GERD (gastroesophageal reflux disease) K21.9 Chronic deep vein thrombosis I82.509
[2022-04-03] MEDS ORDERED: AMIODARONE / D5W 360 MG/200 ML BAG IV SCH (01:00)
[2022-04-03] MEDS: LEVOTHYROXINE SODIUM 50 MCG TABLET PO SCH (06:02)
--- NOTE | 2022-04-03 07:17 | Anesthesiology Consultation ---
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 Height/Weight Height: 5 ft 4 in Weight: 66.1 kg Allergies Allergy/AdvReac Type Severity Reaction Status Date / Time gabapentin AdvReac Intermediate LOSS OF Verified 03/20/22 14:30 FEELING IN LOWER EXTREMITIES adhesive tape AdvReac Mild Rash Verified 03/20/22 14:30 shellfish derived AdvReac Mild GI SYMPTOMS Verified 03/20/22 14:30 pork derived (porcine) AdvReac Unknown Vomiting Verified 03/20/22 14:30 Pork/Porcine Containing AdvReac Unknown Vomiting Verified 03/20/22 14:30 Products Prep Swab Allergy Unknown "Get sick Uncoded 03/20/22 14:30 and throw up" Medications Home Medications Medication Instructions Recorded Confirmed Last Taken miconazole nitrate 2 % topical 1 applic EXT DAILY #43 grams 06/05/20 03/20/22 Unknown powder (Desenex) nitroglycerin 0.4 mg sublingual 0.4 mg sublingual Q5M PRN Chest 06/05/20 03/20/22 Unknown tablet Pain #100 tabs lorazepam 0.5 mg tablet 0.5 mg PO Q8H PRN anxiety #30 tabs 03/15/21 03/20/22 Unknown nystatin 100,000 unit/gram topical 1 applic topical BID #30 grams 05/21/21 03/20/22 Unknown powder losartan 50 mg tablet 50 mg PO DAILY #90 tabs 07/01/21 03/20/22 Unknown omeprazole 40 mg capsule,delayed 40 mg PO DAILY #90 caps 07/01/21 03/20/22 Unknown release buspirone 10 mg tablet 10 mg PO TID #270 tabs 07/29/21 03/20/22 Unknown fluticasone fur. 100 mcg-umeclid 1 inh inhalation DAILY #60 ea 08/28/21 03/20/22 Unknown 62.5 mcg-vilant 25 mcg inhalat.powder (Trelegy Ellipta) fluticasone propionate 50 See Rx Instructions .Route 11/29/21 03/20/22 Unknown mcg/actuation nasal .COMPLEX #16 grams spray,suspension levothyroxine 50 mcg tablet 50 mcg PO DAILY #90 tabs 01/20/22 03/20/22 Unknown metoprolol tartrate 50 mg tablet 50 mg PO BID #90 tabs 03/10/22 03/20/22 Unknown albuterol sulfate 90 mcg/actuation 1 puff inhalation DAILY PRN 03/11/22 03/20/22 Unknown aerosol inhaler Shortness Of Breath #8.5 grams torsemide 20 mg tablet 20 mg PO DAILY PRN swelling #30 03/12/22 03/20/22 Unknown tabs cephalexin 500 mg capsule 500 mg PO TID #21 caps 03/20/22 03/20/22 Unknown apixaban 5 mg tablet (Eliquis) 5 mg PO BID #60 tabs 03/21/22 Unknown tramadol 50 mg tablet 50 mg PO TID PRN Pain #90 tabs 03/27/22 Unknown dapagliflozin 10 mg tablet 10 mg PO DAILY #30 tabs 04/02/22 Unknown (Farxiga) metoprolol succinate 200 mg 200 mg PO PM #30 tabs 04/02/22 Unknown tablet,extended release 24 hr sacubitril 24 mg-valsartan 26 mg 1 tab PO BID #60 tabs 04/02/22 Unknown tablet (Entresto) Active Medications Generic Name Dose Route Start Last Admin Trade Name Freq PRN Reason Stop Dose Admin Apixaban 5 mg 03/31/22 21:00 04/02/22 19:51 Apixaban 5 Mg Tablet PO 04/30/22 20:59 5 mg BID ASHWINI Administration Buspirone HCl 10 mg 03/31/22 14:00 04/02/22 19:52 Buspirone 5 Mg Tab PO 04/30/22 13:59 10 mg TID ASHWINI Administration Empagliflozin 10 mg 04/02/22 15:00 04/02/22 16:08 Empagliflozin 10 Mg Tab PO 05/02/22 14:59 10 mg DAILY ASHWINI Administration Fluticasone Furoate 1 puffs 04/01/22 09:00 04/02/22 09:12 Fluticasone Furoate 100mcg 14 Puffs/Inhaler INH 05/01/22 08:59 1 puffs DAILY ASHWINI Administration Fluticasone Propionate 1 sprays 04/01/22 09:00 04/02/22 09:12 Fluticasone Propionate Na Spr 16 Gm Btl MATTHEW 05/01/22 08:59 1 sprays DAILY ASHWINI Administration Furosemide 40 mg 03/31/22 21:00 01/04/23 19:56 Furosemide 40 Mg/4 Ml Vial IV 04/30/22 20:59 40 mg BID ASHWINI Administration Amiodarone HCl/Dextrose 360 mg in 200 mls @ 16.667 mls/hr 04/03/22 01:00 04/03/22 01:05 Nexterone / D5w IV 05/03/22 00:59 0.5 mg/min .Q12H ASHWINI 16.7 mls/hr Administration 0.5 MG/MIN Acetaminophen 1,000 mg in 100 mls @ 400 mls/hr 04/02/22 21:16 04/02/22 21:55 Ofirmev IV 04/05/22 21:15 Infused Q8H PRN Infusion Pain or Fever Levothyroxine Sodium 50 mcg 04/01/22 06:30 04/03/22 06:02 Levothyroxine Sodium 50 Mcg Tablet PO 05/01/22 06:29 50 mcg DAILYBB ASHWINI Administration Metoprolol Succinate 200 mg 04/02/22 21:00 04/02/22 20:01 Metoprolol Succ 50mg Ext Rel Tab PO 05/02/22 20:59 200 mg PM ASHWINI Administration Nystatin 1 appln 03/31/22 21:00 04/02/22 19:52 Nystatin Powder 15gm Btl EXT 04/30/22 20:59 1 appln BID ASHWINI Administration Ondansetron HCl 4 mg 04/01/22 05:40 04/01/22 05:51 Ondansetron Inj 2 Mg/Ml 2 Ml Vial IV 05/01/22 05:39 4 mg Q6H PRN Administration Nausea And Vomiting Pantoprazole Sodium 40 mg 04/01/22 09:00 04/02/22 09:15 Pantoprazole 40 Mg Tab PO 05/01/22 08:59 40 mg DAILY ASHWINI Administration Sacubitril/Valsartan 1 tab 04/02/22 21:00 04/02/22 19:51 Valsartan/Sacubitril 26/24mg Tab PO 05/02/22 20:59 1 tab BID ASHWINI Administration Umeclidinium/Vilanterol 1 puffs 04/01/22 09:00 04/02/22 09:12 Umeclidinium/Vilanterol 62.5/25mcg 7 Puffs/Inhaler INH 05/01/22 08:59 1 puffs DAILY ASHWINI Administration Past Medical History Medical History Anxiety CAD (coronary artery disease) patient reports h/o MA in 2009 and 2010 Chronic back pain COPD (chronic obstructive pulmonary disease) Diabetes mellitus with diabetic polyneuropathy Diabetes mellitus, type 2 No meds since gastric bypass GERD (gastroesophageal reflux disease) Gout [place] filter in place H/O deep venous thrombosis Left leg - s/p IVF filter History of ovarian cancer s/p hysterectomy/oophorectomy - no chemotherapy Hyperlipidemia Hypertension Hypothyroidism Osteoarthritis, hip, bilateral Osteoporosis Peripheral arterial disease s/p angioplasty distal SFA/ mid popliteal - 06/2020 Vitamin B12 deficiency Past Family History Family History Other Family history non-contributory Past Surgical History Surgical History History of adenoidectomy History of cardiac cath no stents History of colonoscopy History of gastric bypass History of hysterectomy History of lumbar spinal fusion History of PTCA History of tonsillectomy History of total knee replacement RT/LEFT Social History Smoking Status: Never smoker Hx Alcohol Use: No Hx Substance Use: No substance use type: does not use Physical Exam Vital Signs Last Vital Signs Temp 98.2 F 04/03/22 07:10 Pulse 102 H 04/03/22 07:10 Resp 16 04/03/22 07:10 BP 120/89 04/03/22 07:10 Pulse Ox 97 04/03/22 07:10 O2 Del Method 04/03/22 07:10 Testing Laboratory Results 04/01/22 10:04 04/02/22 14:43 PT 12.1 Seconds (9.0-12.0) H 03/31/22 07:40 INR 1.1 (0.9-1.1) 03/31/22 07:40 APTT 27.5 Seconds (21.0-31.0) 03/31/22 07:40 Electrocardiogram Date: 03/31/22 Poor data quality, interpretation may be adversely affected Atrial fibrillation with rapid ventricular response Anteroseptal infarct (cited on or before 24-AUG-2019) Abnormal ECG When compared with ECG of 24-AUG-2019 17:56, Atrial fibrillation has replaced Sinus rhythm Vent. rate has increased BY 73 BPM Nonspecific T wave abnormality now evident in Inferior leads Inverted T waves have replaced nonspecific T wave abnormality in Lateral leads Confirmed by Morgan Robledo ([id number]) on 03/31/2022 7:04:04 PM Chest X-Ray Date: 03/31/22 IMPRESSION: 1. Possible trace right pleural effusion. 2. Stable cardiomegaly without evidence for pulmonary edema.
[2022-04-03] MEDS ORDERED: PROPOFOL IV EMULSION 10 MG/ML 20 ML VIAL IV ONE (07:22)
[2022-04-03] MEDS ORDERED: MAGNESIUM SULFATE / D5W 1 GM/100 ML BAG IV ONE (08:06)
--- NOTE | 2022-04-03 08:12 | Hospitalist Progress Note ---
Date of Service April 03, 2022 Assessment & Plan (1) Atrial fibrillation with RVR: Plan: A fib RVR previous history of afib pre hispital on Apixaban, metoprolol, during hospital stay, this was titrated up to 200 mg per day. Amiodarone 04/02/21 HR however remains tachycardic. At rest, 90s-110, but just by talking or eating goes up to 130. Patient also found to have a low EF, nonischemic cardiomyopathy.. COVID and flu are negative. will initiate amiodarone drip on 04/02 and possible cardioversion on 04/03 (2) COPD (chronic obstructive pulmonary disease): Plan: Stable Patient currently has no wheezing, (3) Lower extremity edema: Plan: Patient had lower extremity edema, Patient finished a 7 day course of cephalxein for lower extremity cellulitis. No current signs of cellulitis (4) Vitamin B12 deficiency: (5) CAD (coronary artery disease): Plan: Patient with hisotry of CAD. Currently not in ACS. (6) Hyperlipidemia: Plan: resume home meds (7) Hypertension: Plan: resume home meds (8) Diabetes mellitus, type 2: Plan: Noted on problem list. THis was a diagnosis prior to gastric bypass. Her A1C has been below 5. Patient is no longer diabetic. (9) GERD (gastroesophageal reflux disease): Plan: resume home meds, CTA shows distended fluid and debris filled esopahgus (10) Chronic deep vein thrombosis: Plan: repeat imaging is showing a DVT. D/W Dr. Maciel, likely scar tissue, will continue home anticoagulation. CTA 04/01/22 shows not acute PE incidentally noted esophageal abnormalites of dysmotility Admission and Anticipated Discharge Date Admission Date: March 31, 2022 Results & Data Results & Data ([facility]) Vital Signs (Past 12 Hours) Vital Signs Temp Pulse Pulse Resp BP Pulse Ox O2 Del Method 04/03/22 07:37 120 H 20 109/94 96 Room Air 04/03/22 07:10 98.2 F 102 H 16 120/89 97 Room Air 04/03/22 03:00 97.9 F 120 H 16 103/83 97 Room Air 04/02/22 23:24 120 H 04/02/22 22:26 98.8 F 58 L 16 98/70 L 95 Room Air PG Care Time/CCT Total # of Minutes Spent Total Time Spent with Patient: Total time spent is greater than 50% in coordination of care (as documented) at patient's floor/unit and/or counseling patient: Coding Diagnoses Atrial fibrillation with RVR I48.91 COPD (chronic obstructive pulmonary disease) J44.9 Lower extremity edema R60.0 Vitamin B12 deficiency E53.8 CAD (coronary artery disease) I25.10 Hyperlipidemia E78.5 Hypertension I10 Diabetes mellitus, type 2 E11.9 GERD (gastroesophageal reflux disease) K21.9 Chronic deep vein thrombosis I82.509
--- NOTE | 2022-04-03 08:35 | Cardioversion ---
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 Tomas. - PADs placed in AP position - Received 1 synchronized shock at 200J - Converted to sinus bradycardia - No apparent complications Summary: 1. Successful electrical cardioversion. Recommendations: - Continue anticoagulation uninterrupted for at least 4 weeks. - Stop amiodarone infusion. start PO amiodarone for 200mg BID for next 2 weeks, then 200mg daily - continue toprol XL Coding Level of Care Code Cardioversion, elective Additional Codes Electrical Cardioversion Report ([id number])
--- NOTE | 2022-04-03 08:45 | Anesthesiology Progress Note ---
Date of Service April 03, 2022 Anesthesia Post Procedure Vital Signs Vital Signs: Temp Pulse Pulse Resp BP BP Pulse Ox 04/03/22 08:30 56 L 16 85/50 L 99 04/03/22 08:24 51 L 16 123/63 98 04/03/22 07:37 120 H 20 109/94 96 04/03/22 07:10 98.2 F 102 H 16 120/89 97 04/03/22 03:00 97.9 F 120 H 16 103/83 97 04/02/22 23:24 120 H 04/02/22 22:26 98.8 F 58 L 16 98/70 L 95 04/02/22 19:25 04/02/22 19:50 142 H 106/85 94 04/02/22 19:32 97.9 F 139 H 20 126/95 92 04/02/22 19:37 118 H 18 107/78 94 04/02/22 16:00 97 H 04/02/22 15:48 98.1 F 112 H 20 125/92 93 04/02/22 12:12 97.9 F 93 H 18 120/85 98 O2 Del Method O2 Flow Rate 04/03/22 08:30 Nasal Cannula 4 04/03/22 08:24 Nasal Cannula 4 04/03/22 07:37 Room Air 04/03/22 07:10 Room Air 04/03/22 03:00 Room Air 04/02/22 23:24 04/02/22 22:26 Room Air 04/02/22 19:25 Room Air 04/02/22 19:50 Room Air 04/02/22 19:32 Room Air 04/02/22 19:37 Room Air 04/02/22 16:00 04/02/22 15:48 Room Air 04/02/22 12:12 Room Air Transfer of Care Handoff Completed per policy Notes Mental Status: alert / awake / arousable and participated in evaluation Patient Amnestic to Procedure: Yes Nausea / Vomiting: adequately controlled Pain: adequately controlled Airway Patency, RR, SpO2: stable & adequate BP & HR: stable & adequate Hydration State: stable & adequate Anesthetic Complications: no major complications apparent and Pt Satisfied with anesthetic care
--- NOTE | 2022-04-03 08:50 | Cardiology Progress Note ---
Date of Service April 03, 2022 Assessment & Plan (1) Heart failure with reduced ejection fraction: Plan: 2. Atrial fibrillation with RVR 3. Moderate mitral regurgitation 4. Peripheral arterial disease post prior left SFA angioplasty 5. Prior DVTchronic anticoagulation, IVC filter 6. CVI/lymphedema Post successful cardioversion this morning. Excellent diuresis. Appears near euvolemia. Transition to maintenance p.o. Lasix 40mg today On toprol-XL, Entresto, SGLT2. Spironolactone if BP allows -- Stop IV amio. Transition to PO amiodarone 200mg BID for 2 weeks then 200mg daily Continue anticoagulation with Eliquis -- Will defer heart cath. Has scheduled Lexican SPECT tomorrow. Can be done as an outpatient. Possible discharge later this after Admission and Anticipated Discharge Date Admission Date: March 31, 2022 Subjective Post successful cardioversion today. Waking up from anesthesia. No events overnight. Slept well. Negative 3.6 yesterday. >10L for admission Review of Systems Review of Systems: All systems reviewed & are unremarkable except as noted in HPI & below Physical Exam Physical Exam: General: Comfortable HEENT: Sclerae anicteric Lungs: Clear to auscultation bilaterally Cardiac: Bradycardic, regular Vascular: 2+ right radial pulse Abdomen: Soft, nontender Extremities: Well perfused, minimal edema Neuro: Nonfocal Psych: Alert orient x3, normal affect and mood Results & Data ([facility]) Vital Signs (Past 12 Hours) Vital Signs Temp Pulse Pulse Resp BP Pulse Ox O2 Del Method 04/03/22 08:30 56 L 16 85/50 L 99 Nasal Cannula 04/03/22 08:24 51 L 16 123/63 98 Nasal Cannula 04/03/22 07:37 120 H 20 109/94 96 Room Air 04/03/22 07:10 98.2 F 102 H 16 120/89 97 Room Air 04/03/22 03:00 97.9 F 120 H 16 103/83 97 Room Air 04/02/22 23:24 120 H 04/02/22 22:26 98.8 F 58 L 16 98/70 L 95 Room Air O2 Flow Rate 04/03/22 08:30 4 04/03/22 08:24 4 04/03/22 07:37 04/03/22 07:10 04/03/22 03:00 04/02/22 23:24 04/02/22 22:26 PG Care Time/CCT Total # of Minutes Spent Total Time Spent with Patient: Total time spent is greater than 50% in coordination of care (as documented) at patient's floor/unit and/or counseling patient: Coding Level of Care Code 35136 SUB INP/OBS CARE 3/50MIN Diagnoses Heart failure with reduced ejection fraction I50.20
[2022-04-03] MEDS ORDERED: FUROSEMIDE 40 MG TAB PO SCH (09:00)
[2022-04-03] MEDS: busPIRone 5 MG TAB PO SCH ×2 (09:53→15:56)
[2022-04-03] MEDS: PANTOprazole 40 MG TAB PO SCH (09:53)
[2022-04-03] MEDS: EMPAGLIFLOZIN 10 MG TAB PO SCH (09:53)
[2022-04-03] MEDS: UMECLIDINIUM/VILANTEROL 62.5/25MCG 7 PUFFS/INHALER INH SCH (09:53)
[2022-04-03] MEDS: VALSARTAN/SACUBITRIL 26/24MG TAB PO SCH (09:53)
[2022-04-03] MEDS: NYSTATIN POWDER 15GM BTL EXT SCH (09:54)
[2022-04-03] MEDS: FLUTICASONE PROPIONATE NA SPR 16 GM BTL NAE SCH (09:54)
[2022-04-03] MEDS: FLUTICASONE FUROATE 100MCG 14 PUFFS/INHALER INH SCH (09:54)
[2022-04-03] MEDS ORDERED: Nursing to Pharmacy Communication SCH (11:00)
[2022-04-03] MEDS ORDERED: AMIODARONE 200 MG TAB PO ONE (11:30)
[2022-04-03] MEDS: APIXABAN 5 MG TABLET PO SCH (15:56)
[2022-04-03 16:07] LABS: Albumin 3.4 g/dL (3.8-4.8); Alpha 1 Globulin 0.4 g/dL (0.2-0.3); Alpha 2 Globulin 0.8 g/dL (0.5-0.9); Beta-1-Globulin 0.3 g/dL (0.4-0.6); Beta-2-Globulin 0.3 g/dL (0.2-0.5); Gamma Globulin 0.9 g/dL (0.8-1.7); Monoclonal Protein Band 2 DNR g/dL (NONE DETECTED); Monoclonal Protein Band 3 DNR g/dL (NONE DETECTED); Total Protein 6.1 g/dL (6.1-8.1)
[2022-04-03] MEDS ORDERED: AMIODARONE 200 MG TAB PO SCH (17:00)
--- NOTE | 2022-04-03 18:01 | Discharge Summary ---
Date of Service April 03, 2022 Admission HPI Per Admitting Provider 71 yo female presents to the ER with a 4 day history of SOB. Patient reports SOB at rest, Patient reports having difficulty taking deep breaths.The following day she noticed pleuritic chest pain on the left. Patient denied any fever, chills, nausea, or vomiting. Patien treports yesterday she started having loose stools. She had about 8 BMs, yesteyrday with her last BM at 8 pm. Patient reports her grandaurojas who is about 23 years old, had the sniffles. BUt she denies any other sick contacts. Patient reports today that she started to have a cough. Principal Diagnosis atrial fibrillation s/p cardioversion acute systolic / diastolic heart failure secondary to afib Discharge Exam The patient appeared stable Vital signs as documented. Lungs are clear to auscultation and appear unlabored Cardiac exam, Rhythm is regular.. No murmurs, rubs or gallops. Abdominal exam reveals normal bowel sounds, soft non tender, no masses Extremities are trace edematous and both LE have Chronic venous stasis changes, both pedal pulses are normal. Neurologic exam is alert and oriented, no focal loss of strength or sensation Skin is with discoloration of LE Psychologically is without concerns for anxiety or depression. Discharge Data Allergies Allergy/AdvReac Type Severity Reaction Status Date / Time gabapentin AdvReac Intermediate LOSS OF Verified 03/20/22 14:30 FEELING IN LOWER EXTREMITIES adhesive tape AdvReac Mild Rash Verified 03/20/22 14:30 shellfish derived AdvReac Mild GI SYMPTOMS Verified 03/20/22 14:30 pork derived (porcine) AdvReac Unknown Vomiting Verified 03/20/22 14:30 Pork/Porcine Containing AdvReac Unknown Vomiting Verified 03/20/22 14:30 Products Prep Swab Allergy Unknown "Get sick Uncoded 03/20/22 14:30 and throw up" Consultations 03/31/22 10:53 Consult Cardiology Routine Procedures Performed Operation Date: 04/03/22 07:45 Actual Procedures p Cardioversion - Juan Maciel MD Ordered Studies 03/31/22 13:26 US venous doppler LE BI Routine 04/01/22 14:41 CT angio chest PE protocol Routine Hospital Course (1) Atrial fibrillation with RVR: A fib RVR previous history of afib pre hispital on Apixaban, metoprolol, during hospital stay, this was titrated up to 200 mg metoprolol succinate per day. Amiodarone 04/02/21 gtt to po 200mg bid low EF, nonischemic cardiomyopathy.. COVID and flu are negative. cardioversion 04/03/22 (2) COPD (chronic obstructive pulmonary disease): Stable Patient currently has no wheezing, (3) Lower extremity edema: Patient had lower extremity edema, Patient finished a 7 day course of cephalxein for lower extremity cellulitis. No current signs of cellulitis (4) Vitamin B12 deficiency: (5) CAD (coronary artery disease): Patient with hisotry of CAD. Currently not in ACS. (6) Hyperlipidemia: resume home meds (7) Hypertension: resume home meds (8) Diabetes mellitus, type 2: Noted on problem list. THis was a diagnosis prior to gastric bypass. Her A1C has been below 5. Patient is no longer diabetic. (9) GERD (gastroesophageal reflux disease): resume home meds, CTA shows distended fluid and debris filled esopahgus (10) Chronic deep vein thrombosis: repeat imaging is showing a DVT. D/W Dr. Maciel, likely scar tissue, will continue home anticoagulation. CTA 04/01/22 shows not acute PE incidentally noted esophageal abnormalites of dysmotility Plan Patient was offered to stay overnight to make sure her rhythm was stable she did not want to stay she wanted to go home. 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 her but will discuss this with her primary care physician at follow-up Total Time Total Time Spent Total Time Spent (In Minutes): It required greater than 30 minutes to prepare this patient for discharge Discharge Plan Discharge Items Patient Disposition: Home - Self-Care Reason For Visit: AFIB,RVR Discharge Diagnosis: afib rvr s/p cardioversion Activity: Per Instructions section Activity Comment: No intentional excercises Non-emergency contact: Primary Care Provider and [employer] Supervisor Call non-emergency contact if: your symptoms worsen Follow-up/Referrals: Yu Gauthier MD [Primary Care Provider] - 04/10/22 2:00 pm (WILL SEE MARIELA ANDREA) Diet: Carb Consistent or DM2 Addtl Attending Provider Instructions: please follow up with Dr maciel for further re scheduling of any cardiac testing take you new medications as outlined on your discharge paperwork Pending Studies at Discharge: No Stand-Alone Forms: My [facility], Smoking Cessation Medications and DC Order Prescriptions: New Farxiga 10 mg tablet 10 mg PO DAILY Qty: 30 0RF Entresto 24-26 mg Tablet 1 tab PO BID Qty: 60 0RF amiodarone 200 mg Tablet 200 mg PO BIDM Qty: 60 0RF metoprolol succinate 200 mg tablet extended release 24 hr 200 mg PO DAILY Qty: 60 0RF Continued nystatin 100,000 unit/gram powder 1 applic TOPICAL BID Qty: 30 1RF omeprazole 40 mg capsule,delayed release(DR/EC) 40 mg PO DAILY Qty: 90 3RF buspirone 10 mg tablet 10 mg PO TID Qty: 270 3RF Trelegy Ellipta 100-62.5-25 mcg blister with device 1 inh inhalation DAILY Qty: 60 11RF fluticasone propionate 50 mcg/actuation spray,suspension See Rx Instructions .ROUTE .COMPLEX Qty: 16 5RF Dose Instruction: USE 1 SPRAY(S) IN EACH NOSTRIL IN THE MORNING Rx Instructions: USE 1 SPRAY(S) IN EACH NOSTRIL IN THE MORNING levothyroxine 50 mcg tablet 50 mcg PO DAILY Qty: 90 3RF albuterol sulfate 90 mcg/actuation HFA aerosol inhaler 1 puff INHALATION DAILY PRN (Reason: Shortness Of Breath) Qty: 8.5 5RF Eliquis 5 mg tablet 5 mg PO BID Qty: 60 5RF tramadol 50 mg tablet 50 mg PO TID PRN (Reason: Pain) Qty: 90 1RF Desenex 2 % powder 1 applic EXT DAILY Qty: 43 2RF Rx Instructions: ; apply under skin folds lorazepam 0.5 mg tablet 0.5 mg PO Q8H PRN (Reason: anxiety) Qty: 30 0RF nitroglycerin 0.4 mg tablet, sublingual 0.4 mg Sublingual Q5M PRN (Reason: Chest Pain) Qty: 100 1RF Changed torsemide 20 mg tablet 20 mg PO DAILY Qty: 30 5RF Discontinued losartan 50 mg tablet 50 mg PO DAILY Qty: 90 3RF cephalexin 500 mg capsule 500 mg PO TID Qty: 21 0RF metoprolol tartrate 50 mg tablet 50 mg PO BID Qty: 90 3RF Discharge Orders: Discharge Order (Routine); Ordered 04/03/22 Ordered By: De Parikh Admission Data Admit Date/Time: 03/31/22 10:43 Attending Provider: De Parikh Admit Provider: Jose De Leon Primary Care Provider: Yu Gauthier Other Providers: Jeff Oleary ; Sumit Gay ; Marty Bay ; Deep Phipps ; Zane Thomas ; Smith Poole Jr ; Abrahan Brown ; Kristy Mata ; Kayla Delcid ; Juan Maciel ; Gabi Robledo ; Cody Newton ; Saida Laguna ; Korina Ochoa ; Leo Elise ; Bowen Mcdonough ; Hermilo Brandon ; Deep Brody V. Other Interventions: Discharge Summary Assessment (RN) Last Done: 04/03/22 17:17 Coding Level of Care Code HOSP INP/OBS DISCH >30 MIN Diagnoses Atrial fibrillation with RVR I48.91 COPD (chronic obstructive pulmonary disease) J44.9 Lower extremity edema R60.0 Vitamin B12 deficiency E53.8 CAD (coronary artery disease) I25.10 Hyperlipidemia E78.5 Hypertension I10 Diabetes mellitus, type 2 E11.9 GERD (gastroesophageal reflux disease) K21.9 Chronic deep vein thrombosis I82.509
--- NOTE | 2022-04-04 05:16 | Electrocardiogram Report ---
Test Reason : Blood Pressure : / mmHG Vent. Rate : 046 BPM Atrial Rate : 046 BPM P-R Int : 174 ms QRS Dur : 096 ms QT Int : 494 ms P-R-T Axes : 085 -16 240 degrees QTc Int : 432 ms Sinus bradycardia Septal infarct (cited on or before 24-AUG-2019) Abnormal ECG When compared with ECG of 31-MAR-2022 07:39, Sinus rhythm has replaced Atrial fibrillation Vent. rate has decreased BY 111 BPM T wave inversion now evident in Anterior leads Confirmed by Abrahan Brown ([id number]) on 04/04/2022 5:16:15 AM Referred By: REFERRED SELF Confirmed By:Abrahan Brown
== END 2022-04-03 17:52 | disposition home or self-care (01) | DRG 308 ==
LOC: ED 07:15 → SUATTDRO 10:43 → 1E 10:43 → 2E 04-02 03:00

== ENCOUNTER 2024-02-08 17:58 | Inpatient (IN) ==
--- NOTE | 2024-02-08 18:02 | ED Triage Note ---
Date of Service February 08, 2024 Provider in Triage Author: Fabio Paz History of Present Illness This patient was briefly evaluated while in triage. An abbreviated physical exam was performed. This patient is a 73-year-old Female who presents to the ED for evaluation seen by cardiology today and sent to the ED has wound on right great toe and plantar aspect of left foot on antibiotics concern for osteomyelitis Physical Exam GENERAL: NAD CARDIOVASCULAR: RRR RESPIRATORY: CTA EXT: BLE edema, unable to see wounds in triage Initial orders for labs and / or imaging were placed and patient was placed in the waiting area until a bed is available. Please see further documentation for the full ED course. MDM / Impression Impression Impression: Acute osteomyelitis of right foot
[2024-02-08 18:54] LABS: Basophils # (auto) 0.04 K/uL (0.00-0.20); Basophils % (auto) 0.5 %; Eosinophils # (auto) 0.04 K/uL (0.00-0.50); Eosinophils % (auto) 0.5 %; Hematocrit (blood only) 39.9 % (37.0-47.0); Hemoglobin 12.8 g/dl (12.0-16.0); Immature Granulocytes # (auto) 0.03 K/uL (0.01-0.20); Immature Granulocytes % (auto) 0.4 %; Lymphocytes # (auto) 1.15 K/uL (1.20-3.40); Lymphocytes % (auto) 13.9 %; Mean Corpuscular Hemoglobin 35.8 pg (25.0-34.0); Mean Corpuscular Hgb Conc 32.1 g/dL (32.0-36.0); Mean Corpuscular Volume 111.5 fL (80.0-100.0); Mean Platelet Volume 10.7 fL (9.4-12.4); Monocytes # (auto) 0.52 K/uL (0.11-0.59); Monocytes % (auto) 6.3 %; Neutrophils # (auto) 6.48 K/uL (1.40-6.50); Neutrophils % (auto) 78.4 %; Platelet Count 240 K/uL (130-400); RDW Coefficient of Variation 12.2 % (11.5-14.5); RDW Standard Deviation 51.1 fL (36.4-46.3); Red Blood Count 3.58 M/uL (4.20-5.40); White Blood Count 8.26 K/ul (4.8-10.8)
[2024-02-08 19:07] LABS: Alanine Aminotransferase 12 U/L (7-52); Albumin Level 3.2 gm/dl (3.4-5.0); Alkaline Phosphatase 86 U/L (34-104); Anion Gap 5 (3-11); Aspartate Aminotransferase 17 U/L (13-39); BUN Creatinine Ratio 23.2 (10-20); Bilirubin Direct 0.1 mg/dl (0-0.2); Bilirubin,Total 0.4 mg/dl (0.2-1.0); Blood Urea Nitrogen 26 mg/dl (6-23); Calcium 8.8 mg/dl (8.6-10.3); Carbon Dioxide 24 mmol/L (21-32); Chloride 108 mmol/L (98-107); Glucose 113 mg/dl (70-99(Fasting)); Potassium 4.3 mmol/L (3.5-5.1); Sodium 137 mmol/L (136-145)
[2024-02-08 19:16] LABS: INR 1.1 (0.9-1.1); Partial Thromboplastin Ratio 1.2; Partial Thromboplastin Time 31 Seconds (21-31); Prothrombin Time 11.9 Seconds (9.0-12.0)
[2024-02-08 19:17] LABS: Macrocytosis Present; Polychromasia 1+
--- NOTE | 2024-02-08 19:28 | XRay Report ---
Exam(s): XR RIGHT FOOT EXAM: XR Right Foot Complete, 3 or More Views CLINICAL HISTORY: Reason for exam: GREAT TOE ULCER, POSSIBLE OSTEO. TECHNIQUE: Frontal, lateral and oblique views of the right foot. COMPARISON: No relevant prior studies available. FINDINGS: Bones/joints: Destructive changes of the first distal phalanx consistent with acute osteomyelitis. Osteopenia. Soft tissues: Soft tissue edema of the great toe and along the dorsum of the foot. IMPRESSION: 1. Destructive changes of the first distal phalanx consistent with acute osteomyelitis. 2. Soft tissue edema of the great toe and along the dorsum of the foot. 3. Osteopenia. Electronically signed by: Mike Irving MD 02/08/24 19:27 PM
--- NOTE | 2024-02-08 19:38 | XRay Report ---
Exam(s): XR LEFT FOOT EXAM: XR Left Foot Complete, 3 or More Views CLINICAL HISTORY: Reason for exam: LEFT FOOT DIABETIC WOUND. TECHNIQUE: Frontal, lateral and oblique views of the left foot. COMPARISON: No relevant prior studies available. FINDINGS: Bones/joints: No radiographic evidence of acute osteomyelitis. The bones are osteopenic. No acute fracture. Soft tissues: Ulcer along the medial forefoot. IMPRESSION: 1. No radiographic evidence of acute osteomyelitis. 2. Ulcer along the medial forefoot. Electronically signed by: Mike Irving MD 02/08/24 19:37 PM
[2024-02-08 20:06] LABS: Appearance Urine Clear (Clear); Bacteria Urine Automated None Seen (None Seen); Bilirubin Urine Negative (Negative); Blood Urine Negative (Negative); Color Urine Yellow; Glucose Urine UA 2+ (Negative); Ketones Urine Trace (Negative); Leukocyte Esterase Urine Negative (Negative); Mucus Urine Present (None Prsent); Nitrite Urine Negative (Negative); Protein Urine Trace (Negative); Urobilinogen Urine Negative (Negative); WBC Urine Automated 0-5 /hpf (0-5); pH Urine 5.5 (4.5-7.5)
--- NOTE | 2024-02-08 20:29 | Emergency Department Note ---
Impression & Plan Acute osteomyelitis of right foot, Atrial fibrillation with rapid ventricular response ED Provider Note HISTORY OF PRESENT ILLNESS: Patient is a 73-year-old female presenting with bilateral feet wounds. Patient reports that her right great toe is concerning for infection. She states that her toe developed a "split down the middle" wound on it after she had some fluid overload. States that the wound never healed and she has had worsening swelling and pain in the foot. Reports the pain is worse with ambulating. She also reports a wound on the base of her left foot. Patient has been on Augmentin with worsening swelling and pain in her foot. Patient denies any abdominal pain, nausea or vomiting. No reported fevers at home. Tetanus is up-to-date. ROS: as above PHYSICAL EXAM: Constitutional: Patient appears in no acute distress. HENT: Head: Normocephalic and atraumatic. Eyes: EOMI, PERRL Mouth/Throat: Mucous membranes moist. Neck: Trachea midline. Neck supple. Cardiovascular: Tachycardic with irregularly irregular rhythm. No murmurs, rubs or gallops. Intact distal pulses. Pulmonary/Chest: No respiratory distress. Breath sounds clear and equal bilaterally. No wheezes or rales. Abdominal: Abdomen soft, no tenderness, rebound or guarding. Musculoskeletal: Right great toe is erythematous with a large open wound with bone exposed. Area is tender to palpation with streaking of erythema up the foot and into the leg. Toe is tender to palpation. There is a diabetic foot wound on the plantar surface of the left foot just inferior to the great toe. No surrounding erythema noted. Skin: Warm and dry. No rash, erythema, pallor or cyanosis Psychiatric: Appropriate mood and affect for situation. Neurological: Alert and keenly responsive. CN II-XII grossly intact, moving all extremities equally and fully. MDM: - Vitals signs stable - History obtained via patient. History as above. - Chronic conditions affecting care: DM-2; HTN; COPD; CAD; hypothyroidism; Afib; DVT; CHF - Differential diagnoses include, but are not limited to: necrotizing fasciitis; cellulitis; osteomyelitis; diabetic foot wound - Order placed for continuous cardiac monitoring. At this time, monitor showed rate of 83 bpm with irregular rhythm, per my interpretation. - External medical records reviewed. Primary care visit note dated 01/15/2024 was reviewed. Patient was started on Augmentin at the time for her diabetic foot wounds. - Laboratory workup interpreted by myself showed normal WBC; normal PT/INR; stable electrolytes; normal lactate; normal troponin; normal procalcitonin - UA negative for infection - Xray left foot negative for acute fracture, per my interpretation. Radiology notes ulcer along the medial forefoot. - Xray right foot showed evidence of acute osteomyelitis of the first distal phalanx. Soft tissue edema of the great toe and along the dorsum of the foot. - Blood cultures obtained - Wound culture sent. - EKG interpreted by myself showed atrial fibrillation. Rate tachycardic at 132 bpm. QT 294. No acute ischemic changes. - Given her Afib with RVR, she was given 5 mg IV lopressor. Repeat heart rate down to low 100s. - IV cefepime and vancomycin ordered. - Discussion was had with home health care case manager about patient's case and need for admission - Hospitalist, Dr. Wiseman, consulted for admission - [facility] for further evaluation and management. ASSESSMENT AND PLAN: Diagnosis: Acute osteomyelitis of right foot; Afib with RVR Plan: admit Past Med/Surg History Problem List (Updated 02/08/24 @ 21:57 by Renée Painter MD) Atrial fibrillation with rapid ventricular response (Acute) Acute osteomyelitis of right foot (Acute) Diabetes mellitus, type 2 No meds since gastric bypass Diabetic neuropathy Anxiety (Chronic) CAD (coronary artery disease) (Chronic) patient reports h/o DC in 2009 and 2010 COPD (chronic obstructive pulmonary disease) (Chronic) [place] filter in place (Chronic) Hypertension (Chronic) GERD (gastroesophageal reflux disease) (Chronic) Gout (Chronic) Chronic back pain (Chronic) Osteoarthritis, hip, bilateral (Chronic) Hypothyroidism (Chronic) Peripheral arterial disease (Chronic) s/p angioplasty distal SFA/ mid popliteal - 06/2020 Osteoporosis (Chronic) Reclast given 09/2022 Atrial fibrillation with rapid ventricular response (Chronic) s/p cardioversion 03/2022 Venous insufficiency (Chronic) Cardiomyopathy (Chronic) Heart failure with reduced ejection fraction (Chronic) Chronic deep vein thrombosis (Chronic) Medical History (Updated 02/08/24 @ 21:57 by Renée Painter MD) History of ovarian cancer s/p hysterectomy/oophorectomy - no chemotherapy H/O deep venous thrombosis Left leg - s/p IVF filter Surgical History History of total knee replacement RT/LEFT History of colonoscopy History of gastric bypass History of tonsillectomy History of adenoidectomy History of cardiac cath no stents History of lumbar spinal fusion History of hysterectomy History of PTCA Family History Other Family history non-contributory Social History (Updated 01/15/24 @ 09:26 by TERI Hansen) Smoking Status: Never smoker Second Hand Exposure: No; Do You Dip or Chew Tobacco: No; Hx Alcohol Use: No Hx Substance Use: No Preferred Language: Turkmen Communication Ability: Effective Visual Impairment: No Limitations Hearing Ability: Normal Correctional Lieutenant Required: No Beliefs That Will Affect Care: Gnosticist marital status: Current Living Situation: Spouse current occupational status: retired 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 [employer] Feels Safe at Home: Yes Childhood Exposure to Second-Hand Smoke: No Diet: regular caffeine: Yes (tea) Dental Care, Regularly: No Physical Activity Frequency: Does not Exercise Seatbelt Use: always Sunscreen Use: No Assistive Devices: Cane and Walker Allergies Allergies Allergy/AdvReac Type Severity Reaction Status Date / Time gabapentin AdvReac Intermediate LOSS OF Verified 02/08/24 15:06 FEELING IN LOWER EXTREMITIES adhesive tape AdvReac Mild Rash Verified 02/08/24 15:06 shellfish derived AdvReac Mild GI SYMPTOMS Verified 02/08/24 15:06 pork derived (porcine) AdvReac Unknown Vomiting Verified 02/08/24 15:06 Pork/Porcine Containing AdvReac Unknown Vomiting Verified 02/08/24 15:06 Products Prep Swab Allergy Unknown "Get sick Uncoded 02/08/24 15:06 and throw up" Home Meds Home Medications Medication Instructions Recorded Confirmed aepkqpld-agkjoev-ofbn-lutein tablet 1 tab PO DAILY 06/04/22 02/08/24 Vitamin A 2,400 mcg PO DAILY 07/15/23 02/08/24 Vitamin B12 500 mcg PO BID 07/15/23 02/08/24 acetaminophen 650 mg 650 mg PO BID PRN 07/15/23 02/08/24 tablet,extended release ascorbic acid (vitamin C) 1,000 mg 1 g PO DAILY 07/15/23 02/08/24 tablet calcium 333 mg 1 tab PO DAILY 07/15/23 02/08/24 (carbonate)-magnesium 133 mg (oxide)-zinc 5 mg tablet cholecalciferol (vitamin D3) See Rx Instructions PO DAILY 07/15/23 02/08/24 teriparatide 20 mcg/dose (600 20 mcg subcut DAILY 07/15/23 02/08/24 mcg/2.4 mL) subcutaneous pen injector vitamin B complex 1 tab PO DAILY 07/15/23 02/08/24 fluticasone propionate 50 See Rx Instructions .Route HS 08/13/23 02/08/24 mcg/actuation nasal spray,suspension Previous Rx's Medication Instructions Recorded nitroglycerin 0.4 mg sublingual 0.4 mg sublingual Q5M PRN Chest 04/03/22 tablet Pain #100 tabs dapagliflozin propanediol 10 mg 10 mg PO DAILY #90 tabs 04/27/23 tablet (Farxiga) sacubitril 24 mg-valsartan 26 mg 1 tab PO BID #180 tabs 04/27/23 tablet (Entresto) levothyroxine 50 mcg tablet 50 mcg PO DAILY #90 tabs 05/05/23 omeprazole 40 mg capsule,delayed 40 mg PO DAILY #90 caps 05/13/23 release albuterol sulfate 90 mcg/actuation 1 puff inhalation DAILY PRN 06/12/23 aerosol inhaler Shortness Of Breath #8.5 grams buspirone 10 mg tablet 10 mg PO TID #270 tabs 07/23/23 fluticasone fur. 100 mcg-umeclid 1 inh inhalation DAILY #60 ea 08/25/23 62.5 mcg-vilant 25 mcg inhalat.powder (Trelegy Ellipta) spironolactone 25 mg tablet 25 mg PO DAILY #90 tabs 12/01/23 nystatin 100,000 unit/gram topical 1 applic topical BID #30 grams 12/11/23 cream rosuvastatin 5 mg tablet 5 mg PO DAILY #90 tabs 12/23/23 metoprolol succinate 100 mg 200 mg (2 x 100 mg) PO DAILY #90 01/21/24 tablet,extended release 24 hr tabs torsemide 20 mg tablet 20 mg PO DAILY edema #30 tabs 01/21/24 amoxicillin 875 mg-potassium 1 tab PO BID 14 days #28 tabs 01/27/24 clavulanate 125 mg tablet tramadol 50 mg tablet 100 mg (2 x 50 mg) PO BID PRN Pain 01/27/24 #120 tabs apixaban 5 mg tablet (Eliquis) 5 mg PO BID #60 tabs 02/02/24 Results & Data (ED) Vital Signs Vital Signs - 24 hr 02/08/24 17:59 02/08/24 20:12 02/08/24 20:49 Temperature 36.6 C Temperature Source Temporal Artery Scan Pulse Rate 83 Pulse Rate [Left Apical] 120 H Respiratory Rate 18 21 Respiratory Effort / Characteristics Non-Labored Spontaneous Respiratory Depth Normal Respiratory Pattern Regular Blood Pressure 111/76 Blood Pressure [Right Arm] 116/86 110/82 Blood Pressure Mean 87 Blood Pressure Mean [Right Arm] 96 91 Blood Pressure Position [Right Arm] Semi-fowlers Pulse Oximetry 97 Sepsis Recent Fever Within 48 Hours No Sepsis New/Unexplained Change in Mental Status N/A Sepsis Action Taken by Nursing No Action Required 02/08/24 20:53 02/08/24 21:09 Temperature Temperature Source Pulse Rate 131 H 128 H Pulse Rate [Left Apical] Respiratory Rate Respiratory Effort / Characteristics Respiratory Depth Respiratory Pattern Blood Pressure 110/95 Blood Pressure [Right Arm] Blood Pressure Mean Blood Pressure Mean [Right Arm] Blood Pressure Position [Right Arm] Pulse Oximetry Sepsis Recent Fever Within 48 Hours Sepsis New/Unexplained Change in Mental Status Sepsis Action Taken by Nursing Laboratory Data 02/08/24 18:27 02/08/24 18:27 Lab Results 02/08/24 02/08/24 Range/Units 18:27 19:25 WBC 8.26 (4.8-10.8) K/ul RBC 3.58 L (4.20-5.40) M/uL Hgb 12.8 (12.0-16.0) g/dl Hct 39.9 (37.0-47.0) % MCV 111.5 H (80.0-100.0) fL MCH 35.8 H (25.0-34.0) pg MCHC 32.1 (32.0-36.0) g/dL RDW Std Deviation 51.1 H (36.4-46.3) fL RDW Coeff of Krista 12.2 (11.5-14.5) % Plt Count 240 (130-400) K/uL MPV 10.7 (9.4-12.4) fL Immature Gran % (Auto) 0.4 % Neut % (Auto) 78.4 % Lymph % (Auto) 13.9 % [place] % (Auto) 6.3 % Eos % (Auto) 0.5 % Baso % (Auto) 0.5 % Neut # (Auto) 6.48 (1.40-6.50) K/uL Lymph # (Auto) 1.15 L (1.20-3.40) K/uL [place] # (Auto) 0.52 (0.11-0.59) K/uL Eos # (Auto) 0.04 (0.00-0.50) K/uL Baso # (Auto) 0.04 (0.00-0.20) K/uL Immature Gran # (Auto) 0.03 (0.01-0.20) K/uL Polychromasia 1+ Macrocytosis Present PT 11.9 (9.0-12.0) Seconds INR 1.1 (0.9-1.1) APTT 31 (21-31) Seconds PTT Ratio 1.2 Sodium 137 (136-145) mmol/L Potassium 4.3 (3.5-5.1) mmol/L Chloride 108 H (98-107) mmol/L Carbon Dioxide 24 (21-32) mmol/L Anion Gap 5 (3-11) BUN 26 H (6-23) mg/dl Creatinine 1.12 (0.6-1.2) mg/dl Est Cr Clr Drug Dosing Not Reportable eGFR 51.92 BUN/Creatinine Ratio 23.2 H (10-20) Glucose 113 H (70-99(Fasting)) mg/dl Lactate 1.3 (0.4-2.0) mmol/L Calcium 8.8 (8.6-10.3) mg/dl Magnesium 2.0 (1.7-2.4) mg/dl Total Bilirubin 0.4 (0.2-1.0) mg/dl Direct Bilirubin 0.1 (0-0.2) mg/dl AST 17 (13-39) U/L ALT 12 (7-52) U/L Alkaline Phosphatase 86 (34-104) U/L Troponin I High Sens 7.6 (0-14) pg/ml Total Protein 6.0 (6.0-8.3) gm/dl Albumin 3.2 L (3.4-5.0) gm/dl Procalcitonin < 0.02 (0-0.5) ng/ml Urine Color Yellow Urine Appearance Clear (Clear) Urine pH 5.5 (4.5-7.5) Ur Specific [place] 1.030 (1.000-1.030) Urine Protein Trace H (Negative) Urine Glucose (UA) 2+ H (Negative) Urine Ketones Trace H (Negative) Urine Blood Negative (Negative) Urine Nitrite Negative (Negative) Urine Bilirubin Negative (Negative) Urine Urobilinogen Negative (Negative) Ur Leukocyte Esterase Negative (Negative) Urine WBC (Auto) 0-5 (0-5) /hpf Urine RBC (Auto) 3-5 H (0-2) /hpf U Hyaline Cast (Auto) 6-10 H (0-2) /lpf U Epithel Cells (Auto) 11-20 H (0-2) /hpf Urine Bacteria (Auto) None Seen (None Seen) Urine Mucus Present A (None Prsent) Administered Medications Discontinued Medications Cefepime HCl (Maxipime 2000mg) 2,000 mg in 20 mls @ 5 mls/min IV NOW STA; Protocol Stop: 02/08/24 20:10 Last Admin: 02/08/24 21:09 Dose: 5 mls/min Documented By: MICHELLE Metoprolol Tartrate (Metoprolol Tartrate 1 Mg/Ml Vial) 5 mg IV NOW STA Stop: 02/08/24 21:01 Last Admin: 02/08/24 21:09 Dose: 5 mg Documented By: MICHELLE Imaging Data Radiologist's Impression: Foot X-Ray 02/08/24 18:09 Exam(s): XR RIGHT FOOT EXAM: XR Right Foot Complete, 3 or More Views CLINICAL HISTORY: Reason for exam: GREAT TOE ULCER, POSSIBLE OSTEO. TECHNIQUE: Frontal, lateral and oblique views of the right foot. COMPARISON: No relevant prior studies available. FINDINGS: Bones/joints: Destructive changes of the first distal phalanx consistent with acute osteomyelitis. Osteopenia. Soft tissues: Soft tissue edema of the great toe and along the dorsum of the foot. IMPRESSION: 1. Destructive changes of the first distal phalanx consistent with acute osteomyelitis. 2. Soft tissue edema of the great toe and along the dorsum of the foot. 3. Osteopenia. Electronically signed by: Mike Irving MD 02/08/24 19:27 PM Foot X-Ray 02/08/24 18:09 Exam(s): XR LEFT FOOT EXAM: XR Left Foot Complete, 3 or More Views CLINICAL HISTORY: Reason for exam: LEFT FOOT DIABETIC WOUND. TECHNIQUE: Frontal, lateral and oblique views of the left foot. COMPARISON: No relevant prior studies available. FINDINGS: Bones/joints: No radiographic evidence of acute osteomyelitis. The bones are osteopenic. No acute fracture. Soft tissues: Ulcer along the medial forefoot. IMPRESSION: 1. No radiographic evidence of acute osteomyelitis. 2. Ulcer along the medial forefoot. Electronically signed by: Mike Irving MD 02/08/24 19:37 PM Discharge Plan Visit Data Chief Complaint: Foot Injury/Pain Stated Complaint: WOUNDS ON BOTH FEET ED Provider: Renée Painter Discharge Problem: Acute osteomyelitis of right foot, Atrial fibrillation with rapid ventricular response Forms Stand Alone Forms: [facility] Prescriptions Prescriptions: No Action Farxiga 10 mg tablet 10 mg PO DAILY Qty: 90 3RF Entresto 24-26 mg tablet 1 tab PO BID Qty: 180 3RF levothyroxine 50 mcg tablet 50 mcg PO DAILY Qty: 90 3RF omeprazole 40 mg capsule,delayed release(DR/EC) 40 mg PO DAILY Qty: 90 3RF albuterol sulfate 90 mcg/actuation HFA aerosol inhaler 1 puff INHALATION DAILY PRN (Reason: Shortness Of Breath) Qty: 8.5 5RF buspirone 10 mg tablet 10 mg PO TID Qty: 270 3RF Trelegy Ellipta 100-62.5-25 mcg blister with device 1 inh inhalation DAILY Qty: 60 11RF spironolactone 25 mg tablet 25 mg PO DAILY Qty: 90 6RF nystatin 100,000 unit/gram cream 1 applic topical BID Qty: 30 1RF rosuvastatin 5 mg tablet 5 mg PO DAILY Qty: 90 3RF tramadol 50 mg tablet 100 mg PO BID PRN (Reason: Pain) Qty: 120 1RF amoxicillin-pot clavulanate 875-125 mg tablet 1 tab PO BID 14 Days Qty: 28 0RF Eliquis 5 mg tablet 5 mg PO BID Qty: 60 5RF acetaminophen 650 mg tablet extended release 650 mg PO BID PRN vitamin B complex Tablet 1 tab PO DAILY calcium carb-mag ox-zinc gluc 333-133-5 mg tablet 1 tab PO DAILY teriparatide 20 mcg/dose (600mcg/2.4mL) pen injector 20 mcg subcut DAILY Rx Instructions: as directed by your prescriber, pt. uses HS Vitamin A 2,400 mcg capsule 2,400 mcg PO DAILY Vitamin B12 500 mcg tablet 500 mcg PO BID ascorbic acid (vitamin C) 1,000 mg tablet 1 g PO DAILY vmidzlif-xexqdaf-clgp-lutein Tablet 1 tab PO DAILY cholecalciferol (vitamin D3) See Rx Instructions PO DAILY Rx Instructions: 5,000 iu orally daily; fluticasone propionate 50 mcg/actuation spray,suspension See Rx Instructions .ROUTE HS Dose Instruction: USE 1 SPRAY(S) IN EACH NOSTRIL IN THE MORNING Rx Instructions: USE 1 SPRAY(S) IN EACH NOSTRIL IN THE MORNING at bedtime; metoprolol succinate 100 mg tablet extended release 24 hr 200 mg PO DAILY Qty: 90 3RF torsemide 20 mg tablet 20 mg PO DAILY Qty: 30 5RF nitroglycerin 0.4 mg tablet, sublingual 0.4 mg Sublingual Q5M PRN (Reason: Chest Pain) Qty: 100 1RF Referrals Referrals: Yu Gauthier MD [Primary Care Provider] -
--- NOTE | 2024-02-08 20:49 | History & Physical Report ---
Date of Service February 08, 2024 Assessment & Plan (1) Acute osteomyelitis of right foot: Plan: 73yo female with DM presenting with wounds on RLE great toe - progressively worsening over the last several days. Patient has been on Augmentin with no improvement. She is afebrile and non-toxic in appearance. X-ray of the right foot as above reveals destructive changes of the first distal phalanx consistent with acute osteomyelitis. -Admit to medical -Check ESR and CRP -Follow culture results - Wound and blood sent from the ER -Consult Orthopedic Surgery -Consult wound care -Vancomycin and Cefepime -Tylenol PRN -Tramadol -Zofran PRN (2) Atrial fibrillation with rapid ventricular response: Plan: Patient with paroxysmal atrial fibrillation, elevated rate in the ER. On Eliquis anticoagulation -Continue Metoprolol XL 200mg po daily -Will hold Eliquis for now in case of surgical debridement/amputation Plan COPD -Continue Trelegy -Albuterol PRN Hypothyroid -Continue Synthroid GERD -Continue Omeprazole CHF - patien with HF with recovered EF. Was 25% in 2022 and has since recovered on most recent echo. Patient reports improvement in her edema. Does not appear to be overtly volume overloaded on exam. Per last HF note - weight of 145 on last discharge. Today she is 162# Hold Entresto for now Continue Spironolactone Continue Torsemide 20mg po daily History of Present Illness Chief Complaint: bilateral foot wounds Primary Care Provider: Yu Gauthier MD Deirdre Nixon is a 73yo female with history of DM, CAD, PAF presenting with unhealing wounds of her RLE. She reports significant bilateral LE edema over the last week which has caused the skin on her toes to split. Over the last 1.5 weeks she has had open wounds, worst on the right great toe. She was started on Augmentin on 01/28/24 due to concern for infection. She has been taking her Torsemide and reports improvement in her leg edema. She reports stable weight and no cough/SOB/orthopnea. She was seen by Cardiology today and sent to the ER due to concern for infection in her right great toe. Patient denies fever, chills, nausea, vomiting, diarrhea. She is incontinent of urine at baseline which makes her reluctant at times to take her Torsemide. No trauma, no ill-fitting shoes. No additional complaints at this time. In the ER she is afebrile, tachycardic, has some discomfort in the toe Allergies Allergy/AdvReac Type Severity Reaction Status Date / Time gabapentin AdvReac Intermediate LOSS OF Verified 02/08/24 15:06 FEELING IN LOWER EXTREMITIES adhesive tape AdvReac Mild Rash Verified 02/08/24 15:06 shellfish derived AdvReac Mild GI SYMPTOMS Verified 02/08/24 15:06 pork derived (porcine) AdvReac Unknown Vomiting Verified 02/08/24 15:06 Pork/Porcine Containing AdvReac Unknown Vomiting Verified 02/08/24 15:06 Products Prep Swab Allergy Unknown "Get sick Uncoded 02/08/24 15:06 and throw up" Home Medications Medication Instructions Recorded Confirmed Type nitroglycerin 0.4 mg sublingual 0.4 mg sublingual Q5M PRN Chest 04/03/22 02/08/24 Rx tablet Pain #100 tabs iitkwqpl-jbfimwx-ynhm-lutein tablet 1 tab PO DAILY 06/04/22 02/08/24 History dapagliflozin propanediol 10 mg 10 mg PO DAILY #90 tabs 04/27/23 02/08/24 Rx tablet (Farxiga) sacubitril 24 mg-valsartan 26 mg 1 tab PO BID #180 tabs 04/27/23 02/08/24 Rx tablet (Entresto) levothyroxine 50 mcg tablet 50 mcg PO DAILY #90 tabs 05/05/23 02/08/24 Rx omeprazole 40 mg capsule,delayed 40 mg PO DAILY #90 caps 05/13/23 02/08/24 Rx release albuterol sulfate 90 mcg/actuation 1 puff inhalation DAILY PRN 06/12/23 02/08/24 Rx aerosol inhaler Shortness Of Breath #8.5 grams Vitamin A 2,400 mcg PO DAILY 07/15/23 02/08/24 History Vitamin B12 500 mcg PO BID 07/15/23 02/08/24 History acetaminophen 650 mg 650 mg PO BID PRN Pain 07/15/23 02/08/24 History tablet,extended release ascorbic acid (vitamin C) 1,000 mg 1 g PO DAILY 07/15/23 02/08/24 History tablet calcium 333 mg 1 tab PO DAILY 07/15/23 02/08/24 History (carbonate)-magnesium 133 mg (oxide)-zinc 5 mg tablet cholecalciferol (vitamin D3) See Rx Instructions PO DAILY 07/15/23 02/08/24 History teriparatide 20 mcg/dose (600 20 mcg subcut DAILY 07/15/23 02/08/24 History mcg/2.4 mL) subcutaneous pen injector vitamin B complex 1 tab PO DAILY 07/15/23 02/08/24 History buspirone 10 mg tablet 10 mg PO TID #270 tabs 07/23/23 02/08/24 Rx fluticasone propionate 50 See Rx Instructions .Route HS 08/13/23 02/08/24 History mcg/actuation nasal spray,suspension fluticasone fur. 100 mcg-umeclid 1 inh inhalation DAILY #60 ea 08/25/23 02/08/24 Rx 62.5 mcg-vilant 25 mcg inhalat.powder (Trelegy Ellipta) spironolactone 25 mg tablet 25 mg PO DAILY #90 tabs 12/01/23 02/08/24 Rx nystatin 100,000 unit/gram topical 1 applic topical BID #30 grams 12/11/23 02/08/24 Rx cream rosuvastatin 5 mg tablet 5 mg PO DAILY #90 tabs 12/23/23 02/08/24 Rx metoprolol succinate 100 mg 200 mg (2 x 100 mg) PO DAILY #90 01/21/24 02/08/24 Rx tablet,extended release 24 hr tabs torsemide 20 mg tablet 20 mg PO DAILY edema #30 tabs 01/21/24 02/08/24 Rx amoxicillin 875 mg-potassium 1 tab PO BID 14 days #28 tabs 01/27/24 02/08/24 Rx clavulanate 125 mg tablet tramadol 50 mg tablet 100 mg (2 x 50 mg) PO BID PRN Pain 01/27/24 02/08/24 Rx #120 tabs apixaban 5 mg tablet (Eliquis) 5 mg PO BID #60 tabs 02/02/24 02/08/24 Rx Past Med/Surg History Problem List Atrial fibrillation with rapid ventricular response (Acute) Acute osteomyelitis of right foot (Acute) Diabetes mellitus, type 2 No meds since gastric bypass Diabetic neuropathy Anxiety (Chronic) CAD (coronary artery disease) (Chronic) patient reports h/o ME in 2009 and 2010 COPD (chronic obstructive pulmonary disease) (Chronic) [place] filter in place (Chronic) Hypertension (Chronic) GERD (gastroesophageal reflux disease) (Chronic) Gout (Chronic) Chronic back pain (Chronic) Osteoarthritis, hip, bilateral (Chronic) Hypothyroidism (Chronic) Peripheral arterial disease (Chronic) s/p angioplasty distal SFA/ mid popliteal - 06/2020 Osteoporosis (Chronic) Reclast given 09/2022 Atrial fibrillation with rapid ventricular response (Chronic) s/p cardioversion 03/2022 Venous insufficiency (Chronic) Cardiomyopathy (Chronic) Heart failure with reduced ejection fraction (Chronic) Chronic deep vein thrombosis (Chronic) Medical History History of ovarian cancer s/p hysterectomy/oophorectomy - no chemotherapy H/O deep venous thrombosis Left leg - s/p IVF filter Surgical History History of total knee replacement RT/LEFT History of colonoscopy History of gastric bypass History of tonsillectomy History of adenoidectomy History of cardiac cath no stents History of lumbar spinal fusion History of hysterectomy History of PTCA Family History Other Family history non-contributory Social History Smoking Status: Never smoker Second Hand Exposure: No; Do You Dip or Chew Tobacco: No; Hx Alcohol Use: No Hx Substance Use: No Preferred Language: Serbian Communication Ability: Effective Visual Impairment: No Limitations Hearing Ability: Normal Manufacturing Support Engineer Required: No Beliefs That Will Affect Care: None marital status: Current Living Situation: Spouse Current Living Situation Comment: lives with spouse in [employer] style trailer, with ramp to enter current occupational status: retired 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 [place] Other Information That Helps Us Care for You: No Feels Safe at Home: Yes Safety Concerns: Feels Safe At This Time Childhood Exposure to Second-Hand Smoke: No Diet: regular caffeine: Yes (tea) Dental Care, Regularly: No Physical Activity Frequency: Does not Exercise Seatbelt Use: always Sunscreen Use: No Assistive Devices: Cane, Walker and Wheelchair Review of Systems 2 Review of Systems: All systems reviewed & are unremarkable except as noted in HPI & below Physical Exam 2 Physical Exam: General: patient resting comfortably, NAD, non-toxic in appearance, AA&O x 4 Skin: ulceration on right great toe HEENT: NC/AT, PERRL, EOMI, anicteric sclera, conjunctiva without injection, external ear normal to inspection and nontender, nares patent, moist mucus membranes, dentition intact, no oropharyngeal lesions, neck supple, trachea midline, no LAD, no thyromegaly, no JVD Heart: +S1/S2, irregularly irregular, no m/r/g Lungs: equal air entry bilaterally, no rales/rhonchi/wheezes Abd: +BS, soft, NT/ND, no masses/organomegaly/ascites Ext: warm, 2+ pulses in UE/LE bilaterally, no clubbing/cyanosis or edema Neuro: nonfocal, patient AA&O x 4, speech intact, no facial droop, moving all extremities on command with equal strength 5/5 Results & Data Results & Data Vital Signs (Past 12 Hours) Vital Signs Temp Pulse Resp BP BP Pulse Ox 02/08/24 20:12 116/86 02/08/24 17:59 36.6 C 83 18 111/76 97 Laboratory Results Laboratory Results WBC 8.26 K/ul (4.8-10.8) 02/08/24 18:27 RBC 3.58 M/uL (4.20-5.40) L 02/08/24 18:27 Hgb 12.8 g/dl (12.0-16.0) 02/08/24 18:27 Hct 39.9 % (37.0-47.0) 02/08/24 18:27 MCV 111.5 fL (80.0-100.0) H 02/08/24 18:27 MCH 35.8 pg (25.0-34.0) H 02/08/24 18:27 MCHC 32.1 g/dL (32.0-36.0) 02/08/24 18:27 RDW Std Deviation 51.1 fL (36.4-46.3) H 02/08/24 18:27 RDW Coeff of Krista 12.2 % (11.5-14.5) 02/08/24 18: Plt Count 240 K/uL (130-400) 02/08/24 18: MPV 10.7 fL (9.4-12.4) 02/08/24 18: Immature Gran % (Auto) 0.4 % 02/08/24 18: Neut % (Auto) 78.4 % 02/08/24 18: Lymph % (Auto) 13.9 % 02/08/24 18: [place] % (Auto) 6.3 % 02/08/24 18: Eos % (Auto) 0.5 % 02/08/24 18: Baso % (Auto) 0.5 % 02/08/24: Neut # (Auto) 6.48 K/uL (1.40-6.50) 02/08/24 18: Lymph # (Auto) 1.15 K/uL (1.20-3.40) L 02/08/24 18: [place] # (Auto) 0.52 K/uL (0.11-0.59) 02/08/24 18: Eos # (Auto) 0.04 K/uL (0.00-0.50) 02/08/24 18: Baso # (Auto) 0.04 K/uL (0.00-0.20) 02/08/24: Immature Gran # (Auto) 0.03 K/uL (0.01-0.20) 02/08/24 18: Polychromasia 1+ 02/08/24: Macrocytosis Present 02/08/24 18: PT 11.9 Seconds (9.0-12.0) 02/08/24 18: INR 1.1 (0.9-1.1) 02/08/24 18: APTT 31 Seconds (21-31) 02/08/24: PTT Ratio 1.2 02/08/24 18: Sodium 137 mmol/L (136-145) 02/08/24 18: Potassium 4.3 mmol/L (3.5-5.1) 02/08/24 18: Chloride 108 mmol/L (98-107) H 02/08/24 18: Carbon Dioxide 24 mmol/L (21-32) 02/08/24 18:27 Anion Gap 5 (3-11) 02/08/24 18:27 BUN 26 mg/dl (6-23) H 02/08/24 18:27 Creatinine 1.12 mg/dl (0.6-1.2) 02/08/24 18:27 Est Cr Clr Drug Dosing Not Reportable 02/08/24 18:27 eGFR 51.92 02/08/24 18: BUN/Creatinine Ratio 23.2 (10-20) H 02/08/24 18:27 Glucose 113 mg/dl (70-99(Fasting)) H 02/08/24 18:27 POC Glucose 89 mg/dl (70-99) 02/09/24 00:45 Lactate 1.3 mmol/L (0.4-2.0) 02/08/24 18: Calcium 8.8 mg/dl (8.6-10.3) 02/08/24 18: Magnesium 2.0 mg/dl (1.7-2.4) 02/08/24 18:27 Total Bilirubin 0.4 mg/dl (0.2-1.0) 02/08/24 18: Direct Bilirubin 0.1 mg/dl (0-0.2) 02/08/24 18:27 AST 17 U/L (13-39) 02/08/24 18:27 ALT 12 U/L (7-52) 02/08/24 18:27 Alkaline Phosphatase 86 U/L (34-104) 02/08/24 18:27 Troponin I High Sens 7.6 pg/ml (0-14) 02/08/24 18:27 C-Reactive Protein 2.60 mg/dl (0-0.5) H 02/08/24 18:27 B-Natriuretic Peptide 789 pg/ml (0-100) H 02/08/24 21:49 Total Protein 6.0 gm/dl (6.0-8.3) 02/08/24 18: Albumin 3.2 gm/dl (3.4-5.0) L 02/08/24 18:27 Procalcitonin < 0.02 ng/ml (0-0.5) 02/08/24 18:27 Urine Color Yellow 02/08/24 19:25 Urine Appearance Clear (Clear) 02/08/24 19:25 Urine pH 5.5 (4.5-7.5) 02/08/24 19:25 Ur Specific [place] 1.030 (1.000-1.030) 02/08/24 19:25 Urine Protein Trace (Negative) H 02/08/24 19:25 Urine Glucose (UA) 2+ (Negative) H 02/08/24 19:25 Urine Ketones Trace (Negative) H 02/08/24 19:25 Urine Blood Negative (Negative) 02/08/24 19:25 Urine Nitrite Negative (Negative) 02/08/24 19:25 Urine Bilirubin Negative (Negative) 02/08/24 19:25 Urine Urobilinogen Negative (Negative) 02/08/24 19:25 Ur Leukocyte Esterase Negative (Negative) 02/08/24 19:25 Urine WBC (Auto) 0-5 /hpf (0-5) 02/08/24 19:25 Urine RBC (Auto) 3-5 /hpf (0-2) H 02/08/24 19:25 U Hyaline Cast (Auto) 6-10 /lpf (0-2) H 02/08/24 19:25 U Epithel Cells (Auto) 11-20 /hpf (0-2) H 02/08/24 19:25 Urine Bacteria (Auto) None Seen (None Seen) 02/08/24 19:25 Urine Mucus Present (None Prsent) A 02/08/24 19:25 Impressions Foot X-Ray 02/08/24 18:09 Exam(s): XR LEFT FOOT EXAM: XR Left Foot Complete, 3 or More Views CLINICAL HISTORY: Reason for exam: LEFT FOOT DIABETIC WOUND. TECHNIQUE: Frontal, lateral and oblique views of the left foot. COMPARISON: No relevant prior studies available. FINDINGS: Bones/joints: No radiographic evidence of acute osteomyelitis. The bones are osteopenic. No acute fracture. Soft tissues: Ulcer along the medial forefoot. IMPRESSION: 1. No radiographic evidence of acute osteomyelitis. 2. Ulcer along the medial forefoot. Electronically signed by: Mike Irving MD 02/08/24 19:37 PM ECG Additional Comments: EKG with AF with RVR at 132bpm, no acute ischemic changes Code Status & VTE Plan VTE Prophylaxis Plan VTE Prophylaxis will be ordered: Yes PG Care Time/CCT Total # of Minutes Spent Total Time Spent with Patient: Total time spent is greater than 50% in coordination of care (as documented) at patient's floor/unit and/or counseling patient: Coding Level of Care Code 77836 INT INP/OBS CARE MIN Diagnoses Acute osteomyelitis of right foot M86.171 Atrial fibrillation with rapid ventricular response I48.91
[2024-02-08] MEDS: METOPROLOL TARTRATE 1 MG/ML VIAL IV STA (21:09)
[2024-02-08] MEDS: CEFEPIME 2000MG 2,000 MG/20 ML SYR IV STA (21:09)
[2024-02-08 21:53] LABS: Troponin I High Sensitivity 7.6 pg/ml (0-14)
[2024-02-08] MEDS ORDERED: VANCOMYCIN CONSULT ACTIVE PRN (21:57)
[2024-02-09] MEDS ORDERED: DEXTROSE 50% 50 ML SYRINGE IV PRN (00:20)
[2024-02-09] MEDS ORDERED: GLUCAGON FOR INJ 1 MG VIAL SQ PRN (00:20)
[2024-02-09] MEDS ORDERED: GLUCOSE 40% GEL 15 GM TUBE PO PRN (00:20)
[2024-02-09] MEDS ORDERED: CARBOHYDRATES FOR HYPOGLYCEMIA PO PRN (00:20)
[2024-02-09] MEDS ORDERED: VANCOMYCIN CONSULT ACTIVE PRN (00:20)
[2024-02-09] MEDS ORDERED: GLUCOSE 10 TAB/TUBE PO PRN (00:20)
[2024-02-09] MEDS: VANCOMYCIN HCL 2,000 MG in DEXTROSE 5% 500 ML IV ONE (00:28)
[2024-02-09] MEDS: INSULIN ASPART PER UNIT CHARGE SC SCH ×2 (01:55→12:21)
[2024-02-09] MEDS ORDERED: ALBUTEROL HFA 8 GM INHALER INH PRN (03:15)
[2024-02-09] MEDS: LEVOTHYROXINE SODIUM 50 MCG TABLET PO SCH (05:49)
[2024-02-09 06:41] LABS: Hematocrit (blood only) 38.7 % (37.0-47.0); Hemoglobin 12.8 g/dl (12.0-16.0); Mean Corpuscular Hemoglobin 36.2 pg (25.0-34.0); Mean Corpuscular Hgb Conc 33.1 g/dL (32.0-36.0); Mean Corpuscular Volume 109.3 fL (80.0-100.0); Mean Platelet Volume 10.9 fL (9.4-12.4); Platelet Count 202 K/uL (130-400); RDW Coefficient of Variation 11.9 % (11.5-14.5); RDW Standard Deviation 48.2 fL (36.4-46.3); Red Blood Count 3.54 M/uL (4.20-5.40)
[2024-02-09 07:09] LABS: BUN Creatinine Ratio 25.3 (10-20); Calcium 8.5 mg/dl (8.6-10.3); Creatinine Clr Calc Pharmacy 54.3 ml/min; Potassium 4.2 mmol/L (3.5-5.1)
[2024-02-09] MEDS ORDERED: Nursing to Pharmacy Communication SCH (08:15)
--- NOTE | 2024-02-09 08:40 | Pharmacy Report ---
Pharmacy PK ABX Note - Date of Service February 09, 2024 - Assessment and Plan Assessment 73 year old F receiving cefepime and vancomycin for treatment of right foot osteomyelitis. Blood and surface toe cultures pending. Renal function stable. Day # 1 of antimicrobial therapy. Plan Vancomycin * Loading dose: 2000 mg IV x 1 * Maintenance dose: 1500 mg IV every 24 hours * Regimen is predicted to achieve target AUC/SHREYA of 400-600 mg/L.hr * Random level tomorrow AM Pharmacy will continue to follow and will adjust dose/frequency as necessary. Thank you. Pharmacy has transitioned to AUC monitoring for vancomycin. AUC/SHREYA is the preferred PK/PD target and is associated with decreased risk of nephrotoxicity compared to traditional trough targets.
[2024-02-09] MEDS: FLUTICASONE FUROATE 100MCG 14 PUFFS/INHALER INH SCH (08:45)
[2024-02-09] MEDS: UMECLIDINIUM/VILANTEROL 62.5/25MCG 7 PUFFS/INHALER INH SCH (08:45)
[2024-02-09] MEDS: CEFEPIME 2000MG 2,000 MG/20 ML SYR IV SCH (08:46)
[2024-02-09] MEDS: SPIRONOLACTONE 25 MG TAB PO SCH (08:46)
[2024-02-09] MEDS: busPIRone 5 MG TAB PO SCH (08:46)
[2024-02-09] MEDS: TORSEMIDE 20 MG TAB PO SCH (08:46)
[2024-02-09] MEDS: ROSUVASTATIN CALCIUM 5 MG TAB PO SCH (08:46)
[2024-02-09] MEDS: METOPROLOL SUCC 50MG EXT REL TAB PO SCH (08:47)
[2024-02-09] MEDS: PANTOprazole 40 MG TAB PO SCH (08:47)
[2024-02-09] MEDS ORDERED: NON-FORMULARY MEDICATION (Fluticasone-Umeclidin-Vilanter [Trelegy Ellipta] 100-62.5-25 mcg INH SCH (09:00)
[2024-02-09] MEDS ORDERED: VANCOMYCIN HCL 1,000 MG/270 ML BAG IV SCH (09:00)
[2024-02-09] MEDS ORDERED: VANCOMYCIN 1,250mg in D5W 250mL (Use w/ NSS Shortage) IV SCH (09:00)
[2024-02-09] MEDS: VANCOMYCIN 1,500 MG in D5W 500mL (Use w/ NSS Shortage) IV SCH (09:24)
--- NOTE | 2024-02-09 13:11 | Hospitalist Progress Note ---
Date of Service February 09, 2024 Assessment & Plan (1) Acute osteomyelitis of right foot: Plan: 73yo female with DM presenting with wounds on RLE great toe Pt was on Augmentin with no improvement. X-ray of the right foot shows destructive changes of the first distal phalanx consistent with acute osteomyelitis. Cefepime/vancomycin ortho consulted ID consulted Wound care consulted F/U wound culture (2) Atrial fibrillation with rapid ventricular response: Plan: -Continue Metoprolol XL 200mg po daily -Will hold Eliquis for now in case of surgical debridement/amputation Plan CHF - Hold Entresto for now Continue Spironolactone Continue Torsemide 20mg po daily Admission and Anticipated Discharge Date Admission Date: February 08, 2024 Subjective No events overnight, pt resting comfortably in bed. Review of Systems Review of Systems: CONST: Negative for fever, body aches and chills. HENT: Negative for neck pain/stiffness, headache, congestion, sore throat, swelling. EYES: Negative for discharge/pain or vision changes. RESP: Negative for cough/hemoptysis and shortness of breath. CV: Negative chest pain, difficulty breathing, palpitations. ABD: Negative pain, nausea, vomiting. : Negative increase frequency, dysuria, blood in urine or stool. MUSC: Negative for muscle aches, edema. SKIN: Negative rash, lesions/sores. NEURO: Negative headache, dizziness, weakness. Physical Exam Physical Exam: GENERAL APPEARANCE NAD, activity normal for age, well developed/ well nourished, no cyanosis, pallor, or diaphoresis. EYES lids/conjunctiva normal. EARS/NOSE/THROAT Mucous membranes moist, nares normal, lips/teeth normal uvula midline without oral pharyngeal erythema, exudate or swelling TMs normal bilaterally. No lymphangitis/lymphedema. HEAD/NECK normocephalic atraumatic, no facial trauma, neck is supple. RESPIRATORY respiratory effort normal, speaks in full sentences, no tripod position, no accessory muscle use. Lungs clear to auscultation without rhonchi, wheezes, rales CARDIAC Regular rate and rhythm, no edema. ABDOMINAL Soft, ND/NT. No evidence of fluid wave. No pulsatile masses on exam, rebound tenderness, Beard sign or pain over Mcburney's point. MUSCLES/EXTREMITIES No abnormal range of motion, no swelling. Right 1st toe, dressing c/d/i, left 1-3 todes dressing c/d/i SKIN Warm, pink and dry. No rashes, dermatoses, petechiae or lesions. NEUROLOGICAL Speech is clear and appropriate. Normal level of consciousness. Gait and coordination are normal. 5/5 strength in all extremities. PSYCH Normal mood and affect. Judgement/competence is appropriate Results & Data Results & Data Vital Signs (Past 12 Hours) Vital Signs Temp Pulse Resp BP Pulse Ox O2 Del Method 02/09/24 09:05 Room Air 02/09/24 07:25 36.4 C L 114 H 16 109/70 98 Room Air PG Care Time/CCT Total # of Minutes Spent Total Time Spent with Patient: Total time spent is greater than 50% in coordination of care (as documented) at patient's floor/unit and/or counseling patient: Coding Level of Care Code 34304 SUB INP/OBS CARE 2/35MIN Diagnoses Acute osteomyelitis of right foot M86.171 Atrial fibrillation with rapid ventricular response I48.91
--- NOTE | 2024-02-09 14:56 | Infectious Disease Consult ---
Date of Consultation February 09, 2024 Assessment & Plan (1) Acute osteomyelitis of right foot: (2) Diabetes mellitus, type 2: (3) Atrial fibrillation with rapid ventricular response: (4) CAD (coronary artery disease): Plan 73yo F with h/o T2DM, COPD, CAD, PAD s/p angioplasty 2020, CHF, afib on Eliquis, hypothyroidism, gastric bypass, bl TKR, lumbar spinal fusion who presented on 02/07 with unhealing wounds of right great toe noted x 1.5 weeks along with ulcers of left foot. She was started on augmentin on 01/27 due to c/f infection of right toe. Here, she has been afebrile, tachycardic. Initial labs with WBC 8.26, Cr 1.12, LFT wnl. ESR 51, CRP 2.60. UA with 0-5 WBC. XR right foot with destructive changes of first distal phalanx c/w acute OM. XR left foot neg for OM. Right toe cx were sent from ED on 02/07. Seen by ortho. ID consulted 02/08. Ideally, would hold abx prior to OR however given her tachycardia, will continue empiric coverage. WCx are available from 02/07. Ortho plans for amputation. # Right great toe distal phalanx OM # T2DM # PAD s/p angioplasty - continue vancomycin and cefepime - send cx from OR and path of clean margin - if all infected bone removed, then she can complete a short course of abx for SSTI. Otherwise, prolonged course of abx ID will continue to follow. If questions or concerns, contact via [facility] or Infectious Disease Call Center . Tracey Cornell MD [facility], Division of Infectious Diseases [facility]: [phone] Consultation Information Consultation was provided via telemedicine using two-way real-time interactive telecommunication between the patient and the telemedicine provider. For the duration of the visit, the provider was performing the assessment from a different facility than the patient. This includesuse of bluetooth stethoscope forauscultationperformed by the telepresenter that the telemedicine provider can hear if described in the physical exam. Freight Team Associate contact information: Please call [facility] Call Center . (Phone Number For Physician Use Only) After establishing a telemedicine visit, patient was: Patient was verified with two unique identifiers, Patient/authorized rep acknowledged consent and understanding and Gave permission to continue telehealth session Time Spent with Patient: Initial => 75 min History of Present Illness Reason for Consultation: right toe osteo Attending Physician: Ricky Villela MD History of Present Illness 73yo F with h/o T2DM, COPD, CAD, PAD s/p angioplasty 2020, CHF, afib on Eliquis, hypothyroidism, gastric bypass, bl TKR, lumbar spinal fusion who presented on 02/07 with unhealing wounds of RLE. She has significant bl LE edema over the last week that has caused the skin of her toes to split. She says shes had the open wounds for 1.5 weeks and is worse on the right great toe. She was started on augmentin on 01/27 due to c/f infection. She has been on diuretics for her leg swelling with improvement. Denied fevers, chills, vomiting, diarrhea. Here, she has been afebrile, tachycardic. Initial labs with WBC 8.26, Cr 1.12, LFT wnl. ESR 51, CRP 2.60. UA with 0-5 WBC. XR right foot with destructive changes of first distal phalanx c/w acute OM. XR left foot neg for OM. Right toe cx were sent from ED on 02/07. Seen by ortho. ID consulted 02/08. On evaluation, patient reports that her right foot has been bothering her the most. She has had drainage from toe wound. Also c/o pain in both legs. Has some back pain from laying in the bed. No abdominal pain, diarrhea, other rashes. Allergies Allergy/AdvReac Type Severity Reaction Status Date / Time gabapentin AdvReac Intermediate LOSS OF Verified 02/08/24 15:06 FEELING IN LOWER EXTREMITIES adhesive tape AdvReac Mild Rash Verified 02/08/24 15:06 shellfish derived AdvReac Mild GI SYMPTOMS Verified 02/08/24 15:06 pork derived (porcine) AdvReac Unknown Vomiting Verified 02/08/24 15:06 Pork/Porcine Containing AdvReac Unknown Vomiting Verified 02/08/24 15:06 Products Prep Swab Allergy Unknown "Get sick Uncoded 02/08/24 15:06 and throw up" Home Medications Medication Instructions Recorded Confirmed Type nitroglycerin 0.4 mg sublingual 0.4 mg sublingual Q5M PRN Chest 04/03/22 1 04/09/23 Rx tablet Pain #100 tabs rjzvvmid-qmqxubs-almr-lutein tablet 1 tab PO DAILY 06/04/22 02/08/24 History dapagliflozin propanediol 10 mg 10 mg PO DAILY #90 tabs 04/27/23 02/08/24 Rx tablet (Farxiga) sacubitril 24 mg-valsartan 26 mg 1 tab PO BID #180 tabs 04/27/23 02/08/24 Rx tablet (Entresto) levothyroxine 50 mcg tablet 50 mcg PO DAILY #90 tabs 05/05/23 02/08/24 Rx omeprazole 40 mg capsule,delayed 40 mg PO DAILY #90 caps 05/13/23 02/08/24 Rx release albuterol sulfate 90 mcg/actuation 1 puff inhalation DAILY PRN 06/12/23 02/08/24 Rx aerosol inhaler Shortness Of Breath #8.5 grams Vitamin A 2,400 mcg PO DAILY 07/15/23 02/08/24 History Vitamin B12 500 mcg PO BID 07/15/23 02/08/24 History acetaminophen 650 mg 650 mg PO BID PRN Pain 07/15/23 02/08/24 History tablet,extended release ascorbic acid (vitamin C) 1,000 mg 1 g PO DAILY 07/15/23 02/08/24 History tablet calcium 333 mg 1 tab PO DAILY 07/15/23 02/08/24 History (carbonate)-magnesium 133 mg (oxide)-zinc 5 mg tablet cholecalciferol (vitamin D3) See Rx Instructions PO DAILY 07/15/23 02/08/24 History teriparatide 20 mcg/dose (600 20 mcg subcut DAILY 07/15/23 02/08/24 History mcg/2.4 mL) subcutaneous pen injector vitamin B complex 1 tab PO DAILY 07/15/23 02/08/24 History buspirone 10 mg tablet 10 mg PO TID #270 tabs 07/23/23 02/08/24 Rx fluticasone propionate 50 See Rx Instructions .Route HS 08/13/23 02/08/24 History mcg/actuation nasal spray,suspension fluticasone fur. 100 mcg-umeclid 1 inh inhalation DAILY #60 ea 08/25/23 02/08/24 Rx 62.5 mcg-vilant 25 mcg inhalat.powder (Trelegy Ellipta) spironolactone 25 mg tablet 25 mg PO DAILY #90 tabs 12/01/23 02/08/24 Rx nystatin 100,000 unit/gram topical 1 applic topical BID #30 grams 12/11/23 02/08/24 Rx cream rosuvastatin 5 mg tablet 5 mg PO DAILY #90 tabs 12/23/23 02/08/24 Rx metoprolol succinate 100 mg 200 mg (2 x 100 mg) PO DAILY #90 01/21/24 02/08/24 Rx tablet,extended release 24 hr tabs torsemide 20 mg tablet 20 mg PO DAILY edema #30 tabs 01/21/24 02/08/24 Rx amoxicillin 875 mg-potassium 1 tab PO BID 14 days #28 tabs 01/27/24 02/08/24 Rx clavulanate 125 mg tablet tramadol 50 mg tablet 100 mg (2 x 50 mg) PO BID PRN Pain 01/27/24 02/08/24 Rx #120 tabs apixaban 5 mg tablet (Eliquis) 5 mg PO BID #60 tabs 02/02/24 02/08/24 Rx Patient History Medical History History of ovarian cancer s/p hysterectomy/oophorectomy - no chemotherapy H/O deep venous thrombosis Left leg - s/p IVF filter Surgical History History of total knee replacement RT/LEFT History of colonoscopy History of gastric bypass History of tonsillectomy History of adenoidectomy History of cardiac cath no stents History of lumbar spinal fusion History of hysterectomy History of PTCA Family History Other Family history non-contributory Social History Smoking Status: Never smoker Second Hand Exposure: No; Do You Dip or Chew Tobacco: No; Hx Alcohol Use: No Hx Substance Use: No Preferred Language: Citizen Of [place] Communication Ability: Effective Visual Impairment: No Limitations Hearing Ability: Normal Tan Room Supervisor Required: No Beliefs That Will Affect Care: None marital status: Current Living Situation: Spouse Current Living Situation Comment: lives with spouse in [employer] style trailer, with ramp to enter current occupational status: retired 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 Other Information That Helps Us Care for You: No Feels Safe at Home: Yes Safety Concerns: Feels Safe At This Time Childhood Exposure to Second-Hand Smoke: No Diet: regular caffeine: Yes (tea) Dental Care, Regularly: No Physical Activity Frequency: Does not Exercise Seatbelt Use: always Sunscreen Use: No Assistive Devices: Cane and Walker Review of System 10-point review of systems reviewed and are negative except for as above. Physical Exam Physical Exam: General: Awake, alert, no acute distress HEENT: NC/AT, EOMI, mmm Neck: supple, no LAD Lungs: respirations non-labored Abdomen: soft, NT/ND Ext: bl LE edema, rigth great toe with deep ulcer and discoloration, left foot with 3 open wounds without surrounding erythema Neuro: moving all extremities Results & Data Vital Signs (Past 12 Hours) Vital Signs Temp Pulse Resp BP Pulse Ox O2 Del Method 02/09/24 09:05 Room Air 02/09/24 07:25 36.4 C L 114 H 16 109/70 98 Room Air Laboratory Results Labs reviewed. Diagnostic Findings Imaging reviewed.
--- NOTE | 2024-02-09 15:23 | Orthopedic Consultation ---
Date of Consultation February 09, 2024 Assessment & Plan (1) Acute osteomyelitis of right foot: For the left foot would consider debriding the keratoses. I think in the future she would need an Achilles tendon lengthening percutaneously. I probably would not proceed with that presently given the situation with her right foot. She will need ongoing diabetic/podiatric footcare and control of her CHF/leg edema. For the right foot I would recommend that we lengthen her Achilles tendon percutaneously as the soft tissue envelope provides. Also recommend amputation of the big toe. Probably removal of the distal phalanx. Radiographs of the left foot show no evidence of osteomyelitis or fracture but she does have profound osteopenia bilaterally. Her right big toe shows destruction of the distal phalanx consistent with osteomyelitis. This will not get better with wound care or antibiotics. I recommend amputation of the big toe. She agrees to proceed. We will look for surgical time in the next day or 2. Hold anticoagulation. Plan is for surgery . Informed consent was o btained. Treatment options risk benefits rehab recovery discussed. (2) Diabetic neuropathy: (3) Diabetes mellitus, type 2: History of Present Illness Attending Physician: Ricky Villela MD History of Present Illness Deirdre is 73 years old. She reports that both of her legs got swollen about 1- 1/2 weeks ago. Her toes then split open. She reports developing wounds on the both big toes around that time. She was seen by her family doctor and given Augmentin. Because her leg swelling worsened and her toes were bothering her she came into the ER and was admitted. There is no history of injury. She does not get regular footcare. Allergies Allergy/AdvReac Type Severity Reaction Status Date / Time gabapentin AdvReac Intermediate LOSS OF Verified 02/08/24 15:06 FEELING IN LOWER EXTREMITIES adhesive tape AdvReac Mild Rash Verified 02/08/24 15:06 shellfish derived AdvReac Mild GI SYMPTOMS Verified 02/08/24 15:06 pork derived (porcine) AdvReac Unknown Vomiting Verified 02/08/24 15:06 Pork/Porcine Containing AdvReac Unknown Vomiting Verified 02/08/24 15:06 Products Prep Swab Allergy Unknown "Get sick Uncoded 02/08/24 15:06 and throw up" Home Medications Medication Instructions Recorded Confirmed Type nitroglycerin 0.4 mg sublingual 0.4 mg sublingual Q5M PRN Chest 01/05/23 11/11/24 Rx tablet Pain #100 tabs pzifbfff-ombaskk-obvh-lutein tablet 1 tab PO DAILY 06/04/22 02/08/24 History dapagliflozin propanediol 10 mg 10 mg PO DAILY #90 tabs 04/27/23 02/08/24 Rx tablet (Farxiga) sacubitril 24 mg-valsartan 26 mg 1 tab PO BID #180 tabs 04/27/23 02/08/24 Rx tablet (Entresto) levothyroxine 50 mcg tablet 50 mcg PO DAILY #90 tabs 05/05/23 02/08/24 Rx omeprazole 40 mg capsule,delayed 40 mg PO DAILY #90 caps 05/13/23 02/08/24 Rx release albuterol sulfate 90 mcg/actuation 1 puff inhalation DAILY PRN 06/12/23 02/08/24 Rx aerosol inhaler Shortness Of Breath #8.5 grams Vitamin A 2,400 mcg PO DAILY 07/15/23 02/08/24 History Vitamin B12 500 mcg PO BID 07/15/23 02/08/24 History acetaminophen 650 mg 650 mg PO BID PRN Pain 07/15/23 02/08/24 History tablet,extended release ascorbic acid (vitamin C) 1,000 mg 1 g PO DAILY 07/15/23 02/08/24 History tablet calcium 333 mg 1 tab PO DAILY 07/15/23 02/08/24 History (carbonate)-magnesium 133 mg (oxide)-zinc 5 mg tablet cholecalciferol (vitamin D3) See Rx Instructions PO DAILY 07/15/23 02/08/24 History teriparatide 20 mcg/dose (600 20 mcg subcut DAILY 07/15/23 02/08/24 History mcg/2.4 mL) subcutaneous pen injector vitamin B complex 1 tab PO DAILY 07/15/23 02/08/24 History buspirone 10 mg tablet 10 mg PO TID #270 tabs 07/23/23 02/08/24 Rx fluticasone propionate 50 See Rx Instructions .Route HS 08/13/23 02/08/24 History mcg/actuation nasal spray,suspension fluticasone fur. 100 mcg-umeclid 1 inh inhalation DAILY #60 ea 08/25/23 02/08/24 Rx 62.5 mcg-vilant 25 mcg inhalat.powder (Trelegy Ellipta) spironolactone 25 mg tablet 25 mg PO DAILY #90 tabs 12/01/23 02/08/24 Rx nystatin 100,000 unit/gram topical 1 applic topical BID #30 grams 12/11/23 02/08/24 Rx cream rosuvastatin 5 mg tablet 5 mg PO DAILY #90 tabs 12/23/23 02/08/24 Rx metoprolol succinate 100 mg 200 mg (2 x 100 mg) PO DAILY #90 01/21/24 02/08/24 Rx tablet,extended release 24 hr tabs torsemide 20 mg tablet 20 mg PO DAILY edema #30 tabs 01/21/24 02/08/24 Rx amoxicillin 875 mg-potassium 1 tab PO BID 14 days #28 tabs 01/27/24 02/08/24 Rx clavulanate 125 mg tablet tramadol 50 mg tablet 100 mg (2 x 50 mg) PO BID PRN Pain 01/27/24 02/08/24 Rx #120 tabs apixaban 5 mg tablet (Eliquis) 5 mg PO BID #60 tabs 02/02/24 02/08/24 Rx Patient History Medical History History of ovarian cancer s/p hysterectomy/oophorectomy - no chemotherapy H/O deep venous thrombosis Left leg - s/p IVF filter Surgical History History of total knee replacement RT/LEFT History of colonoscopy History of gastric bypass History of tonsillectomy History of adenoidectomy History of cardiac cath no stents History of lumbar spinal fusion History of hysterectomy History of PTCA Family History Other Family history non-contributory Social History Smoking Status: Never smoker Second Hand Exposure: No; Do You Dip or Chew Tobacco: No; Hx Alcohol Use: No Hx Substance Use: No Preferred Language: Burmese Communication Ability: Effective Visual Impairment: No Limitations Hearing Ability: Normal Machine Molder Squeeze Required: No Beliefs That Will Affect Care: None marital status: Current Living Situation: Spouse Current Living Situation Comment: lives with spouse in [employer] style trailer, with ramp to enter current occupational status: retired 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 Her son helps her with her wounds and we spoke with him as well. She is currently not diabetic. Her hemoglobin A1c is within normal limits. She was diabetic until she had bariatric surgery 10 years ago. She has had both of her knees replaced in [place]. She has COPD. Neuropathy. Osteoporosis and she gets teriparatide injections monthly.Her health history is reviewed and noted on her medical record. Physical Exam Physical Exam: Both of her lower extremities have redness in the pretibial area with swelling 1+ slightly greater right versus left. Erythema. There is nothing over the posterior ankle area. The left leg shows plantar callosity over the fifth metatarsophalangeal joint. There is a plantar callosity with 1/2 cm diameter wound over the first MTP joint depth about 2 mm healthy in appearance no surrounding erythema does not undermine there is no exposed bone. Healthy granulating tissue with no drainage. Her DP pulse on the left is palpable her PT is not palpable however it is dopplerable. She has a positive [place]. The ankle can be dorsiflexed just shy of neutral both the knee flexed and extended. She has the same thing on the right. Her left foot demonstrates limited ankle and subtalar movement. Limited movement of the toes. She has 5- out of 5 ankle and toe plantarflexion dorsiflexion inversion and eversion strength. Examination of the right lower extremity reveals DP and PT pulses are nonpalpable. They are dopplerable. The foot is not swollen but likely other side she has 5- out of 5 strength throughout she reports diminished sensation in both feet. Achilles area is benign. There is a thickened keratosis over the big toe. There is an open wound distal plantar and slightly medial which when probed reveals palpable bone fragments. There is mild swelling and some redness. Foul odor, necrotic tissue but no purulent drainage. Results & Data Vital Signs (Past 12 Hours) Vital Signs Temp Pulse Resp BP Pulse Ox O2 Del Method 02/09/24 14:50 36.7 C 124 H 16 98/67 L 100 Room Air 02/09/24 09:05 Room Air 02/09/24 07:25 36.4 C L 114 H 16 109/70 98 Room Air Laboratory Results Laboratory Results WBC 6.00 K/ul (4.8-10.8) 02/09/24 06:17 RBC 3.54 M/uL (4.20-5.40) L 02/09/24 06:17 Hgb 12.8 g/dl (12.0-16.0) 02/09/24 06:17 Hct 38.7 % (37.0-47.0) 02/09/24 06:17 MCV 109.3 fL (80.0-100.0) H 02/09/24 06:17 MCH 36.2 pg (25.0-34.0) H 02/09/24 06:17 MCHC 33.1 g/dL (32.0-36.0) 02/09/24 06:17 RDW Std Deviation 48.2 fL (36.4-46.3) H 02/09/24 06:17 RDW Coeff of Krista 11.9 % (11.5-14.5) 02/09/24 06:17 Plt Count 202 K/uL (130-400) 02/09/24 06:17 MPV 10.9 fL (9.4-12.4) 02/09/24 06:17 Immature Gran % (Auto) 0.4 % 02/08/24 18:27 Neut % (Auto) 78.4 % 02/08/24 18:27 Lymph % (Auto) 13.9 % 02/08/24 18:27 [place] % (Auto) 6.3 % 02/08/24 18:27 Eos % (Auto) 0.5 % 02/08/24 18:27 Baso % (Auto) 0.5 % 02/08/24 18:27 Neut # (Auto) 6.48 K/uL (1.40-6.50) 02/08/24 18:27 Lymph # (Auto) 1.15 K/uL (1.20-3.40) L 02/08/24 18:27 [place] # (Auto) 0.52 K/uL (0.11-0.59) 02/08/24 18:27 Eos # (Auto) 0.04 K/uL (0.00-0.50) 02/08/24 18:27 Baso # (Auto) 0.04 K/uL (0.00-0.20) 02/08/24 18: Immature Gran # (Auto) 0.03 K/uL (0.01-0.20) 02/08/24 18:27 Polychromasia 1+ 02/08/24 18:27 Macrocytosis Present 02/08/24 18: ESR 51 mm/hr (0-30) H 02/09/24 06:17 PT 11.9 Seconds (9.0-12.0) 02/08/24 18: INR 1.1 (0.9-1.1) 02/08/24 18: APTT 31 Seconds (21-31) 02/08/24 18: PTT Ratio 1.2 02/08/24 18:27 Sodium 138 mmol/L (136-145) 02/09/24 06:17 Potassium 4.2 mmol/L (3.5-5.1) 02/09/24 06:17 Chloride 111 mmol/L (98-107) H 02/09/24 06:17 Carbon Dioxide 21 mmol/L (21-32) 02/09/24 06:17 Anion Gap 6 (3-11) 02/09/24 06:17 BUN 23 mg/dl (6-23) 02/09/24 06:17 Creatinine 0.91 mg/dl (0.6-1.2) 02/09/24 06:17 Est Cr Clr Drug Dosing 54.3 ml/min 02/09/24 06:17 eGFR 66.61 02/09/24 06:17 BUN/Creatinine Ratio 25.3 (10-20) H 02/09/24 06:17 Glucose 77 mg/dl (70-99(Fasting)) 02/09/24 06:17 POC Glucose 104 mg/dl (70-99) H 02/09/24 11:45 Lactate 1.3 mmol/L (0.4-2.0) 02/08/24 18: Calcium 8.5 mg/dl (8.6-10.3) L 02/09/24 06:17 Magnesium 2.0 mg/dl (1.7-2.4) 02/08/24 18:27 Total Bilirubin 0.4 mg/dl (0.2-1.0) 02/08/24 18: Direct Bilirubin 0.1 mg/dl (0-0.2) 02/08/24 18:27 AST 17 U/L (13-39) 02/08/24 18:27 ALT 12 U/L (7-52) 02/08/24 18: Alkaline Phosphatase 86 U/L (34-104) 02/08/24 18: Troponin I High Sens 7.6 pg/ml (0-14) 02/08/24 18: C-Reactive Protein 2.60 mg/dl (0-0.5) H 02/08/24 18: B-Natriuretic Peptide 789 pg/ml (0-100) H 02/08/24 21:49 Total Protein 6.0 gm/dl (6.0-8.3) 02/08/24 18: Albumin 3.2 gm/dl (3.4-5.0) L 02/08/24 18: Procalcitonin < 0.02 ng/ml (0-0.5) 02/08/24 18:27 Urine Color Yellow 02/08/24 19:25 Urine Appearance Clear (Clear) 02/08/24 19: Urine pH 5.5 (4.5-7.5) 02/08/24 19: Ur Specific [place] 1.030 (1.000-1.030) 02/08/24 19:25 Urine Protein Trace (Negative) H 02/08/24 19:25 Urine Glucose (UA) 2+ (Negative) H 02/08/24 19:25 Urine Ketones Trace (Negative) H 02/08/24 19:25 Urine Blood Negative (Negative) 02/08/24 19: Urine Nitrite Negative (Negative) 02/08/24 19:25 Urine Bilirubin Negative (Negative) 02/08/24 19: Urine Urobilinogen Negative (Negative) 02/08/24 19: Ur Leukocyte Esterase Negative (Negative) 02/08/24 19:25 Urine WBC (Auto) 0-5 /hpf (0-5) 02/08/24 19:25 Urine RBC (Auto) 3-5 /hpf (0-2) H 02/08/24 19:25 U Hyaline Cast (Auto) 6-10 /lpf (0-2) H 02/08/24 19:25 U Epithel Cells (Auto) 11-20 /hpf (0-2) H 02/08/24 19:25 Urine Bacteria (Auto) None Seen (None Seen) 02/08/24 19:25 Urine Mucus Present (None Prsent) A 02/08/24 19:25 Impressions Foot X-Ray 02/08/24 18:09 Exam(s): XR LEFT FOOT EXAM: XR Left Foot Complete, 3 or More Views CLINICAL HISTORY: Reason for exam: LEFT FOOT DIABETIC WOUND. TECHNIQUE: Frontal, lateral and oblique views of the left foot. COMPARISON: No relevant prior studies available. FINDINGS: Bones/joints: No radiographic evidence of acute osteomyelitis. The bones are osteopenic. No acute fracture. Soft tissues: Ulcer along the medial forefoot. IMPRESSION: 1. No radiographic evidence of acute osteomyelitis. 2. Ulcer along the medial forefoot. Electronically signed by: Mike Irving MD 02/08/24 19:37 PM
--- NOTE | 2024-02-09 17:37 | Ultrasound Report ---
INDICATION: Leg pain. TECHNIQUE: Sonographic grayscale, color Doppler and spectral wave analysis of bilateral lower extremity arteries. Ankle-brachial indices also calculated bilaterally. Toe brachial indices not calculated secondary to overlying bandage material. COMPARISON: No relevant priors. FINDINGS: No evidence of focal arterial occlusion. Elevated peak systolic velocity in the right anterior tibial artery up to 446 cm/s. Otherwise no significant peak systolic velocity elevation. Monophasic waveforms seen distally bilaterally. Otherwise multiphasic waveforms. Right dorsalis pedis pressure, 104, left 97. Right posterior tibial pressure 95, left 98. Right brachial pressure 98. Right ankle brachial index 1.06, left 1.0 IMPRESSION: 1. No evidence of arterial occlusion. 2. Findings concerning for hemodynamically significant stenosis, right anterior tibial artery. 3. Normal ankle-brachial indices bilaterally. Electronically signed by Meek Buchanan 02-09-2024 5:36 PM
[2024-02-09] MEDS ORDERED: dilTIAZem HCl 5 MG/ML 5 ML VIAL IV STA (18:14)
[2024-02-09] MEDS: traMADol HCL 50 MG TABLET PO PRN (21:14)
[2024-02-09] MEDS: FLUTICASONE PROPIONATE NA SPR 16 GM BTL SCH (21:16)
[2024-02-10 06:27] LABS: Creatinine Clr Calc Pharmacy 50.9 ml/min
--- NOTE | 2024-02-10 08:00 | Hospitalist Progress Note ---
Date of Service February 10, 2024 Assessment & Plan (1) Acute osteomyelitis of right foot: Plan: 73yo female with DM presenting with wounds on RLE great toe Pt was on Augmentin with no improvement. X-ray of the right foot shows destructive changes of the first distal phalanx consistent with acute osteomyelitis. Cefepime/vancomycin doppler shows possible right anterior artery stenosis, history of pad ortho consulted medically risk optimized to proceed to surgery on 1423 ID consulted would recommend duration of treatment of antibiotics post surgical amputation F/U wound culture shows Morganella morganii (2) Atrial fibrillation with rapid ventricular response: Plan: -Continue Metoprolol XL 200mg po daily -Will hold Eliquis for now in case of surgical debridement/amputation HF improved EF Hold Entresto for now Continue Spironolactone Continue Torsemide 20mg po daily Plan Patient does have a history of vascular disease her RCRI is likely 2 points or 10% however she is risk optimized proceed to surgical procedure Peripheral arterial disease post prior left SFA/popliteal angioplasty 06/2020 Admission and Anticipated Discharge Date Admission Date: February 08, 2024 Subjective Patient seen in the company of her son discussed upcoming surgery. Son wants patient home soon as possible to help take care of his father encouraged him that this may not be reasonable to expect since she is going to be having surgery that will impair her ambulation. I personally discussed this case with Dr. Maciel regarding possible tibial artery stenosis he feels this is not clinically significant to impact surgery Physical Exam Physical Exam: Awake in no distress her foot is bandaged Atrial fibrillation seems to be rate controlled does not seem that irregular and clinical exam Lungs are clear without wheezes or crackles Extremities the patient has chronic arterial insufficiency changes to both legs Results & Data Results & Data Vital Signs (Past 12 Hours) Vital Signs Temp Pulse Pulse Resp BP BP Pulse Ox 02/10/24 07:33 97.5 F L 84 16 111/75 98 02/10/24 03:40 98.1 F 84 20 106/79 98 02/10/24 00:35 97.9 F 80 20 106/70 96 02/10/24 00:00 138 H O2 Del Method 02/10/24 07:33 Room Air 02/10/24 03:40 Room Air 02/10/24 00:35 Room Air 02/10/24 00:00 Laboratory Results Reviewed creatinine reviewed [id number] glucose Discussed case with Dr. Maciel peripheral artery specialist for this patient PG Care Time/CCT Total # of Minutes Spent Total Time Spent with Patient: Total time spent is greater than 50% in coordination of care (as documented) at patient's floor/unit and/or counseling patient: Coding Level of Care Code 24691 SUB INP/OBS CARE 3/50MIN Diagnoses Acute osteomyelitis of right foot M86.171 Atrial fibrillation with rapid ventricular response I48.91
--- NOTE | 2024-02-10 09:42 | Orthopedic Progress Note ---
Date of Service February 10, 2024 Assessment & Plan (1) Acute osteomyelitis of right foot: Plan: Arterial Doppler completed. Possible stenosis in anterior tibial artery. Spoke with Dr. Maciel. He will put a note on the chart but thinks collateral circulation adequate. Anesthesia preop. Wound care consult. Plan on right big toe amputation tomorrow with possible percutaneous Achilles tendon lengthening on the right. Probable superficial debridement of plantar keratoses on the left foot as well. N.p.o. after midnight. Plan for surgery 9 AM tomorrow. Hold anticoagulation. Continue IV antibiotics. (2) Diabetic neuropathy: (3) Diabetes mellitus, type 2: Admission and Anticipated Discharge Date Admission Date: February 08, 2024 Subjective No problems reported. Physical Exam Physical Exam: Dressings are partly unraveled but the nurse is rewrapping. Swelling continues to improve with diminished redness and positive skin wrinkles on both legs. The feet are not notably swollen or red. Results & Data Vital Signs (Past 12 Hours) Vital Signs Temp Pulse Pulse Resp BP BP Pulse Ox 02/10/24 08:31 110 H 02/10/24 07:33 36.4 C L 84 16 111/75 98 02/10/24 03:40 36.7 C 84 20 106/79 98 02/10/24 00:35 36.6 C 80 20 106/70 96 02/10/24 00:00 138 H O2 Del Method 02/10/24 08:31 02/10/24 07:33 Room Air 02/10/24 03:40 Room Air 02/10/24 00:35 Room Air 02/10/24 00:00 Laboratory Results Laboratory Results Impressions Duplex Scan Lower Extremity Artery 02/09/24 10:49 INDICATION: Leg pain. TECHNIQUE: Sonographic grayscale, color Doppler and spectral wave analysis of bilateral lower extremity arteries. Ankle-brachial indices also calculated bilaterally. Toe brachial indices not calculated secondary to overlying bandage material. COMPARISON: No relevant priors. FINDINGS: No evidence of focal arterial occlusion. Elevated peak systolic velocity in the right anterior tibial artery up to 446 cm/s. Otherwise no significant peak systolic velocity elevation. Monophasic waveforms seen distally bilaterally. Otherwise multiphasic waveforms. Right dorsalis pedis pressure, 104, left 97. Right posterior tibial pressure 95, left 98. Right brachial pressure 98. Right ankle brachial index 1.06, left 1.0 IMPRESSION: 1. No evidence of arterial occlusion. 2. Findings concerning for hemodynamically significant stenosis, right anterior tibial artery. 3. Normal ankle-brachial indices bilaterally. Electronically signed by Meek Buchanan 02-09-2024 5:36 PM
--- NOTE | 2024-02-10 14:04 | Pharmacy Report ---
Pharmacy PK ABX Note - Date of Service February 10, 2024 - Assessment and Plan Assessment 73 year old F receiving cefepime and vancomycin for treatment of right foot osteomyelitis. Blood cultures x 2 show no growth at 24 hours. Toe culture growing Morganella morganii (sensitive to cefepime) and Pasturella canis/oralis. Renal function stable. Plan is for right great toe amputation on 02/11/24. ID consulted. Follow-up postoperatively in regards to duration. Day # 2 of antimicrobial therapy. Plan Vancomycin * Current regimen: 1500 mg IV every 24 hours * Random level obtained 02/10/24 resulted as 14.9 mcg/mL. This is predicted to achieve target AUC/SHREYA of 400-600 mg/L.hr * Predicted AUC at steady state: 513 mg/L.hr * Continue 1500 mg IV every 24 hours * Will repeat level in the next 48-72 hours if therapy is continued and/or change in patient clinical status Cefepime * 2 g IV q12h - appropriately dosed for indication/renal function Pharmacy will continue to follow and will adjust dose/frequency as necessary. Thank you. Pharmacy has transitioned to AUC monitoring for vancomycin. AUC/SHREYA is the preferred PK/PD target and is associated with decreased risk of nephrotoxicity c ompared to traditional trough targets.
--- NOTE | 2024-02-10 16:34 | Cardiology Consultation ---
Date of Consultation February 10, 2024 Assessment & Plan (1) Atrial fibrillation with rapid ventricular response: (2) CAD (coronary artery disease): (3) Peripheral arterial disease: Plan 1. Atrial fibrillation: When she is in atrial fibrillation, her rate is somewhat fast however I think this is acceptable for surgery. We may need to address rate control in the postoperative period. 2. Coronary disease: She has coronary disease and she may have stable angina, however with the relatively recent stress test showing at most mild ischemia, no change in her symptoms and a relatively short procedure I think it is safe to proceed. 3. Peripheral vascular disease: Details are noted elsewhere. 4. Anticoagulation: At home she is on Eliquis, here she does not seem to be on an anticoagulant at the time of her surgery. This should be reinstituted when felt safe from the surgical standpoint. History of Present Illness Reason for Consultation: Operative clearance Attending Physician: De Parikh MD History of Present Illness This is a 73-year-old woman with a history of diabetes mellitus, obesity with gastric bypass surgery, atrial fibrillation, severe peripheral arterial disease, prior DVT, and left ventricular dysfunction. She had a prior angioplasty of her left superficial artery/popliteal area in June 2020 and now presents with osteomyelitis of her right foot for which surgery is contemplated. She has a history of left ventricular dysfunction in March 2022, her left v entricular ejection fraction was 25% by echocardiography and with rate control and electrical cardioversion as well as rhythm control with amiodarone her left ventricular function improved quickly and by July 02, 2022 her left ventricular function was normal. She does carry a diagnosis of prior SC, I am not sure of the details. She did have a SPECT scan in March 2022 which was negative for ischemia. Her electrocardiogram however does show a possible anterior myocardial infarction. She had a myocardial perfusion study done on May 29, 2023 which was not completely normal but only showed a mild reversible defect in the apical, septal and inferior segments. Possible artifact tablet. She describes having "twinges" which sound like brief episodes of substernal chest discomfort perhaps weekly or less over the last several years, these have not changed in frequency although she has not been active recently they were not worsening before that. No other cardiovascular complaints. Allergies Allergy/AdvReac Type Severity Reaction Status Date / Time gabapentin AdvReac Intermediate LOSS OF Verified 02/08/24 15:06 FEELING IN LOWER EXTREMITIES adhesive tape AdvReac Mild Rash Verified 02/08/24 15:06 shellfish derived AdvReac Mild GI SYMPTOMS Verified 02/08/24 15:06 pork derived (porcine) AdvReac Unknown Vomiting Verified 02/08/24 15:06 Pork/Porcine Containing AdvReac Unknown Vomiting Verified 02/08/24 15:06 Products Prep Swab Allergy Unknown "Get sick Uncoded 02/08/24 15:06 and throw up" Home Medications Medication Instructions Recorded Confirmed Type nitroglycerin 0.4 mg sublingual 0.4 mg sublingual Q5M PRN Chest 04/03/22 02/08/24 Rx tablet Pain #100 tabs hkwuoizp-apqvmio-fvoy-lutein tablet 1 tab PO DAILY 06/04/22 02/08/24 History dapagliflozin propanediol 10 mg 10 mg PO DAILY #90 tabs 04/27/23 02/08/24 Rx tablet (Farxiga) sacubitril 24 mg-valsartan 26 mg 1 tab PO BID #180 tabs 04/27/23 02/08/24 Rx tablet (Entresto) levothyroxine 50 mcg tablet 50 mcg PO DAILY #90 tabs 05/05/23 02/08/24 Rx omeprazole 40 mg capsule,delayed 40 mg PO DAILY #90 caps 05/13/23 02/08/24 Rx release albuterol sulfate 90 mcg/actuation 1 puff inhalation DAILY PRN 06/12/23 02/08/24 Rx aerosol inhaler Shortness Of Breath #8.5 grams Vitamin A 2,400 mcg PO DAILY 07/15/23 02/08/24 History Vitamin B12 500 mcg PO BID 07/15/23 02/08/24 History acetaminophen 650 mg 650 mg PO BID PRN Pain 07/15/23 02/08/24 History tablet,extended release ascorbic acid (vitamin C) 1,000 mg 1 g PO DAILY 07/15/23 02/08/24 History tablet calcium 333 mg 1 tab PO DAILY 07/15/23 02/08/24 History (carbonate)-magnesium 133 mg (oxide)-zinc 5 mg tablet cholecalciferol (vitamin D3) See Rx Instructions PO DAILY 07/15/23 02/08/24 History teriparatide 20 mcg/dose (600 20 mcg subcut DAILY 07/15/23 02/08/24 History mcg/2.4 mL) subcutaneous pen injector vitamin B complex 1 tab PO DAILY 07/15/23 02/08/24 History buspirone 10 mg tablet 10 mg PO TID #270 tabs 07/23/23 02/08/24 Rx fluticasone propionate 50 See Rx Instructions .Route HS 08/13/23 02/08/24 History mcg/actuation nasal spray,suspension fluticasone fur. 100 mcg-umeclid 1 inh inhalation DAILY #60 ea 08/25/23 02/08/24 Rx 62.5 mcg-vilant 25 mcg inhalat.powder (Trelegy Ellipta) spironolactone 25 mg tablet 25 mg PO DAILY #90 tabs 12/01/23 02/08/24 Rx nystatin 100,000 unit/gram topical 1 applic topical BID #30 grams 12/11/23 02/08/24 Rx cream rosuvastatin 5 mg tablet 5 mg PO DAILY #90 tabs 12/23/23 02/08/24 Rx metoprolol succinate 100 mg 200 mg (2 x 100 mg) PO DAILY #90 01/21/24 02/08/24 Rx tablet,extended release 24 hr tabs torsemide 20 mg tablet 20 mg PO DAILY edema #30 tabs 01/21/24 02/08/24 Rx amoxicillin 875 mg-potassium 1 tab PO BID 14 days #28 tabs 01/27/24 02/08/24 Rx clavulanate 125 mg tablet tramadol 50 mg tablet 100 mg (2 x 50 mg) PO BID PRN Pain 01/27/24 02/08/24 Rx #120 tabs apixaban 5 mg tablet (Eliquis) 5 mg PO BID #60 tabs 02/02/24 02/08/24 Rx Patient History Medical History History of ovarian cancer s/p hysterectomy/oophorectomy - no chemotherapy H/O deep venous thrombosis Left leg - s/p IVF filter Surgical History History of total knee replacement RT/LEFT History of colonoscopy History of gastric bypass History of tonsillectomy History of adenoidectomy History of cardiac cath no stents History of lumbar spinal fusion History of hysterectomy History of PTCA Family History Other Family history non-contributory Social History Smoking Status: Never smoker Second Hand Exposure: No; Do You Dip or Chew Tobacco: No; Hx Alcohol Use: No Hx Substance Use: No Preferred Language: Yakut Communication Ability: Effective Visual Impairment: No Limitations Hearing Ability: Normal Clinic Office Assistant Required: No Beliefs That Will Affect Care: None marital status: Current Living Situation: Spouse Current Living Situation Comment: lives with spouse in [place] trailer, with ramp to enter current occupational status: retired 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 + distention Extremities: See vascular consult Neuro: Nonfocal Results & Data Vital Signs (Past 12 Hours) Vital Signs Temp Pulse Pulse Resp BP Pulse Ox O2 Del Method 02/10/24 16:12 36.9 C 62 16 94/65 L 90 Room Air 02/10/24 11:33 36.5 C 107 H 16 99/63 L 98 Room Air 02/10/24 08:31 110 H 02/10/24 07:33 36.4 C L 84 16 111/75 98 Room Air Laboratory Results Comprehensive Metabolic Panel 02/10/24 Range/Units 05:45 Creatinine 0.97 (0.6-1.2) mg/dl Intake and Output 02/10/24 02/10/24 02/10/24 06:59 14:59 22:59 Intake Total 520 / 1610 530 / 530 Output Total 1450 / 3150 Balance -930 / -1540 530 / 530 Intake: IV 530 / 530 Vancomycin HCl 1,500 mg In 530 / 530 Dextrose 5% 500 ml @ 200 mls/hr IV Q24H ASHWINI Rx#:[id number] Oral 520 / 1080 Output: Urine Amount (Catheter) 1450 / 3150 External 1450 / 3150 PG Care Time/CCT Total # of Minutes Spent Total Time Spent with Patient: Total time spent is greater than 50% in coordination of care (as documented) at patient's floor/unit and/or counseling patient: Coding Level of Care Code 13454 INT INP/OBS CARE 2/55MIN Diagnoses Atrial fibrillation with rapid ventricular response I48.91 CAD (coronary artery disease) I25.10 Peripheral arterial disease I73.9
--- NOTE | 2024-02-10 17:19 | Vascular Medicine ProgressNote ---
Date of Service February 10, 2024 Assessment & Plan (1) Peripheral arterial disease: Plan: -- post prior left SFA/popliteal angioplasty 06/2020 2. Osteomyelitis - RT great toe 3. HFmrEF, moderate MR 4. Mildly abnormal stress test 05/2023 5. Paroxysmal Atrial fibrillation with RVR -- cardioversion 03/2022; [id number] VASc 6 on Eliquis 6. Type 2 DM 7. CVI/lymphedema/Prior DVTchronic anticoagulation, IVC filter Reviewed patient's arterial duplex. ABIs normal bilaterally (unchanged from 01/2021). No signs of inflow or significant SFA/Popliteal disease. Does appear to have 75+% VANDANA stenosis but Distal BOTTLE INSPECTOR, Maisha and DPA patent with normal doppler upstrokes. On exam RT foot appears well perfused with palpable pedal pulses and intact capillary refill. Overall feel current picture is not consist critical limb ischemia. Arterial perfusion is adequate to heal planned surgical wound. No benefit to additional vacular testing or revascularization. From a vascular standpoint OK to proceed with planned great toe amputation. Will arrange f/up with me post hospitalization for continued cardiac/vascular care. Admission and Anticipated Discharge Date Admission Date: February 08, 2024 Subjective Patient was seen in office at her heart failure visit 02/07 at which time noted to have Foul-smelling right great toe wound, deep to bone despite p.o. antibiotics. Referred to ED. Seen yesterday after hospitalization. Comfortable denies significant right foot pain. X-ray findings consistent with osteomyelitis. Has been seen by Dr. Gimenez. Plans for right great toe amputation tomorrow. Review of Systems Review of Systems: All systems reviewed & are unremarkable except as noted in HPI & below Physical Exam Physical Exam: General: Comfortable HEENT: Sclerae anicteric Lungs: Clear to auscultation bilaterally Cardiac: Regular, no murmurs no appreciable JVD Vascular: 2+ right radial pulse. 1+ DP/PT pulses on RT, normal capillary refill 2nd digit Abdomen: Soft, nontender. + distention Extremities: Well perfused, 1+ tense lower extremity edema to ankles bilaterally, chronic venous stasis changes. 2cm plantar ulceration on the left foot- not draining. No erythema. Right great distal toe open wound with deep ulceration- concerning for osteomyelitis. Neuro: Nonfocal Psych: Alert orient x3, normal affect and mood Results & Data Vital Signs (Past 12 Hours) Vital Signs Temp Pulse Pulse Resp BP Pulse Ox O2 Del Method 02/10/24 16:12 98.4 F 62 16 94/65 L 90 Room Air 02/10/24 11:33 97.7 F 107 H 16 99/63 L 98 Room Air 02/10/24 08:31 110 H 02/10/24 07:33 97.5 F L 84 16 111/75 98 Room Air PG Care Time/CCT Total # of Minutes Spent Total Time Spent with Patient: Total time spent is greater than 50% in coordination of care (as documented) at patient's floor/unit and/or counseling patient: Coding Level of Care Code 56589 SUB INP/OBS CARE 3/50MIN Diagnoses Peripheral arterial disease I73.9
[2024-02-10] MEDS: ONDANSETRON INJ 2 MG/ML 2 ML VIAL IV PRN (22:56)
[2024-02-11] MEDS ORDERED: MIDAZOLAM HCL 1 MG/ML 2ML VIAL ONE (08:03)
[2024-02-11] MEDS ORDERED: fentaNYL citrate PF 100 MCG/2 ML VIAL ONE (08:03)
--- NOTE | 2024-02-11 08:44 | Hospitalist Progress Note ---
Date of Service February 11, 2024 Assessment & Plan (1) Acute osteomyelitis of right foot: Plan: 73yo female with DM presenting with wounds on RLE great toe Pt was on Augmentin with no improvement. X-ray of the right foot shows destructive changes of the first distal phalanx consistent with acute osteomyelitis. Cefepime/vancomycin doppler shows possible right anterior artery stenosis, history of pad ortho consulted medically risk optimized to proceed to surgery on 1423 ID consulted would recommend duration of treatment of antibiotics post surgical amputation F/U wound culture shows Morganella morganii (2) Atrial fibrillation with rapid ventricular response: Plan: -Continue Metoprolol XL 200mg po daily -Will hold Eliquis for now in case of surgical debridement/amputation HF improved EF Hold Entresto for now( bp slighlty soft ) Continue Spironolactone Continue Torsemide 20mg po daily, eval volume status day one post op Plan Patient does have a history of vascular disease her RCRI is likely 2 points or 10% however she is risk optimized proceed to surgical procedure Peripheral arterial disease post prior left SFA/popliteal angioplasty 06/2020 Admission and Anticipated Discharge Date Admission Date: February 08, 2024 Subjective Patient taken to surgery 02/10 Son wants patient home soon as possible to help take care of his father encouraged him that this may not be reasonable to expect since she is going to be having surgery that will impair her ambulation. I personally discussed this case with Dr. Maciel regarding possible tibial artery stenosis he feels this is not clinically significant to impact surgery Physical Exam Physical Exam: Awake in no distress her foot is bandaged Atrial fibrillation seems to be rate controlled does not seem that irregular and clinical exam Lungs are clear without wheezes or crackles Extremities the patient has chronic arterial insufficiency changes to both legs Results & Data Results & Data Vital Signs (Past 12 Hours) Vital Signs Temp Pulse Pulse Pulse Resp BP BP 02/11/24 08:02 98.2 F 124 H 20 100/67 02/11/24 07:51 98.6 F 125 H 17 85/66 L 02/11/24 03:33 98.6 F 98 H 20 98/50 L 02/10/24 23:47 99.0 F 114 H 20 94/62 L 02/10/24 21:45 150 H Pulse Ox O2 Del Method 02/11/24 08:02 96 Room Air 02/11/24 07:51 96 Room Air 02/11/24 03:33 93 Room Air 02/10/24 23:47 94 Room Air 02/10/24 21:45 PG Care Time/CCT Total # of Minutes Spent Total Time Spent with Patient: Total time spent is greater than 50% in coordination of care (as documented) at patient's floor/unit and/or counseling patient: Coding Level of Care Code 51655 SUB INP/OBS CARE 2/35MIN Diagnoses Acute osteomyelitis of right foot M86.171 Atrial fibrillation with rapid ventricular response I48.91
[2024-02-11] MEDS ORDERED: ROPIVACAINE 0.5% 5 MG/ML 30 ML VIAL ONE (08:57)
[2024-02-11] MEDS ORDERED: ePHEDrine sulfate 50 MG/ML AMP IV PRN (09:06)
[2024-02-11] MEDS ORDERED: ATROPINE SULFATE 0.1 MG/ML 10ML SYR IV PRN (09:06)
[2024-02-11] MEDS ORDERED: ONDANSETRON INJ 2 MG/ML 2 ML VIAL IV PRN (09:06)
[2024-02-11] MEDS ORDERED: fentaNYL citrate PF 100 MCG/2 ML VIAL IV PRN (09:06)
--- NOTE | 2024-02-11 09:06 | Anesthesiology Consultation ---
Date of Service February 11, 2024 Assessment & Plan (1) Encounter for pre-operative examination: Chart Review Chart Review: Acceptable Risk for Surgery and Patient NOT seen in Pre Admission Testing Consults Requested none History Surgery Operation Date: 02/11/24 08:50 Proposed Procedures p Right Great Toe Amputation - MD priscilla La Right Percutaneous Achilles Lengthening, Possible Left Achilles Lengthening - MD priscilla La Left Wound Debridement - Vimal Gimenez MD Height/Weight Height: 5 ft 4 in Weight: 70.8 kg Allergies Allergy/AdvReac Type Severity Reaction Status Date / Time gabapentin AdvReac Intermediate LOSS OF Verified 02/08/24 15:06 FEELING IN LOWER EXTREMITIES adhesive tape AdvReac Mild Rash Verified 02/08/24 15:06 shellfish derived AdvReac Mild GI SYMPTOMS Verified 02/08/24 15:06 pork derived (porcine) AdvReac Unknown Vomiting Verified 02/08/24 15:06 Pork/Porcine Containing AdvReac Unknown Vomiting Verified 02/08/24 15:06 Products Prep Swab Allergy Unknown "Get sick Uncoded 02/08/24 15:06 and throw up" Medications Home Medications Medication Instructions Recorded Confirmed Last Taken nitroglycerin 0.4 mg sublingual 0.4 mg sublingual Q5M PRN Chest 04/03/22 02/08/24 Unknown tablet Pain #100 tabs fdotlebz-wrwwbhp-rkfo-lutein tablet 1 tab PO DAILY 06/04/22 02/08/24 Unknown dapagliflozin propanediol 10 mg 10 mg PO DAILY #90 tabs 04/27/23 02/08/24 Unknown tablet (Farxiga) sacubitril 24 mg-valsartan 26 mg 1 tab PO BID #180 tabs 04/27/23 02/08/24 Unknown tablet (Entresto) levothyroxine 50 mcg tablet 50 mcg PO DAILY #90 tabs 05/05/23 02/08/24 Unknown omeprazole 40 mg capsule,delayed 40 mg PO DAILY #90 caps 05/13/23 02/08/24 Unknown release albuterol sulfate 90 mcg/actuation 1 puff inhalation DAILY PRN 06/12/23 02/08/24 Unknown aerosol inhaler Shortness Of Breath #8.5 grams Vitamin A 2,400 mcg PO DAILY 07/15/23 02/08/24 Unknown Vitamin B12 500 mcg PO BID 07/15/23 02/08/24 Unknown acetaminophen 650 mg 650 mg PO BID PRN Pain 07/15/23 02/08/24 Unknown tablet,extended release ascorbic acid (vitamin C) 1,000 mg 1 g PO DAILY 07/15/23 02/08/24 Unknown tablet calcium 333 mg 1 tab PO DAILY 07/15/23 02/08/24 Unknown (carbonate)-magnesium 133 mg (oxide)-zinc 5 mg tablet cholecalciferol (vitamin D3) See Rx Instructions PO DAILY 07/15/23 02/08/24 Unknown teriparatide 20 mcg/dose (600 20 mcg subcut DAILY 07/15/23 02/08/24 Unknown mcg/2.4 mL) subcutaneous pen injector vitamin B complex 1 tab PO DAILY 07/15/23 02/08/24 Unknown buspirone 10 mg tablet 10 mg PO TID #270 tabs 07/23/23 02/08/24 Unknown fluticasone propionate 50 See Rx Instructions .Route HS 08/13/23 02/08/24 Unknown mcg/actuation nasal spray,suspension fluticasone fur. 100 mcg-umeclid 1 inh inhalation DAILY #60 ea 08/25/23 02/08/24 Unknown 62.5 mcg-vilant 25 mcg inhalat.powder (Trelegy Ellipta) spironolactone 25 mg tablet 25 mg PO DAILY #90 tabs 12/01/23 02/08/24 Unknown nystatin 100,000 unit/gram topical 1 applic topical BID #30 grams 12/11/23 02/08/24 Unknown cream rosuvastatin 5 mg tablet 5 mg PO DAILY #90 tabs 12/23/23 02/08/24 Unknown metoprolol succinate 100 mg 200 mg (2 x 100 mg) PO DAILY #90 01/21/24 02/08/24 Unknown tablet,extended release 24 hr tabs torsemide 20 mg tablet 20 mg PO DAILY edema #30 tabs 01/21/24 02/08/24 Unknown amoxicillin 875 mg-potassium 1 tab PO BID 14 days #28 tabs 01/27/24 02/08/24 Unknown clavulanate 125 mg tablet tramadol 50 mg tablet 100 mg (2 x 50 mg) PO BID PRN Pain 01/27/24 02/08/24 Unknown #120 tabs apixaban 5 mg tablet (Eliquis) 5 mg PO BID #60 tabs 02/02/24 02/08/24 Unknown Active Medications Generic Name Dose Route Start Last Admin Trade Name Iamq PRN Reason Stop Dose Admin Buspirone HCl 10 mg 02/09/24 09:00 02/10/24 20:51 Buspirone 5 Mg Tab PO 03/10/24 08:59 10 mg TID ASHWINI Administration Fluticasone Furoate 1 puffs 02/09/24 09:00 02/10/24 08:04 Fluticasone Furoate 100mcg 14 Puffs/Inhaler INH 03/10/24 08:59 1 puffs DAILY ASHWINI Administration Fluticasone Propionate 1 sprays 02/09/24 21:00 02/10/24 20:50 Fluticasone Propionate Na Spr 16 Gm Btl NA 03/10/24 20:59 1 sprays HS ASHWINI Administration Cefepime HCl 2,000 mg in 20 mls @ 5 mls/min 02/09/24 09:00 02/11/24 08:41 Maxipime 2000mg IV 03/22/24 08:59 5 mls/min Q12H ASHWINI Administration Protocol Vancomycin HCl 1,500 mg/ 530 mls @ 200 mls/hr 02/09/24 10:00 02/10/24 13:37 Dextrose IV 03/22/24 09:59 Infused Q24H ASHWINI Infusion Insulin Aspart 0 units 02/09/24 11:30 02/11/24 07:51 Insulin Aspart Per Unit Charge SC 03/10/24 01:14 Not Given ACHS ASHWINI Levothyroxine Sodium 50 mcg 02/09/24 06:30 02/11/24 05:45 Levothyroxine Sodium 50 Mcg Tablet PO 03/10/24 06:29 50 mcg DAILYBB ASHWINI Administration Metoprolol Succinate 200 mg 02/09/24 09:00 02/11/24 08:41 Metoprolol Succ 50mg Ext Rel Tab PO 03/10/24 08:59 200 mg DAILY ASHWINI Administration Ondansetron HCl 4 mg 02/09/24 00:20 02/11/24 06:36 Ondansetron Inj 2 Mg/Ml 2 Ml Vial IV 03/10/24 00:19 4 mg Q6H PRN Administration Nausea And Vomiting Pantoprazole Sodium 40 mg 02/09/24 09:00 02/11/24 08:53 Pantoprazole 40 Mg Tab PO 03/10/24 08:59 40 mg DAILY ASHWINI Administration Rosuvastatin Calcium 5 mg 02/09/24 09:00 02/10/24 08:04 Rosuvastatin Calcium 5 Mg Tab PO 03/10/24 08:59 5 mg DAILY ASHWINI Administration Spironolactone 25 mg 02/09/24 09:00 02/10/24 08:04 Spironolactone 25 Mg Tab PO 03/10/24 08:59 25 mg DAILY ASHWINI Administration Torsemide 20 mg 02/09/24 09:00 02/10/24 08:04 Torsemide 20 Mg Tab PO 03/10/24 08:59 20 mg DAILY ASHWINI Administration Tramadol HCl 100 mg 02/09/24 03:15 02/09/24 21:14 Tramadol Hcl 50 Mg Tablet PO 03/10/24 03:14 100 mg BID PRN Administration Pain Umeclidinium/Vilanterol 1 puffs 02/09/24 09:00 02/10/24 08:05 Umeclidinium/Vilanterol 62.5/25mcg 7 Puffs/Inhaler INH 03/10/24 08:59 1 puffs DAILY ASHWINI Administration NPO Date Last Intake of Fluids: 02/10/24 Time Last Intake of Fluids: 23:00 Date Last Intake of Solids: 02/10/24 Time Last Intake of Solids: 21:00 Past Medical History Medical History History of ovarian cancer s/p hysterectomy/oophorectomy - no chemotherapy H/O deep venous thrombosis Left leg - s/p IVF filter Past Family History Family History Other Family history non-contributory Past Surgical History Surgical History History of total knee replacement RT/LEFT History of colonoscopy History of gastric bypass History of tonsillectomy History of adenoidectomy History of cardiac cath no stents History of lumbar spinal fusion History of hysterectomy History of PTCA Social History Smoking Status: Never smoker Do You Dip or Chew Tobacco: No Hx Alcohol Use: No Hx Substance Use: No substance use type: does not use Physical Exam Vital Signs Last Vital Signs Temp 98.2 F 02/11/24 08:02 Pulse 124 H 02/11/24 08:02 Resp 20 02/11/24 08:02 BP 100/67 02/11/24 08:02 Pulse Ox 96 02/11/24 08:02 O2 Del Method Room Air 02/11/24 08:02 Testing Laboratory Results 02/09/24 06:17 02/10/24 05:45 PT 11.9 Seconds (9.0-12.0) 02/08/24 18: INR 1.1 (0.9-1.1) 02/08/24 18: APTT 31 Seconds (21-31) 02/08/24 18:27 Urine Color Yellow 02/08/24 19:25 Urine Appearance Clear (Clear) 02/08/24 19:25 Urine pH 5.5 (4.5-7.5) 02/08/24 19:25 Ur Specific [place] 1.030 (1.000-1.030) 02/08/24 19:25 Urine Protein Trace (Negative) H 02/08/24 19:25 Urine Glucose (UA) 2+ (Negative) H 02/08/24 19:25 Urine Ketones Trace (Negative) H 02/08/24 19:25 Urine Nitrite Negative (Negative) 02/08/24 19:25 Ur Leukocyte Esterase Negative (Negative) 02/08/24 19:25 Urine WBC (Auto) 0-5 /hpf (0-5) 02/08/24 19:25 Urine RBC (Auto) 3-5 /hpf (0-2) H 02/08/24 19:25 U Hyaline Cast (Auto) 6-10 /lpf (0-2) H 02/08/24 19:25 U Epithel Cells (Auto) 11-20 /hpf (0-2) H 02/08/24 19:25 Urine Bacteria (Auto) None Seen (None Seen) 02/08/24 19:25 02/08/24 20:56 Aerobic Blood Culture - Preliminary Blood No growth in Aerobic bottle after 48 hours. Anaerobic Blood Culture - Preliminary No growth in Anaerobic bottle after 48 hours. 02/08/24 18:27 Aerobic Blood Culture - Preliminary Blood No growth in Aerobic bottle after 48 hours. Anaerobic Blood Culture - Preliminary No growth in Anaerobic bottle after 48 hours. 02/08/24 21:00 Gram Stain - Final Toe Wound Culture - Final Morganella morganii Pasteurella canis/oralis 02/11/24 08:19 POC Glucose 84 Electrocardiogram Date: 02/08/24 Findings: + TONY @ (213)
--- NOTE | 2024-02-11 09:08 | History & Physical Bridge Note ---
Date of Service February 11, 2024 History & Physical Bridge Note I have examined the patient, reviewed the History & Physical and in the interval since the performance of the History & Physical I have noted the following changes of clinical significance: no changes noted
[2024-02-11] MEDS ORDERED: PROPOFOL IV EMULSION 10 MG/ML 20 ML VIAL IV ONE (09:28)
[2024-02-11] MEDS: LACTATED RINGER'S 1,000 ML IV SCH (09:45)
[2024-02-11 10:09] LABS: Creatinine Clr Calc Pharmacy 44.4 ml/min
[2024-02-11] MEDS ORDERED: ceFAZolin 330 MG/ML 1 GM VIAL ONE (10:24)
[2024-02-11] MEDS ORDERED: METOPROLOL TARTRATE 1 MG/ML VIAL IV ONE (10:24)
[2024-02-11] MEDS ORDERED: PHENYLEPHRINE HCL 10 MG/ML VIAL ONE (10:25)
--- NOTE | 2024-02-11 11:06 | Infectious Disease Progress Nt ---
Date of Service February 11, 2024 Assessment & Plan (1) Acute osteomyelitis of right foot: (2) Diabetes mellitus, type 2: (3) Atrial fibrillation with rapid ventricular response: (4) CAD (coronary artery disease): Plan 73yo F with h/o T2DM, COPD, CAD, PAD s/p angioplasty 2020, CHF, afib on Eliquis, hypothyroidism, gastric bypass, bl TKR, lumbar spinal fusion who presented on 02/07 with unhealing wounds of right great toe noted x 1.5 weeks along with ulcers of left foot. She was started on augmentin on 01/27 due to c/f infection of right toe. Here, she has been afebrile, tachycardic. Initial labs with WBC 8.26, Cr 1.12, LFT wnl. ESR 51, CRP 2.60. UA with 0-5 WBC. XR right foot with destructive changes of first distal phalanx c/w acute OM. XR left foot neg for OM. Right toe cx were sent from ED on 02/07. Seen by ortho. She was started on empiric vanc/cefepime. ID consulted 02/08. LE arterial duplex with hemodynamically significant stenosis in right anterior tibial artery, normal GAGE bl. S/p OR 02/10, underwent right great toe amputation, achilles lengthening, an d left foot wound debridement (per op note, amputation down to MTPJ, cx and path from great toe, confident that all infected bone in right big toe removed). Fadia stopped vancomycin since no growth of MRSA on cultures. Morganella is noted to be CTX resistant, discussed with micro and ASP about whether there is ESBL and this is being tested. Will keep cefepime for now. F/u OR cx and path. # Right great toe distal phalanx OM s/p toe amputation 02/10 # T2DM # PAD s/p angioplasty - f/u OR cx and path - Fadia stopped vancomycin - continue cefepime - per op note, no residual infected bone remaining and likely plans for short term abx for SSTI ID will continue to follow. If questions or concerns, contact via [employer] or Infectious Disease Call Center . Tracey Cornell MD [facility], Division of Infectious Diseases [employer]: [phone] Admission and Anticipated Discharge Date Admission Date: February 08, 2024 Subjective This patient recommendation is based on a telemedicine consult request which was completed asynchronously through chart review and information provided by the primary physician. The patient was not seen or examined today. The evaluation is consultative in nature and all patient care and treatment decisions can either be accepted or rejected by the patient's primary hospital-based treating physician using their own independent medical judgment for their patient. Time Spent Reviewing Chart: 31+ minutes Results & Data Vital Signs (Past 12 Hours) Vital Signs Temp Pulse Pulse Resp BP BP Pulse Ox 02/11/24 08:02 36.8 C 124 H 20 100/67 96 02/11/24 07:51 37 C 125 H 17 85/66 L 96 02/11/24 03:33 37.0 C 98 H 20 98/50 L 93 02/10/24 23:47 37.2 C 114 H 20 94/62 L 94 O2 Del Method 02/11/24 08:02 Room Air 02/11/24 07:51 Room Air 02/11/24 03:33 Room Air 02/10/24 23:47 Room Air Laboratory Results Labs reviewed.
[2024-02-11] MEDS: BUPIVACAINE 0.5 % 5 MG/1 ML MPF 30ML VIAL ONE (11:23)
[2024-02-11] MEDS: LIDOCAINE 1%/EPINEPHRINE 1:100,000 50 ML VIAL ONE (11:24)
--- NOTE | 2024-02-11 11:41 | Fluoroscopy Report ---
FL toe RT 2V CLINICAL HISTORY: RIGHT GREAT TOE AMP COMPARISON STUDY: 02/08/2024 FLUOROSCOPY TIME: 1.5 seconds FLUOROSCOPY IMAGES: 2 EXPOSURE DOSE: 0.0183 mGy FINDINGS: Status post partial amputation of the first digit at the level of the mid diaphyseal first metatarsal. Expected postoperative soft tissue swelling with deep tissue air. No unexpected opaque fo reign bodies. IMPRESSION: Fluoroscopic assistance as above. ACT 112: Negative or not required by law. Electronically signed by: Jorge Torres M.D. 02/11/2024 11:40 AM
--- NOTE | 2024-02-11 11:48 | Operative Report ---
Post Operative Report Pre & Post Diagnosis Operation Date: 02/11/24 08:50 Pre-Op Diagnosis: Acute Osteomyelitis of Right Great Toe, Right Achilles Tendon Tracture, Left Foot Diabetic Ulcer Post-Op Diagnosis: Acute Osteomyelitis of Right Great Toe, Right Achilles Tendon Tracture, Left Foot Diabetic Ulcer I identified the patient and participated in the time-out.: Yes Procedure Operation Date: 02/11/24 08:50 Actual Procedures p Right Great Toe Amputation(Right) - MD priscilla La Right Percutaneous Achilles Lengthening(Right) - MD priscilla La Left Foot Wound Debridement(Left) - Vimal Gimenez MD Surgeon Vimal Gimenez MD Special Needs Bus Driver Vipin Charlton fellow, Terence Sanches student Estimated Blood Loss 5 Findings Consistent with Post-Op Diagnosis Specimens Bone for biopsy right great toe. Bone and soft tissue and right great toe for specimen, culture of the right great toe for routine C&S Anesthesia Type MAC Regional Complications none Disposition Accompanied Patient To Recovery: No Disposition: Recovery Room Indications Deirdre is 73 years old. She has developed right great toe osteomyelitis and has bilateral Achilles contractures. She has multiple diabetic ulcers on the left foot. She is taken to the operating room for right Achilles tendon lengthening, amputation right great toe. Debridement of left foot diabetic ulcers. Of note the patient had recent bout of fluid retention secondary to her heart failure contributing to her symptoms. Additionally she is currently not diabetic. She was diabetic until a few years ago when she had gastric bypass surgery. She has the aftereffects of diabetes including neuropathy etc. Description of Procedure Informed consent. Patient identified. She identified the procedure site as both feet. I marked my initials. A preop surgical timeout performed. A preop dose of IV antibiotics was given. She was taken to the operating room positioned supine on the OR table. Tourniquets were applied to the right thigh but not inflated during the case. Both legs were scrubbed with a Betadine and then prepped with Betadine paint in the usual sterile fashion. She reports a history of Betadine causing itching. DVT prophylaxis with early patient mobility mechanical devices and resumption of her Eliquis. Eliquis has been hold held for 72 hours.Fluoroscopic guidance was utilized throughout the surgical procedure The right forefoot was draped out of the wound field with a occlusive dressing. The right Achilles tendon was percutaneously lengthened in standard fashion with 3 small holes incisions. This resulted in dorsiflexion of the Achilles 10 degrees beyond neutral. These were areas were irrigatedWith sterile saline and then closed with interrupted 4-0 nylon sutures. An occlusive dressing was then applied after cleaning off the Betadine. Xeroform 4 x 4's OpSite. The forefoot was then uncovered. There was an ulceration on the plantar distal aspect of the great toe which was thoroughly debrided leaving a 1-1/2 cm circumferential full-thickness wound at the plantar tip distal to the nail. Bone was recovered loose within that space and sent for specimen. A culture was obtained. Further amputation proximal will be needed in order to obtain adequate soft tissue closure. Made a hockey-stick incision extending from just distal to the MTP joint dorsally and then around the toe just at the margin of the wound plantarly. The proximal phalanx was subperiosteally exposed. About 10 to 12 mm distal to the MTP joint with fluoroscopic guidance the proximal ph alanx was transected. The proximal phalanx the IP joint and distal phalanx were then subperiosteally dissected out. Extraperiosteal he at the level of the joint. This was all then sent as a specimen. The extensor tendon was excised. The flexor tendon was dissected out and transected and allowed to retract proximally. Any unhealthy appearing tissue in the fat pad area of the toe was debrided. Any residual bone was also debrided. This was all done Sharp excisional using scalpel or electrocautery or scissors. No tourniquet utilized. Of note her bone was of poor quality. Thin cortex. Hollow on the inside. The margins were trimmed to prevent any pressure. Division Engineer fluoroscopic image was obtained showing the amputation 10 to 12 mm distal to the MTP joint. Irrigation was performed with 500 cc of sterile saline. The dorsal split was then reapproximated and provisional sutures were placed. Dogears on the medial and lateral sides were removed and the dorsal skin was trimmed as appropriate to prevent excess tissue. This was then closed in a satisfactory fashion with tension-free. Skin edges slightly everted. 4-0 nylon. Simple and interrupted horizontal mattress stitches. This area was then cleaned of Betadine. The whole leg. Fluffs between the toes. Xeroform over the wound and gauze. This was followed by soft wrap Shaggy wrap and boot. On the left side there was a small superficial wound of the heel couple millimeters by 5 mm. This was debrided and went down into the dermis but not any deeper. Hyperkeratotic skin was sharply excised with a scalpel. The wound ended up being about a centimeter in diameter. There were 2 wounds on the forefoot 1 under the first MTP joint. This was debrided sharply with a scalpel excising tissue. In toto less than 20 cm of tissue was excised. The base of this lesion was also debrided. There was some fat exposed. But everything appeared healthy and there was no purulence noted. This ended up being about 15 mm in diameter. There was another wound on the left fifth MTP joint plantarly. Hyperkeratotic with a callus over it this was debrided. There was some purulence underneath the callus but the lesion itself did not extend any deeper than the dermis. There is no fat exposed and no bone exposed anywhere. This ended up being about 12 to 15 mm in diameter as well after debridement. There is good healthy bleeding tissue no exposed tendon or bone. The left leg was cleaned with wet and dry sponges to remove the Betadine Xeroform 4 x 4's soft dressing Shaggy wrap and a postop shoe were applied. Patient awakened from anesthesia without difficulty and taken to the recovery room in stable condition. There were no complications. Specimens were as mentioned above. Counts were correct. Conclusion the operation spoke to patient's family informed of my findings postop instructions were given. She will be admitted to the hospital placed on IV antibiotics. Will follow-up on the cultures and coordinate care with medicine and infectious diseases. I am confident that all of the infected bone in the right big toe has been removed and we should be dealing mainly with skin and soft tissue residual infection and colonization. X-rays of the left foot showed no evidence of osteomyelitis. She can weight-bear as tolerated bilaterally. She will need a walker. She will need ongoing wound care as well as diabetic foot care. She will need offloading of the left forefoot. I did not want to release her Achilles tendon on both sides that she would have significant mobility issues with bilateral cam boots. She may need to come back later to have her left Achilles tendon lengthening. In the meantime we can offload the forefoot with blue foam and a postop shoe. This can be coordinated through wound care/diabetic foot clinic. Discussed with family that I will be out of town starting tomorrow for the next 10 days. I attest to the content of the Intraoperative Record and any orders documented therein. Any exceptions are noted below.
--- NOTE | 2024-02-11 11:52 | Operative Report ---
Post Operative Report Pre & Post Diagnosis Operation Date: 02/11/24 08:50 Pre-Op Diagnosis: Acute Osteomyelitis of Right Great Toe, Right Achilles Tendon Tracture, Left Foot Diabetic Ulcer Post-Op Diagnosis: Acute Osteomyelitis of Right Great Toe, Right Achilles Tendon Tracture, Left Foot Diabetic Ulcer I identified the patient and participated in the time-out.: Yes Procedure Operation Date: 02/11/24 08:50 Actual Procedures p Right Great Toe Amputation(Right) - Vimal Gimenez MD s Right Percutaneous Achilles Lengthening(Right) - MD priscilla La Left Foot Wound Debridement(Left) - Vimal Gimenez MD Surgeon Vimal Gimenez MD Storage Manager Vipin Charlton fellow, Terence Sanches student Estimated Blood Loss 5 Findings Consistent with Post-Op Diagnosis Specimens Bone for biopsy right great toe. Bone and soft tissue and right great toe for specimen, culture of the right great toe for routine C&S Description of Procedure Patient was brought to the operative suite where she underwent sedation per anesthesia. Bilateral lower extremities were prepped and draped in usual sterile fashion. Surgical timeout was performed. Patient underwent a right tendo Achilles percutaneous lengthening, right great toe amputation, left foot wound debridement; please see Dr. Gimenez's operative report for full details. Is present assisted with patient positioning, limb positioning, soft tissue retraction, tendoachilles lengthening, great toe amputation, wound closure, postoperative dressing placement. The patient was taken to the recovery room in stable condition. I attest to the content of the Intraoperative Record and any orders documented therein. Any exceptions are noted below.
[2024-02-11] MEDS ORDERED: NALOXONE HCL 0.4 MG/1 ML VIAL/CARP IV PRN (13:47)
--- NOTE | 2024-02-11 13:57 | Anesthesiology Progress Note ---
Date of Service February 11, 2024 Anesthesia Post Procedure Vital Signs Vital Signs: Temp Pulse Pulse Pulse Pulse Resp BP 02/11/24 13:20 101 H 16 02/11/24 13:05 112 H 14 02/11/24 12:50 36.6 C 111 H 18 02/11/24 12:40 36.6 C 105 H 12 02/11/24 12:30 102 H 12 02/11/24 12:20 114 H 18 02/11/24 12:10 103 H 12 02/11/24 12:00 120 H 14 02/11/24 11:51 36.7 C 100 H 16 02/11/24 08:02 36.8 C 124 H 20 02/11/24 07:51 37 C 125 H 17 85/66 L 02/11/24 03:33 37.0 C 98 H 20 02/10/24 23:47 37.2 C 114 H 20 02/10/24 21:45 150 H 02/10/24 20:16 37.9 C H 62 18 02/10/24 16:12 36.9 C 62 16 94/65 L BP Pulse Ox O2 Del Method 02/11/24 13:20 119/85 98 Room Air 02/11/24 13:05 111/79 97 Room Air 02/11/24 12:50 101/84 98 Room Air 02/11/24 12:40 110/67 100 Room Air 02/11/24 12:30 106/70 97 Room Air 02/11/24 12:20 115/89 95 Room Air 02/11/24 12:10 113/78 100 Room Air 02/11/24 12:00 102/78 Room Air 02/11/24 11:51 99/71 L 99 Room Air 02/11/24 08:02 100/67 96 Room Air 02/11/24 07:51 96 Room Air 02/11/24 03:33 98/50 L 93 Room Air 02/10/24 23:47 94/62 L 94 Room Air 02/10/24 21:45 02/10/24 20:16 96/59 L 90 Room Air 02/10/24 16:12 90 Room Air Pain Intensity Bilateral Leg: Pain Intensity: 2 Transfer of Care Handoff Completed per policy Notes Mental Status: alert / awake / arousable Patient Amnestic to Procedure: Yes Nausea / Vomiting: adequately controlled Pain: adequately controlled Airway Patency, RR, SpO2: stable & adequate BP & HR: stable & adequate Hydration State: stable & adequate Anesthetic Complications: no major complications apparent
--- NOTE | 2024-02-11 16:19 | Electrocardiogram Report ---
Test Reason : Blood Pressure : */* mmHG Vent. Rate : 132 BPM Atrial Rate : * BPM P-R Int : * ms QRS Dur : 86 ms QT Int : 294 ms P-R-T Axes : * -13 200 degrees QTcB Int : 435 ms Atrial fibrillation with rapid ventricular response Low voltage QRS Old Anteroseptal infarct (cited on or before 26-May-2023) Abnormal ECG When compared with ECG of 21-Jan-2024 11:11, No significant change was found Confirmed by Sumit Gay ([id number]) on 02/11/2024 4:19:01 PM Referred By: Morgan Maciel Confirmed By: Sumit Gay
[2024-02-11] MEDS: ceFAZolin 1000MG 1,000 MG/7.5 ML SYR IV SCH (17:42)
--- NOTE | 2024-02-11 18:02 | Cardiology Progress Note ---
Date of Service February 11, 2024 Assessment & Plan (1) Atrial fibrillation with rapid ventricular response: (2) Cardiomyopathy: (3) CAD (coronary artery disease): (4) Heart failure with reduced ejection fraction: Plan She is doing well postoperatively, no evidence of ongoing myocardial ischemia or heart failure but her ventricular response to atrial fibrillation remains suboptimally controlled. Would add digoxin 125 mcg daily after giving a loading dose of 250 mcg. Continue metoprolol succinate 200 mg daily. Doubt she would tolerate the addition of calcium channel jersey given borderline BP. Could also consider addition of amiodarone for rate control if BP remains borderline and rate increases, however she is tolerating her current rate well, so would first try digoxin. Dr. Acevedo will be seeing the patient tomorrow and may offer further recommendations. Admission and Anticipated Discharge Date Admission Date: February 08, 2024 Subjective Patient seen this evening postoperatively. She is doing well, no somatic complaints, enjoyed her dinner. Telemetry shows persistent atrial fibrillation with rate generally in the 110- 120 bpm range but with wide variation. Physical Exam Physical Exam: No distress. BP normotensive. Pulse 110 bpm and irregular. Respirations 18 and unlabored. Skin: no ecchymoses or generalized lesions. HEENT: unremarkable. Neck: JVP at the clavicle at 90 degrees, no carotid bruits. Lungs: clear. Cardiac: Irregular/tachycardic rhythm, normal S1-2, no murmur. Abdomen: benign. Extremities: See vascular consult, legs bandaged postoperatively. Neurologic: normal affect and conversation, nonfocal. PG Care Time/CCT Total # of Minutes Spent Total Time Spent with Patient: Total time spent is greater than 50% in coordination of care (as documented) at patient's floor/unit and/or counseling patient: Coding Level of Care Code 81718 SUB INP/OBS CARE 2/35MIN Diagnoses Atrial fibrillation with rapid ventricular response I48.91 Cardiomyopathy I42.9 CAD (coronary artery disease) I25.10 Heart failure with reduced ejection fraction I50.20
[2024-02-11] MEDS: DIGOXIN 250 MCG in SYRINGE 9 ML IV STA (19:37)
[2024-02-11] MEDS: METOPROLOL TARTRATE 25 MG TAB PO SCH (20:40)
[2024-02-11] MEDS: LACTATED RINGER'S 250 ML IV ONE (21:41)
[2024-02-11] MEDS: ACETAMINOPHEN 325 MG TAB PO PRN (22:01)
[2024-02-12 06:42] LABS: Hematocrit (blood only) 34.9 % (37.0-47.0); Hemoglobin 11.8 g/dl (12.0-16.0); Mean Corpuscular Hgb Conc 33.8 g/dL (32.0-36.0); Mean Corpuscular Volume 106.4 fL (80.0-100.0); Mean Platelet Volume 10.5 fL (9.4-12.4); Platelet Count 197 K/uL (130-400); RDW Coefficient of Variation 11.6 % (11.5-14.5); RDW Standard Deviation 45.5 fL (36.4-46.3); Red Blood Count 3.28 M/uL (4.20-5.40); White Blood Count 6.72 K/ul (4.8-10.8)
[2024-02-12 07:05] LABS: BUN Creatinine Ratio 26.8 (10-20); Calcium 8.6 mg/dl (8.6-10.3); Creatinine Clr Calc Pharmacy 50.4 ml/min; Potassium 4.2 mmol/L (3.5-5.1)
[2024-02-12] MEDS: MULTIVITAMIN TAB PO SCH (08:59)
--- NOTE | 2024-02-12 10:21 | Infectious Disease Progress Nt ---
Date of Service February 12, 2024 Assessment & Plan (1) Acute osteomyelitis of right foot: (2) Diabetes mellitus, type 2: (3) Atrial fibrillation with rapid ventricular response: (4) CAD (coronary artery disease): Plan 73yo F with h/o T2DM, COPD, CAD, PAD s/p angioplasty 2020, CHF, afib on Eliquis, hypothyroidism, gastric bypass, bl TKR, lumbar spinal fusion who presented on 02/07 with unhealing wounds of right great toe noted x 1.5 weeks along with ulcers of left foot. She was started on augmentin on 01/27 due to c/f infection of right toe. Here, she has been afebrile, tachycardic. Initial labs with WBC 8.26, Cr 1.12, LFT wnl. ESR 51, CRP 2.60. UA with 0-5 WBC. XR right foot with destructive changes of first distal phalanx c/w acute OM. XR left foot neg for OM. Right toe cx were sent from ED on 02/07. Seen by ortho. She was started on empiric vanc/cefepime. ID consulted 02/08. LE arterial duplex with hemodynamically significant stenosis in right anterior tibial artery, normal GAGE bl. S/p OR 02/10, underwent right great toe amputation, achilles lengthening, an d left foot wound debridement (per op note, amputation down to MTPJ, cx and path from great toe, confident that all infected bone in right big toe removed). Vanc stopped 02/10 since no growth of MRSA. OR cx (of great toe) with Morganella and Citrobacter. Path in process. All infected bone is suspected to be gone per op note since amputation was further down from site of OM. Morganella noted to be CTX resistant. I did discuss this with [facility] regarding this and ?ESBL, and seems less likely. Plan for short course of abx (can continue for another 3-5 days from OR) for SSTI, ensuring no OM on the clean margin on path. # Right great toe distal phalanx OM s/p toe amputation 02/10 # T2DM # PAD s/p angioplasty - f/u OR cx and path - continue cefepime - if no residual OM, then plan for 3-5 days of abx from day of amputation if sensitivities of OR cx are similar to prior cultures of both isolates, then PO regimen can be with either Bactrim 2 DS PO bid or Levaquin 750mg PO daily (there doesn't seem to be much residual erythema, favor shorter course) ID will continue to follow. Please note that there will be no ID notes over the weekend. If questions or concerns arise, please contact the Infectious Disease Call Center and ask to speak with the covering ID physician. Dr. Bae will take over on Thursday. Tracey Cornell MD [facility], Division of Infectious Diseases [facility]: [phone] Admission and Anticipated Discharge Date Admission Date: February 08, 2024 Subjective Subsequent visit was provided via telemedicine using two-way real-time interactive telecommunication between the patient and the telemedicine provider. For the duration of the visit, the provider was performing the assessment from a different facility than the patient. This includesuse of bluetooth stethoscope forauscultationperformed by the telepresenter that the telemedicine provider can hear if described in the physical exam. Assistant [employer] contact information: Please call [facility] Call Center . (Phone Number For Physician Use Only) After establishing a telemedicine visit, patient was: Patient was verified with two unique identifiers, Patient/authorized rep acknowledged consent and understanding and Gave permission to continue telehealth session Time Spent with Patient: Subsequent => 55 min Patient doing well. She denies any pain. Says she had an upset stomach last night, but feeling better this morning. No abdominal pain, vomiting, diarhea. Physical Exam Physical Exam: General: Awake, alert, no acute distress HEENT: NC/AT, EOMI, mmm Neck: supple, no LAD Lungs: respirations non-labored Abdomen: soft, ttp in LUQ Ext: postp dressing in place Results & Data Vital Signs (Past 12 Hours) Vital Signs Temp Pulse Pulse Resp BP BP Pulse Ox 02/12/24 08:12 37.2 C 98 H 17 114/66 96 02/12/24 07:22 129 H 02/12/24 02:47 37.0 C 116 H 20 110/67 96 02/11/24 22:54 118 H O2 Del Method 02/12/24 08:12 Room Air 02/12/24 07:22 02/12/24 02:47 Room Air 02/11/24 22:54 Laboratory Results Labs reviewed. Microbiology 02/11/24 10:43 Toe,Right Great Gram Stain - Final 02/11/24 10:43 Toe,Right Great Aerobic and Anaerobic Culture - Preliminary Morganella morganii Citrobacter freundii complex 02/08/24 21:00 Toe Gram Stain - Final 02/08/24 21:00 Toe Wound Culture - Preliminary Morganella morganii Pasteurella canis/oralis 02/08/24 20:56 Blood Aerobic Blood Culture - Preliminary No growth in Aerobic bottle after 48 hours. 02/08/24 20:56 Blood Anaerobic Blood Culture - Preliminary No growth in Anaerobic bottle after 48 hours. 02/08/24 18:27 Blood Aerobic Blood Culture - Preliminary No growth in Aerobic bottle after 48 hours. 02/08/24 18:27 Blood Anaerobic Blood Culture - Preliminary No growth in Anaerobic bottle after 48 hours.
--- NOTE | 2024-02-12 13:08 | Orthopedic Progress Note ---
Date of Service February 12, 2024 Assessment & Plan (1) Acute osteomyelitis of right foot: Plan: Postop day 1-status post right great toe amputation yesterday with Dr. Gimenez. May be out of bed, weight-bear as tolerated with the cam boot. Needs to have the cam boot on her right leg at all times. Ice and elevation as needed for swelling. Plan to leave postoperative dressing in place until Thursday, February 15, 2024. Nursing may change as needed over the weekend. Out of bed with walker assistance. Will continue to follow cultures. Currently growing out Morganella morganii, Citrobacter freundii and Pasteurella canis/oralis. May need infectious disease consultation. Will leave up to primary service. Continue IV antibiotics as ordered. PT and OT. May resume Eliquis as per the primary service. Will continue to follow while inpatient. (2) Pressure ulcer of left foot: Plan: Postop day 1-status post irrigation debridement of left foot ulcers on the plantar surface of her foot. She may be out of bed, weight-bear as tolerated on her left lower extremity. She needs a postop shoe on when out of bed. Dressing changes as per the wound care nurse. Will need to offload her postop shoe to keep pressure off of her metatarsal heads. Will consult chassis wirer for this. Ice and elevate as needed for pain or swelling. May resume Eliquis as per the primary service. Continue to follow cultures. Currently positive. Continue IV Antibiotics Will continue to follow while inpatient. Will plan to look at wound on Thursday, February 15, 2024. Admission and Anticipated Discharge Date Admission Date: February 08, 2024 Sixto Gilmore is sitting up in bed eating lunch. Her is at her bedside. She overall is doing well. Denies any pain in either foot. She states the wound care nurse was up and changed her dressing on her left foot. She has her postop shoe on the left foot in the cam boot on the right. She states overall she does feel like she is doing fairly well. She would like to go home soon as possible. Physical Exam Musculoskeletal: Exam of her left foot. She is able to wiggle her toes. Diminished sensation which is normal for her due to neuropathy. No edema. Capillary fill is brisk. No skin rash present due to the Betadine use. Dressing in place. Postop shoe in place. Exam of her right foot: She is able to wiggle her toes really. Capillary fill is brisk. Skin is healthy. There is some small amount of pinkish peeking from bloody drainage on the medial aspect of the great toe. This appears dried and was left in place today. Cam boot is fitting properly. Results & Data Vital Signs (Past 12 Hours) Vital Signs Temp Pulse Pulse Resp BP BP Pulse Ox 02/12/24 11:37 36.7 C 49 L 18 99/64 L 97 02/12/24 08:12 37.2 C 98 H 17 114/66 96 02/12/24 07:22 129 H 02/12/24 02:47 37.0 C 116 H 20 110/67 96 O2 Del Method 02/12/24 11:37 Room Air 02/12/24 08:12 Room Air 02/12/24 07:22 02/12/24 02:47 Room Air Laboratory Results 02/11/24 10:43 Gram Stain - Final Toe,Right Great Aerobic and Anaerobic Culture - Preliminary Morganella morganii Citrobacter freundii complex 02/08/24 21:00 Gram Stain - Final Toe Wound Culture - Preliminary Morganella morganii Pasteurella canis/oralis 02/12/24 02/12/24 02/12/24 12:09 08:02 06:27 WBC 6.72 RBC 3.28 L Hgb 11.8 L Hct 34.9 L MCV 106.4 H MCH 36.0 H MCHC 33.8 RDW Std Deviation 45.5 RDW Coeff of Krista 11.6 Plt Count 197 MPV 10.5 Sodium 139 Potassium 4.2 Chloride 106 Carbon Dioxide 27 Anion Gap 6 BUN 26 H Creatinine 0.97 Est Cr Clr Drug Dosing 50.4 eGFR 61.70 BUN/Creatinine Ratio 26.8 H Glucose 86 POC Glucose 95 86 Calcium 8.6 Random Vancomycin 17.1 02/11/24 02/11/24 02/11/24 20:09 17:09 14:06 WBC RBC Hgb Hct MCV MCH MCHC RDW Std Deviation RDW Coeff of Krista Plt Count MPV Sodium Potassium Chloride Carbon Dioxide Anion Gap BUN Creatinine Est Cr Clr Drug Dosing eGFR BUN/Creatinine Ratio Glucose POC Glucose 92 84 101 H Calcium Random Vancomycin
--- NOTE | 2024-02-12 13:55 | Cardiology Progress Note ---
Date of Service February 12, 2024 Assessment & Plan (1) Atrial fibrillation with rapid ventricular response: (2) Cardiomyopathy: (3) CAD (coronary artery disease): (4) Heart failure with reduced ejection fraction: Plan Rate better controlled after addition of digoxin, continue high-dose metoprolol and digoxin. Restart apixaban 5 mg twice daily, if wound check shows no significant bleeding hopefully can restart soon. Please schedule outpatient follow-up with Dr. Ben Maciel upon discharge. Admission and Anticipated Discharge Date Admission Date: February 08, 2024 Subjective He is doing well today. She denies any chest pain, dyspnea, or subjective palpitations. Telemetry showed atrial fibrillation with generally controlled ventricular response (90-100 bpm). Physical Exam Physical Exam: No distress. BP low normal. Pulse 90 bpm and irregular. Respirations 18 and unlabored. Skin: no ecchymoses or generalized lesions. HEENT: unremarkable. Neck: JVP at the clavicle at 90 degrees, no carotid bruits. Lungs: Mildly decreased breath sounds but clear. Cardiac: Irregular rhythm, normal S1-2, no murmur. Abdomen: benign. Extremities: Toes with rubor and mildly delayed capillary refill. Neurologic: normal affect and conversation, nonfocal. Results & Data Vital Signs (Past 12 Hours) Vital Signs Temp Pulse Pulse Resp BP BP Pulse Ox 02/12/24 11:37 98.1 F 49 L 18 99/64 L 97 02/12/24 08:12 99.0 F 98 H 17 114/66 96 02/12/24 07:22 129 H 02/12/24 02:47 98.6 F 116 H 20 110/67 96 O2 Del Method 02/12/24 11:37 Room Air 02/12/24 08:12 Room Air 02/12/24 07:22 02/12/24 02:47 Room Air Laboratory Results Normal electrolytes, BUN 26, creatinine 0.97. PG Care Time/CCT Total # of Minutes Spent Total Time Spent with Patient: Total time spent is greater than 50% in coordination of care (as documented) at patient's floor/unit and/or counseling patient: Coding Level of Care Code 22579 SUB INP/OBS CARE 2/35MIN Diagnoses Atrial fibrillation with rapid ventricular response I48.91 Cardiomyopathy I42.9 CAD (coronary artery disease) I25.10 Heart failure with reduced ejection fraction I50.20
[2024-02-12] MEDS: DIGOXIN 125 MCG in SYRINGE 9.5 ML IV SCH (16:04)
[2024-02-12] MEDS: MELATONIN 3 MG TAB PO PRN (21:14)
--- NOTE | 2024-02-12 23:36 | Hospitalist Progress Note ---
Date of Service February 12, 2024 Assessment & Plan (1) Acute osteomyelitis of right foot: Plan: 73yo female with DM presenting with wounds on RLE great toe Pt was on Augmentin with no improvement. X-ray of the right foot shows destructive changes of the first distal phalanx consistent with acute osteomyelitis. Cefepime/vancomycin doppler shows possible right anterior artery stenosis, history of pad ortho consulted medically risk optimized to proceed to surgery on 1423 ID consulted would recommend duration of treatment of antibiotics post surgical amputation F/U wound culture shows Morganella morganii Dressing change on thursday. (2) Atrial fibrillation with rapid ventricular response: Plan: -Continue Metoprolol XL 200mg po daily -Will hold Eliquis for now in case of surgical debridement/amputation HF improved EF Hold Entresto for now( bp slighlty soft ) Continue Spironolactone Continue Torsemide 20mg po daily, eval volume status day one post op Plan Patient does have a history of vascular disease her RCRI is likely 2 points or 10% however she is risk optimized proceed to surgical procedure Peripheral arterial disease post prior left SFA/popliteal angioplasty 06/2020 Admission and Anticipated Discharge Date Admission Date: February 08, 2024 Subjective Patient reports no new symptoms Review of Systems Review of Systems: All systems reviewed & are unremarkable except as noted in HPI & below Physical Exam Physical Exam: Awake in no distress her foot is bandaged Atrial fibrillation seems to be rate controlled does not seem that irregular and clinical exam Lungs are clear without wheezes or crackles Extremities the patient has chronic arterial insufficiency changes to both legs Results & Data Results & Data Vital Signs (Past 12 Hours) Vital Signs Temp Pulse Pulse Pulse Resp BP BP 02/12/24 22:59 36.7 C 111 H 18 99/62 L 02/12/24 22:48 90 02/12/24 20:51 97 H 107/66 02/12/24 19:36 37.3 C 79 18 99/62 L 02/12/24 16:04 121 H 02/12/24 15:41 36.6 C 110 H 18 117/78 02/12/24 13:59 109 H 02/12/24 11:37 36.7 C 49 L 18 99/64 L Pulse Ox O2 Del Method 02/12/24 22:59 94 Room Air 02/12/24 22:48 02/12/24 20:51 02/12/24 19:36 95 Room Air 02/12/24 16:04 02/12/24 15:41 97 Room Air 02/12/24 13:59 02/12/24 11:37 97 Room Air PG Care Time/CCT Total # of Minutes Spent Total Time Spent with Patient: Total time spent is greater than 50% in coordination of care (as documented) at patient's floor/unit and/or counseling patient: Coding Level of Care Code 38031 SUB INP/OBS CARE 2/35MIN Diagnoses Acute osteomyelitis of right foot M86.171 Atrial fibrillation with rapid ventricular response I48.91
--- NOTE | 2024-02-13 18:00 | Hospitalist Progress Note ---
Date of Service February 13, 2024 Assessment & Plan (1) Acute osteomyelitis of right foot: Plan: 73 years old female with PMH of DNR/DNI @ home, overweight with BMI 25.7 (height 162.6 cm, weight 67.8 kg), s/p gastric bypass, OA s/p bilateral total knee arthroplasties, s/p right hip replacement, tobacco-naive COPD, not on home O2 or home steroids, hypothyroidism, non-insulin dependent DM2 with HbA1c < 4.0% (01/15/2024, 10:29am), ovarian CA s/p DOLORES/BSO, no chemotherapy, no XRT, in clinical remission, chronic macrocytic, normochromic/hypochromic anemia with baseline Hb range, 11.4-11.9 g/dL (11/01/2018 - 01/21/2023), chronic biv entricular systolic CHF with reduced LV EF 20-25% and RV systolic function moderately reduced (as noted on 03/31/2022, 4:57pm TTE, CARDS Dr. Morgan Robledo) now with clinical improvement with LV EF 55-60% and normal RV systolic function (as noted on 07/02/2022, 1:13pm TTE, Interventional CARDS Dr. Morgan Maciel), chronic diastolic CHF with left atrium severely dilated with moderate mitral regurgitation (as noted on 03/31/2022, 4:57pm TTE, CARDS Dr. Morgan Robledo) now with grade II LV diastolic dysfunction left atrium mildly dilated with trace-mild mitral regurgitation (as noted on 07/02/2022, 1:13pm TTE, Interventional CARDS Dr. Morgan Maciel) and dry, variable baseline weight range of 145-163 pounds as per patient's report of unintentional weight gain over the past 1 month, peripheral arterial disease s/p left distal SFA angioplasty with 5 x 100 mm Lutonix drug-eluting balloon (07/06/2020, 8:00am, Interventional CARDS Dr. Morgan Maciel), s/p left mid-popliteal art yara angioplasty with 5 x 40 mm Lutonix drug-eluting balloon, peripheral vascular disease s/p chronic non-occlusive thrombus within common femoral vein and within one of the duplicated superficial femoral veins (as noted on 03/31/2022 RLE venous doppler and again on 12/02/2022 RLE venous doppler), s/p IVC filter, who was admitted to the inpatient hospitalist service @ [facility] on 02/08/2024 with acute osteomyelitis of R distal hallux with cefepime-sensitive Morganella morganii (as noted on 02/08/2024, 9:00pm right hallux surface wound culture), failed outpatient Augmentin (start date 01/28/2024). 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 Vimal Gmienez) with no wound dehiscence, erythema, induration, warmth, tenderness, crepitus, fluctuance, discharge (sanguineous, serous, or suppurative), lymphangitic streaking, or malodor noted on 02/13/2024 exam. Continue cefepime 2g IV q12 (day #1 on 02/08/2024, 8:08pm) for 3-5 days from 02/11/2024 OR date, as per Infectious Disease Service of Dr. Tracey Cornell. (2) Atrial fibrillation with rapid ventricular response: Plan: Other secondary medical issues include: 1. Paroxysmal AFIB. s/p cardioversion (04/03/2022, 8:26am, [facility] Interventional CARDS Dr. Morgan Maciel). Continue rate control with metoprolol tartrate 75mg PO bid. Continue rhythm control with digoxin 125ug IV daily. Continue holding off home-scheduled apixaban 5mg PO bid post-op day #2, with anticipation that apixaban 5mg PO bid will resume on 02/14/2024 am. 2. Chronic biventricular systolic CHF with reduced LV EF 20-25% and RV systolic function moderately reduced (as noted on 03/31/2022, 4:57pm TTE, CARDS Dr. Morgan Robledo) now with clinical improvement with LV EF 55-60% and normal RV systolic function (as noted on 07/02/2022, 1:13pm TTE, Interventional CARDS Dr. Morgan Maciel), chronic diastolic CHF with left atrium severely dilated with moderate mitral regurgitation (as noted on 03/31/2022, 4:57pm TTE, CARDS Dr. Morgan Robledo) now with grade II LV diastolic dysfunction left atrium mildly dilated with trace-mild mitral regurgitation (as noted on 07/02/2022, 1:13pm TTE, Interventional CARDS Dr. Morgan Maciel) and dry baseline weight of 150-163 pounds as per patient's report of unintentional weight gain over the past 1 month. Not acute exacerbation of chronic biventricular systolic CHF or chronic diastolic CHF as patient has no complaints of paroxysmal nocturnal dyspnea, orthopnea (more than patient's 1 pillow orthopnea baseline), or platypnea. Patient also has no complaints of leg swelling (more than patient's chronic upper thigh 1+ pitting edema bilaterally) on patient's home-scheduled torsemide 20mg PO daily and spironolactone 25mg PO daily. 3. OA s/p bilateral total knee arthroplasties, s/p right hip replacement. Asymptomatic on tylenol 650mg PO q4 prn pain. 4. Tobacco-naive COPD, not on home O2 or home steroids. Not acute exacerbation as patient is not coughing/wheezing or SOB/CHIANG on fluticasone 100ug/puff, 1 puff PO daily and umeclidinium 62.5ug - vilanterol 25ug/puff, 1 puff PO daily 5. Hypothyroidism. Euthyroid on synthroid 50ug PO daily with normal screening TSH 3.116 uIU/mL (01/15/2024, 10:29am). 6. Non-insulin dependent DM2 with HbA1c < 4.0% (01/15/2024, 10:29am). cf., FSG 86 mg/dL (02/12/2024, 8:02am), FSG 85 mg/dL (02/13/2024, 8:22am). Continue carbohydrate consistent diet, aspart insulin sliding scale qac + qhs, and POC glucose qac + qhs. Of note, long-term glycemic control is actually unknown despite HbA1c < 4.0% (01/15/2024, 10:29am) which might suggest at first glance that patient's long-term glycemic control is excellent. The reason that long- term glycemic control remains unknown is because in anemic states, increased RBC turnover leads to concomitant reductions in both HbA1c and Hb levels, thus giving rise to an artificially [id number] HbA1c levels. 7. Ovarian CA s/p DOLORES/BSO, no chemotherapy, no XRT, in clinical remission. Observe. 8. Chronic macrocytic, normochromic/hypochromic anemia with baseline Hb range, 11.4-11.9 g/dL (11/01/2018 - 01/21/2023). cf., admitting Hb 12.8 g/dL (02/09/2024, 6:17am); cf. last recorded Hb 11.8 g/dL (02/12/2024, 6:27am). Patient reports no mucosal bleeding and remains hemodynamically stable. Etiology of chronic macrocytic, normochromic/hypochromic anemia is most probably due to anemia of chronic disease(s) including hypothyroidism, and/or ovarian CA. Hence, I have opted to hold off further Hb testing in order to conserve/preserve this patient's janet blood supply. 9. Peripheral arterial disease (PAD) s/p left distal SFA angioplasty with 5 x 100 mm Lutonix drug-eluting balloon (07/06/2020, 8:00am, Interventional CARDS Dr. Morgan Maciel), s/p left mid-popliteal artery angioplasty with 5 x 40 mm Lutonix drug-eluting balloon. Continue secondary prophylaxis against PAD utilizing rosuvastatin 5mg PO daily. 10. Peripheral vascular disease (PVD) s/p chronic non-occlusive thrombus within common femoral vein and within one of the duplicated superficial femoral veins (as noted on 03/31/2022 RLE venous doppler and again on 12/02/2022 RLE venous doppler), s/p IVC filter. Anticipate resuming patient's home-scheduled apixaban 5mg PO bid on 02/14/2024 am. 11.Pain Management. Patient reports 0/10 pain anywhere on 02/13/2024. Continue tylenol 650mg PO q4 prn pain. 12.Disposition. Code status, DNR/DNI @ home. Condition of patient remains fair. I anticipate that this patient will remain in [facility] for the next 1-2 midnights, awaiting PT/OT Service evaluations on Thursday (02/14/2024) and Thursday (02/15/2024) with anticipated D/C back to home or to SNF for short-term rehab. Patient will then follow up with her PCP Dr. Yu Gauthier ([place], [place]), her Infectious Disease Dr. Tracey Cornell, and her Orthopedic Surgeon Dr. Vimal Gimenez, all within 5-7 days of hospital discharge. Plan See bullet #2 above for all secondary medical issues with discussion of their respective plan(s) of action. Admission and Anticipated Discharge Date Admission Date: February 08, 2024 Subjective "I feel fine. No fever or chills. No pain anywhere. I am ok today." Review of Systems Review of Systems: Negative for antecedent/coincident fevers, chills, diaphoresis, cough, wheeze, sore throat, hemoptysis, shortness of breath, dyspnea on exertion, chest pains, palpitations, pleurisy, nausea, vomiting, diarrhea, abdominal pain, pelvic pain, hematochezia, melena, hematuria, dysuria, frequency, urgency, headaches, dizziness, visual changes, hearing changes, falls, syncope, trauma, travel his tory, or food/drug ingestions novel/new. All other review of systems are reported as negative/normal on 02/13/2024. Physical Exam Physical Exam: General: comfortable, coherent, cooperative. Wide awake and alert. Not confused, lethargic, or obtunded. Patient speaks in complete, fluent, and articulate sentences without pause, interruption, cough, or wheeze. HEENT: normocephalic, atraumatic. EOMI, PERRL. No nystagmus, gaze paresis, anisocoria, miosis, mydriasis, hyphema, chemosis, scleral icterus, conjunctivitis, or pterygium. No otorrorhea. No rhinorrhea. No pharyngeal discharge or exudate. Neck: suppler, no stridor, bruit, goiter, JVD, or HJR. Lymph: no cervical, supraclavicular, infraclavicular, axillary, epitrochlear, or inguinal adenopathy. Chest: symmetric rise and fall with respiration. Non-tender to palpation. Lungs: clear to auscultation and percussion. No audible expiratory wheeze, egophony, pectoriloquy, increase in tactile fremitus, or flatness/dullness to percussion at the bases. Heart: RRR, S1 and S2 noted. No S3 or S4 summation gallop. No tripartite friction rub. Grade II/ early systolic murmur @ LLSB, not radiating to the carotids, the axilla, or back. Invariant in regards to the respiratory cycle. Abdomen: soft, non-tender, non-distended. No rebound, guarding, Beard's sign, or organomegaly. Bowel sounds auscultated in all 4 quadrants. Extremities: no clubbing, cyanosis, or edema. 2+ pedal pulses bilaterally. 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 Vimal Gimenez) with no wound dehiscence, erythema, induration, warmth, tenderness, crepitus, fluctuance, discharge (sanguineous, serous, or suppurative), lymphangitic streaking, or malodor noted on 02/13/2024 exam. Skin: no decubitus ulcer, exanthem, or enanthem. Neurology: alert and oriented in regards to person, place, and time. DTR+ and symmetric. 5/5 motor strength in all 4 extremities, both proximally and distally. No tremors, tics, or myoclonus. Urology: no luna catheter. No urethral discharge. Results & Data Results & Data Vital Signs (Past 12 Hours) Vital Signs Temp Pulse Pulse Resp BP Pulse Ox O2 Del Method 02/13/24 15:44 36.9 C 110 H 16 108/72 99 Room Air 02/13/24 14:52 94 H 02/13/24 14:00 107 H 02/13/24 11:27 37.2 C 98 H 16 110/71 98 Room Air 02/13/24 09:00 91 H 02/13/24 07:26 36.7 C 101 H 16 100/68 95 Room Air Laboratory Results Right hallux surface wound culture (02/08/2024, 9:00pm): cefepime-sensitive Morganella morganii Right hallux deep wound culture (02/11/2024, 10:43am): cefepime-sensitive Morganella morganii WBC 8.26, N78 L14 M6 E1 B1 (02/08/2024, 6:27pm). WBC 6.72, no differential (02/12/2024, 6:27am). BUN 26, creatinine 1.12, GFR 51.92 mL/min (02/08/2024, 6:27pm). BUN 26, creatinine 0.97, GFR 61.70 mL/min (02/12/2024, 6:27am). Diagnostic Findings Duplex scan of bilateral lower extremity arteries (02/09/2024, 10:49am): 1. No evidence of arterial occlusion. 2. Findings concerning for hemodynamically significant stenosis, right anterior tibial artery. 3. Normal ankle-brachial indices bilaterally. Left foot x-ray, 3 views (02/09/2024, 6:09pm): 1. Destructive changes of the first distal phalanx consistent with acute osteomyelitis. 2. Soft tissue edema of the great toe and along the dorsum of the foot. 3. Osteopenia. Right foot x-ray, 3 views (02/09/2024, 6:09pm): 1. No radiographic evidence of acute osteomyelitis. 2. Ulcer along the medial forefoot. Right hallux x-ray (02/11/2024, 8:50am): 1. Status post partial amputation of the first digit at the level of the mid diaphyseal first metatarsal. 2. Expected postoperative soft tissue swelling with deep tissue air. No unexpected opaque foreign bodies. PG Care Time/CCT Total # of Minutes Spent Total Time Spent with Patient: Total time spent is greater than 50% in coordination of care (as documented) at patient's floor/unit and/or counseling patient: Coding Level of Care Code 23602 SUB INP/OBS CARE 2/35MIN Diagnoses Acute osteomyelitis of right foot M86.171 Atrial fibrillation with rapid ventricular response I48.91
[2024-02-13] MEDS: ALBUMIN 25% 25 GM/100 ML VIAL IV ONE (21:08)
[2024-02-14] MEDS: DIGOXIN 125 MCG in SYRINGE 9.5 ML IV ONE (03:15)
[2024-02-14 05:35] LABS: Hematocrit (blood only) 32.9 % (37.0-47.0); Hemoglobin 10.8 g/dl (12.0-16.0); Mean Corpuscular Hemoglobin 35.3 pg (25.0-34.0); Mean Corpuscular Hgb Conc 32.8 g/dL (32.0-36.0); Mean Corpuscular Volume 107.5 fL (80.0-100.0); Mean Platelet Volume 10.6 fL (9.4-12.4); Platelet Count 168 K/uL (130-400); RDW Coefficient of Variation 11.9 % (11.5-14.5); RDW Standard Deviation 46.4 fL (36.4-46.3); Red Blood Count 3.06 M/uL (4.20-5.40); White Blood Count 6.09 K/ul (4.8-10.8)
[2024-02-14 05:59] LABS: BUN Creatinine Ratio 33.1 (10-20); Creatinine Clr Calc Pharmacy 39.2 ml/min
--- NOTE | 2024-02-14 06:01 | Communication Note ---
Date of Service: February 14, 2024 Alerted by nursing that patient having soft BPs with elevated HR resulting in a "high risk" EWS. Held PM metop dose. Given 25 gm albumin which improved pressure and rates. Then alerted that patient in RVR with rates in the 110s-150s. Added a dose of 125 mcg dig. Patient with continued elevated rates and SBP < 100. Gave an additional 25 gm albumin and a 250 mcg dose of dig. Patient asymptomatic during clinical course. Case discussed with Dr. Wiseman Resident Activity Tracking Resident Involvement: Resident Care Provided Care Provided: Adult [facility]
[2024-02-14] MEDS: DIGOXIN 250 MCG in SYRINGE 9 ML IV ONE (06:07)
[2024-02-14] MEDS: ALBUMIN 25% 25 GM/100 ML VIAL IV ONE (06:07)
--- NOTE | 2024-02-14 19:17 | Hospitalist Progress Note ---
Date of Service February 14, 2024 Assessment & Plan (1) Acute osteomyelitis of right foot: Plan: 73 years old female with PMH of DNR/DNI @ home, overweight with BMI 25.7 (height 162.6 cm, weight 67.8 kg), s/p gastric bypass, OA s/p bilateral total knee arthroplasties, s/p right hip replacement, tobacco-naive COPD, not on home O2 or home steroids, hypothyroidism, non-insulin dependent DM2 with HbA1c < 4.0% (01/15/2024, 10:29am), ovarian CA s/p DOLORES/BSO, no chemotherapy, no XRT, in clinical remission, chronic macrocytic, normochromic/hypochromic anemia with baseline Hb range, 11.4-11.9 g/dL (11/01/2018 - 01/21/2023), chronic biv entricular systolic CHF with reduced LV EF 20-25% and RV systolic function moderately reduced (as noted on 03/31/2022, 4:57pm TTE, CARDS Dr. Morgan Robledo) now with clinical improvement with LV EF 55-60% and normal RV systolic function (as noted on 07/02/2022, 1:13pm TTE, Interventional CARDS Dr. Morgan Maciel), chronic diastolic CHF with left atrium severely dilated with moderate mitral regurgitation (as noted on 03/31/2022, 4:57pm TTE, CARDS Dr. Morgan Robledo) now with grade II LV diastolic dysfunction left atrium mildly dilated with trace-mild mitral regurgitation (as noted on 07/02/2022, 1:13pm TTE, Interventional CARDS Dr. Morgan Maciel) and dry, variable baseline weight range of 145-163 pounds as per patient's report of unintentional weight gain over the past 1 month, peripheral arterial disease s/p left distal SFA angioplasty with 5 x 100 mm Lutonix drug-eluting balloon (07/06/2020, 8:00am, Interventional CARDS Dr. Morgan Maciel), s/p left mid-popliteal art yara angioplasty with 5 x 40 mm Lutonix drug-eluting balloon, peripheral vascular disease s/p chronic non-occlusive thrombus within common femoral vein and within one of the duplicated superficial femoral veins (as noted on 03/31/2022 RLE venous doppler and again on 12/02/2022 RLE venous doppler), s/p IVC filter, who was admitted to the inpatient hospitalist service @ [facility] on 02/08/2024 with acute osteomyelitis of R distal hallux with cefepime-sensitive Morganella morganii (as noted on 02/08/2024, 9:00pm right hallux surface wound culture), failed outpatient Augmentin (start date 01/28/2024). 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 Vimal Gimenez) with no wound dehiscence, erythema, induration, warmth, tenderness, crepitus, fluctuance, discharge (sanguineous, serous, or suppurative), lymphangitic streaking, or malodor noted on 02/13/2024 exam. Continue cefepime 2g IV q12 (day #1 on 02/08/2024, 8:08pm) for 3-5 days from 02/11/2024 OR date (02/11/2024), as per Infectious Disease Service of Dr. Tracey Cornell. (2) Atrial fibrillation with rapid ventricular response: Plan: Other secondary medical issues include: 1. Paroxysmal AFIB. s/p cardioversion (04/03/2022, 8:26am, [facility] Interventional CARDS Dr. Morgan Maciel). Continue rate control with metoprolol tartrate 75mg PO bid. Continue rhythm control with digoxin 125ug IV daily. Resume patient's home-scheduled apixaban 5mg PO bid on post-op day #3 (02/14/2024, 7:15pm). 2. Chronic biventricular systolic CHF with reduced LV EF 20-25% and RV systolic function moderately reduced (as noted on 03/31/2022, 4:57pm TTE, CARDS Dr. Morgan Robledo) now with clinical improvement with LV EF 55-60% and normal RV systolic function (as noted on 07/02/2022, 1:13pm TTE, Interventional CARDS Dr. Morgan Maciel), chronic diastolic CHF with left atrium severely dilated with moderate mitral regurgitation (as noted on 03/31/2022, 4:57pm TTE, CARDS Dr. Morgan Robledo) now with grade II LV diastolic dysfunction left atrium mildly dilated with trace-mild mitral regurgitation (as noted on 07/02/2022, 1:13pm TTE, Interventional CARDS Dr. Morgan Maciel) and dry baseline weight of 150-163 pounds as per patient's report of unintentional weight gain over the past 1 month. Not acute exacerbation of chronic biventricular systolic CHF or chronic di astolic CHF as patient has no complaints of paroxysmal nocturnal dyspnea, orthopnea (more than patient's 1 pillow orthopnea baseline), or platypnea. Patient also has no complaints of leg swelling (more than patient's chronic upper thigh 1+ pitting edema bilaterally) on patient's home-scheduled torsemide 20mg PO daily and spironolactone 25mg PO daily. 3. OA s/p bilateral total knee arthroplasties, s/p right hip replacement. Asymptomatic on tylenol 650mg PO q4 prn pain. 4. Tobacco-naive COPD, not on home O2 or home steroids. Not acute exacerbation as patient is not coughing/wheezing or SOB/CHIANG on fluticasone 100ug/puff, 1 puff PO daily and umeclidinium 62.5ug - vilanterol 25ug/puff, 1 puff PO daily 5. Hypothyroidism. Euthyroid on synthroid 50ug PO daily with normal screening TSH 3.116 uIU/mL (01/15/2024, 10:29am). 6. Non-insulin dependent DM2 with HbA1c < 4.0% (01/15/2024, 10:29am). cf., FSG 86 mg/dL (02/12/2024, 8:02am), FSG 85 mg/dL (02/13/2024, 8:22am). Continue carbohydrate consistent diet, aspart insulin sliding scale qac + qhs, and POC glucose qac + qhs. Of note, long-term glycemic control is actually unknown despite HbA1c < 4.0% (01/15/2024, 10:29am) which might suggest at first glance that patient's long-term glycemic control is excellent. The reason that long- term glycemic control remains unknown is because in anemic states, increased RBC turnover leads to concomitant reductions in both HbA1c and Hb levels, thus giving rise to an artificially jzznk-brzc-qhyffrep HbA1c levels. 7. Ovarian CA s/p DOLORES/BSO, no chemotherapy, no XRT, in clinical remission. Observe. 8. Chronic macrocytic, normochromic/hypochromic anemia with baseline Hb range, 11.4-11.9 g/dL (11/01/2018 - 01/21/2023). cf., admitting Hb 12.8 g/dL (02/09/2024, 6:17am); cf. last recorded Hb 11.8 g/dL (02/12/2024, 6:27am). Patient reports no mucosal bleeding and remains hemodynamically stable. Etiology of chronic macrocytic, normochromic/hypochromic anemia is most probably due to anemia of chronic disease(s) including hypothyroidism, and/or ovarian CA. Hence, I have opted to hold off further Hb testing in order to conserve/preserve this patient's janet blood supply. 9. Peripheral arterial disease (PAD) s/p left distal SFA angioplasty with 5 x 100 mm Lutonix drug-eluting balloon (07/06/2020, 8:00am, Interventional CARDS Dr. Morgan Maciel), s/p left mid-popliteal artery angioplasty with 5 x 40 mm Lutonix drug-eluting balloon. Continue secondary prophylaxis against PAD utilizing rosuvastatin 5mg PO daily. 10. Peripheral vascular disease (PVD) s/p chronic non-occlusive thrombus within common femoral vein and within one of the duplicated superficial femoral veins (as noted on 03/31/2022 RLE venous doppler and again on 12/02/2022 RLE venous doppler), s/p IVC filter. Anticipate resuming patient's home-scheduled apixaban 5mg PO bid on 02/14/2024 am. 11.Pain Management. Patient reports 0/10 pain anywhere on 02/13/2024 - 02/14/2024. Continue tylenol 650mg PO q4 prn pain. 12.Disposition. Code status, DNR/DNI @ home. Condition of patient remains fair. I anticipate that this patient will remain in [facility] for the next 1-2 midnights, awaiting PT/OT Service evaluations on Thursday (02/14/2024) and Thursday (02/15/2024) with anticipated D/C back to home or to SNF for short-term rehab on Thursday (02/15/2024) or Thursday (02/16/2024). Patient will then follow up with her PCP Dr. Yu Gauthier ([place], [place]), her Infectious Disease DrXavier Cornell, and her Orthopedic Surgeon Dr. Vimal Gimenez, all within 5-7 days of hospital discharge. Plan See bullet #2 above for all secondary medical issues with discussion of their respective plan(s) of action. Admission and Anticipated Discharge Date Admission Date: February 08, 2024 Subjective "I feel fine. No fever or chills. No pain anywhere. I think that I can go home tomorrow." Review of Systems Review of Systems: Negative for antecedent/coincident fevers, chills, diaphoresis, cough, wheeze, sore throat, hemoptysis, shortness of breath, dyspnea on exertion, chest pains, palpitations, pleurisy, nausea, vomiting, diarrhea, abdominal pain, pelvic pain, hematochezia, melena, hematuria, dysuria, frequency, urgency, headaches, dizziness, visual changes, hearing changes, falls, syncope, trauma, travel history, or food/drug ingestions novel/new. All other review of systems are reported as negative/normal on 02/14/2024. Physical Exam Physical Exam: General: comfortable, coherent, cooperative. Wide awake and alert. Not confused, lethargic, or obtunded. Patient speaks in complete, fluent, and articulate sentences without pause, interruption, cough, or wheeze. HEENT: normocephalic, atraumatic. EOMI, PERRL. No nystagmus, gaze paresis, anisocoria, miosis, mydriasis, hyphema, chemosis, scleral icterus, conjunctivitis, or pterygium. No otorrorhea. No rhinorrhea. No pharyngeal discharge or exudate. Neck: suppler, no stridor, bruit, goiter, JVD, or HJR. Lymph: no cervical, supraclavicular, infraclavicular, axillary, epitrochlear, or inguinal adenopathy. Chest: symmetric rise and fall with respiration. Non-tender to palpation. Lungs: clear to auscultation and percussion. No audible expiratory wheeze, egophony, pectoriloquy, increase in tactile fremitus, or flatness/dullness to percussion at the bases. Heart: RRR, S1 and S2 noted. No S3 or S4 summation gallop. No tripartite friction rub. Grade II/ early systolic murmur @ LLSB, not radiating to the carotids, the axilla, or back. Invariant in regards to the respiratory cycle. Abdomen: soft, non-tender, non-distended. No rebound, guarding, Beard's sign, or organomegaly. Bowel sounds auscultated in all 4 quadrants. Extremities: no clubbing, cyanosis, or edema. 2+ pedal pulses bilaterally. 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 Vimal Gimenez) with no wound dehiscence, erythema, induration, warmth, tenderness, crepitus, fluctuance, discharge (sanguineous, serous, or suppurative), lymphangitic streaking, or malodor noted on 02/13/2024 exam and on 02/14/2024 exam. Skin: no decubitus ulcer, exanthem, or enanthem. Neurology: alert and oriented in regards to person, place, and time. DTR+ and symmetric. 5/5 motor strength in all 4 extremities, both proximally and distally. No tremors, tics, or myoclonus. Urology: no luna catheter. No urethral discharge. Results & Data Results & Data Vital Signs (Past 12 Hours) Vital Signs Temp Pulse Pulse Resp BP BP Pulse Ox 02/14/24 16:10 86 02/14/24 15:06 37.7 C H 84 16 118/78 97 02/14/24 13:46 121 H 02/14/24 11:17 37.0 C 73 16 99/64 L 97 02/14/24 08:17 36.9 C 96 H 16 105/68 95 O2 Del Method 02/14/24 16:10 02/14/24 15:06 Room Air 02/14/24 13:46 02/14/24 11:17 Room Air 02/14/24 08:17 Room Air Laboratory Results Right hallux surface wound culture (02/08/2024, 9:00pm): cefepime-sensitive Morganella morganii Right hallux deep wound culture (02/11/2024, 10:43am): cefepime-sensitive Morganella morganii WBC 8.26, N78 L14 M6 E1 B1 (02/08/2024, 6:27pm). WBC 6.72, no differential (02/12/2024, 6:27am). WBC 6.09, no differential (02/14/2024, 4:50am). BUN 26, creatinine 1.12, GFR 51.92 mL/min (02/08/2024, 6:27pm). BUN 26, creatinine 0.97, GFR 61.70 mL/min (02/12/2024, 6:27am). BUN 40, creatinine 1.21, GFR 47.32 mL/min (02/14/2024, 4:50am). Diagnostic Findings Duplex scan of bilateral lower extremity arteries (02/09/2024, 10:49am): 1. No evidence of arterial occlusion. 2. Findings concerning for hemodynamically significant stenosis, right anterior tibial artery. 3. Normal ankle-brachial indices bilaterally. Left foot x-ray, 3 views (02/09/2024, 6:09pm): 1. Destructive changes of the first distal phalanx consistent with acute osteomyelitis. 2. Soft tissue edema of the great toe and along the dorsum of the foot. 3. Osteopenia. Right foot x-ray, 3 views (02/09/2024, 6:09pm): 1. No radiographic evidence of acute osteomyelitis. 2. Ulcer along the medial forefoot. Right hallux x-ray (02/11/2024, 8:50am): 1. Status post partial amputation of the first digit at the level of the mid diaphyseal first metatarsal. 2. Expected postoperative soft tissue swelling with deep tissue air. No unexpected opaque foreign bodies. PG Care Time/CCT Total # of Minutes Spent Total Time Spent with Patient: Total time spent is greater than 50% in coordination of care (as documented) at patient's floor/unit and/or counseling patient: Coding Level of Care Code 64582 SUB INP/OBS CARE 2/35MIN Diagnoses Acute osteomyelitis of right foot M86.171 Atrial fibrillation with rapid ventricular response I48.91
[2024-02-14 20:00] VITALS: RESP 18
[2024-02-14] MEDS: APIXABAN 5 MG TABLET PO SCH (20:21)
--- NOTE | 2024-02-15 10:07 | Orthopedic Progress Note ---
Date of Service February 15, 2024 Assessment & Plan (1) Acute osteomyelitis of right foot: Plan: Postop day 4-status post right great toe amputation yesterday with Dr. Gimenez. May be out of bed, weight-bear as tolerated with the cam boot. Needs to have the cam boot on her right leg at all times. Ice and elevation as needed for swelling. RLE dressing changed today 02/14 Out of bed with walker assistance. Right great toe cultures currently growing out Morganella morganii, Citrobacter freundii, Pseudomonas aeruginoas, bacterioides stercoris group ID consulted - Continue cefepime 2g IV q12 (day #1 on 02/08/2024, 8:08pm) for 3- 5 days from 02/11/2024 OR date (02/11/2024), as per Infectious Disease Service of Dr. Tracey Cornell. PT and OT. May resume Eliquis as per the primary service. Will continue to follow while inpatient. (2) Pressure ulcer of left foot: Plan: Postop day 4-status post irrigation debridement of left foot ulcers on the plantar surface of her foot. She may be out of bed, weight-bear as tolerated on her left lower extremity. She needs a postop shoe on when out of bed. Dressing changes as per the wound care nurse. Will need to offload her postop shoe to keep pressure off of her metatarsal heads Ice and elevate as needed for pain or swelling. May resume Eliquis as per the primary service. Toe cultures positive for pasteurella and morganella morganii Continue IV Antibiotics as noted above Will continue to follow while inpatient. Admission and Anticipated Discharge Date Admission Date: February 08, 2024 Subjective Pt seen and examined bedside. She reports she is doing well and she has no pain in her foot. No questions or concerns. POD 4 s/p R great toe amputation with Dr Gimenez. Physical Exam Physical Exam: Dressing taken down. Dried bloody drainage. Suture in tact. No signs of wound dehiscence. No erythema or pus like drainage. Pt can feel pressure. Pt can wiggle off remaining toes. She is able to pump her ankles up and down. Wounds were redressed with xeroform, gauze, kerlix and estefania wrap. Boot was placed back on foot. LLE has dressing and post op shoe in place. Dressing in tact and not saturated. This was left in place. WCN to eval and change today. Results & Data Vital Signs (Past 12 Hours) Vital Signs Temp Pulse Pulse Resp BP BP Pulse Ox 02/15/24 07:40 36.6 C 110 H 18 84/60 L 96 02/15/24 07:00 85 02/15/24 03:00 37.1 C 99 H 18 106/69 97 02/14/24 23:19 129 H 02/14/24 23:00 37.5 C 87 18 97/54 L 95 O2 Del Method 02/15/24 07:40 Room Air 02/15/24 07:00 02/15/24 03:00 Room Air 02/14/24 23:19 02/14/24 23:00 Room Air
[2024-02-15 11:40] LABS: Basophils # (auto) 0.05 K/uL (0.00-0.20); Basophils % (auto) 0.7 %; Eosinophils # (auto) 0.09 K/uL (0.00-0.50); Eosinophils % (auto) 1.2 %; Hematocrit (blood only) 37.8 % (37.0-47.0); Hemoglobin 12.4 g/dl (12.0-16.0); Immature Granulocytes # (auto) 0.02 K/uL (0.01-0.20); Immature Granulocytes % (auto) 0.3 %; Lymphocytes # (auto) 0.76 K/uL (1.20-3.40); Lymphocytes % (auto) 10.5 %; Mean Corpuscular Hemoglobin 35.1 pg (25.0-34.0); Mean Corpuscular Hgb Conc 32.8 g/dL (32.0-36.0); Mean Corpuscular Volume 107.1 fL (80.0-100.0); Mean Platelet Volume 10.5 fL (9.4-12.4); Monocytes # (auto) 0.59 K/uL (0.11-0.59); Monocytes % (auto) 8.1 %; Neutrophils # (auto) 5.75 K/uL (1.40-6.50); Neutrophils % (auto) 79.2 %; Platelet Count 208 K/uL (130-400); RDW Coefficient of Variation 11.7 % (11.5-14.5); Red Blood Count 3.53 M/uL (4.20-5.40); White Blood Count 7.26 K/ul (4.8-10.8)
[2024-02-15 11:57] LABS: Albumin Globulin Ratio 1.1 (0.9-2); Albumin Level 3.7 gm/dl (3.4-5.0); BUN Creatinine Ratio 36.5 (10-20); Bilirubin,Total 0.7 mg/dl (0.2-1.0); C Reactive Protein 1.82 mg/dl (0-0.5); Calcium 9.6 mg/dl (8.6-10.3); Creatinine Clr Calc Pharmacy 34.3 ml/min; Globulin 3.5 gm/dl (2.5-4.0); Potassium 4.1 mmol/L (3.5-5.1); Total Protein 7.2 gm/dl (6.0-8.3)
--- NOTE | 2024-02-15 13:58 | Infectious Disease Progress Nt ---
Date of Service February 15, 2024 Assessment & Plan (1) Acute osteomyelitis of right foot: (2) Diabetes mellitus, type 2: (3) Atrial fibrillation with rapid ventricular response: (4) CAD (coronary artery disease): Plan ID Problem List: # Right great toe distal phalanx OM s/p toe amputation 02/10 # T2DM # PAD s/p angioplasty Impression: Deirdre Nixon is a 73yo F with h/o T2DM, COPD, CAD, PAD s/p angioplasty 2020, CHF, afib on Eliquis, hypothyroidism, gastric bypass, bl TKR, lumbar spinal fusion who presented on 02/07 with unhealing wounds of right great toe noted x 1.5 weeks along with ulcers of left foot, found to have great toe osteomyelitis of the distal phalanx. She was started on Augmentin on 01/27 due to c/f infection of right toe. Here, she has been afebrile, tachycardic. Initial labs with WBC 8.26, Cr 1.12, LFT wnl. ESR 51, CRP 2.60. UA with 0-5 WBC. XR right foot with destructive changes of first distal phalanx c/w acute OM. XR left foot neg for OM. Right toe cx were sent from ED on 02/07. Seen by ortho. She was started on empiric vanc/cefepime. ID consulted 02/08. LE arterial duplex with hemodynamically significant stenosis in right anterior tibial artery, normal GAGE bl. S/p OR 02/10, underwent right great toe amputation, achilles lengthening, and left foot wound debridement (per op note, amputation down to MTPJ, cx and path from great toe, confident that all infected bone in right big toe removed). Vanc stopped 02/10 since no growth of M RSA. Discussion OR cx (of great toe) with Morganella, Citrobacter, Pseduomonas, and Bacteroides. Path in process. All infected bone is suspected to have been removed per op note since amputation was further down from site of OM, but will follow surgical pathology to confirm. Morganella is CTX resistant most likely from ampC resistance (rather than ESBL, in discussion with ID pharmacy). Will continue cefepime for now while awaiting pathology, and have added metronidazole for Bacteroides (even though the mainstay of anaerobic treatment is surgical source control). If surgical pathology is indeed negative at the proximal margin, then likely plan for a short course of abx (can continue for another 3-5 days from OR) for SSTI. If any residual osteomyelitis is ultimately seen on pathology (at the proximal margins), pt may benefit from longer course (e.g., 6-week course of abx, likely majority if not all IV). Recommendations: - Continue cefepime - Start metronidazole 500 mg PO BID - F/u OR cx and path - If no residual OM, then plan for 3-5 days of abx from day of amputation, pending Cx and sensitivities. ID will continue to follow. Zoila Bae MD, [facility] Infectious Diseases [facility]/ID Connect ID Connect direct line: [phone] Admission and Anticipated Discharge Date Admission Date: February 08, 2024 Subjective This patient recommendation is based on a telemedicine consult request which was completed asynchronously through chart review and information provided by the primary physician. The patient was not seen or examined today. The evaluation is consultative in nature and all patient care and treatment decisions can either be accepted or rejected by the patient's primary hospital-based treating physician using their own independent medical judgment for their patient. Time Spent Reviewing Chart: 21 - 30 minutes - Awaiting surgical path - OR Cx growing Morganella, Citrobacter, Pseudomonas, Bacteroides - Afebrile, WBC 7.26 Results & Data Vital Signs (Past 12 Hours) Vital Signs Temp Pulse Pulse Resp BP BP Pulse Ox 02/15/24 11:44 36.7 C 87 18 105/70 94 02/15/24 07:40 36.6 C 110 H 18 84/60 L 96 02/15/24 07:00 85 02/15/24 03:00 37.1 C 99 H 18 106/69 97 O2 Del Method 02/15/24 11:44 Room Air 02/15/24 07:40 Room Air 02/15/24 07:00 02/15/24 03:00 Room Air Diagnostic Findings Micro Data: 02/10 OR cx: Morganella morganii (S-cipro/levo/Bactim/cefepime; I-pip-tazo), Citrobacter freundii complex (S-cefepime/cipro/levo/Bactrim/pip-tazo), Pseudomonas aeruginosa, Bacteroides stercoris group 02/07 Toe WCX: Morganella morganii (R-CTX, S-cefepime), Pasteurella 02/07 BCX: ngtd Prior cx: PsA, MSSA Antibiotic Summary: Cefepime (02/07 present) Metronidazole (02/14 present) Prior Vanc 02/07-02/10
--- NOTE | 2024-02-15 14:29 | Hospitalist Progress Note ---
Date of Service February 15, 2024 Assessment & Plan (1) Acute osteomyelitis of right foot: Plan: Patient here with right great toe osteomyelitis and ulceration with cellulitis as well as left foot ulcerations Now s/p right great toe amputation, Achilles lengthening, and left foot wound debridement with orthopedic surgery on 02/10 Postoperative care as per orthopedic surgery Right toe wound cultures growing Morganella morganii, Citrobacter freundii, Pseudomonas aeruginosa, bacteroides stercoris group. Sensitivities for Pseudomonas are still pending Vascular medicine consult appreciated-while she does have a history of left SFA/popliteal angioplasty in 06/2020 and ABIs and arterial duplex here are unchanged since then, does have 75+ percent VANDANA stenosis but distal [employer] ARCHITECT, peroneal, and DPA are patent with normal Doppler upstrokes-picture is not consistent with critical limb ischemia and arterial perfusion is adequate to heal the planned surgical wound. No benefit to additional vascular testing or revascularization Appreciate infectious disease consultation Continue IV cefepime and p.o. Flagyl, await further sensitivities As infected bone was removed, she will only need antibiotics for 4 to 5 days postoperatively which could potentially be tomorrow (2) Atrial fibrillation with rapid ventricular response: Plan: Remains with some elevated rates at 100-130 at times. Her soft blood pressures are limiting rate control Started on digoxin-switch IV to p.o. 125 mcg daily and will need to follow levels and renal function as an outpatient Continue rate control with metoprolol tartrate 75mg PO bid. home dose is 200 mg of succinate daily Continue Eliquis Monitor on telemetry Keep electrolytes replete (3) CAD (coronary artery disease): Plan: With a mildly abnormal stress test performed 05/2023 and stable angina Continue apixaban, rosuvastatin (4) Peripheral arterial disease: Plan: As noted above, continue Eliquis, statin (5) Heart failure with reduced ejection fraction: Plan: Chronic biventricular systolic CHF with reduced LV EF 20-25% and RV systolic function moderately reduced (as noted on 03/31/2022, 4:57pm TTE, now with clinical improvement with LV EF 55-60% and normal RV systolic function on echo from 07/02/2022, 1:13pm TTE Not acute exacerbation of chronic biventricular systolic CHF or chronic diastolic CHF as patient has no complaints of paroxysmal nocturnal dyspnea, orthopnea Patient also has no complaints of leg swelling (more than patient's chronic upper thigh 1+ pitting edema bilaterally) on patient's home-scheduled torsemide 20mg PO daily and spironolactone 25mg PO daily (6) Diabetes mellitus, type 2: Plan: Patient does not actually have a diagnosis of diabetes, most recent hemoglobin A1c was 4% Stop all Accu-Cheks and insulin Changed to regular diet Plan Chronic medical conditions: Anemia: Chronic macrocytic anemia with baseline Hb range, 11.4-11.9. Hemoglobin here improved at 12.4. She does have history of gastric bypass surgery and likely has nutritional deficiencies although recent B12 and folate as well as iron studies in 12/2023 were normal. Follow-up with PCP. Consider referral to hematology if macrocytosis persists for workup for MDS GERD: Continue PPI Anxiety: Stable, continue buspirone COPD: Stable, continue maintenance inhalers, albuterol as needed Hypothyroidism: Euthyroid on synthroid 50ug PO daily with normal TSH 3.116 in 12/2023 DVT prophylaxis-Eliquis Disposition-continued stay, likely discharged home on 02/15 once culture sensitivities are finalized Admission and Anticipated Discharge Date Admission Date: February 08, 2024 Subjective Patient reports feeling well, no complaints, anxious to get home. Denies chest pains or shortness of breath,. She did have some nausea and vomited with lunch today. She would like her diet to be changed to regular from diabetic Physical Exam Constitutional: WD/WN, vitals as above Respiratory: normal respiratory effort, lungs clear to auscultation Cardiovascular: RRR, no murmur, no edema Gastrointestinal (Abdomen): normal bowel sounds, soft, nontender, no hepatosplenomegaly Musculoskeletal: Extremities: + extremities abnormal to inspection (Bilateral legs and feet in Shaggy wraps) Psychiatric: A+Ox3, euthymic affect Results & Data Results & Data Vital Signs (Past 12 Hours) Vital Signs Temp Pulse Pulse Resp BP BP Pulse Ox 02/15/24 11:44 36.7 C 87 18 105/70 94 02/15/24 07:40 36.6 C 110 H 18 84/60 L 96 02/15/24 07:00 85 02/15/24 03:00 37.1 C 99 H 18 106/69 97 O2 Del Method 02/15/24 11:44 Room Air 02/15/24 07:40 Room Air 02/15/24 07:00 02/15/24 03:00 Room Air Laboratory Results CBC, BMP, wound cultures reviewed Pathology from toe amputation reviewed PG Care Time/CCT Total # of Minutes Spent Total Time Spent with Patient: Total time spent is greater than 50% in coordination of care (as documented) at patient's floor/unit and/or counseling patient: Coding Level of Care Code 41330 SUB INP/OBS CARE 2/35MIN Diagnoses Acute osteomyelitis of right foot M86.171 Atrial fibrillation with rapid ventricular response I48.91 CAD (coronary artery disease) I25.10 Peripheral arterial disease I73.9 Heart failure with reduced ejection fraction I50.20 Diabetes mellitus, type 2 E11.9
[2024-02-15] MEDS: DIGOXIN 0.125 MG TAB PO SCH (16:46)
[2024-02-15] MEDS: metroNIDAZOLE 500 MG TAB PO SCH (20:45)
[2024-02-16 06:42] LABS: Hematocrit (blood only) 35.6 % (37.0-47.0); Hemoglobin 11.7 g/dl (12.0-16.0); Mean Corpuscular Hgb Conc 32.9 g/dL (32.0-36.0); Mean Corpuscular Volume 106.6 fL (80.0-100.0); Mean Platelet Volume 10.4 fL (9.4-12.4); Platelet Count 181 K/uL (130-400); RDW Coefficient of Variation 11.6 % (11.5-14.5); RDW Standard Deviation 45.3 fL (36.4-46.3); Red Blood Count 3.34 M/uL (4.20-5.40); White Blood Count 5.37 K/ul (4.8-10.8)
[2024-02-16 07:03] LABS: BUN Creatinine Ratio 37.7 (10-20); Calcium 9.4 mg/dl (8.6-10.3); Creatinine Clr Calc Pharmacy 33.9 ml/min; Potassium 4.2 mmol/L (3.5-5.1)
[2024-02-16 07:37] VITALS: O2SAT 98
[2024-02-16 09:33] LABS: Albumin Level 3.5 gm/dl (3.4-5.0); Bilirubin Direct 0.1 mg/dl (0-0.2); Bilirubin,Total 0.6 mg/dl (0.2-1.0); Total Protein 6.9 gm/dl (6.0-8.3)
--- NOTE | 2024-02-16 10:22 | Infectious Disease Progress Nt ---
Date of Service February 16, 2024 Assessment & Plan (1) Acute osteomyelitis of right foot: (2) Diabetes mellitus, type 2: (3) Atrial fibrillation with rapid ventricular response: (4) CAD (coronary artery disease): Plan ID Problem List: # Right great toe distal phalanx OM s/p toe amputation 02/10 # T2DM # PAD s/p angioplasty Impression: Deirdre Nixon is a 73yo F with h/o T2DM, COPD, CAD, PAD s/p angioplasty 2020, CHF, afib on Eliquis, hypothyroidism, gastric bypass, bl TKR, lumbar spinal fusion who presented on 02/07 with unhealing wounds of right great toe noted x 1.5 weeks along with ulcers of left foot, found to have great toe osteomyelitis of the distal phalanx. She was started on Augmentin on 01/27 due to c/f infection of right toe. Here, she has been afebrile, tachycardic. Initial labs with WBC 8.26, Cr 1.12, LFT wnl. ESR 51, CRP 2.60. UA with 0-5 WBC. XR right foot with destructive changes of first distal phalanx c/w acute OM. XR left foot neg for OM. Right toe cx were sent from ED on 02/07. Seen by ortho. She was started on empiric vanc/cefepime. ID consulted 02/08. LE arterial duplex with hemodynamically significant stenosis in right anterior tibial artery, normal GAGE bl. S/p OR 02/10, underwent right great toe amputation, achilles lengthening, and left foot wound debridement (per op note, amputation down to MTPJ, cx and path from great toe, confident that all infected bone in right big toe removed). Vanc stopped 02/10 since no growth of MRSA. Discussion OR cx (of great toe) with Morganella, Citrobacter, Pseudomonas, and Bacteroides. All infected bone was suspected to have been removed per op note since amputation was further down from site of OM. 02/10 OR path of the amputated portion of the toe showing acute osteomyelitis; the distal portion of the proximal phalangeal bone appears to have no obvious discoloration nor softening. While inpatient, received ~5 days of cefepime and a few days of metronidazole to cover for the pathogens isolated in culture (noting that the mainstay of anaerobic treatment is surgical source control). Given that the infected bone was felt to be removed without e/o residual osteomyelitis, then only requires a short course of abx from OR for SSTI. Patient will have finished a ~5-day course today and antibiotics can be stopped upon discharge. Recommendations: - Patient has received a ~5-day course of abx post-operatively, OK to stop antibiotics if discharging today - Ensure close follow up with primary care and surgery/podiatry Plan discussed with Dr. Albert. Thank you for letting ID participate in the care of this patient. ID will sign off at this time. If questions, please contact [facility] at [phone]. Zoila Bae MD, MHS Infectious Diseases [facility]/ID Connect ID Connect direct line: [phone] Admission and Anticipated Discharge Date Admission Date: February 08, 2024 Subjective This patient recommendation is based on a telemedicine consult request which was completed asynchronously through chart review and information provided by the primary physician. The patient was not seen or examined today. The evaluation is consultative in nature and all patient care and treatment decisions can either be accepted or rejected by the patient's primary hospital-based treating physician using their own independent medical judgment for their patient. Time Spent Reviewing Chart: 31+ minutes - 02/10 OR path of the amputated portion of the toe showing acute osteomyelitis; the distal portion of the proximal phalangeal bone appears to have no obvious discoloration nor softening - Afebrile, WBC 5.37 Results & Data Vital Signs (Past 12 Hours) Vital Signs Temp Pulse Pulse Resp BP Pulse Ox O2 Del Method 02/16/24 07:36 36.6 C 92 H 18 110/69 98 Room Air 02/16/24 07:20 107 H 02/16/24 03:49 36.7 C 97 H 18 109/73 96 Room Air 02/16/24 00:00 36.8 C 82 18 99/61 L 95 Room Air Diagnostic Findings Diagnostics: 02/10 OR path A. Toe, right big, distal phalanx, amputation: - Acute osteomyelitis. Ulcer. Acute cellulitis with necrosis. B. Toe, right great, amputation: - Acute osteomyelitis. Cellulitis. Small vessel vasculopathy. Hyperkeratosis and epidermal acanthosis Gross Description A. RIGHT FOOT BIG TOE DISTAL PHALANX The specimen is received in a container labeled right foot big toe distal phalanx with the patient name. The specimen consists of multiple irregular fragments of skin, soft tissue and bone which in the aggregate measure 5 x 4.5 x 2 cm. The great majority of the fragments are markedly irregular with recognizable portions of skin, tendon and what appears to be the proximal end of the distal phalangeal bone. The largest fragment of bone appears to represent the distal portion of the proximal phalangeal bone with a relatively smooth cut, proximal end. The irregular fragments of bone, including what appears to represent the proximal end of the distal phalangeal bone, show a dull villatoro-brown discoloration, though without marked softening. Sectioning through what appears to represent the distal portion of the proximal phalangeal bone, reveals no obvious discoloration nor softening. Portions of the soft tissue are dull villatoro, to nearly black, though again, without marked softening. The fragments of skin show dull villatoro brown discoloration and mummification. [employer] Other Ranks sections are submitted in four cassettes as follows: A1, sections of presumed distal phalangeal bone; A2, en face section of presumed proximal margin of presumed proximal phalangeal bone; A3, longitudinal sections of presumed proximal phalangeal bone (A1 through A3 for decalcification); A4, sections of skin and soft tissue. B. RIGHT FOOT GREAT TOE The specimen is received in a container labeled right foot great toe with the patient name. The specimen consists of skin and soft tissue from the distal portion of a toe, including nail. The specimen, overall, measures 3 x 2.5 x 2.5 cm. Much of the skin surrounding the nail has a dull villatoro brown discoloration with focal sloughing of the surface. The nail is markedly discolored and thickened. The inner most aspect of the fragment has a dark villatoro discoloration with slight softening. The remaining soft tissue is christopher to villatoro, rubbery and fibrotic in appearance. [employer] Other Ranks sections are submitted in a single cassette as B1. Micro Data: 02/10 OR cx: Morganella morganii (S-cipro/levo/Bactim/cefepime; I-pip-tazo), Citrobacter freundii complex (S-cefepime/cipro/levo/Bactrim/pip-tazo), Pseudomonas aeruginosa, Bacteroides stercoris group 02/07 Toe WCX: Morganella morganii (R-CTX, S-cefepime), Pasteurella 02/07 BCX: ngtd Prior cx: PsA, MSSA Antibiotic Summary: Cefepime (02/07 present) Metronidazole (02/14 present) Prior Vanc 02/07-02/10
--- NOTE | 2024-02-16 10:51 | Orthopedic Progress Note ---
Date of Service February 16, 2024 Assessment & Plan (1) Acute osteomyelitis of right foot: Plan: Postop day 5-status post right great toe amputation with Dr. Gimenez. May be out of bed, weight-bear as tolerated with the cam boot. Needs to have the cam boot on her right leg at all times. Ice and elevation as needed for swelling. RLE dressing changed 02/14 Out of bed with walker assistance. Right great toe cultures currently growing out Morganella morganii, Citrobacter freundii, Pseudomonas aeruginoas, bacterioides stercoris group ID consulted - Continue cefepime 2g IV q12 (day #1 on 02/08/2024, 8:08pm) for 3- 5 days from 02/11/2024 OR date (02/11/2024), as per Infectious Disease Service of Dr. Tracey Cornell. PT and OT. May resume Eliquis as per the primary service. Patient plans on discharge home today with home health services. (2) Pressure ulcer of left foot: Plan: Postop day 5-status post irrigation debridement of left foot ulcers on the plantar surface of her foot. She may be out of bed, weight-bear as tolerated on her left lower extremity. She needs a postop shoe on when out of bed. Dressing changes as per the wound care nurse. Will need to offload her postop shoe to keep pressure off of her metatarsal heads Ice and elevate as needed for pain or swelling. May resume Eliquis as per the primary service. Toe cultures positive for pasteurella and morganella morganii Continue IV Antibiotics as noted above Admission and Anticipated Discharge Date Admission Date: February 08, 2024 Subjective This 73-year-old female seen this morning for follow-up of Right Great Toe Amputation; Right Percutaneous Achilles Lengthening and Left Foot Wound [place] field. Patient states that her dressings were changed this morning. She currently has a cam boot on her right lower extremity in a postop shoe on her left lower extremity. She states that she is being discharged home today on IV antibiotics. Currently she denies chest pain, shortness of breath, fever, chills, sweats, nausea, vomiting diarrhea or difficulty voiding. She states she did have an episode of emesis after eating lunch yesterday but it was treated with an antibiotic through her IV. Review of Systems Review of Systems: All systems reviewed & are unremarkable except as noted in Subjective Physical Exam Physical Exam: Bilateral feet; dressings are clean dry and intact left in place. Patient is able to perform active straight leg raise test with both lower extremities. She is actively able to dorsi and plantarflex both feet. She does have light sensation to touch over the pads of her digits. She is neurovascularly intact. Results & Data Vital Signs (Past 12 Hours) Vital Signs Temp Pulse Pulse Resp BP Pulse Ox O2 Del Method 02/16/24 07:36 36.6 C 92 H 18 110/69 98 Room Air 02/16/24 07:20 107 H 02/16/24 03:49 36.7 C 97 H 18 109/73 96 Room Air 02/16/24 00:00 36.8 C 82 18 99/61 L 95 Room Air Diagnostic Findings Laboratory Results WBC 5.37 K/ul (4.8-10.8) 02/16/24 06:14 RBC 3.34 M/uL (4.20-5.40) L 02/16/24 06:14 Hgb 11.7 g/dl (12.0-16.0) L 02/16/24 06:14 Hct 35.6 % (37.0-47.0) L 02/16/24 06:14 MCV 106.6 fL (80.0-100.0) H 02/16/24 06:14 MCH 35.0 pg (25.0-34.0) H 02/16/24 06:14 MCHC 32.9 g/dL (32.0-36.0) 02/16/24 06:14 RDW Std Deviation 45.3 fL (36.4-46.3) 02/16/24 06:14 RDW Coeff of Krista 11.6 % (11.5-14.5) 02/16/24 06:14 Plt Count 181 K/uL (130-400) 02/16/24 06:14 MPV 10.4 fL (9.4-12.4) 02/16/24 06:14 Immature Gran % (Auto) 0.3 % 02/15/24 11:09 Neut % (Auto) 79.2 % 02/15/24 11:09 Lymph % (Auto) 10.5 % 02/15/24 11:09 [place] % (Auto) 8.1 % 02/15/24 11:09 Eos % (Auto) 1.2 % 02/15/24 11:09 Baso % (Auto) 0.7 % 02/15/24 11:09 Neut # (Auto) 5.75 K/uL (1.40-6.50) 02/15/24 11:09 Lymph # (Auto) 0.76 K/uL (1.20-3.40) L 02/15/24 11:09 [place] # (Auto) 0.59 K/uL (0.11-0.59) 02/15/24 11:09 Eos # (Auto) 0.09 K/uL (0.00-0.50) 02/15/24 11:09 Baso # (Auto) 0.05 K/uL (0.00-0.20) 02/15/24 11:09 Immature Gran # (Auto) 0.02 K/uL (0.01-0.20) 02/15/24 11:09 Polychromasia 1+ 02/08/24 18:27 Macrocytosis Present 02/08/24 18:27 ESR 84 mm/hr (0-30) H 02/15/24 11:09 PT 11.9 Seconds (9.0-12.0) 02/08/24 18:27 INR 1.1 (0.9-1.1) 02/08/24 18:27 APTT 31 Seconds (21-31) 02/08/24 18:27 PTT Ratio 1.2 02/08/24 18:27 Sodium 137 mmol/L (136-145) 02/16/24 06:14 Potassium 4.2 mmol/L (3.5-5.1) 02/16/24 06:14 Chloride 94 mmol/L (98-107) L 02/16/24 06:14 Carbon Dioxide 34 mmol/L (21-32) H 02/16/24 06:14 Anion Gap 9 (3-11) 02/16/24 06:14 BUN 52 mg/dl (6-23) H 02/16/24 06:14 Creatinine 1.38 mg/dl (0.6-1.2) H 02/16/24 06:14 Est Cr Clr Drug Dosing 33.9 ml/min 02/16/24 06:14 eGFR 40.42 02/16/24 06:14 BUN/Creatinine Ratio 37.7 (10-20) H 02/16/24 06:14 Glucose 83 mg/dl (70-99(Fasting)) 02/16/24 06:14 POC Glucose 112 mg/dl (70-99) H 02/15/24 12:05 Lactate 1.3 mmol/L (0.4-2.0) 02/08/24 18:27 Calcium 9.4 mg/dl (8.6-10.3) 02/16/24 06:14 Magnesium 2.0 mg/dl (1.7-2.4) 02/08/24 18:27 Total Bilirubin 0.6 mg/dl (0.2-1.0) 02/16/24 06:14 Direct Bilirubin 0.1 mg/dl (0-0.2) 02/16/24 06:14 AST 36 U/L (13-39) 02/16/24 06:14 ALT 20 U/L (7-52) 02/16/24 06:14 Alkaline Phosphatase 61 U/L (34-104) 02/16/24 06:14 Troponin I High Sens 7.6 pg/ml (0-14) 02/08/24 18:27 C-Reactive Protein 1.82 mg/dl (0-0.5) H 02/15/24 11:09 B-Natriuretic Peptide 789 pg/ml (0-100) H 02/08/24 21:49 Total Protein 6.9 gm/dl (6.0-8.3) 02/16/24 06:14 Albumin 3.5 gm/dl (3.4-5.0) 02/16/24 06:14 Globulin 3.5 gm/dl (2.5-4.0) 02/15/24 11:09 Albumin/Globulin Ratio 1.1 (0.9-2) 02/15/24 11:09 Procalcitonin < 0.02 ng/ml (0-0.5) 02/08/24 18:27 Urine Color Yellow 02/08/24 19:25 Urine Appearance Clear (Clear) 02/08/24 19:25 Urine pH 5.5 (4.5-7.5) 02/08/24 19:25 Ur Specific [place] 1.030 (1.000-1.030) 02/08/24 19:25 Urine Protein Trace (Negative) H 02/08/24 19:25 Urine Glucose (UA) 2+ (Negative) H 02/08/24 19:25 Urine Ketones Trace (Negative) H 02/08/24 19:25 Urine Blood Negative (Negative) 02/08/24 19:25 Urine Nitrite Negative (Negative) 02/08/24 19:25 Urine Bilirubin Negative (Negative) 02/08/24 19:25 Urine Urobilinogen Negative (Negative) 02/08/24 19:25 Ur Leukocyte Esterase Negative (Negative) 02/08/24 19:25 Urine WBC (Auto) 0-5 /hpf (0-5) 02/08/24 19:25 Urine RBC (Auto) 3-5 /hpf (0-2) H 02/08/24 19:25 U Hyaline Cast (Auto) 6-10 /lpf (0-2) H 02/08/24 19:25 U Epithel Cells (Auto) 11-20 /hpf (0-2) H 02/08/24 19:25 Urine Bacteria (Auto) None Seen (None Seen) 02/08/24 19:25 Urine Mucus Present (None Prsent) A 02/08/24 19:25 Random Vancomycin 17.1 mcg/ml (10-20) 02/12/24 06:27 Digoxin 0.6 ng/ml (0.8-2.0) L 02/13/24 06:38 Impressions Foot X-Ray 02/08/24 18:09 Exam(s): XR LEFT FOOT EXAM: XR Left Foot Complete, 3 or More Views CLINICAL HISTORY: Reason for exam: LEFT FOOT DIABETIC WOUND. TECHNIQUE: Frontal, lateral and oblique views of the left foot. COMPARISON: No relevant prior studies available. FINDINGS: Bones/joints: No radiographic evidence of acute osteomyelitis. The bones are osteopenic. No acute fracture. Soft tissues: Ulcer along the medial forefoot. IMPRESSION: 1. No radiographic evidence of acute osteomyelitis. 2. Ulcer along the medial forefoot. Electronically signed by: Mike Irving MD 02/08/24 19:37 PM Duplex Scan Lower Extremity Artery 02/09/24 10:49 INDICATION: Leg pain. TECHNIQUE: Sonographic grayscale, color Doppler and spectral wave analysis of bilateral lower extremity arteries. Ankle-brachial indices also calculated bilaterally. Toe brachial indices not calculated secondary to overlying bandage material. COMPARISON: No relevant priors. FINDINGS: No evidence of focal arterial occlusion. Elevated peak systolic velocity in the right anterior tibial artery up to 446 cm/s. Otherwise no significant peak systolic velocity elevation. Monophasic waveforms seen distally bilaterally. Otherwise multiphasic waveforms. Right dorsalis pedis pressure, 104, left 97. Right posterior tibial pressure 95, left 98. Right brachial pressure 98. Right ankle brachial index 1.06, left 1.0 IMPRESSION: 1. No evidence of arterial occlusion. 2. Findings concerning for hemodynamically significant stenosis, right anterior tibial artery. 3. Normal ankle-brachial indices bilaterally. Electronically signed by Meek Buchanan 02-09-2024 5:36 PM Toe X-Ray 02/11/24 08:50 FL toe RT 2V CLINICAL HISTORY: RIGHT GREAT TOE AMP COMPARISON STUDY: 02/08/2024 FLUOROSCOPY TIME: 1.5 seconds FLUOROSCOPY IMAGES: 2 EXPOSURE DOSE: 0.0183 mGy FINDINGS: Status post partial amputation of the first digit at the level of the mid diaphyseal first metatarsal. Expected postoperative soft tissue swelling with deep tissue air. No unexpected opaque foreign bodies. IMPRESSION: Fluoroscopic assistance as above. ACT 112: Negative or not required by law. Electronically signed by: Jorge Torres M.D. 02/11/2024 11:40 AM
[2024-02-16 11:37] VITALS: TEMP 98.1
--- NOTE | 2024-02-16 13:06 | Discharge Summary ---
Discharge Summary Date of Service February 16, 2024 Principal Dx & Hospital Course #1 = Principal Diagnosis (1) Acute osteomyelitis of right foot: Patient here with right great toe osteomyelitis and ulceration with cellulitis as well as left foot ulcerations Now s/p right great toe amputation, Achilles lengthening, and left foot wound debridement with orthopedic surgery on 02/10 Postoperative care as per orthopedic surgery Right toe wound cultures growing Morganella morganii, Citrobacter freundii, Pseudomonas aeruginosa, bacteroides stercoris group. Sensitivities reviewed Vascular medicine consult appreciated-while she does have a history of left SFA/popliteal angioplasty in 06/2020 and ABIs and arterial duplex here are unchanged since then, does have 75+ percent VANDANA stenosis but distal COMMUTATOR INSPECTOR, peroneal, and DPA are patent with normal Doppler upstrokes-picture is not consistent with critical limb ischemia and arterial perfusion is adequate to heal the planned surgical wound. No benefit to additional vascular testing or revascularization Appreciate infectious disease consultation Received 5 days of IV cefepime post op and p.o. Flagyl, can now stop all antibiotics as all diseased bone removed surgically, path bone margins appear healthy, and cellulitis component resolved (2) Atrial fibrillation with rapid ventricular response: Remains with some elevated rates at 100-130 at times/with minimal activity. Her soft blood pressures are limiting rate control Started on digoxin p.o. 125 mcg daily and will need to follow levels and renal function as an outpatient Continue rate control with metoprolol succinate 150mg daily on discharge--> home dose is 200 mg of succinate daily but lowered due to soft BPs Continue Eliquis (3) CAD (coronary artery disease): With a mildly abnormal stress test performed 05/2023 and stable angina Continue apixaban, rosuvastatin (4) Peripheral arterial disease: As noted above, continue Eliquis, statin (5) Heart failure with reduced ejection fraction: Chronic biventricular systolic CHF with reduced LV EF 20-25% and RV systolic function moderately reduced (as noted on 03/31/2022, 4:57pm TTE, now with clinical improvement with LV EF 55-60% and normal RV systolic function on echo from 07/02/2022 Not in acute exacerbation of chronic biventricular systolic CHF or chronic di astolic CHF as patient has no complaints of paroxysmal nocturnal dyspnea, orthopnea Her weight is actually down considerably from 2-3 weeks ago at her CHF clinic appt at which her torsemide dose was icnreased to 20mg daily Given soft BPs, Entresto has been on hold--> continue to hold on discharge and Toprol XL dose lowered to 150mg daily Will reduce torsemide back to 10mg daily F/u with CHF clinic in 1 week is scheduled and may be able to resume Entresto at that time Resume Jardiance on discharge Continue spironolactone 25mg PO daily (6) Diabetes mellitus, type 2: Patient does not actually have a diagnosis of diabetes, most recent hemoglobin A1c was 4% Stopped all Accu-Cheks and insulin Changed to regular diet Plan Chronic medical conditions: Anemia: Chronic macrocytic anemia with baseline Hb range, 11.4-11.9. Hemoglobin here improved at 12.4. She does have history of gastric bypass surgery and likely has nutritional deficiencies although recent B12 and folate as well as iron studies in 12/2023 were normal. Follow-up with PCP. Consider referral to hematology if macrocytosis persists for workup for MDS GERD: Continue PPI Anxiety: Stable, continue buspirone COPD: Stable, continue maintenance inhalers, albuterol as needed Hypothyroidism: Euthyroid on synthroid 50ug PO daily with normal TSH 3.116 in 12/2023 DVT prophylaxis-Eliquis Disposition-dc to home with home health Notes For Next Care Provider Consider Heme referral as outpt for chronic monocytosis Check digoxin levels and BMP in 1 week with CHF clinic Needs close outpt follow up with Ortho for wounds and post-op care of toe Close f/u of Afib will be needed as well Medication Changes From Visit Decreased Toprol XL to 150mg po daily Decreased torsemide to 10mg po daily Added digoxin 125mcg po daily Admission HPI Per Admitting Provider Deirdre Nixon is a 73yo female with history of DM, CAD, PAF presenting with unhealing wounds of her RLE. She reports significant bilateral LE edema over the last week which has caused the skin on her toes to split. Over the last 1.5 weeks she has had open wounds, worst on the right great toe. She was started on Augmentin on 01/28/24 due to concern for infection. She has been taking her Torsemide and reports improvement in her leg edema. She reports stable weight and no cough/SOB/orthopnea. She was seen by Cardiology today and sent to the ER due to concern for infection in her right great toe. Patient denies fever, chills, nausea, vomiting, diarrhea. She is incontinent of urine at baseline which makes her reluctant at times to take her Torsemide. No trauma, no ill-fitting shoes. No additional complaints at this time. In the ER she is afebrile, tachycardic, has some discomfort in the toe Discharge Exam Constitutional WD/WN, vitals as above Respiratory normal respiratory effort, lungs clear to auscultation Cardiovascular Rate/Rhythm: + tachycardic (mild at times) and + irregularly irregular Heart Sounds: no murmur Extremities: no pedal edema Gastrointestinal (Abdomen) normal bowel sounds, soft, nontender, no hepatosplenomegaly Musculoskeletal Extremities: + extremities abnormal to inspection (Bilateral legs and feet in Shaggy wraps) Psychiatric A+Ox3, euthymic affect Discharge Plan Discharge Items Patient Disposition: Home - Home Health Services Reason For Visit: RIGHT GREAT TOE OSTEOMYELITIS Discharge Diagnosis: Right great toe osteomyelitis and amputation Left foot ulcers Rapid atrial fibrillation Activity: As commented below Bathing: Keep incision dry Non-emergency contact: Primary Care Provider, Surgeon and Court Worker Call non-emergency contact if: you have any medication questions, your symptoms worsen, your pain is not controlled, you have a fever, your wound has increased redness, your wound has increased drainage and your wound pain has increased Follow-up/Referrals: Yu Gauthier MD [Primary Care Provider] - (Follow up within 1-2 weeks) Morgan Maciel MD [Physician] - (Follow up within 2 weeks) Saida Laguna PA-C [Physician Honing Machine Set Up Operator] - 02/23/24 10:30 am Vimal Gimenez MD [Surgeon] - (3-5 days after discharge) Diet: Carb Consistent or DM2 and Low Sodium (2gm) Addtl Attending Provider Instructions: You do not need any further antibiotics for your foot infection as you completed 5 days of IV antibiotics after your surgery. Please continue wound care with home nursing and follow up with Orthopedic Surgery in their office. Your atrial fibrillation was causing your heart rate to be high. Your torsemide dose will be reduced back to 10mg daily as your weight is down quite a bit from fluid loss. Your metoprolol dose was decreased to 150mg daily and you were started on digoxin to lower your fast heart rate. Please follow up with your Court Worker and the CHF clinic within 2 weeks. Addtl Chief Program Officer Provider Instructions: Weight bear as tolerated with walker, cam boot on RLE at all times, post op shoe on LLE Dressing change left foot per wound care nurse Ice and elevation as needed for swelling Range of motion as tolerated - PT/OT Follow up with [facility] orthopedics in 3-5 days from discharge for Right great toe dressing change Pending Studies at Discharge: Yes (Final wound culture) Stand-Alone Forms: My [facility] Veodin, Smoking Cessation Medications and DC Order Prescriptions: New digoxin [Digitek] 125 mcg (0.125 mg) Tablet 0.125 mg PO DAILY@1600 Qty: 30 0RF torsemide 10 mg tablet 10 mg PO DAILY Qty: 30 0RF Continued Farxiga 10 mg tablet 10 mg PO DAILY Qty: 90 3RF levothyroxine 50 mcg tablet 50 mcg PO DAILY Qty: 90 3RF omeprazole 40 mg capsule,delayed release(DR/EC) 40 mg PO DAILY Qty: 90 3RF albuterol sulfate 90 mcg/actuation HFA aerosol inhaler 1 puff INHALATION DAILY PRN (Reason: Shortness Of Breath) Qty: 8.5 5RF buspirone 10 mg tablet 10 mg PO TID Qty: 270 3RF Trelegy Ellipta 100-62.5-25 mcg blister with device 1 inh inhalation DAILY Qty: 60 11RF spironolactone 25 mg tablet 25 mg PO DAILY Qty: 90 6RF nystatin 100,000 unit/gram cream 1 applic topical BID Qty: 30 1RF rosuvastatin 5 mg tablet 5 mg PO DAILY Qty: 90 3RF tramadol 50 mg tablet 100 mg PO BID PRN (Reason: Pain) Qty: 120 1RF Eliquis 5 mg tablet 5 mg PO BID Qty: 60 5RF acetaminophen 650 mg tablet extended release 650 mg PO BID PRN (Reason: Pain) vitamin B complex Tablet 1 tab PO DAILY calcium carb-mag ox-zinc gluc 333-133-5 mg tablet 1 tab PO DAILY teriparatide 20 mcg/dose (600mcg/2.4mL) pen injector 20 mcg subcut DAILY Rx Instructions: as directed by your prescriber, pt. uses HS Vitamin A 2,400 mcg capsule 2,400 mcg PO DAILY Vitamin B12 500 mcg tablet 500 mcg PO BID ascorbic acid (vitamin C) 1,000 mg tablet 1 g PO DAILY nxiglugl-emtnedv-wvyj-lutein Tablet 1 tab PO DAILY cholecalciferol (vitamin D3) See Rx Instructions PO DAILY Rx Instructions: 5,000 iu orally daily; fluticasone propionate 50 mcg/actuation spray,suspension See Rx Instructions .ROUTE HS Dose Instruction: USE 1 SPRAY(S) IN EACH NOSTRIL IN THE MORNING Rx Instructions: USE 1 SPRAY(S) IN EACH NOSTRIL IN THE MORNING at bedtime; nitroglycerin 0.4 mg tablet, sublingual 0.4 mg Sublingual Q5M PRN (Reason: Chest Pain) Qty: 100 1RF Changed metoprolol succinate 100 mg tablet extended release 24 hr 150 mg PO DAILY Qty: 45 0RF Held Entresto 24-26 mg tablet 1 tab PO BID Qty: 180 3RF Hold Instructions: Resume on 02/23/24. Hold until Cardiology tells you to resume this Discontinued amoxicillin-pot clavulanate 875-125 mg tablet 1 tab PO BID 14 Days Qty: 28 0RF torsemide 20 mg tablet 20 mg PO DAILY Qty: 30 5RF Discharge Orders: Discharge Order (Routine); Ordered 02/16/24 Ordered By: Manuela Albert Admission Data Admit Date/Time: 02/08/24 20:48 Attending Provider: Manuela Albert Admit Provider: Candace Wiseman Primary Care Provider: Yu Gauthier Other Providers: Candace Wiseman; Vimal Gimenez; Morgan Maciel; [facility] Stay Data Consultations 02/08/24 20:24 ED Decision to Admit Stat 02/09/24 03:11 Consult Orthopedic Surgery Routine 02/09/24 13:08 Consult Infectious Diseases Routine 02/10/24 08:15 Consult Cardiology Routine Procedures Performed Operation Date: 02/11/24 08:50 Actual Procedures p Right Great Toe Amputation(Right) - Vimal Gimenez MD s Right Percutaneous Achilles Lengthening(Right) - MD priscilla La Left Foot Wound Debridement(Left) - Vimal Gimenez MD Diagnostic Imagining Performed 02/09/24 10:49 US arterial duplex LE BI Routine 02/11/24 08:50 FL toe RT 2V Routine 02/11/24 08:57 US - OR guided needle placemen Routine Pending Results Patient Have Any Pending Studies at Discharge: Yes (Final wound culture) Discharge Instructions Given to Patient (Per Discharging Provider) You do not need any further antibiotics for your foot infection as you completed 5 days of IV antibiotics after your surgery. Please continue wound care with home nursing and follow up with Orthopedic Surgery in their office. Your atrial fibrillation was causing your heart rate to be high. Your torsemide dose will be reduced back to 10mg daily as your weight is down quite a bit from fluid loss. Your metoprolol dose was decreased to 150mg daily and you were started on digoxin to lower your fast heart rate. Please follow up with your Court Worker and the CHF clinic within 2 weeks. Total Time Total Time Spent Total Time Spent (In Minutes): 35 min Total Time Includes: Examination of the Patient, Discharge Planning, Medication Reconciliation and Communication With Other Providers (Cardiology, Infectious Disease) Coding Level of Care Code 44978 INP/OBS DISCH >30 MIN Diagnoses Acute osteomyelitis of right foot M86.171 Atrial fibrillation with rapid ventricular response I48.91 CAD (coronary artery disease) I25.10 Peripheral arterial disease I73.9 Heart failure with reduced ejection fraction I50.20 Diabetes mellitus, type 2 E11.9
--- NOTE | 2024-02-16 13:41 | Cardiology Progress Note ---
Date of Service February 16, 2024 Assessment & Plan (1) Atrial fibrillation with rapid ventricular response: (2) Heart failure with improved ejection fraction (HFimpEF): Plan ASSESSMENT/PLAN: 1. Atrial fibrillation: Persistent. Metoprolol has been intermittently held by nursing staff, such as last evening, due to hypotension. She has since been placed on digoxin. Heart rate today with both medications is acceptable. Agree with reduction in diuretic to allow for improved blood pressure and further rate controlling medications as necessary. Check digoxin level at the end of this week. Continue anticoagulation for stroke risk reduction. Monitor renal function and CBC. Asymptomatic from atrial fibrillation. 2. Heart failure with improved EF: Most recent LV systolic function reportedly normal. She is likely mildly hypovolemic as labs suggest azotemia. Reduce torsemide to 10 mg daily, which she had been on in the outpatient setting until earlier this month. Had been on GDMT with SGLT2 inhibitor, mineralocorticoid receptor antagonist, and ARNI. Given hypotension, ARNI and SGLT2 inhibitor is being held. Continue spironolactone. These other medications can be resumed in the outpatient setting when able. 3. PAD s/p left SFA/polpliteal angioplasty (06/2020): Continue to follow with Dr. Maciel of vascular. 4. Disposition: Follow-up within 1 week with Saida Laguna. Spoke with her via telephone to monitor renal function, electrolytes, and digoxin level at the end of this week. Patient care communicated with Dr. Albert of the primary hospitalist service. Admission and Anticipated Discharge Date Admission Date: February 08, 2024 Subjective Patient seen earlier this afternoon. I was asked by Dr. Albert to evaluate patient given atrial fibrillation with rapid ventricular response. She denies palpitations, chest pain, shortness of breath, syncope, near syncope, melena, hematochezia, or hematuria. She states that she has chronic edema however it is very well-controlled currently. She plans on going home today. She was unaccompanied. Physical Exam Physical Exam: Gen.: No acute distress. Alert and oriented. HEENT: Anicteric sclera. Neck: No JVD. No hepatojugular reflux. Cardiac: Irregularly irregular. Normal heart rate. Normal S1-S2. 1/6 systolic murmur. Pulmonary: Clear to auscultation bilaterally without wheezes, rales, or rhonchi. Abdomen: Soft, nontender, nondistended, with normoactive bowel sounds. No bruits noted. Extremities: 2+ radial pulses bilaterally. Trace left lower extremity edema. Right lower extremity in a boot. Psychiatric: Affect appears appropriate. Results & Data Vital Signs (Past 12 Hours) Vital Signs Temp Pulse Pulse Resp BP Pulse Ox O2 Del Method 02/16/24 11:36 36.7 C 67 18 86/59 L 98 Room Air 02/16/24 07:36 36.6 C 92 H 18 110/69 98 Room Air 02/16/24 07:20 107 H 02/16/24 03:49 36.7 C 97 H 18 109/73 96 Room Air Intake & Output 02/14/24 02/15/24 02/16/24 02/17/24 06:59 06:59 06:59 06:59 Intake Total 460 / 460 730 / 730 780 / 780 Output Total 1451 / 1451 2101 / 2101 2200 / 2200 Balance -991 / -991 -1371 / -1371 -1420 / -1420 Weight 146 lb 2.664 oz 144 lb 3.2 oz 145 lb 8.081 oz Laboratory Results Laboratory Results - last 24 hr 02/16/24 06:14 WBC 5.37 RBC 3.34 L Hgb 11.7 L Hct 35.6 L MCV 106.6 H MCH 35.0 H MCHC 32.9 RDW Std Deviation 45.3 RDW Coeff of Krista 11.6 Plt Count 181 MPV 10.4 Sodium 137 Potassium 4.2 Chloride 94 L Carbon Dioxide 34 H Anion Gap 9 BUN 52 H Creatinine 1.38 H Est Cr Clr Drug Dosing 33.9 eGFR 40.42 BUN/Creatinine Ratio 37.7 H Glucose 83 Calcium 9.4 Total Bilirubin 0.6 Direct Bilirubin 0.1 AST 36 ALT 20 Alkaline Phosphatase 61 Total Protein 6.9 Albumin 3.5 Diagnostic Findings Telemetry personally reviewed: Atrial fibrillation. Heart rate this afternoon 80s to 90s. Overnight, heart rate was elevated. Labs reviewed and notable for mild anemia, uptrending BUN and creatinine, normal transaminase levels. Medications Administered Current Inpatient Medications Acetaminophen (Acetaminophen 325 Mg Tab) 650 mg PO Q4H PRN PRN Reason: Pain or Fever Stop: 03/10/24 00:19 Last Admin: 02/15/24 11:48 Dose: 650 mg Albuterol (Albuterol Hfa 8 Gm Inhaler) 1 puffs INH DAILY PRN PRN Reason: Shortness Of Breath Stop: 03/10/24 03:14 Apixaban (Apixaban 5 Mg Tablet) 5 mg PO BID [facility] Stop: 03/15/24 20:59 Last Admin: 02/16/24 08:33 Dose: 5 mg Buspirone HCl (Buspirone 5 Mg Tab) 10 mg PO TID [facility] Stop: 03/10/24 08:59 Last Admin: 02/16/24 08:33 Dose: 10 mg Digoxin (Digoxin 0.125 Mg Tab) 0.125 mg PO DAILY@1600 [facility] Stop: 03/16/24 15:59 Last Admin: 02/15/24 16:46 Dose: 0.125 mg Fluticasone Furoate (Fluticasone Furoate 100mcg 14 Puffs/Inhaler) 1 puffs INH DAILY [facility] Stop: 03/10/24 08:59 Last Admin: 02/16/24 08:34 Dose: 1 puffs Fluticasone Propionate (Fluticasone Propionate Na Spr 16 Gm Btl) 1 sprays NA HS [facility] Stop: 03/10/24 20:59 Last Admin: 02/15/24 20:46 Dose: 1 sprays Cefepime HCl (Maxipime 2000mg) 2,000 mg in 20 mls @ 5 mls/min IV Q12H [facility]; Protocol Stop: 03/22/24 08:59 Last Admin: 02/16/24 08:32 Dose: 5 mls/min Levothyroxine Sodium (Levothyroxine Sodium 50 Mcg Tablet) 50 mcg PO DAILYBB [facility] Stop: 03/10/24 06:29 Last Admin: 02/16/24 05:55 Dose: 50 mcg Melatonin (Melatonin 3 Mg Tab) 3 mg PO HS PRN PRN Reason: Sleep Stop: 03/13/24 20:58 Last Admin: 02/14/24 20:28 Dose: 3 mg Metoprolol Tartrate (Metoprolol Tartrate 25 Mg Tab) 75 mg PO BID [facility] Stop: 03/12/24 20:59 Last Admin: 02/16/24 08:32 Dose: 75 mg Metronidazole (Metronidazole 500 Mg Tab) 500 mg PO BID [facility]; Protocol Stop: 03/28/24 20:59 Last Admin: 02/16/24 08:33 Dose: 500 mg Naloxone HCl (Naloxone Hcl 0.4 Mg/1 Ml Vial/Carp) 0.1 mg IV Q5M PRN PRN Reason: Oversedation/Resp Depression Stop: 03/12/24 13:46 Ondansetron HCl (Ondansetron Inj 2 Mg/Ml 2 Ml Vial) 4 mg IV Q6H PRN PRN Reason: Nausea And Vomiting Stop: 03/10/24 00:19 Last Admin: 02/15/24 12:16 Dose: 4 mg Pantoprazole Sodium (Pantoprazole 40 Mg Tab) 40 mg PO DAILY [facility] Stop: 03/10/24 08:59 Last Admin: 02/16/24 08:33 Dose: 40 mg Rosuvastatin Calcium (Rosuvastatin Calcium 5 Mg Tab) 5 mg PO DAILY ASHWINI Stop: 03/10/24 08:59 Last Admin: 02/16/24 08:32 Dose: 5 mg Spironolactone (Spironolactone 25 Mg Tab) 25 mg PO DAILY ASHWINI Stop: 03/10/24 08:59 Last Admin: 02/16/24 08:33 Dose: 25 mg Torsemide (Torsemide 20 Mg Tab) 20 mg PO DAILY ASHWINI Stop: 03/10/24 08:59 Last Admin: 02/16/24 08:34 Dose: 20 mg Tramadol HCl (Tramadol Hcl 50 Mg Tablet) 100 mg PO BID PRN PRN Reason: Pain Stop: 03/10/24 03:14 Last Admin: 02/15/24 20:45 Dose: 100 mg Umeclidinium/Vilanterol (Umeclidinium/Vilanterol 62.5/25mcg 7 Puffs/Inhaler) 1 puffs INH DAILY ASHWINI Stop: 03/10/24 08:59 Last Admin: 02/16/24 08:35 Dose: 1 puffs PG Care Time/CCT Total # of Minutes Spent Total Time Spent with Patient: Total time spent is greater than 50% in coordination of care (as documented) at patient's floor/unit and/or counseling patient: Coding Level of Care Code 16555 SUB INP/OBS CARE 3/50MIN Diagnoses Atrial fibrillation with rapid ventricular response I48.91 Heart failure with improved ejection fraction (HFimpEF) I50.32
[2024-02-16 13:52] VITALS: BP 84/60; PULSE 124
== END 2024-02-16 16:00 | disposition home health service (06) | DRG 617 ==
LOC: ED 17:58 → SUATTDRO 20:48 → 3E 20:48 → 2W 02-09 17:18